=== PATIENT | male | born 1960 | race Caucasian/White ===

== ENCOUNTER 2023-08-29 09:43 | Outpatient (OUT) | payer OTHER, SELFPAY ==
[2023-08-29 10:16] LABS: Basophils Absolute Auto 0.1 10^3/uL (0.0-0.1); Basophils Percent Auto 0.8 % (0.2-2.0); Eosinophils Absolute Auto 0.1 10^3/uL (0.0-0.7); Eosinophils Percent Auto 1.3 % (0.9-7.0); Hematocrit 45.5 % (42.0-54.0); Hemoglobin 15.5 g/dL (14.0-18.0); Lymphocytes Absolute Auto 1.4 10^3/uL (1.2-3.8); Lymphocytes Percent Auto 14.2 % (20.5-60.0); Mean Corpuscular HGB Conc 34.1 g/dL (29.9-35.2); Mean Corpuscular Hemoglobin 29.1 pg (25.9-34.0); Mean Corpuscular Volume 85.4 fL (80.0-94.0); Mean Platelet Volume 9.7 fL (9.5-13.5); Monocytes Absolute Auto 0.8 10^3/uL (0.3-0.8); Monocytes Percent Auto 7.9 % (1.7-12.0); Neutrophils Absolute Auto 7.5 10^3/uL (1.4-6.5); Neutrophils Percent Auto 74.8 % (43.0-75.0); Platelet Count 200 10^3/uL (150-450); Red Blood Count 5.33 10^6/uL (4.70-6.10); Red Cell Distribution Width 13.8 % (11.0-15.0)
[2023-08-29 11:35] LABS: Alanine Aminotransferase 42 U/L (16-63); Albumin Level 3.5 g/dL (3.4-5.0); Alkaline Phosphatase 74 U/L (46-116); Anion Gap 13.8; Aspartate Amino Transferase 24 U/L (15-37); BUN Creatinine Ratio 10.7; Bilirubin Total 0.6 mg/dL (0.2-1.0); Calcium 8.4 mg/dL (8.5-10.1); Carbon Dioxide 26.2 mmol/L (21.0-32.0); Chloride 102 mmol/L (98-107); Estimated GFR (African America >60 (>=60); Estimated GFR (Non-African Ame >60 (>=60); Globulin 3.5 g/dL; Glucose 165 mg/dL (74-106); Sodium 138 mmol/L (136-145); Thyroid Stimulating Hormone 1.663 uIU/mL (0.358-3.740)
[2023-08-30 04:07] LABS: Prostate Specific Ag 4.5 ng/mL (0.0-4.0)
== END 2023-08-29 09:44 | disposition home or self-care (01) ==
PROVIDERS: PCP Family Medicine
DX: R06.02 Shortness of breath (principal); E11.9 Type 2 diabetes mellitus without complications; Z12.5 Encounter for screening for malignant neoplasm of prostate; R13.10 Dysphagia, unspecified
CPT/HCPCS: 36415; 80053; 83880; 84153; 84154; 84443; 85025

== ENCOUNTER 2023-09-04 09:01 | Outpatient (OUT) | payer OTHER, SELFPAY ==
--- NOTE | 2023-09-04 09:10 | US_ITS ---
The [address] [address] Patient Name: REBECA HERRON MRN: [id number] date: 1960 Sex: M Assigned Patient Location: US Current Patient Location: Accession/Order Number: [id number] Exam Date: 09/04/2023 09:15 Report Date: 09/05/2023 07:09 At the request of: NON-STAFF PHYSICIAN Procedure: US thyroid EXAMINATION: US thyroid HISTORY: Dysphagia R13.10 COMPARISON: No relevant comparison available. FINDINGS: RIGHT LOBE: Heterogeneous echotexture and contains an 11 mm TR 4 nodule within inferior pole, and an incidental 4 mm colloid cyst. Lobe size: 3.2 x 2.4 x 1.6 cm LEFT LOBE: Heterogeneous echotexture and contains a 9 mm TR 3 nodule within inferior pole. Lobe size: 3.9 x 1.5 x 1.3 cm ISTHMUS: Heterogeneous echotexture and mildly thickened; no nodules. Thickness: 5 mm US/US thyroid IMPRESSION: 1. Right lobe 11 mm TR 4 nodule, which border zone TR5. Ultrasound-guided biopsy should be considered. TR4 (moderately suspicious): If > 1.0 cm Follow-up ultrasound in 1, 2, 3, and 5 years. If > 1.5 cm fine needle aspiration (FNA). TR5 (highly suspicious) are listed below: > 0.5 cm. Annual ultrasound follow-up for up to 5 years. > 1.0 cm. FNA. Electronically authenticated by: BLANCA MAYEN Date: 09/05/2023 07:09
== END 2023-09-04 09:02 | disposition home or self-care (01) ==
LOC: US 09:01
PROVIDERS: PCP Family Medicine
DX: R13.10 Dysphagia, unspecified (principal); E04.1 Nontoxic single thyroid nodule
CPT/HCPCS: 76536

== ENCOUNTER 2023-11-10 09:58 | Outpatient (OUT) | payer OTHER, SELFPAY ==
--- OUTSIDE RECORDS SUMMARY | 2023-11-10 10:05 | XMS_ITS | CCD ---
Author Name Unknown Address [address] [place] [address] Organization [facility] Care Team Providers Care Machine Tool Dresser Name Role Phone Brittany Zuniga Unavailable TitaMarisa bright Unavailable CAROLINA PHAM Admitting Unavailable VERO, CAROLINA Attending Unavailable ESTRELLA, DR REEDER Primary Care Unavailable ESTRELLA, DR REEDER Attending Unavailable ESTRELAL, DR REEDER Admitting Unavailable ESTRELLA, DR REEDER Primary Care Unavailable ESTRELLA, DR REEDER Consulting Unavailable VEROCAROLINA Consulting Unavailable VERO, CAROLINA Attending Unavailable VERO, CAROLINA Admitting Unavailable ESTRELLA, DR REEDER Primary Care Unavailable VERO, CAROLINA Attending Unavailable VERO, CAROLINA Admitting Unavailable ESTRELLA, DR REEDER Primary Care Unavailable MD Dante Rangel Attending Provider MD Lilli Estrella Primary Care Provider [phone] Dante Rangel Admitting Unavailable Dante Rangel Attending Unavailable Lilli Estrella Primary Care Unavailable LANDON TITUS Referring Unavailable MURCELANDON Patricio Attending Unavailable WARCHOL, CAROLINA Attending Unavailable MAUROCELANDON Patricio Attending Unavailable WARCHOL, CAROLINA Referring Unavailable LILLI ESTRELLA Primary Care Physician [phone] Mario BERMUDEZ Attending Unavailable CAROLNIA PETER Referring Unavailable Mario BERMUDEZ Attending Unavailable Allergies Allergy Classification Reported Allergen(s) Allergy Type Date of Onset Reaction(s) Facility (4 sources) Ciprofloxacin; Translations: [ciprofloxacin] Drug Allergy 3 Swelling (morphologic abnormality) [facility] (3 sources) Ciprofloxacin; Translations: [Cipro] Drug Allergy 4 [facility] (1 source) Ciprofloxacin Drug Allergy 3 [facility] Medications Current Medications Medication Drug Class(es) Dates Sig (Normalized) Sig (Original) allopurinol 300 mg oral tablet (2 sources) Xanthine Oxidase Inhibitor Start: 11-03-2023 allopurinol 300 mg Tab Refills(s) 0 Start Date: 11/03/23 Status: Ordered Allopurinol Acti ve ALPRAZolam (2 sources) Benzodiazepine Xanax PRN Active Xanax Active ARIPiprazole (1 source) Atypical Antipsychotic Abilify A ctive atorvastatin (1 source) HMG-CoA Reductase Inhibitor Atorvastatin Calcium Active busPIRone hydrochloride 15 mg oral tablet (3 sources) Start: 11-03-2023 busPIRone 15 mg Tab Refills(s) 0 Start Date: 11/03/23 Status: Ordered busPIRone HCl Ac tive dextromethorphan hydrobromide 30 mg / pyrilamine maleate 30 mg oral tablet (1 source) Uncompetitive W-drdrkj-E-aspartate Receptor Antagonist, Sigma-1 Agonist Start: 12-28-2021 [place] DMT 30-30 MG 1 tablet Orally every 6-8 hours for 7 days Dec, Active doxycycline hyclate 100 mg oral capsule (1 source) Tetracycline-class Drug Start: 11-03-2023 End: 11-10-2023 take 1 capsule by mouth twice daily doxycycline hyclate 100 mg Cap 100 mg = 1 cap(s), Oral, BID, X 7 day(s), # 14 cap(s), Refills(s) 0, Pharmacy: [facility]/pharmacy #[id number], 175, cm, 11/03/23 10:32:00 EST, Height/Length Dosing, 112, kg, 11/03/23 10:32:00 EST, Weight Dosing Start Date: 11/03/23 Stop Date: 11/10/23 Status: Ordered FLUoxetine (3 sources) Serotonin Reuptake Inhibitor PROzac Active Fluoxetine Activ e glimepiride 2 mg oral tablet (1 source) Sulfonylurea Start: 11-03-2023 glimepiride 2 mg Tab Refills(s) 0 Start Date: 11/03/23 Status: Ordered metFORMIN (3 sources) Biguanide metFORMIN HCl Ac tive Metformin Active phentermine hydrochloride 37.5 mg oral tablet (1 source) Sympathomimetic Amine Anorectic Start: 11-03-2023 phentermine 37.5 mg Tab Refills(s) 0 Start Date: 11/03/23 Status: Ordered rOPINIRole 1 mg oral tablet (1 source) Nonergot Dopamine Agonist Start: 11-03-2023 ropinirole 1 mg Tab Refills(s) 0 Start Date: 11/03/23 Status: Ordered rosuvastatin calcium 5 mg oral tablet (2 sources) HMG-CoA Reductase Inhibitor Start: 11-03-2023 rosuvastatin 5 mg Tab Refills(s) 0 Start Date: 11/03/23 Status: Ordered Start: 06-02-2022 Rosuvastatin C alcium May, Active Completed/Discontinued Medications Medication Drug Class(es) Dates Sig (Normalized) Sig (Original) methylPREDNISolone (2 sources) Corticosteroid Start: 09-06-2018 Depo-Medrol 40 mg Aug, 60 mg Problems Active Problems Problem Classification Problem Date Documented Da te Episodic/Chronic Diabetes mellitus without complication (7 sources) Type 2 diabetes mellitus without complications; Translations: [Type 2 diabetes mellitus without complication] Onset: 07-27-2022 Chronic Disorders of lipid metabolism (1 source) Mixed hyperlipidemia; Translations: [MIXED HYPERLIPIDEMIA] Onset: 02-16-2023 Chronic Gout and other crystal arthropathies (1 source) Gout 11-03-2023 Chronic Hyperplasia of prostate (2 sources) Benign prostatic hypertrophy with outflow obstruction; Translations: [Benign prostatic hyperplasia with lower urinary tract symptoms] Onset: 11-03-2023 Chronic Mood disorders (1 source) Major depressive disorder 10-30-2023 Chronic Nutritional deficiencies (4 sources) Vitamin D deficiency, unspecified; Translations: [VITAMIN D DEFICIENCY UNSPECIFIED] Onset: 02-11-2023 Chronic Other lower respiratory disease (1 source) Cough; Translations: [Cough, unspecified type] Episodic Other screening for suspected conditions (not mental disorders or infectious disease) (4 sources) Other specified abnormal findings of blood chemistry; Translations: [Encounter for screening for malignant neoplasm of prostate] Onset: 07-31-2022 Episodic Screening and history of mental health and substance abuse codes (2 sources) H/O: Disorder; Translations: [Personal history of nicotine dependence] Onset: 11-03-2023 Episodic Thyroid disorders (1 source) Thyroid nodule 10-30-2023 Chronic Unclassified (1 source) Drug-induced tremor; Translations: [Drug-induced tremor] Onset: 04-03-2023 Past or Other Problems Problem Classification Problem Date Documented Da te Episodic/Chronic Immunizations and screening for infectious disease (1 source) Contact with and (suspected) exposure to other viral communicable diseases Onset: 12-28-2021 Resolved: 12-28-2021 Episodic Other upper respiratory infections (1 source) Acute upper respiratory infection, unspecified Onset: 12-28-2021 Resolved: 12-28-2021 Episodic Unclassified (1 source) Cough, unspecified type R05.9 Onset: 06-02-2022 Resolved: 06-02-2022 Viral infection (1 source) COVID-19 Onset: 06-02-2022 Resolved: 06-02-2022 Results Test Name Value Interpretation Reference Range Facility Consent for Procedure/Surger yon 11-04-2023 Consent for Procedure/Surgery [id number] #1.00TIFF [facility] Formson 11-04-2023 Forms [id number]# 1.00TIFF [facility] Physician Referralon 024 Physician Referral [id number] #1.00TIFF [facility] Ambulatory Visit Summaryon 0 11-03-2023 Ambulatory Visit Summary REBECA HERRON A :1960 Visit Date:11/03/2023 Ambulatory Visit Instructions Your Diagnosis Elevated PSA BPH with urinary obstruction Type 2 diabetes mellitus Former smoker Tests Performed Urnls Dip Stick Auto w/o Microscopy POC 80177 Your Care Team Attending Physician - JENNIFER HURTADO, Mario Houston Primary Care Physician - QUIRINO HURTADO, LILLI Referring Physician - CAROLINA GAMEZ This Is Your Medications List doxycycline (doxycycline hyclate 100 mg Cap) Contact prescribing physician if questions or concerns allopurinol (allopurinol 300 mg Tab) busPIRone (busPIRone 15 mg Tab) glimepiride (glimepiride 2 mg Tab) phentermine (phentermine 37.5 mg Tab) ropinirole (ropinirole 1 mg Tab) rosuvastatin (rosuvastatin 5 mg Tab) Procedures Performed Colonoscopy, Procedure on neck, Ts - Tonsillectomy. Discharge Vitals Heart Rate (Peripheral) 85 Respiratory Rate 16 Blood Pressure 135/89 Height 175 cm Height 69 in Weight 112 kg Weight 246.4 lb BMI 36.57 What to do next Scheduled Follow-Up Appointments Friday 8:45 AM EST With: JENNIFER HURTADO, Mario Houston Where: [facility] Patient Educationon 11-03-19 Patient Education Oncology Transrectal Ultrasound-Guided Prostate Biopsy, Care After The following information offers guidance on how to care for yourself after your procedure. Your health care provider may also give you more specific instructions. If you have problems or questions, contact your health care provider. What can I expect after the procedure? After the procedure, it is common to have: ? Pain and discomfort near your rectum, especially while sitting. ? Lagrange-colored urine due to small amounts of blood in your urine. ? A burning feeling while urinating. ? Blood in your stool (feces) or bleeding from your rectum. ? Blood in your semen. Follow these instructions at home: Medicines ? Take kgvc-pnx-jjdgzik and prescription medicines only as told by your health care provider. ? If you were given a sedative during your procedure, it can affect you for several hours. Do not drive or operate machinery until your health care provider says that it is safe. ? If you were prescribed an antibiotic medicine, take it as told by your health care provider. Do not stop using the antibiotic even if you start to feel better. Activity ? Return to your normal activities as told by your health care provider. Ask your health care provider what activities are safe for you. ? Ask your health care provider when it is okay for you to resume sexual activity. ? You may have to avoid lifting. Ask your health care provider how much you can safely lift. General instructions ? Drink enough fluid to keep your urine pale yellow. ? Watch your urine, stool, and semen for new or increased bleeding. ? Keep all follow-up visits. This is important. Contact a health care provider if: ? You have any of the following: ? Blood clots in your urine or stool. ? Blood in your urine more than 2 weeks after the procedure. ? Blood in your semen more than 2 months after the procedure. ? New or increased bleeding in your urine, stool, or semen. ? Severe pain in your abdomen. ? Your urine smells bad or unusual. ? You have trouble urinating. ? Your lower abdomen feels firm. ? You have problems getting an erection. ? You have nausea or you vomit. Get help right away if: ? You have a fever or chills. This could be a sign of infection. ? You have bright red urine. ? You have severe pain that does not get better with medicine. ? You cannot urinate. Summary ? After this procedure, it is common to have pain and discomfort around your rectum, especially while sitting. ? You may have blood in your urine and stool after the procedure. ? It is common to have blood in your semen after this procedure. ? Get help right away if you have a fever or chills. This could be a sign of infection. This information is not intended to replace advice given to you by your health care provider. Make sure you discuss any questions you have with your health care provider. Document Revised: 04/08/2022 Document Reviewed: 04/08/2022 [employer] Patient Education ? 2022 [email or web address]. Transrectal Ultrasound-Guided Prostate Biopsy A transrectal ultrasound-guided prostate biopsy is a procedure to remove samples of prostate tissue for testing. The prostate is a walnut-sized gland that is located below the bladder and in front of the rectum. During this procedure, a small device (probe) is lubricated and put inside the rectum. The probe sends out sound waves that make a picture of the prostate and surrounding tissues (transrectal ultrasound). The images are used to help guide the process of removing the samples. The samples are taken to a lab to be checked for prostate cancer. This procedure is usually done to evaluate the prostate gland of men who have raised (elevated) levels of prostate-specific antigen (PSA), which can be a sign of prostate cancer or prostate enlargement related to aging (benign prostatic hyperplasia, or BPH). Tell a health care provider about: ? Any allergies you have. ? All medicines you are taking, including vitamins, herbs, eye drops, creams, and uqrz-fve-fgrbpcx medicines. ? Any problems you or family members have had with anesthetic medicines. ? Any bleeding problems you have. ? Any surgeries you have had. ? Any medical conditions you have. ? Any prostate infections you have had. What are the risks? Generally, this is a safe procedure. However, problems may occur, including: ? Prostate infection. ? Bleeding from the rectum. ? Blood in the urine. ? Allergic reactions to medicines. ? Damage to surrounding structures such as blood vessels, organs, or muscles. ? Difficulty passing urine. ? Nerve damage. This is usually temporary. What happens before the procedure? Medicines Ask your health care provider about: ? Changing or stopping your regular medicines. This is especially important if you are taking diabetes medicines or blood thinners. ? Taking medicines such as aspirin (more content not included)... Normal [facility] Urology Office/Clinic Noteon 11-03-2023 Urology Office/Clinic Note Chief Complaint elevated PSA HPI Staff Evaluation requested by Carolina Peter RAIL CAR WELDER due to elevated PSA. Pt is a new pt. Never before seen in our office. (Verified on DA) PSA 01/08/20- 2.47 09/15/21- 1.71 07/27/22- 3.35 08/29/23- 4.5 & 15.6% Dysuria: no Incomplete bladder emptying: no Hematuria: no Frequency: no Urgency: no Nocturia: 1-2x Stream: no straining some intermittency Leaking: no Post void dripping: no Wearing pads/ Depends: no Urge incontinence: no Stress incontinence: no Incontinence without Sensory Awareness: no Abdominal pain: no Flank pain: no Sexual complaints: no History of Present Illness Tests reviewed: reviewed UA, referral records, PSAs I have reviewed the previous health record information and history for this patient from external providers. I have reviewed and verified the staff HPI to be accurate for this encounter. Review of Systems PHQ Score Initial Depression Screen Score: 0 SCORE ROS - Provider Constitutional: denies weight loss, denies hot flashes. Eyes: denies eye problems. Gastrointestinal: denies nausea, denies vomiting. Cardiovascular: denies chest pain or angina. Integumentary: no dryness Musculoskeletal: denies musculoskeletal symptoms. ENMT: denies otolaryngeal symptoms. Respiratory: no shortness of breath. Heme/Lymph: denies easy bleeding tendency, denies easy bruising tendency. Psychiatric: no confusion, no anxiety. Genitourinary: See HPI. Physical Exam Vitals & Measurements HR: 85(Peripheral) RR: 16 BP: 135/89 HT: 69 in HT: 175 cm WT: 112 kg WT: 246.4 lb BMI: 36.57 General Appearance: alert, no distress, well nourished, well developed male. Head: normocephalic . Eyes: normal orbit and globe. ENMT: normal examination of external ears. Chest: Lungs CTA, respirations non labored. Cardiovascular: regular rate and rhythm. Abdomen: soft, non distended, no tenderness, no mass or organomegaly, no hernia. Genitourinary: normal scrotum, normal testes, normal urethra, normal epididymis, normal vas deferens/spermatic cord. Flank Pain: none. Bladder: nonpalpable. Penis: normal shaft, normal glans. Prostate: normal prostate, estimated weight 45 gms, no hard nodule observed. Lymph Nodes: unremarkable palpation of the cervical area. Skin: warm, dry, no bruising. Psychiatric: cooperative, affect appropriate for age, normal judgement, euthymic mood. Assessment/Plan Rebeca is a 63 yo male new pt referred by Carolina Peter NP for elevated PSA. 1. Elevated PSA (R97.20: Elevated prostate specific antigen [PSA]) PSA 01/08/20 - 2.47 09/15/21 - 1.71 07/27/22 - 3.35 08/29/23 - 4.5 & 15.6% No known fam hx of prostate ca. IMRIAM: 45gms, benign Discussed PSA levels. Has increased over the past few years. The importance of the rate of PSA rise has been discussed. He has an elevated PSA, which could indicate prostate cancer, prostate infection, prostate inflammation without infection, prostate manipulation, or benign prostate enlargement (BPH). The options for management have been discussed, including prostate biopsy versus close monitoring of the PSA over time. -Will schedule TRUS of Prostate with Biopsy. The procedural risks, benefits, details, and treatment alternatives have been discussed with the patient. These include minimal to severe bleeding, infection, blood in the semen, inability to urinate, and severe infection requiring hospitalization and IV antibiotics, among others. Full informed consent has been obtained. Will order Mac anesthesia. 2. BPH with urinary obstruction (N40.1: Benign prostatic hyperplasia with lower urinary tract symptoms) Occasional start/stop stream. Rarely gets up 1-2x/night. Does not feel his urinary sxs are bothersome enough to warrant treatment. 3. Type 2 diabetes mellitus (E11.9: Type 2 diabetes mellitus without complications) UA today shows >=1000mg/dL glucose. 4. Former smoker (Z87.891: Personal history of nicotine dependence) Quit 34 yrs ago. Risk factor for urothelial ca. Follow-up With When Contact Information Mario BERMUDEZ MD, URL [facility] [address] [place] [address] [phone] Additional Instructions: sched TRUS/bx Patient Education Transrectal Ultrasound-Guided Prostate Biopsy, Care After Transrectal Ultrasound-Guided Prostate Biopsy IAngela, personally scribed for Dr. Bermudez on 11/03/2023 11:18:49. . Documentation recorded by the scribe, Angela Pearce, accurately reflects the services(s) I performed and decisions made by me. Authenticated by Dr. Bermudez on 11/03/2023 11:23:18. Problem List/Past Medical History Ongoing BPH with urinary obstruction Elevated PSA Former smoker Gout Major depressive disorder Thyroid nodule Type 2 diabetes mellitus Historical No qualifying data Procedure/Surgical History Colonoscopy, Procedure on neck, Ts - Tonsillectomy. Medications allopurinol 3 (more content not included)... Normal [facility] Comment on above: Result Comment: Elec tronically Signed By: Mario BERMUDEZ MD\.br\Date and Time Signed: 11/03/23 11:23 EST\.br\Electronically Co-Signed By: Angela Pearce\.br\Date and Time Co-Signed: 11/03/23 11:[address] SOFT TISSUE NECK W IV CON TRASTon 10-22-2023 CT SOFT TISSUE NECK W IV CONTRAST CLINICAL HISTORY: Bilateral upper neck masses COMPARISON: NONE. TECHNIQUE: Multiple images axial images were obtained after IV contrast administration. 3-D sagittal and coronal reconstructions were performed. All CT scans at this facility use dose modulation, iterative reconstruction, and/or weight based dosing when appropriate to reduce radiation dose to as low as reasonably achievable. FINDINGS: The visualized intracranial portions are within normal limits. The orbits demonstrate no intra or extraconal lesions, the globes are intact. The paranasal sinuses are well aerated. There are no lytic or sclerotic bone lesions. There is no fracture or subluxation. The cervical spine is within normal limits. The visualized portions of the lung apices are unremarkable. The nasopharynx and oropharynx are within normal limits. There is no asymmetry or space-occupying lesions. There is mild prominence of the lingual tonsil. The epiglottis is not enlarged. The vallecula are symmetric. The false and true vocal cords are unremarkable. The trachea is patent. There is no cervical lymphadenopathy. There are no areas of abnormal enhancement after IV contrast administration. The bilateral parotid glands and submandibular glands are normal in size and attenuation. The thyroid gland is within normal limits. The great vessels of the neck are mildly tortuous which may be secondary to chronic hypertension. There is a partially retropharyngeal course of the bilateral common carotid arteries. Status post C5-6 and C6-7 discectomies and spacer placement. There is posterior decompression of the cervical spine from C4-C7. IMPRESSION: THERE ARE NO ACUTE CHANGES. THERE ARE NO SOLID OR CYSTIC LESIONS. THERE IS MILD LYMPHADENOPATHY OR AREA OF ABNORMAL ENHANCEMENT. THERE IS MILD PROMINENCE OF THE LINGUAL TONSIL WHICH IS NONSPECIFIC AND MAY BE DUE TO INFECTION, INFLAMMATION. . ELECTRONICALLY SIGNED BY: Joe Jones MD Normal Not Available Comment on above: Order Comment: @noms HI brain spect datscanon HI brain spect datscan [facility] [place] [address] [place] [address] Nuclear Medicine Report Signed Patient: Rebeca Herron MR#: [id number] 32 : 1960 Acct:[id number] Age/Sex: 62 / M ADM Date: 04/03/23 Loc: [place] Room: Type: [facility] Attending Dr: Dante Rangel MD Copies to: MD Calvin Randall II, MD Ordering Provider: Dante Rangel MD Date of Service: 04/03/23 HI/HI brain spect datscan: R25.1 HI brain spect datscan 04/03/2023 7:57 AM SIGNS AND SYMPTOMS: Tremors in right hand PROTOCOL: Following injection of I-123 Ioflupane, SPECT images of the head were obtained and reconstructed in axial plane. Radiopharmaceutical Dose: 5.69 mCi of I-123 Ioflupane COMPARISON: None. FINDINGS: There is asymmetric decreased accumulation of radiotracer material within the right globus pallidus compared to the left. There is symmetric radiotracer accumulation within the Caudate nucleus bilaterally. NM/NM brain spect datscan IMPRESSION: There is asymmetric decreased accumulation of radiotracer material within the right globus pallidus compared to the left. Impression dictated by: Calvin Monreal M.D.04/03/2023 2:43 PM Dictation Location: [place] [address] Transcribed By: [facility] 04/03/23 144 Dictated By: Calvin Monreal II, MD 04/03/231440 Signed By: 04/03/231442 [facility] CBC AUTO DIFFon 02-11-2023 BASO # 0.1 103/ul Normal 0.0-0.1 [facility] Comment on above: Performed By: #### C BC #### [facility] [address] [place] [address] Dr. Cedrick Beatty Basophils/100 WBC (Bld) 0.5 % Normal 0.2-2.0 [facility] Comment on above: Performed By: #### C BC #### [facility] [address] [place] [address] Dr. Cedrick Beatty EO # 0.1 103/ul Normal 0.0-0.7 [facility] Comment on above: Performed By: #### C BC #### [facility] [address] [place] [address] Dr. Cedrick Beatty Eosinophils/100 WBC (Bld) 0.9 % Normal 0.9-7.0 [facility] Comment on above: Performed By: #### C BC #### [facility] [address] [place] [address] Dr. Cedrick Beatty Erythrocyte distribution width (RBC) [Ratio] 13.6 % Normal 11.0-15.0 [facility] Comment on above: Performed By: #### C BC #### [facility] [address] [place] [address] Dr. Cedrick Beatty Hematocrit (Bld) [Volume fraction] 48.6 % Normal 42.0-54.0 [facility] Comment on above: Performed By: #### C BC #### [facility] [address] [place] [address] Dr. Cedrick Beatty Hemoglobin (Bld) [Mass/Vol] 16.5 g/dL Normal 14.0-18.0 [facility] Comment on above: Performed By: #### C BC #### [facility] [address] [place] [address] Dr. Cedrick Beatty IG # 0.14 10e3/ul Critically high 0.00-0.03 [facility] Comment on above: Performed By: #### C BC #### [facility] [address] [place] [address] Dr. Cedrick Beatty IG % 1.1 % Critically high 0.0-0.5 [facility] Comment on above: Performed By: #### C BC #### [facility] [address] [place] [address] Dr. Cedrick Beatty LYMPH # 1.6 103/ul Normal 1.2-3.8 [facility] Comment on above: Performed By: #### C BC #### [facility] [address] [place] [address] Dr. Cedrick Beatty Lymphocytes/100 WBC (Bld) 12.5 % Critically low 20.5-60.0 [facility] Comment on above: Performed By: #### C BC #### [facility] [address] [place] [address] Dr. Cedrick Beatty MANUAL DIFF REQ NO Normal [facility] [facility] Comment on above: Performed By: #### C BC #### [facility] [address] [place] [address] Dr. Cedrick Beatty MCH (RBC) [Entitic mass] 28.5 pg Normal 25.9-34.0 [facility] Comment on above: Performed By: #### C BC #### [facility] [address] [place] [address] Dr. Cedrick Beatty MCHC (RBC) [Mass/Vol] 34.0 g/dL Normal 29.9-35.2 [facility] Comment on above: Performed By: #### C BC #### [facility] [address] [address] [address] Cedrick Beatty MCV (RBC) [Entitic vol] 84.1 fL Normal 80.0-94.0 [facility] Comment on above: Performed By: #### C BC #### [facility] [address] [address] [address] Cedrick Beatty MONO # 1.0 103/ul Critically high 0.3-0.8 [facility] Comment on above: Performed By: #### C BC #### [facility] [address] [place] [address] Dr. Cedrick Beatty Monocytes/100 WBC (Bld) 7.7 % Normal 1.7-12.0 [facility] Comment on above: Performed By: #### C BC #### [facility] [address] [place] [address] Dr. Cedrick Beatty NEUT # 10.0 103/ul Critically high 1.4-6.5 [facility] Comment on above: Performed By: #### C BC #### [facility] [address] [place] [address] Dr. Cedrick Beatty Neutrophils/100 WBC (Bld) 77.3 % Critically high 43.0-75.0 [facility] Comment on above: Performed By: #### C BC #### [facility] [address] [place] [address] Dr. Cedrick Beatty Platelet mean volume (Bld) [Entitic vol] 9.0 fL Critically low 9.5-13.5 [facility] Comment on above: Performed By: #### C BC #### [facility] [address] [place] [address] Dr. Cedrick Beatty PLT 231 103/ul Normal 150-450 [facility] Comment on above: Performed By: #### C BC #### [facility] [address] [place] [address] Dr. Cedrick Beatty RBC 5.78 106/ul Normal 4.70-6.10 [facility] Comment on above: Performed By: #### C BC #### [facility] [address] [address] [address] Cedrick Beatty WBC 12.9 103/ul Critically high 4.0-11.0 [facility] Comment on above: Performed By: #### C BC #### [facility] [address] [address] [address] Cedrick Beatty GLYCOHEMOGLOBIN A1Con 2022 ADA RECOMMENDATION SEE BELOW Normal [facility] Comment on above: Result Comment: ADA RECOMMENDED LIMIT 4.0 - 6.0 ADA THERAPEUTIC TARGET < 7.0 ACTION SUGGESTED > 7.0 Performed By: #### A 1C #### [facility] [address] [place] [address] Dr. Cedrick Beatty Glucose [Mass/Vol] 146 mg/dL Normal [facility] Comment on above: Performed By: #### A 1C #### [facility] [address] [place] [address] Dr. Cedrick Beatty HbA1c (Bld) [Mass fraction] 6.7 % Critically high 4.5-6.2 [facility] Comment on above: Performed By: #### A 1C #### [facility] [address] [place] [address] Dr. Cedrick Beatty LIPID PROFILEon 02-11-2023 CHOL-HDL RATIO NORM SEE BELOW Normal [facility] Comment on above: Result Comment: 3.3 - 4.4 LOW RISK 4.4 - 7.1 AVERAGE RISK 7.1 - 11.0 MODERATE RISK >11.0 HIGH RISK Performed By: #### C MP, LIPID #### [facility] [address] [address] [address] Cedrick Beatty Cholesterol [Mass/Vol] 130 mg/dL Normal <=200 [facility] Comment on above: Performed By: #### C MP, LIPID #### [facility] [address] [address] [address] Cedrick Beatty Cholesterol in HDL [Mass/Vol] 56 mg/dL Normal 40-60 [facility] Comment on above: Performed By: #### C MP, LIPID #### [facility] [address] [address] [address] Cedrick Beatty Cholesterol in LDL [Mass/Vol] 49.4 mg/dL Normal [facility] Comment on above: Performed By: #### C MP, LIPID #### [facility] [address] [place] [address] Dr. Cedrick Beatty Cholesterol.total/Ch olesterol in HDL [Mass ratio] 2.3 {ratio} Normal [facility] Comment on above: Performed By: #### C MP, LIPID #### [facility] [address] [place] [address] Dr. Cedrick Beatty HDL NORMAL > or = 60 mg/dl - LOW CARDIOVASCULAR RISK <40 mg/dl - HIGH CARDIOVASCULAR RISK Normal [facility] Comment on above: Performed By: #### C MP, LIPID #### [facility] [address] [place] [address] Dr. Cedrick Beatty LDL CALC NORMAL SEE BELOW Normal [facility] Comment on above: Result Comment: <100 mg/dl OPTIMAL 100 - 129 mg/dl NEAR OR ABOVE OPTIMAL 130 - 159 mg/dl BORDERLINE HIGH 160 - 189 mg/dl HIGH >190 mg/dl VERY HIGH Performed By: #### C MP, LIPID #### [facility] [address] [place] [address] Dr. Cedrick Beatty Triglyceride [Mass/Vol] 123 mg/dL Normal <=150 [facility] Comment on above: Performed By: #### C MP, LIPID #### [facility] [address] [place] [address] Dr. Cedrick Beatty VLDL CALC 24.6 mg/dL Normal [facility] Comment on above: Performed By: #### C MP, LIPID #### [facility] [address] [place] [address] Dr. Cedrick Beatty MICROALB CREAT RATIO RANDOMo n 02-11-2023 mALB 1.3 mg/L Normal <=30.0 [facility] Comment on above: Performed By: #### M CRR #### [facility] [address] [address] [address] Cedrick Beatty MALB CR RATIO 6.9 mg/g Normal 0.0-29.9 [facility] Comment on above: Performed By: #### M CRR #### [facility] [address] [address] [address] Cedrick Beatty MALB CR RATIO RANGE SEE BELOW Normal [facility] Comment on above: Result Comment: NO M ICROALBUMINURIA 0-29 MG/G CLINICAL MICROALBUMINURIA 30-300 MG/G MACROALBUMINURIA >300 MG/G Performed By: #### M CRR #### [facility] [address] [address] [address] Cedrick Beatty URINE CREAT 187.43 mg/dL Normal 20.00-300.00 [facility] Comment on above: Performed By: #### M CRR #### [facility] [address] [address] [address] Cedrick Beatty PROF 14(COMP METB)on 023 Albumin [Mass/Vol] 4.0 g/dL Normal 3.4-5.0 [facility] Comment on above: Performed By: #### C MP, LIPID #### [facility] [address] [address] [address] Cedrick Beatty Albumin/Globulin [Mass ratio] 1.0 {ratio} Normal [facility] Comment on above: Performed By: #### C MP, LIPID #### [facility] [address] [address] [address] Cedrick Beatty ALP [Catalytic activity/Vol] 99 U/L Normal 46-116 [facility] Comment on above: Performed By: #### C MP, LIPID #### [facility] [address] [address] [address] Cedrick Beatty ALT [Catalytic activity/Vol] 40 U/L Normal 16-63 [facility] Comment on above: Performed By: #### C MP, LIPID #### [facility] [address] [address] [address] Cedrick Beatty Anion gap [Moles/Vol] 13.6 mmol/L Normal [facility] Comment on above: Performed By: #### C MP, LIPID #### [facility] [address] [address] [address] Cedrick Beatty AST [Catalytic activity/Vol] 18 U/L Normal 15-37 [facility] Comment on above: Performed By: #### C MP, LIPID #### [facility] [address] [address] [address] Cedrick Beatty Bilirubin [Mass/Vol] 0.7 mg/dL Normal 0.2-1.0 [facility] Comment on above: Performed By: #### C MP, LIPID #### [facility] [address] [place] [address] Dr. Cedrick Beatty Calcium [Mass/Vol] 9.5 mg/dL Normal 8.5-10.1 [facility] Comment on above: Performed By: #### C MP, LIPID #### [facility] [address] [place] [address] Dr. Cedrick Beatty Chloride [Moles/Vol] 99 mmol/L Normal 98-107 [facility] Comment on above: Performed By: #### C MP, LIPID #### [facility] [address] [place] [address] Dr. Cedrick Beatty CO2 [Moles/Vol] 28.7 mmol/L Normal 21.0-32.0 [facility] Comment on above: Performed By: #### C MP, LIPID #### [facility] [address] [place] [address] Dr. Cedrick Beatty Creatinine [Mass/Vol] 1.00 mg/dL Normal 0.70-1.30 [facility] Comment on above: Performed By: #### C MP, LIPID #### [facility] [address] [place] [address] Dr. Cedrick Beatty EGFR-AF [place]I >60 Normal >=60 [facility] Comment on above: Performed By: #### C MP, LIPID #### [facility] [address] [place] [address] Dr. Cedrick Beatty EGFR-NON AF [place] >60 Normal >=60 [facility] Comment on above: Performed By: #### C MP, LIPID #### [facility] [address] [address] [address] Cedrick Beatty Globulin (S) [Mass/Vol] 3.9 g/dL Normal [facility] Comment on above: Performed By: #### C MP, LIPID #### [facility] [address] [address] [address] Cedrick Beatty Glucose [Mass/Vol] 137 mg/dL Critically high 74-106 [facility] Comment on above: Performed By: #### C MP, LIPID #### [facility] [address] [address] [address] Cedrick Beatty Potassium [Moles/Vol] 4.3 mmol/L Normal 3.5-5.1 [facility] Comment on above: Performed By: #### C MP, LIPID #### [facility] [address] [address] [address] Cedrick Beatty Protein [Mass/Vol] 7.9 g/dL Normal 6.4-8.2 [facility] Comment on above: Performed By: #### C MP, LIPID #### [facility] [address] [address] [address] Cedrick Beatty Sodium [Moles/Vol] 137 mmol/L Normal 136-145 [facility] Comment on above: Performed By: #### C MP, LIPID #### [facility] [address] [address] [address] Cedrick Beatty Urea nitrogen [Mass/Vol] 13.0 mg/dL Normal 7.0-18.0 [facility] Comment on above: Performed By: #### C MP, LIPID #### [facility] [address] [address] [address] Cedrick Beatty Urea nitrogen/Creatinine [Mass ratio] 13.0 mg/mg Normal [facility] Comment on above: Performed By: #### C MP, LIPID #### [facility] [address] [address] [address] Cedrick Beatty VITAMIN D 25 OHon 02-11-2023 VIT D 25-OH 12.9 ng/mL Normal [facility] Comment on above: Performed By: #### V ITAD #### [facility] [address] [place] [address] Dr. Cedrick Beatty VIT D RANGES SEE BELOW Normal [facility] Comment on above: Result Comment: <20 ng/mL Vit D deficient 20 - <30 ng/mL Vit D insufficient 30 - 100 ng/mL Vit D sufficient >100 ng/mL Potential Toxicity Performed By: #### V ITAD #### [facility] [address] [place] [address] Dr. Cedrick Beatty CBC AUTO DIFFon 07-27-2022 BASO # 0.0 103/ul Normal 0.0-0.1 [facility] Comment on above: Performed By: #### C BC #### [facility] [address] [place] [address] Dr. Cedrick Beatty Basophils/100 WBC (Bld) 0.4 % Normal 0.2-2.0 [facility] Comment on above: Performed By: #### C BC #### [facility] [address] [place] [address] Dr. Cedrick Beatty EO # 0.0 103/ul Normal 0.0-0.7 [facility] Comment on above: Performed By: #### C BC #### [facility] [address] [place] [address] Dr. Cedrick Beatty Eosinophils/100 WBC (Bld) 0.4 % Critically low 0.9-7.0 [facility] Comment on above: Performed By: #### C BC #### [facility] [address] [place] [address] Dr. Cedrick Beatty Erythrocyte distribution width (RBC) [Ratio] 13.8 % Normal 11.0-15.0 [facility] Comment on above: Performed By: #### C BC #### [facility] [address] [place] [address] Dr. Cedrick Beatty Hematocrit (Bld) [Volume fraction] 46.0 % Normal 42.0-54.0 [facility] Comment on above: Performed By: #### C BC #### [facility] [address] [address] [address] Cedrick Beatty Hemoglobin (Bld) [Mass/Vol] 15.5 g/dL Normal 14.0-18.0 [facility] Comment on above: Performed By: #### C BC #### [facility] [address] [address] [address] Cedrick Beatty IG # 0.09 10e3/ul Critically high 0.00-0.03 [facility] Comment on above: Performed By: #### C BC #### [facility] [address] [address] [address] Cedrick Beatty IG % 1.0 % Critically high 0.0-0.5 [facility] Comment on above: Performed By: #### C BC #### [facility] [address] [place] [address] Dr. Cedrick Beatty LYMPH # 1.5 103/ul Normal 1.2-3.8 [facility] Comment on above: Performed By: #### C BC #### [facility] [address] [place] [address] Dr. Cedrick Beatty Lymphocytes/100 WBC (Bld) 16.2 % Critically low 20.5-60.0 [facility] Comment on above: Performed By: #### C BC #### [facility] [address] [place] [address] Dr. Cedrick Beatty MANUAL DIFF REQ NO Normal [facility] Comment on above: Performed By: #### C BC #### [facility] [address] [address] [address] Cedrick Beatty MCH (RBC) [Entitic mass] 29.0 pg Normal 25.9-34.0 [facility] Comment on above: Performed By: #### C BC #### [facility] [address] [place] [address] Dr. Cedrick Beatty MCHC (RBC) [Mass/Vol] 33.7 g/dL Normal 29.9-35.2 [facility] Comment on above: Performed By: #### C BC #### [facility] [address] [place] [address] Dr. Cedrick Beatty MCV (RBC) [Entitic vol] 86.1 fL Normal 80.0-94.0 [facility] Comment on above: Performed By: #### C BC #### [facility] [address] [place] [address] Dr. Cedrick Beatty MONO # 0.7 103/ul Normal 0.3-0.8 [facility] Comment on above: Performed By: #### C BC #### [facility] [address] [place] [address] Dr. Cedrick Beatty Monocytes/100 WBC (Bld) 7.9 % Normal 1.7-12.0 [facility] Comment on above: Performed By: #### C BC #### [facility] [address] [place] [address] Dr. Cedrick Beatty NEUT # 6.8 103/ul Critically high 1.4-6.5 [facility] Comment on above: Performed By: #### C BC #### [facility] [address] [place] [address] Dr. Cedrick Beatty Neutrophils/100 WBC (Bld) 74.1 % Normal 43.0-75.0 [facility] Comment on above: Performed By: #### C BC #### [facility] [address] [place] [address] Dr. Cedrick Beatty Platelet mean volume (Bld) [Entitic vol] 8.7 fL Critically low 9.5-13.5 [facility] Comment on above: Performed By: #### C BC #### [facility] [address] [place] [address] Dr. Cedrick Beatty PLT 193 103/ul Normal 150-450 [facility] Comment on above: Performed By: #### C BC #### [facility] [address] [place] [address] Dr. Cedrick Beatty RBC 5.34 106/ul Normal 4.70-6.10 [facility] Comment on above: Performed By: #### C BC #### [facility] [address] [place] [address] Dr. Cedrick Beatty WBC 9.1 103/ul Normal 4.0-11.0 [facility] Comment on above: Performed By: #### C BC #### [facility] [address] [address] [address] Cedrick Beatty GLYCOHEMOGLOBIN A1Con 2021 ADA RECOMMENDATION SEE BELOW Normal [facility] Comment on above: Result Comment: ADA RECOMMENDED LIMIT 4.0 - 6.0 ADA THERAPEUTIC TARGET < 7.0 ACTION SUGGESTED > 7.0 Performed By: #### A 1C #### [facility] [address] [place] [address] Dr. Cedrick Beatty Glucose [Mass/Vol] 148 mg/dL Normal [facility] Comment on above: Performed By: #### A 1C #### [facility] [address] [place] [address] Dr. Cedrick Beatty HbA1c (Bld) [Mass fraction] 6.8 % Critically high 4.5-6.2 [facility] Comment on above: Performed By: #### A 1C #### [facility] [address] [place] [address] Dr. Cedrick Beatty COVID/FLU RT-PCRon 2 SARS-CoV-2 (COVID-19) RNA CHEY+probe Ql (Unsp spec) Positive [employer] Other COVID/FLU RT-PCR Negative [employer] Other COVID/FLU RT-PCR [employer] Other Quick Fluon 12-28-2021 FLUAV Ab CF (S) [Titer] Negative [employer] Other FLUBV Ab CF (S) [Titer] Negative [employer] Other Vital Signs Date Time Vital Sign Value Performing Clinician Facility 11-03-2023 10:05-0500 Blood Pressure Location Mario BERMUEDZ [facility] 11-03-2023 10:05-0500 Diastolic blood pressure 89 mm[Hg] Mario BERMUDEZ [facility] 11-03-2023 10:05-0500 Heart rate 85 /min Mario BERMUDEZ [facility] 11-03-2023 10:05-0500 Respiratory rate 16 /min Mario BERMUDEZ [facility] 11-03-2023 10:05-0500 Systolic blood pressure 135 mm[Hg] Mario BERMUDEZ [facility] 06-02-2022 15:05-0400 Body height 175.26 cm Marisa Rivers Other [employer] Other 06-02-2022 15:05-0400 Body mass index (BMI) [Ratio] 31.75 kg/m2 Marisa Rivers Other [employer] Other 06-02-2022 15:05-0400 Body temperature 97.8 [degF] Marisa Rivers Other [employer] Other 06-02-2022 15:05-0400 Body weight 97.52 kg Marisa Rivers Other [employer] Other 06-02-2022 15:05-0400 Respiratory rate 18 /min Marisa Rivers Other [employer] Other 06-02-2022 15:05-0400 SaO2% (BldA) [Mass fraction] 94 % Marisa Rivers Other [employer] Other 12-28-2021 11:55-0500 Body height 175.26 cm Brittany Zuniga Other [employer] Other 12-28-2021 11:55-0500 Body mass index (BMI) [Ratio] 31.01 kg/m2 Brittany Zuniga Other [employer] Other 12-28-2021 11:55-0500 Body temperature 97.7 [degF] Brittany Zuniga Other [employer] Other 12-28-2021 11:55-0500 Body weight 95.26 kg Brittany Zuniga Other [employer] Other 12-28-2021 11:55-0500 Diastolic blood pressure 96 mm[Hg] Brittany Zuniga Other [employer] Other 12-28-2021 11:55-0500 SaO2% (BldA) [Mass fraction] 95 % Brittany Zuniga Other [employer] Other 12-28-2021 11:55-0500 Systolic blood pressure 139 mm[Hg] Brittany Zuniga Other [employer] Other Encounters Encounter Date Encounter Type Care Provider Facility Start: 12-01-2023 ambulatory Mario BERMUDEZ Facili ty:[facility] Start: 11-03-2023 End: 11-04-2023 ambulatory CAROLINA PETER Facility:[facility] Start: 11-03-2023 End: 11-03-2023 Patient encounter procedure Mario BERMUDEZ [facility] Start: 10-30-2023 End: 10-30-2023 ambulatory CAROLINA WARDELIA Not Available Start: 10-28-2023 End: 10-28-2023 ambulatory LANDON TITUS Not Available Start: 10-22-2023 End: 10-23-2023 ambulatory LANDON TITUS Not Available Start: 10-07-2023 End: 10-07-2023 ambulatory LANDON TITUS Not Available Start: 09-15-2023 ambulatory Mario BERMUDEZ Facility :[facility] Start: 04-03-2023 End: 04-03-2023 ambulatory Dante Rangel Facility:[facility] Start: 04-03-2023 End: 04-03-2023 ambulatory MD Lilli Estrella Work Phone: [facility] Work Phone: Start: 04-03-2023 End: 04-03-2023 Patient encounter procedure MD Lilli Estrella Work Phone: [facility] Work Phone: Start: 02-11-2023 End: 02-12-[address] LILLI ESTRELLA Facility:[facility] Start: 08-02-2022 ambulatory CAROLINA PHAM Facility:[facility] Start: 07-27-2022 End: 07-28-2022 ambulatory CAROLINA PHAM Facility:[facility] Start: 06-02-2022 End: 06-02-2022 ambulatory Marisa Rivers Other [employer] Other Start: 06-02-2022 Office outpatient vi sit 15 minutes Marisabennett Rivers [facility] Start: 04-11-2022 ambulatory CAROLINA PHAM Facility:[facility] Start: 12-28-2021 End: 12-28-2021 ambulatory Brittany Zuniga Other [employer] Other Start: 12-28-2021 Office outpatient vi sit 15 minutes Brittany Zuniga [facility] Procedures Date Procedure Procedure Detail Performing Clinician Start: 04-03-2023 NM brain spect datsctoya Estrella Work Phone: Start: 07-27-2022 PSA screening CAROLINA ALLISON [facility] Comment on above: Performed By: #### [facility] #### [facility] [address] [place] [address] Dr. Cedrick Beatty Colonoscopy Mario BERMUDEZ Procedure on neck Mario MALAGON Tonsillectomy Mario BERMUDEZ Payers Date Payer Category Payer Self-pay 1961 Unknown [id number] 1961 Unknown [id number] 1960 Unknown [id number] 2.16.84 [id number] 1960 Unknown [id number] 2.16.84 [id number] 1958 Unknown [id number] 2.16.84 [id number] 1958 Unknown [id number] 2.16.84 [id number] 1958 Unknown [id number] [id number] 1958 Unknown [id number] 2.16.840 [id number] 1958 Unknown [id number] [id number] 1958 Unknown [id number] 2.16.840 .[id number] 1958 Unknown [id number] 2.16.8 [id number] 1958 Unknown [id number] 2.16.8 [id number] Unknown [id number] 2.16.8 [id number] Social History Date Type Detail Facility Unknown if ever smoked [employer] Other Sex Assigned At [facility] Start: 1960 Sex Assigned At Male [facility] Start: 11-03-2023 Tobacco smoking status Ex-smoker (fi nding) [facility] Functional Status Date Assessment Result Facility 11-03-2023 Functional Status N/A [facility] Hospital Discharge instructions 11-03-2023 Note Date & Type Note Facility 11-03-2023 Hospital Discharg e instructions Patient Education 11/03/2023 11:15:20 Transrectal Ultrasound-Guided Prostate Biopsy, Care After Transrectal Ultrasound-Guided Prostate Biopsy, Care After The following information offers guidance on how to care for yourself after your procedure. Your health care provider may also give you more specific instructions. If you have problems or questions, contact your health care provider. What can I expect after the procedure? After the procedure, it is common to have: Pain and discomfort near your rectum, especially while sitting. Lagrange-colored urine due to small amounts of blood in your urine. A burning feeling while urinating. Blood in your stool (feces) or bleeding from your rectum. Blood in your semen. Follow these instructions at home: Medicines Take [id number] and prescription medicines only as told by your health care provider. If you were given a sedative during your procedure, it can affect you for several hours. Do not drive or operate machinery until your health care provider says that it is safe. If you were prescribed an antibiotic medicine, take it as told by your health care provider. Do not stop using the antibiotic even if you start to feel better. Activity Return to your normal activities as told by your health care provider. Ask your health care provider what activities are safe for you. Ask your health care provider when it is okay for you to resume sexual activity. You may have to avoid lifting. Ask your health care provider how much you can safely lift. General instructions Drink enough fluid to keep your urine pale yellow. Watch your urine, stool, and semen for new or increased bleeding. Keep all follow-up visits. This is important. Contact a health care provider if: You have any of the following: ?Blood clots in your urine or stool. ?Blood in your urine more than 2 weeks after the procedure. ?Blood in your semen more than 2 months after the procedure. ?New or increased bleeding in your urine, stool, or semen. ?Severe pain in your abdomen. Your urine smells bad or unusual. You have trouble urinating. Your lower abdomen feels firm. You have problems getting an erection. You have nausea or you vomit. Get help right away if: You have a fever or chills. This could be a sign of infection. You have bright red urine. You have severe pain that does not get better with medicine. You cannot urinate. Summary After this procedure, it is common to have pain and discomfort around your rectum, especially while sitting. You may have blood in your urine and stool after the procedure. It is common to have blood in your semen after this procedure. Get help right away if you have a fever or chills. This could be a sign of infection. This information is not intended to replace advice given to you by your health care provider. Make sure you discuss any questions you have with your health care provider. Document Revised: 04/08/2022 Document Reviewed: 04/08/2022 [employer] Patient Education 2022 [email or web address]. 11/03/2023 11:15:19 Transrectal Ultrasound-Guided Prostate Biopsy Transrectal Ultrasound-Guided Prostate Biopsy A transrectal ultrasound-guided prostate biopsy is a procedure to remove samples of prostate tissue for testing. The prostate is a walnut-sized gland that is located below the bladder and in front of the rectum. During this procedure, a small device (probe) is lubricated and put inside the rectum. The probe sends out sound waves that make a picture of the prostate and surrounding tissues (transrectal ultrasound). The images are used to help guide the process of removing the samples. The samples are taken to a lab to be checked for prostate cancer. This procedure is usually done to evaluate the prostate gland of men who have raised (elevated) levels of prostate-specific antigen (PSA), which can be a sign of prostate cancer or prostate enlargement related to aging (benign prostatic hyperplasia, or BPH). Tell a health care provider about: Any allergies you have. All medicines you are taking, including vitamins, herbs, eye drops, creams, and wyui-qxu-lapbvqn medicines. Any problems you or family members have had with anesthetic medicines. Any bleeding problems you have. Any surgeries you have had. Any medical conditions you have. Any prostate infections you have had. What are the risks? Generally, this is a safe procedure. However, problems may occur, including: Prostate infection. Bleeding from the rectum. Blood in the urine. Allergic reactions to medicines. Damage to surrounding structures such as blood vessels, organs, or muscles. Difficulty passing urine. Nerve damage. This is usually temporary. What happens before the procedure? Medicines Ask your health care provider about: Changing or stopping your regular medicines. This is especially important if you are taking diabetes medicines or blood thinners. Taking medicines such as aspirin and ibuprofen. These medicines can thin your blood. Do not take these medicines unless your health care provider tells you to take them. Taking tfdv-hxx-jtskzzb medicines, vitamins, herbs, and supplements. General instructions Follow instructions from your health care provider about eating and drinking. In most instances, you will not need to stop eating and drinking completely before the procedure. You will be given an enema. During an enema, a liquid is injected into your rectum to clear out waste. You may have a blood or urine sample taken. Ask your health care provider what steps will be taken to help prevent infection. These steps may include: ?Washing skin with a germ-killing soap. ?Taking antibiotic medicine. If you will be going home right after the procedure, plan to have a responsible adult: ?Take you home from the hospital or clinic. You will not be allowed to drive. ?Care for you for the time you are told. What happens during the procedure? An IV will be inserted into one of your veins. You will be given one or both of the following: ?A medicine to help you relax (sedative). ?A medicine to numb the area (local anesthetic). You will be placed on your left side, and your knees will be bent toward your chest. A probe with lubricated gel will be placed into your rectum, and images will be taken of your prostate and surrounding structures. Numbing medicine will be injected into your prostate. A biopsy needle will be inserted through your rectum or perineum and guided to your prostate using the ultrasound images. Prostate tissue samples will be removed, and the needle and probe will then be removed. The biopsy samples will be sent to a lab to be tested. The procedure may vary among health care providers and hospitals. What happens after the procedure? Your blood pressure, heart rate, breathing rate, and blood oxygen level will be monitored until you leave the hospital or clinic. You may have some discomfort in the rectal area. You will be given pain medicine as needed. If you were given a sedative during the procedure, it can affect you for several hours. Do not drive or operate machinery until your health care provider says that it is safe. It is up to you to get the results of your procedure. Ask your health care provider, or the department that is doing the procedure, when your results will be ready. Keep all follow-up visits. This is important. Summary A transrectal ultrasound-guided biopsy removes samples of tissue from your prostate using ultrasound-guided sound waves to help guide the process. This procedure is usually done to evaluate the prostate gland of men who have raised (elevated) levels of prostate-specific antigen (PSA), which can be a sign of prostate cancer or prostate enlargement related to aging. After your procedure, you may feel some discomfort in the rectal area. Plan to have a responsible adult take you home from the hospital or clinic, and follow up with your health care provider for your results. This information is not intended to replace advice given to you by your health care provider. Make sure you discuss any questions you have with your health care provider. Document Revised: 04/08/2022 Document Reviewed: 04/08/2022 [employer] Patient Education 2022 [email or web address]. Follow Up Care 09/15/2023 14:29:12 With:JENNIFER HURTADO, Mario Houston, URL Address: [facility] [address] , [place] [address]- [phone] When: Unknown Comments:sched TRUS/bx [facility] Evaluation note 06-02-2022 Note Date & Type Note Facility 06-02-2022 Evaluation note Encounter Date Diagnosis Assessment Notes May, Cough, unspecified type (ICD-10 - R05.9) May, COVID-19 (ICD-10 - U07.1) Discharge Instructions for COVID-19 (Suspected or Confirmed ) material was printed Drink plenty fluids, get plenty of rest. Take Tylenol or Motrin for aches pains or fevers. You must quarantine for 5 days after your COVID diagnosis. Follow-up with your family physician for any further concern [employer] Other Evaluation note 12-28-2021 Note Date & Type Note Facility 12-28-2021 Evaluation note Encounter Date Diagnosis Assessment Notes Dec, Contact with and (suspected) exposure to other viral communicable diseases (ICD-10 - Z20.828) Dec, Viral URI (ICD-10 - J06.9) low suspicion for bacterial infection at this time. continue symptomatic tx at this time otc meds prn. advised pt to d/c mucinex D d/t unwanted SEs. recommended hot steam baths, cool mist humidifier and/or sinus lavage with Neti Pot. push rest/fluids. reinforced universal infection control protocols and good hand hygiene for infection control. pt education and anticipatory guidance provided on viral vs bacterial infection progression. immediate eval if warning s/s of intractable fevers, respir distress or other emergent symptoms. otherwise f/u with PCP if febrile or new/worsening s/s. pt verbalizes understanding and agrees with tx plan. Dec, Other Additional time spent conducting pre-visit phone call, screening for symptoms, instructions on social distancing, application and removal of PPE, and cleaning of examination room, equipment and supplies was preformed. Patient education given for testing methodology and results. Patient care instructions given in writting by [facility] Care At Home document. Due to infection control protocols for COVID-19 virus, direct physical contact with patient was limited to only the absolute essential needed assessments. [employer] Other Evaluation + Plan note Note Date & Type Note Facility Evaluation + Plan note Future Appointments Appointment Date:12/01/2023 08:45:00 AM Scheduled Provider:Mario BERMUDEZ MD Location:[facility] Appointment Type:URO Office Visit [facility] Evaluation note Note Date & Type Note Facility Evaluation note No assessment information availa [facility] Work Phone: History general Narrative - Reported Note Date & Type Note Facility History general Narrative - Reported Type Medical History Gout Medical History vitamin D deficiency Medical History disgestive tract sto pped working and changed diet better now Medical History Diabetes Medical History hypeelipidemia Medical History OCD Surgical History colonoscopy 2012 Surgical History neck surgery x 2 Hospitalization History see above surgical histo ry [employer] Other History general Narrative - Reported Note Date & Type Note Facility History general Narrative - Reported Type Medical History Gout Medical History vitamin D deficiency Medical History disgestive tract sto pped working and changed diet better now Medical History Diabetes Medical History hypeelipidemia Medical History OCD Medical History anxiety Surgical History colonoscopy 2012 Surgical History neck surgery x 2 Hospitalization History see above surgical histo ry [facility] [employer] Other Hospital course Narrative Note Date & Type Note Facility Hospital course Narrative No data available for this section [facility] Progress note Note Date & Type Note Facility Progress note No data available for this section [facility] Summary Purpose Family History No Family History Records FoundNo Family History Records FoundNo Family History Records Found No data available for this section No Family History Records Found Advance Directives No Advanced Directives Records Found Advance Directive Response Recorded Date/ Time Advance Directives No November 1:56pm Chief Complaint and Reason for Visit Chief Complaint r25.1 g25.1 g21.19 g 20 Additional Source Comments REASON FOR VISIT (unrecogniz ed section and content) RED EDGE, COUGH, CONGSTION,R ED EDGE, COUGH, SINUS CONGESTION, SORE THROAT (unrecognized sect ion and content) No Status Records FoundNo Status Records FoundNo Status Records FoundNo Status Records Found INFORMATION SOURCE (unrecogn ized section and content) DATE CREATED AUTHOR 02/16/2023 [facility] DATE CREATED AUTHOR AUTHOR'S ORGANIZ ATION 05/05/2023 [facility] DATE CREATED AUTHOR AUTHOR'S ORGANIZ ATION 11/01/2023 [facility] DATE CREATED AUTHOR AUTHOR'S ORGANIZ ATION 11/05/2023 [facility] Care Teams (unrecognized sec tion and content) Team Status: Active Member Role Status Dates Lilli Estrella MD Primary Care Provider Active Team Status: Inactive Member Role Status Dates Dante Rangel MD Attending Provider Active Lilli Estrella MD Primary Care Provider Active Goals (unrecognized section and content) Goals may be documented in a n alternate section FOR RECORDS PERTAINING TO PATIENTS WHO ARE OR HAVE BEEN ENROLLED IN A CHEMICAL DEPENDENCY/SUBSTANCEABUSE PROGRAM, SOME INFORMATION MAY BE OMITTED. This clinical summary was aggregated from multiple sources. Caution should be exercised in using it in the provision of clinical care. This summary normalizes information from multiple sources, and as a consequence, information in this document may materially change the coding, format and clinical context of patient data. In addition, data may be omitted in some cases. CLINICAL DECISIONS SHOULD BE BASED ON THE PRIMARY CLINICAL RECORDS. [facility]. provides no warranty or guarantee of the accuracy or completeness of information in this document.
--- NOTE | 2023-11-10 10:12 | ECG_ITS ---
[facility] Test Date: 2023-11-10 Pat Name: ERBECA HERRON Department: Room: - Gender: Male Scientific Advisor: : [id number] Requested By: ZELDA RODRIGUEZ Order Number: [id number] Reading MD: LANDON WAGNER Measurements Intervals [place] Rate: 86 P: 34 LA: 172 QRS: 42 QRSD: 103 T: 55 QT: 366 QTc: 438 Interpretive Statements SINUS RHYTHM No previous ECG available for comparison Electronically Signed On 11-11-2023 6:55:36 EST by LANDON WAGNER
[2023-11-10 11:14] LABS: Basophils Absolute Auto 0.1 10^3/uL (0.0-0.1); Basophils Percent Auto 0.7 % (0.2-2.0); Eosinophils Absolute Auto 0.1 10^3/uL (0.0-0.7); Eosinophils Percent Auto 1.7 % (0.9-7.0); Hematocrit 46.6 % (42.0-54.0); Hemoglobin 15.5 g/dL (14.0-18.0); Immature Granulocytes Pct Auto 1.2 % (0.0-0.5); Lymphocytes Absolute Auto 1.4 10^3/uL (1.2-3.8); Lymphocytes Percent Auto 17.4 % (20.5-60.0); Mean Corpuscular HGB Conc 33.3 g/dL (29.9-35.2); Mean Corpuscular Hemoglobin 28.5 pg (25.9-34.0); Mean Corpuscular Volume 85.7 fL (80.0-94.0); Mean Platelet Volume 10.1 fL (9.5-13.5); Monocytes Absolute Auto 0.8 10^3/uL (0.3-0.8); Monocytes Percent Auto 9.4 % (1.7-12.0); Neutrophils Absolute Auto 5.6 10^3/uL (1.4-6.5); Neutrophils Percent Auto 69.6 % (43.0-75.0); Platelet Count 235 10^3/uL (150-450); Red Blood Count 5.44 10^6/uL (4.70-6.10); Red Cell Distribution Width 13.1 % (11.0-15.0); White Blood Count 8.1 10^3/uL (4.0-11.0)
[2023-11-10 11:51] LABS: Partial Thromboplastin Time 28.7 sec (22.3-36.2); Prothrombin Time 9.8 sec (9.0-11.6)
[2023-11-10 11:54] LABS: INR <0.93
[2023-11-10 12:01] LABS: Anion Gap 14.3; BUN Creatinine Ratio 13.1; Calcium 9.2 mg/dL (8.5-10.1); Chloride 103 mmol/L (98-107); Estimated GFR (African America >60 (>=60); Estimated GFR (Non-African Ame >60 (>=60); Glucose 188 mg/dL (74-106); Potassium 4.3 mmol/L (3.5-5.1); Sodium 141 mmol/L (136-145)
== END 2023-11-10 09:59 | disposition home or self-care (01) ==
PROVIDERS: PCP Family Medicine; Visit Provider Urology
DX: Z01.812 Encounter for preprocedural laboratory examination (principal); Z01.810 Encounter for preprocedural cardiovascular examination; R97.20 Elevated prostate specific antigen [PSA]; M10.9 Gout, unspecified; N40.0 Benign prostatic hyperplasia without lower urinary tract symptoms
CPT/HCPCS: 36415; 80048; 85025; 85610; 85730; 93005

== ENCOUNTER 2023-11-19 09:49 | Outpatient (REF) | payer OTHER, SELFPAY ==
--- OUTSIDE RECORDS SUMMARY | 2023-11-19 09:52 | XMS_ITS | CCD ---
Author Name Unknown Address [address] [place] [address] Organization [facility] Care Team Providers Care Health Assessment And Treatment Teacher Name Role Phone Brittany Zuniga Unavailable Tita Marisa Unavailable CAROLINA PHAM Admitting Unavailable VERO, CAROLINA Attending Unavailable ESTRELLA, DR REEDER Primary Care Unavailable ESTRELLA, DR REEDER Attending Unavailable ESTRELLA, DR REEDER Admitting Unavailable ESTRELLA, DR REEDER Primary Care Unavailable ESTRELLA, DR REEDER Consulting Unavailable VEROCAROLINA Consulting Unavailable VERO, CAROLINA Attending Unavailable VERO, CAROLINA Admitting Unavailable ESTRELLA, DR REEDER Primary Care Unavailable VERO, CRAOLINA Attending Unavailable VERO, CAROLINA Admitting Unavailable ESTRELLA, DR REEDER Primary Care Unavailable MD Dante Rangel Attending Provider [phone] MD Lilli Estrella Primary Care Provider Dante Rangel Admitting Unavailable Dante Rangel Attending Unavailable Lilli Estrella Primary Care Unavailable LILLI ESTRELLA Primary Care Physician Mario BERMUDEZ Attending Unavailable WARCHOL, CAROLINA Referring Unavailable Mario BERMUDEZ Attending Unavailable LANDON TITUS Referring Unavailable LANDON TITUS Attending Unavailable WARCHOL, CAROLINA Attending Unavailable WARCHOL, CAROLINA Attending Unavailable MURCELANDON Patricio Attending Unavailable WARCHOL, CAROLINA Referring Unavailable Allergies Allergy Classification Reported Allergen(s) Allergy Type Date of Onset Reaction(s) Facility (4 sources) Ciprofloxacin; Translations: [ciprofloxacin] Drug Allergy 3 Swelling (morphologic abnormality) [facility] (3 sources) Ciprofloxacin; Translations: [Cipro] Drug Allergy 4 [facility] (1 source) Ciprofloxacin Drug Allergy [address] [facility] Repository Medications Current Medications Medication Drug Class(es) [...] 30 mg oral tablet (1 source) Uncompetitive B-xkcpgy-S-aspartate Receptor Antagonist, Sigma-1 Agonist Start: 12-28-2021 [place] DMT 30-30 MG 1 tablet Orally every 6-8 hours for 7 days Dec, Active doxycycline hyclate 100 mg oral capsule (1 source) Tetracycline-class Drug Start: 11-03-2023 End: 11-10-2023 take 1 capsule by mouth twice daily doxycycline hyclate 100 mg Cap 100 mg = 1 cap(s), Oral, BID, X 7 day(s), # 14 cap(s), Refills(s) 0, Pharmacy: [facility]/pharmacy #[id number], 175, cm, 11/03/23 10:32:00 [...] for Procedure/Surger yon 11-04-2023 Consent for Procedure/Surgery [id number] #1.00TIFF Normal [facility] Formson 11-04-2023 Forms [id number]# 1.00TIFF [facility] Physician Referralon 024 Physician Referral [id number] #1.00TIFF [facility] Ambulatory Visit Summaryon 0 11-03-2023 Ambulatory Visit Summary REBECA HERRON A :1960 Visit Date:11/03/2023 Ambulatory Visit Instructions Your Diagnosis Elevated PSA BPH with urinary obstruction Type 2 diabetes mellitus Former smoker Tests Performed Urnls Dip Stick Auto w/o Microscopy POC [id number] Your Care Team Attending Physician - JENNIFER [...] HURTADO, Mario Houston Where: [facility] Patient Educationon 11-03-19 Patient Education Oncology [...] near your rectum, especially while sitting. ? Mehan-colored urine due to small amounts of blood in your urine. ? A burning feeling while urinating. ? Blood in your stool (feces) or bleeding from your rectum. ? Blood in your semen. Follow these instructions at home: Medicines ? Take iwwk-ekt-asqelbr and prescription medicines only as told by [...] provider. Document Revised: 04/08/2022 Document Reviewed: 04/08/2022 [employer] Patient Education ? 2022 [employer] Transrectal Ultrasound-Guided Prostate Biopsy A transrectal ultrasound-guided [...] including vitamins, herbs, eye drops, creams, and qypn-fuf-kztaidm medicines. ? Any problems you or family [...] as aspirin (more content not included)... Normal [facility] Urology Office/Clinic Noteon 11-03-2023 Urology Office/Clinic Note Chief Complaint elevated PSA HPI Staff Evaluation requested by Carolina Sen PROGRAM CLERK due to elevated PSA. Pt is a [...] yo male new pt referred by Carolina Sen PROGRAM CLERK for elevated PSA. 1. Elevated PSA (R97.20: Elevated prostate specific antigen [PSA]) PSA 01/08/20 - 2.47 09/15/21 - 1.71 07/27/22 - 3.35 08/29/23 - 4.5 & 15.6% No known fam hx of prostate ca. MIRIAM: 45gms, benign Discussed PSA levels. Has increased [...] BERMUDEZ MD, URL [facility] [address] [place] [address] [phone] Additional Instructions: sched TRUS/bx Patient Education Transrectal Ultrasound-Guided Prostate Biopsy, Care After Transrectal Ultrasound-Guided Prostate Biopsy Angela Bolaños, personally scribed for Dr. Bermudez on 11/03/2023 11:18:49. . Documentation recorded by the scribeAngela, accurately reflects the services(s) I performed and decisions made by me. Authenticated by Dr. Bermudez on 11/03/2023 11:23:18. Problem List/Past Medical History Ongoing BPH with urinary obstruction Elevated PSA Former smoker Gout Major depressive disorder Thyroid nodule Type 2 diabetes mellitus Historical No qualifying data Procedure/Surgical History Colonoscopy, Procedure on neck, Ts - Tonsillectomy. Medications allopurinol 3 (more content not included)... Normal [facility] Comment on above: Result Comment: Elec [...] Available Comment on above: Order Comment: @noms [place] brain spect datscanon [place] brain spect datscan [facility] [place] [address] [place] [address] Nuclear Medicine Report Signed Patient: Rebeca Herron MR#: [id number] 32 : 1960 Acct:[id number] Age/Sex: 62 / M ADM Date: 04/03/23 Loc: [place] Room: Type: [facility] Attending Dr: Dante Rangel MD Copies to: MD Calvin Randall II, MD Ordering Provider: Dante Rangel MD Date of Service: 04/03/23 [place]/WA brain spect datscan: R25.1 [place] brain spect datscan 04/03/2023 7:57 AM SIGNS [...] Calvin Monreal M.D.04/03/2023 2:43 PM Dictation Location: [place] [address] Transcribed By: [facility] 04/03/231442 Dictated By: Calvin Monreal II, MD 04/03/231440 Signed By: 04/03/231442 [facility] CBC AUTO DIFFon 02-11-2023 BASO # 0.1 103/ul Normal 0.0-0.1 [facility] Comment on above: Performed By: #### C BC #### [facility] [address] [place] [address] Dr. Cedrick Beatty Basophils/100 WBC (Bld) 0.5 % Normal 0.2-2.0 [facility] Comment on above: Performed By: #### C BC #### [facility] [address] [place] [address] Dr. Cedrick Beatty EO # 0.1 103/ul Normal 0.0-0.7 [facility] Comment on above: Performed By: #### C BC #### [facility] [address] [place] [address] Dr. Cedrick Beatty Eosinophils/100 WBC (Bld) 0.9 % Normal 0.9-7.0 [facility] Comment on above: Performed By: #### C BC #### [facility] [address] [place] [address] Dr. Cedrick Beatty Erythrocyte distribution width (RBC) [Ratio] 13.6 % Normal 11.0-15.0 [facility] Comment on above: Performed By: #### C BC #### [facility] [address] [address] [address] Cedrick Beatty Hematocrit (Bld) [Volume fraction] 48.6 % Normal 42.0-54.0 [facility] Comment on above: Performed By: #### C BC #### [facility] [address] [address] [address] Cedrick Beatty Hemoglobin (Bld) [Mass/Vol] 16.5 g/dL Normal 14.0-18.0 [facility] Comment on above: Performed By: #### C BC #### [facility] [address] [address] [address] Cedrick Beatty IG # 0.14 10e3/ul Critically high 0.00-0.03 [facility] Comment on above: Performed By: #### C BC #### [facility] [address] [place] [address] Dr. Cedrick Beatty IG % 1.1 % Critically high 0.0-0.5 [facility] Comment on above: Performed By: #### C BC #### [facility] [address] [place] [address] Dr. Cedrick Beatty LYMPH # 1.6 103/ul Normal 1.2-3.8 [facility] Comment on above: Performed By: #### C BC #### [facility] [address] [place] [address] Dr. Cedrick Beatty Lymphocytes/100 WBC (Bld) 12.5 % Critically low 20.5-60.0 [facility] Comment on above: Performed By: #### C BC #### [facility] [address] [place] [address] Dr. Cedrick Beatty MANUAL DIFF REQ NO Normal [facility] Comment on above: Performed By: #### C BC #### [facility] [address] [place] [address] Dr. Cedrick Beatty MCH (RBC) [Entitic mass] 28.5 pg Normal 25.9-34.0 [facility] Comment on above: Performed By: #### C BC #### [facility] [address] [place] [address] Dr. Cedrick Beatty MCHC (RBC) [Mass/Vol] 34.0 g/dL Normal 29.9-35.2 [facility] Comment on above: Performed By: #### C BC #### [facility] [address] [address] [address] Cedrick Beatty MCV (RBC) [Entitic vol] 84.1 fL Normal 80.0-94.0 [facility] Comment on above: Performed By: #### C BC #### [facility] [address] [place] [address] Dr. Cedrick Beatty MONO # 1.0 103/ul Critically high 0.3-0.8 [facility] Comment on above: Performed By: #### C BC #### [facility] [address] [place] [address] Dr. Cedrick Beatty Monocytes/100 WBC (Bld) 7.7 % Normal 1.7-12.0 [facility] Comment on above: Performed By: #### C BC #### [facility] [address] [place] [address] Dr. Cedrick Beatty NEUT # 10.0 103/ul Critically high 1.4-6.5 [facility] Comment on above: Performed By: #### C BC #### [facility] [address] [place] [address] Dr. Cedrick Beatty Neutrophils/100 WBC (Bld) 77.3 % Critically high 43.0-75.0 [facility] Comment on above: Performed By: #### C BC #### [facility] [address] [place] [address] Dr. Cedrick Beatty Platelet mean volume (Bld) [Entitic vol] 9.0 fL Critically low 9.5-13.5 [facility] Comment on above: Performed By: #### C BC #### [facility] [address] [place] [address] Dr. Cedrick Beatty PLT 231 103/ul Normal 150-450 [facility] Comment on above: Performed By: #### C BC #### [facility] [address] [place] [address] Dr. Cedrick Beatty RBC 5.78 106/ul Normal 4.70-6.10 [facility] Comment on above: Performed By: #### C BC #### [facility] [address] [address] [address] Cedrick Beatty WBC 12.9 103/ul Critically high 4.0-11.0 [facility] Comment on above: Performed By: #### C BC #### [facility] [address] [place] [address] Dr. Cedrick Beatty GLYCOHEMOGLOBIN A1Con 2022 ADA RECOMMENDATION SEE BELOW Normal [facility] Comment on above: Result Comment: ADA RECOMMENDED LIMIT 4.0 - 6.0 ADA THERAPEUTIC TARGET < 7.0 ACTION SUGGESTED > 7.0 Performed By: #### A 1C #### [facility] [address] [place] [address] Dr. Cedrick Beatty Glucose [Mass/Vol] 146 mg/dL Normal [facility] Comment on above: Performed By: #### A 1C #### [facility] [address] [place] [address] Dr. Cedrick Beatty HbA1c (Bld) [Mass fraction] 6.7 % Critically high 4.5-6.2 [facility] Comment on above: Performed By: #### A 1C #### [facility] [address] [place] [address] Dr. Cedrick Beatty LIPID PROFILEon 02-11-2023 CHOL-HDL RATIO NORM SEE BELOW Normal [facility] Comment on above: Result Comment: 3.3 - 4.4 LOW RISK 4.4 - 7.1 AVERAGE RISK 7.1 - 11.0 MODERATE RISK >11.0 HIGH RISK Performed By: #### C MP, LIPID #### [facility] [address] [place] [address] Dr. Cedrick Beatty Cholesterol [Mass/Vol] 130 mg/dL Normal <=200 [facility] Comment on above: Performed By: #### C MP, LIPID #### [facility] [address] [address] [address] Cedrick Beatty Cholesterol in HDL [Mass/Vol] 56 mg/dL Normal 40-60 [facility] Comment on above: Performed By: #### C MP, LIPID #### [facility] [address] [address] [address] Cedrick Beatty Cholesterol in LDL [Mass/Vol] 49.4 mg/dL Normal [facility] Comment on above: Performed By: #### C MP, LIPID #### [facility] [address] [address] [address] Cedrick Beatty Cholesterol.total/Ch olesterol in HDL [Mass ratio] 2.3 {ratio} Normal [facility] Comment on above: Performed By: #### C MP, LIPID #### [facility] [address] [place] [address] Dr. Cedrick Beatty HDL NORMAL > or = 60 mg/dl - LOW CARDIOVASCULAR RISK <40 mg/dl - HIGH CARDIOVASCULAR RISK Normal [facility] Comment on above: Performed By: #### C MP, LIPID #### [facility] [address] [place] [address] Dr. Cedrick Beatty LDL CALC NORMAL SEE BELOW Normal [facility] Comment on above: Result Comment: <100 mg/dl OPTIMAL 100 - 129 mg/dl NEAR OR ABOVE OPTIMAL 130 - 159 mg/dl BORDERLINE HIGH 160 - 189 mg/dl HIGH >190 mg/dl VERY HIGH Performed By: #### C MP, LIPID #### [facility] [address] [place] [address] Dr. Cedrick Beatty Triglyceride [Mass/Vol] 123 mg/dL Normal <=150 [facility] Comment on above: Performed By: #### C MP, LIPID #### [facility] [address] [place] [address] Dr. Cedrick Beatty VLDL CALC 24.6 mg/dL Normal [facility] Comment on above: Performed By: #### C MP, LIPID #### [facility] [address] [place] [address] Dr. Cedrick Beatty MICROALB CREAT RATIO RANDOMo n 02-11-2023 mALB 1.3 mg/L Normal <=30.0 [facility] Comment on above: Performed By: #### M CRR #### [facility] [address] [address] [address] Cedrick Beatty MALKassandra CR RATIO 6.9 mg/g Normal 0.0-29.9 [facility] Comment on above: Performed By: #### M CRR #### [facility] [address] [address] [address] Cedrick Beatty MALB CR RATIO RANGE SEE BELOW Normal [facility] Comment on above: Result Comment: NO M ICROALBUMINURIA 0-29 MG/G CLINICAL MICROALBUMINURIA 30-300 MG/G MACROALBUMINURIA >300 MG/G Performed By: #### M CRR #### [facility] [address] [address] [address] Cedrick Beatty URINE CREAT 187.43 mg/dL Normal 20.00-300.00 [facility] Comment on above: Performed By: #### M CRR #### [facility] [address] [place] [address] Dr. Cedrick Beatty PROF 14(COMP METB)on 023 Albumin [Mass/Vol] 4.0 g/dL Normal 3.4-5.0 [facility] Comment on above: Performed By: #### C MP, LIPID #### [facility] [address] [place] [address] Dr. Cedrick Beatty Albumin/Globulin [Mass ratio] 1.0 {ratio} Normal [facility] Comment on above: Performed By: #### C MP, LIPID #### [facility] [address] [place] [address] Dr. Cedrick Beatty ALP [Catalytic activity/Vol] 99 U/L Normal 46-116 [facility] Comment on above: Performed By: #### C MP, LIPID #### [facility] [address] [place] [address] Dr. Cedrick Beatty ALT [Catalytic activity/Vol] 40 U/L Normal 16-63 [facility] Comment on above: Performed By: #### C MP, LIPID #### [facility] [address] [place] [address] Dr. Cedrick Beatty Anion gap [Moles/Vol] 13.6 mmol/L Normal [facility] Comment on above: Performed By: #### C MP, LIPID #### [facility] [address] [place] [address] Dr. Cedrick Beatty AST [Catalytic activity/Vol] 18 U/L Normal 15-37 [facility] Comment on above: Performed By: #### C MP, LIPID #### [facility] [address] [address] [address] Cedrick Beatty Bilirubin [Mass/Vol] 0.7 mg/dL Normal 0.2-1.0 [facility] Comment on above: Performed By: #### C MP, LIPID #### [facility] [address] [place] [address] Dr. Cedrick Beatty Calcium [Mass/Vol] 9.5 mg/dL Normal 8.5-10.1 [facility] Comment on above: Performed By: #### C MP, LIPID #### [facility] [address] [place] [address] Dr. Cedrick Beatty Chloride [Moles/Vol] 99 mmol/L Normal 98-107 [facility] Comment on above: Performed By: #### C MP, LIPID #### [facility] [address] [place] [address] Dr. Cedrick Beatty CO2 [Moles/Vol] 28.7 mmol/L Normal 21.0-32.0 [facility] Comment on above: Performed By: #### C MP, LIPID #### [facility] [address] [place] [address] Dr. Cedrick Beatty Creatinine [Mass/Vol] 1.00 mg/dL Normal 0.70-1.30 [facility] Comment on above: Performed By: #### C MP, LIPID #### [facility] [address] [place] [address] Dr. Cedrick Beatty EGFR-AF JORDANIAN >60 Normal >=60 [facility] Comment on above: Performed By: #### C MP, LIPID #### [facility] [address] [place] [address] Dr. Cedrick Beatty EGFR-NON AF JORDANIAN >60 Normal >=60 [facility] Comment on above: Performed By: #### C MP, LIPID #### [facility] [address] [address] [address] Cedrick Beatty Globulin (S) [Mass/Vol] 3.9 g/dL Normal [facility] Comment on above: Performed By: #### C MP, LIPID #### [facility] [address] [address] [address] Cedrick Beatty Glucose [Mass/Vol] 137 mg/dL Critically high 74-106 [facility] Comment on above: Performed By: #### C MP, LIPID #### [facility] [address] [address] [address] Cedrick Beatty Potassium [Moles/Vol] 4.3 mmol/L Normal 3.5-5.1 [facility] Comment on above: Performed By: #### C MP, LIPID #### [facility] [address] [place] [address] Dr. Cedrick Beatty Protein [Mass/Vol] 7.9 g/dL Normal 6.4-8.2 [facility] Comment on above: Performed By: #### C MP, LIPID #### [facility] [address] [place] [address] Dr. Cedrick Beatty Sodium [Moles/Vol] 137 mmol/L Normal 136-145 [facility] Comment on above: Performed By: #### C MP, LIPID #### [facility] [address] [place] [address] Dr. Cedrick Beatty Urea nitrogen [Mass/Vol] 13.0 mg/dL Normal 7.0-18.0 [facility] Comment on above: Performed By: #### C MP, LIPID #### [facility] [address] [place] [address] Dr. Cedrick Beatty Urea nitrogen/Creatinine [Mass ratio] 13.0 mg/mg Normal [facility] Comment on above: Performed By: #### C MP, LIPID #### [facility] [address] [place] [address] Dr. Cedrick Beatty VITAMIN D 25 OHon 02-11-2023 VIT D 25-OH 12.9 ng/mL Normal [facility] Comment on above: Performed By: #### V ITAD #### [facility] [address] [place] [address] Dr. Cedrick Beatty VIT D RANGES SEE BELOW Normal [facility] Comment on above: Result Comment: <20 ng/mL Vit D deficient 20 - <30 ng/mL Vit D insufficient 30 - 100 ng/mL Vit D sufficient >100 ng/mL Potential Toxicity Performed By: #### V ITAD #### [facility] [address] [place] [address] Dr. Cedrick Beatty CBC AUTO DIFFon 07-27-2022 BASO # 0.0 103/ul Normal 0.0-0.1 [facility] Comment on above: Performed By: #### C BC #### [facility] [address] [place] [address] Dr. Cedrick Beatty Basophils/100 WBC (Bld) 0.4 % Normal 0.2-2.0 [facility] Comment on above: Performed By: #### C BC #### [facility] [address] [place] [address] Dr. Cedrick Beatty EO # 0.0 103/ul Normal 0.0-0.7 [facility] Comment on above: Performed By: #### C BC #### [facility] [address] [place] [address] Dr. Cedrick Beatty Eosinophils/100 WBC (Bld) 0.4 % Critically low 0.9-7.0 [facility] Comment on above: Performed By: #### C BC #### [facility] [address] [place] [address] Dr. Cedrick Beatty Erythrocyte distribution width (RBC) [Ratio] 13.8 % Normal 11.0-15.0 [facility] Comment on above: Performed By: #### C BC #### [facility] [address] [place] [address] Dr. Cedrick Beatty Hematocrit (Bld) [Volume fraction] 46.0 % Normal 42.0-54.0 [facility] Comment on above: Performed By: #### C BC #### [facility] [address] [address] [address] Cedrick Beatty Hemoglobin (Bld) [Mass/Vol] 15.5 g/dL Normal 14.0-18.0 [facility] Comment on above: Performed By: #### C BC #### [facility] [address] [address] [address] Cedrick Beatty IG # 0.09 10e3/ul Critically high 0.00-0.03 [facility] Comment on above: Performed By: #### C BC #### [facility] [address] [address] [address] Cedrick Beatty IG % 1.0 % Critically high 0.0-0.5 [facility] Comment on above: Performed By: #### C BC #### [facility] [address] [place] [address] Dr. Cedrick Beatty LYMPH # 1.5 103/ul Normal 1.2-3.8 [facility] Comment on above: Performed By: #### C BC #### [facility] [address] [place] [address] Dr. Cedrick Beatty Lymphocytes/100 WBC (Bld) 16.2 % Critically low 20.5-60.0 [facility] Comment on above: Performed By: #### C BC #### [facility] [address] [place] [address] Dr. Cedrick Beatty MANUAL DIFF REQ NO Normal [facility] Comment on above: Performed By: #### C BC #### [facility] [address] [place] [address] Dr. Cedrick Beatty MCH (RBC) [Entitic mass] 29.0 pg Normal 25.9-34.0 [facility] Comment on above: Performed By: #### C BC #### [facility] [address] [place] [address] Dr. Cedrick Beatty MCHC (RBC) [Mass/Vol] 33.7 g/dL Normal 29.9-35.2 [facility] Comment on above: Performed By: #### C BC #### [facility] [address] [address] [address] Cedrick Beatty MCV (RBC) [Entitic vol] 86.1 fL Normal 80.0-94.0 [facility] Comment on above: Performed By: #### C BC #### [facility] [address] [place] [address] Dr. Cedrick Beatty MONO # 0.7 103/ul Normal 0.3-0.8 [facility] Comment on above: Performed By: #### C BC #### [facility] [address] [place] [address] Dr. Cedrick Beatty Monocytes/100 WBC (Bld) 7.9 % Normal 1.7-12.0 [facility] Comment on above: Performed By: #### C BC #### [facility] [address] [place] [address] Dr. Cedrick Beatty NEUT # 6.8 103/ul Critically high 1.4-6.5 [facility] Comment on above: Performed By: #### C BC #### [facility] [address] [place] [address] Dr. Cedrick Beatty Neutrophils/100 WBC (Bld) 74.1 % Normal 43.0-75.0 [facility] Comment on above: Performed By: #### C BC #### [facility] [address] [place] [address] Dr. Cedrick Beatty Platelet mean volume (Bld) [Entitic vol] 8.7 fL Critically low 9.5-13.5 [facility] Comment on above: Performed By: #### C BC #### [facility] [address] [place] [address] Dr. Cedrick Beatty PLT 193 103/ul Normal 150-450 [facility] Comment on above: Performed By: #### C BC #### [facility] [address] [place], [place] [id number] Dr. Cedrick Beatty RBC 5.34 106/ul Normal 4.70-6.10 [facility] Comment on above: Performed By: #### C BC #### [facility] [address] [place] [address] Dr. Cedrick Beatty WBC 9.1 103/ul Normal 4.0-11.0 [facility] Comment on above: Performed By: #### C BC #### [facility] [address] [address] [address] Cedrick Beatty GLYCOHEMOGLOBIN A1Con 2021 ADA RECOMMENDATION SEE BELOW Normal [facility] Comment on above: Result Comment: ADA RECOMMENDED LIMIT 4.0 - 6.0 ADA THERAPEUTIC TARGET < 7.0 ACTION SUGGESTED > 7.0 Performed By: #### A 1C #### [facility] [address] [address] [address] Cedrick Beatty Glucose [Mass/Vol] 148 mg/dL Normal [facility] Comment on above: Performed By: #### A 1C #### [facility] [address] [address] [address] Cedrick Beatty HbA1c (Bld) [Mass fraction] 6.8 % Critically high 4.5-6.2 [facility] Comment on above: Performed By: #### A 1C #### [facility] [address] [address] [address] Cedrick Beatty COVID/FLU RT-PCRon SARS-CoV-2 (COVID-19) RNA CHEY+probe Ql (Unsp spec) Positive [employer] [facility] [employer] Other COVID/FLU RT-PCR Negative [employer] Other COVID/FLU RT-PCR [employer] Other [employer] 12-28-2021 FLUAV Ab CF (S) [Titer] Negative [employer] Other FLUBV Ab CF (S) [Titer] Negative [employer] Other Vital Signs Date Time Vital Sign Value Performing Clinician Facility 11-03-2023 10:05-0500 Blood Pressure Location Mario BERMUDEZ [facility] 11-03-2023 10:05-0500 Diastolic blood pressure 89 mm[Hg] Mario BERMUDEZ [facility] 11-03-2023 10:05-0500 Heart rate 85 /min Mario BERMUDEZ [facility] 11-03-2023 10:05-0500 Respiratory rate 16 /min Mario BERMUDEZ [facility] 11-03-2023 10:05-0500 Systolic blood pressure 135 mm[Hg] Mario BERMUDEZ [facility] 06-02-2022 15:05-0400 Body height 175.26 cm Marisa Rivers Other [employer] Other 06-02-2022 15:05-0400 Body mass index (BMI) [Ratio] 31.75 kg/m2 Marisa Rivers Other [employer] Other 06-02-2022 15:05-0400 Body temperature 97.8 [degF] Marisa Rivers Other [employer] Other 06-02-2022 15:05-0400 Body weight 97.52 kg Marisa Rivers Other [employer] Other 06-02-2022 15:05-0400 Respiratory rate 18 /min Marisa Rivers Other [employer] Other 06-02-2022 15:05-0400 SaO2% (BldA) [Mass fraction] 94 % Marisa Rivers Other [employer] Other 12-28-2021 11:55-0500 Body height 175.26 cm Brittany Zuniga Other [employer] Other 12-28-2021 11:55-0500 Body mass index (BMI) [Ratio] 31.01 kg/m2 Brittany Zuniga Other [employer] Other 12-28-2021 11:55-0500 Body temperature 97.7 [degF] Brittany Zuniga Other [employer] Other 12-28-2021 11:55-0500 Body weight 95.26 kg Brittany Zuniga Other [employer] Other 12-28-2021 11:55-0500 Diastolic blood pressure 96 mm[Hg] Brittany Zuniga Other [employer] Other 12-28-2021 11:55-0500 SaO2% (BldA) [Mass fraction] 95 % Brittany Zuniga Other [employer] Other 12-28-2021 11:55-0500 Systolic blood pressure 139 mm[Hg] Brittany Zuniga Other [employer] Other Encounters Encounter Date Encounter Type Care Provider Facility Start: 12-01-2023 ambulatory Mario BERMUDEZ Facili ty:[facility] Start: 11-11-2023 End: 11-11-2023 ambulatory CAROLINA WARCHOL Not Available Start: 11-03-2023 End: 11-04-2023 ambulatory CAROLINA WARCHOL [facility] [employer] Start: 11-03-2023 End: 11-03-2023 Patient encounter procedure Mario BERMUDEZ [facility] [place] Start: 10-30-2023 End: 10-30-2023 ambulatory CAROLINA WARCHOL Not Available Start: 10-28-2023 End: 10-28-2023 ambulatory LANDON TITUS Not Available Start: 10-22-2023 End: 10-23-2023 ambulatory LANDON TITUS Not Available Start: 10-07-2023 End: 10-07-2023 ambulatory LANDON TITUS Not Available Start: 09-15-2023 ambulatory Mario BERMUDEZ Facility :[facility] [place] Start: 04-03-2023 End: 04-03-2023 ambulatory Dante Rangel Facility:[facility] Start: 04-03-2023 End: 04-03-2023 ambulatory MD Lilli Estrella Work Phone: [facility] Work Phone: Start: 04-03-2023 End: 04-03-2023 Patient encounter procedure MD Lilli Estrella Work Phone: [facility] Work Phone: Start: 02-11-2023 End: 02-12-[address] LILLI ESTRELLA Facility:[facility] Start: 08-02-2022 ambulatory CAROLINA PHAM Facility:[facility] Start: 07-27-2022 End: 07-28-2022 ambulatory CAROLINA PHAM Facility:[facility] Start: 06-02-2022 End: 06-02-2022 ambulatory Marisa Rivers Other [employer] Other Start: 06-02-2022 Office outpatient vi sit 15 minutes Marisa Tita [facility] Start: 04-11-2022 ambulatory CAROLINA PHAM Facility:[facility] Start: 12-28-2021 End: 12-28-2021 ambulatory Brittany Zuniga Other [employer] Other Start: 12-28-2021 Office outpatient vi sit 15 minutes Brittany Zuniga [facility] Procedures Date Procedure Procedure Detail Performing Clinician Start: 04-03-2023 NM brain spect datsctoya Estrella Work Phone: Start: 07-27-2022 PSA screening CAROLINA ALLISON [facility] Comment on above: Performed By: #### P [facility] #### [facility] [address] [place], [place] [id number] Dr. Cedrick Brown Mario BERMUDEZ Procedure on neck Mario MALAGON Tonsillectomy Mario BERMUDEZ Payers Date Payer Category Payer Self-pay 1961 Unknown [id number] [id number] 1961 Unknown [id number] 1960 Unknown [id number] 2.16.84 [id number] 1960 Unknown [id number] 2.16.84 [id number] 1958 Unknown [id number] 2.16.84 [id number] 1958 Unknown [id number] 2.16.84 [id number] 1958 Unknown [id number] 2.16.8 [id number] 1958 Unknown [id number] 2.16.8 [id number] 1958 Unknown [id number] 2.16.84 [id number] 1958 Unknown [id number] 2.16.840 .[id number] 1958 Unknown [id number] 2.16.840 .[id number] 1958 Unknown [id number] 2.16.840 .[id number] 1958 Unknown [id number] 2.16.840 .[id number] Unknown [id number] 2.16.8 [id number] Social History Date Type Detail Facility Unknown if ever smoked [employer] Other Sex Assigned At [facility] Start: 1960 Sex Assigned At Male F [facility] Start: 11-03-2023 Tobacco smoking status Ex-smoker (fi nding) [facility] Functional Status Date Assessment Result Facility 11-03-2023 Functional Status N/A [facility] Hospital Discharge instructions 11-03-2023 Note Date [...] discomfort near your rectum, especially while sitting. Mehan-colored urine due to small amounts of blood in your urine. A burning feeling while urinating. Blood in your stool (feces) or bleeding from your rectum. Blood in your semen. Follow these instructions at home: Medicines Take zuxg-klb-brkerdd and prescription medicines only as told by [...] provider. Document Revised: 04/08/2022 Document Reviewed: 04/08/2022 [employer] Patient Education 2022 [employer]. 11/03/2023 11:15:19 Transrectal Ultrasound-Guided Prostate Biopsy Transrectal [...] including vitamins, herbs, eye drops, creams, and vawn-loa-whcjknn medicines. Any problems you or family members [...] provider tells you to take them. Taking hcoz-vzb-uateeqy medicines, vitamins, herbs, and supplements. General instructions [...] provider. Document Revised: 04/08/2022 Document Reviewed: 04/08/2022 [employer] Patient Education 2022 [employer]. Follow Up Care 09/15/2023 14:29:12 With:JENNIFER HURTADO, Mario Houston, URL Address: [facility] [address] , [place] [phone] When: Unknown Comments:sched TRUS/bx [facility] [employer] Evaluation note 06-02-2022 Note Date & Type [...] your family physician for any further concern [employer] Other Evaluation note 12-28-2021 Note Date & [...] Patient care instructions given in writting by [facility] Care At Home document. Due to infection control protocols for COVID-19 virus, direct physical contact with patient was limited to only the absolute essential needed assessments. [employer] Other Evaluation + Plan note Note Date & Type Note Facility Evaluation + Plan note Future Appointments Appointment Date:12/01/2023 08:45:00 AM Scheduled Provider:Mario BERMUDEZ MD Location:[facility] Appointment Type:URO Office Visit [facility] Evaluation note Note Date & Type Note Facility Evaluation note No assessment information availa [facility] Work Phone: History general Narrative - [...] x 2 Hospitalization History see above surgical hereOo ry [employer] Other History general Narrative - Reported Note [...] Hospitalization History see above surgical histo ry [employer] Other Hospital course Narrative Note Date & Type Note Facility Hospital course Narrative No data available for this section [facility] Progress note Note Date & Type Note Facility Progress note No data available for this section [facility] [employer] Summary Purpose Family History No Family History Records FoundNo Family History Records Found No data available for this section No Family History Records FoundNo Family History Records Found Advance Directives No [...] section and content) DATE CREATED AUTHOR 02/16/2023 [facility] DATE CREATED AUTHOR AUTHOR'S ORGANIZ ATION 05/05/2023 [facility] DATE CREATED AUTHOR AUTHOR'S ORGANIZ ATION 11/05/2023 [facility] DATE CREATED AUTHOR AUTHOR'S ORGANIZ ATION 11/12/2023 [facility] [employer] Care Teams (unrecognized sec tion and content) [...] BE BASED ON THE PRIMARY CLINICAL RECORDS. [facility] [employer] [facility]. provides no warranty or guarantee of the accuracy or completeness of information in this document.
[2023-11-19 10:38] LABS: SARS-CoV-2 Ag NEGATIVE (NEGATIVE)
== END 2023-11-19 09:50 | disposition home or self-care (01) ==
LOC: LAB 09:49
PROVIDERS: PCP Family Medicine; Visit Provider Nurse Practitioner
DX: Z20.822 Contact with and (suspected) exposure to COVID-19 (principal)
CPT/HCPCS: 87811

== ENCOUNTER 2023-11-20 06:57 | Day surgery (SDC) | payer OTHER, SELFPAY ==
[2023-11-10 10:54] VITALS: BP 153/87; PULSE 97; RESP 22; TEMP 36.1; O2SAT 97; BMI 35.1
--- OUTSIDE RECORDS SUMMARY | 2023-11-20 07:00 | XMS_ITS | CCD ---
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 Name Role Phone Brittany Zuniga Unavailable Tita Marisa Unavailable CAROLINA PHAM Admitting Unavailable VERO, CAROLINA Attending Unavailable ESTRELLA, DR REEDER Primary Care Unavailable ESTRELLA, DR REEDER Attending Unavailable ESTRELLA, DR REEDER Admitting Unavailable ESTRELLA, DR REEDER Primary Care Unavailable ESTRELLA, DR REEDER Consulting Unavailable VERO, CAROLINA Consulting Unavailable VERO, CAROLINA Attending Unavailable VERO, CAROLINA Admitting Unavailable ESTRELLA, DR REEDER Primary Care Unavailable VERO, CAROLINA Attending Unavailable VERO, CAROLINA Admitting Unavailable ESTRELLA, DR REEDER Primary Care Unavailable MD Dante Rangel Attending Provider MD Lilli Estrella Primary Care Provider [phone] Dante Rangel Admitting Unavailable Dante Rangel Attending Unavailable Lilli Estrella Primary Care Unavailable LILLI ESTRELLA Primary Care Physician Mario BERMUDEZ Attending Unavailable WARCHOL, CAROLINA Referring Unavailable Mario BERMUDEZ Attending Unavailable LANDON TITUS Referring Unavailable LANDON TITUS Attending Unavailable WARCHOL, CAROLINA Attending Unavailable WARCHOL, CAROLINA Attending Unavailable WARCHOL, CAROLINA Attending Unavailable LANDON TITUS Attending Unavailable WARCHOL, CAROLINA Referring Unavailable Allergies Allergy Classification Reported Allergen(s) Allergy Type Date of Onset Reaction(s) Facility (4 sources) Ciprofloxacin; Translations: [ciprofloxacin] Drug Allergy 3 Swelling (morphologic abnormality) [facility] (3 sources) Ciprofloxacin; Translations: [Cipro] Drug Allergy 4 [facility] (1 source) Ciprofloxacin Drug Allergy 3 [facility] Medications Current Medications Medication Drug [...] 30 mg oral tablet (1 source) Uncompetitive K-tstylm-M-aspartate Receptor Antagonist, Sigma-1 Agonist Start: 12-28-2021 [place] DMT 30-30 MG 1 tablet Orally every 6-8 hours for 7 days Dec, Active doxycycline hyclate 100 mg oral capsule (1 source) Tetracycline-class Drug Start: 11-03-2023 End: 11-10-2023 take 1 capsule by mouth twice daily doxycycline hyclate 100 mg Cap 100 mg = 1 cap(s), Oral, BID, X 7 day(s), # 14 cap(s), Refills(s) 0, Pharmacy: [facility]/pharmacy #[id number], 175, cm, 11/03/23 10:32:00 EST, Height/Length [...] for Procedure/Surger yon 11-04-2023 Consent for Procedure/Surgery [id number] #1.00TIFF [facility] Formson 11-04-2023 Forms [id number]# 1.00TIFF [facility] Physician Referralon 024 Physician Referral [id number] #1.00TIFF [facility] Ambulatory Visit Summaryon 0 11-03-2023 Ambulatory Visit Summary GERMAINEREBECA :1960 Visit Date:11/03/2023 Ambulatory Visit Instructions Your Diagnosis Elevated PSA BPH with urinary obstruction Type 2 diabetes mellitus Former smoker Tests Performed Urnls Dip Stick Auto w/o Microscopy POC 71809 Your Care Team Attending Physician - JENNIFER [...] HURTADO, Mario Houston Where: [facility] Normal [facility] Patient Educationon 11-03-19 Patient Education Oncology Transrectal [...] near your rectum, especially while sitting. ? Dewey-Humboldt-colored urine due to small amounts of blood in your urine. ? A burning feeling while urinating. ? Blood in your stool (feces) or bleeding from your rectum. ? Blood in your semen. Follow these instructions at home: Medicines ? Take xbht-zoi-yustquj and prescription medicines only as told by [...] provider. Document Revised: 04/08/2022 Document Reviewed: 04/08/2022 [employer] Patient Education ? 2022 [employer] Transrectal Ultrasound-Guided Prostate Biopsy A transrectal [...] including vitamins, herbs, eye drops, creams, and oays-qlk-fqpwljj medicines. ? Any problems you or family [...] aspirin (more content not included)... Normal [facility] Office/Clinic Noteon 11-03-2023 Urology Office/Clinic Note Chief Complaint elevated PSA HPI Staff Evaluation requested by Carolina Sen MIXING PICKER TENDER due to elevated PSA. Pt is a [...] male new pt referred by Carolina Sen NP for elevated PSA. 1. Elevated PSA [...] BERMUDEZ MD, URL [facility] [address], [place] [phone]- [phone] Additional Instructions: sched TRUS/bx Patient Education Transrectal [...] 3 (more content not included)... Normal [facility] Comment on above: Result Comment: Elec tronically [...] Available Comment on above: Order Comment: @noms MT brain spect datscanon MT brain spect datscan [facility] Main [place] [address] [place] [address] Nuclear Medicine Report Signed Patient: Rebeca Herron MR#: [id number] 32 : 1960 Acct:[id number] Age/Sex: 62 / M ADM Date: 04/03/23 Loc: MT Room: Type: [facility] Attending Dr: Dante Rangel MD Copies to: MD Calvin Randall II, MD Ordering Provider: Dante Rangel MD Date of Service: 04/03/23 NM/MT brain spect datscan: R25.1 MT brain spect datscan 04/03/2023 7:57 AM SIGNS [...] Calvin Monreal M.D.04/03/2023 2:43 PM Dictation Location: [place] [address] Transcribed By: [facility] 04/03/231442 Dictated By: Calvin Monreal II, MD 04/03/231440 Signed By: 04/03/231442 [facility] CBC AUTO DIFFon 02-11-2023 BASO # 0.1 103/ul Normal 0.0-0.1 [facility] Comment on above: Performed By: #### C BC #### [facility] [address] [place] [address] Dr. Cedrick Beatty Basophils/100 WBC (Bld) 0.5 % Normal 0.2-2.0 [facility] Comment on above: Performed By: #### C BC #### [facility] [address] [place] [address] Dr. Cedrick Beatty EO # 0.1 103/ul Normal 0.0-0.7 [facility] Comment on above: Performed By: #### C BC #### [facility] [address] [place] [address] Dr. Cedrick Beatty Eosinophils/100 WBC (Bld) 0.9 % Normal 0.9-7.0 [facility] Comment on above: Performed By: #### C BC #### [facility] [address] [place] [address] Dr. Cedrick Beatty Erythrocyte distribution width (RBC) [Ratio] 13.6 % Normal 11.0-15.0 [facility] Comment on above: Performed By: #### C BC #### [facility] [address] [address] [address] Cedrick Beatty Hematocrit (Bld) [Volume fraction] 48.6 % Normal 42.0-54.0 [facility] Comment on above: Performed By: #### C BC #### [facility] [address] [address] [address] Cedrick Beatty Hemoglobin (Bld) [Mass/Vol] 16.5 g/dL Normal 14.0-18.0 [facility] Comment on above: Performed By: #### C BC #### [facility] [address] [place] [address] Dr. Cedrick Beatty IG # 0.14 10e3/ul Critically high 0.00-0.03 [facility] Comment on above: Performed By: #### C BC #### [facility] [address] [place] [address] Dr. Cedrick Beatty IG % 1.1 % Critically high 0.0-0.5 [facility] Comment on above: Performed By: #### C BC #### [facility] [address] [place] [address] Dr. Cedrick Beatty LYMPH # 1.6 103/ul Normal 1.2-3.8 [facility] Comment on above: Performed By: #### C BC #### [facility] [address] [place] [address] Dr. Cedrick Beatty Lymphocytes/100 WBC (Bld) 12.5 % Critically low 20.5-60.0 [facility] Comment on above: Performed By: #### C BC #### [facility] [address] [place] [address] Dr. Cedrick Beatty MANUAL DIFF REQ NO Normal [facility] Comment on above: Performed By: #### C BC #### [facility] [address] [place] [address] Dr. Cedrick Beatty MCH (RBC) [Entitic mass] 28.5 pg Normal 25.9-34.0 [facility] Comment on above: Performed By: #### C BC #### [facility] [address] [address] [address] Cedrick Beatty MCHC (RBC) [Mass/Vol] 34.0 g/dL Normal 29.9-35.2 [facility] Comment on above: Performed By: #### C BC #### [facility] [address] [address] [address] Cedrick Beatty MCV (RBC) [Entitic vol] 84.1 fL Normal 80.0-94.0 [facility] Comment on above: Performed By: #### C BC #### [facility] [address] [address] [address] Cedrick Beatty MONO # 1.0 103/ul Critically high 0.3-0.8 [facility] Comment on above: Performed By: #### C BC #### [facility] [address] [address] [address] Cedrick Beatty Monocytes/100 WBC (Bld) 7.7 % Normal 1.7-12.0 [facility] Comment on above: Performed By: #### C BC #### [facility] [address] [address] [address] Cedrick Beatty NEUT # 10.0 103/ul Critically high 1.4-6.5 [facility] Comment on above: Performed By: #### C BC #### [facility] [address] [place] [address] Dr. Cedrick Beatty Neutrophils/100 WBC (Bld) 77.3 % Critically high 43.0-75.0 [facility] Comment on above: Performed By: #### C BC #### [facility] [id number] Cedrick Beatty Platelet mean volume (Bld) [Entitic vol] 9.0 fL Critically low 9.5-13.5 [facility] Comment on above: Performed By: #### C BC #### [facility] [address] [address] [address] Cedrick Beatty PLT 231 103/ul Normal 150-450 [facility] Comment on above: Performed By: #### C BC #### [facility] [address] [address] [address] Cedrick Beatty RBC 5.78 106/ul Normal 4.70-6.10 [facility] Comment on above: Performed By: #### C BC #### [facility] [address] [place] [address] Dr. Cedrick Beatty WBC 12.9 103/ul Critically high 4.0-11.0 [facility] Comment on above: Performed By: #### C BC #### [facility] [address] [place] [address] Dr. Cedrick Beatty GLYCOHEMOGLOBIN A1Con 2022 ADA RECOMMENDATION SEE BELOW Normal [facility] Comment on above: Result Comment: ADA RECOMMENDED LIMIT 4.0 - 6.0 ADA THERAPEUTIC TARGET < 7.0 ACTION SUGGESTED > 7.0 Performed By: #### A 1C #### [facility] [address] [place] [address] Dr. Cedrick Beatty Glucose [Mass/Vol] 146 mg/dL Normal [facility] Comment on above: Performed By: #### A 1C #### [facility] [address] [place] [address] Dr. Cedrick Beatty HbA1c (Bld) [Mass fraction] 6.7 % Critically high 4.5-6.2 [facility] Comment on above: Performed By: #### A 1C #### [facility] [address] [place] [address] Dr. Cedrick Beatty LIPID PROFILEon 02-11-2023 CHOL-HDL RATIO NORM SEE BELOW Normal [facility] Comment on above: Result Comment: 3.3 - 4.4 LOW RISK 4.4 - 7.1 AVERAGE RISK 7.1 - 11.0 MODERATE RISK >11.0 HIGH RISK Performed By: #### C MP, LIPID #### [facility] [address] [place] [address] Dr. Cedrick Beatty Cholesterol [Mass/Vol] 130 mg/dL Normal <=200 [facility] Comment on above: Performed By: #### C MP, LIPID #### [facility] [address] [place] [address] Dr. Cedrick Beatty Cholesterol in HDL [Mass/Vol] 56 mg/dL Normal 40-60 [facility] Comment on above: Performed By: #### C MP, LIPID #### [facility] [address] [address] [address] Cedrick Beatty Cholesterol in LDL [Mass/Vol] 49.4 mg/dL Normal [facility] Comment on above: Performed By: #### C MP, LIPID #### [facility] [address] [place] [address] Dr. Cedrick Beatty Cholesterol.total/Ch olesterol in HDL [Mass ratio] 2.3 {ratio} Normal [facility] Comment on above: Performed By: #### C MP, LIPID #### [facility] [address] [place] [address] Dr. Cedrick Beatty HDL NORMAL > or = 60 mg/dl - LOW CARDIOVASCULAR RISK <40 mg/dl - HIGH CARDIOVASCULAR RISK Normal [facility] Comment on above: Performed By: #### C MP, LIPID #### [facility] [address] [place] [address] Dr. Cedrick Beatty LDL CALC NORMAL SEE BELOW Normal [facility] Comment on above: Result Comment: <100 mg/dl OPTIMAL 100 - 129 mg/dl NEAR OR ABOVE OPTIMAL 130 - 159 mg/dl BORDERLINE HIGH 160 - 189 mg/dl HIGH >190 mg/dl VERY HIGH Performed By: #### C MP, LIPID #### [facility] [address] [place] [address] Dr. Cedrick Beatty Triglyceride [Mass/Vol] 123 mg/dL Normal <=150 [facility] Comment on above: Performed By: #### C MP, LIPID #### [facility] [address] [place] [address] Dr. Cedrick Beatty VLDL CALC 24.6 mg/dL Normal [facility] Comment on above: Performed By: #### C MP, LIPID #### [facility] [address] [place] [address] Dr. Cedrick Beatty MICROALB CREAT RATIO RANDOMo n 02-11-2023 mALB 1.3 mg/L Normal <=30.0 [facility] Comment on above: Performed By: #### M CRR #### [facility] [address] [place] [address] Dr. Cedrick ESCOBAR CR RATIO 6.9 mg/g Normal 0.0-29.9 [facility] Comment on above: Performed By: #### M CRR #### [facility] [address] [place] [address] Dr. Cedrick Beatty MALB CR RATIO RANGE SEE BELOW Normal [facility] Comment on above: Result Comment: NO M ICROALBUMINURIA 0-29 MG/G CLINICAL MICROALBUMINURIA 30-300 MG/G MACROALBUMINURIA >300 MG/G Performed By: #### M CRR #### [facility] [address] [place] [address] Dr. Cedrick Beatty URINE CREAT 187.43 mg/dL Normal 20.00-300.00 [facility] Comment on above: Performed By: #### M CRR #### [facility] [address] [place] [address] Dr. Cedrick Beatty PROF 14(COMP METB)on 023 Albumin [Mass/Vol] 4.0 g/dL Normal 3.4-5.0 [facility] Comment on above: Performed By: #### C MP, LIPID #### [facility] [address] [place] [address] Dr. Cedrick Beatty Albumin/Globulin [Mass ratio] 1.0 {ratio} Normal [facility] Comment on above: Performed By: #### C MP, LIPID #### [facility] [address] [place] [address] Dr. Cedrick Beatty ALP [Catalytic activity/Vol] 99 U/L Normal 46-116 [facility] Comment on above: Performed By: #### C MP, LIPID #### [facility] [address] [place] [address] Dr. Cedrick Beatty ALT [Catalytic activity/Vol] 40 U/L Normal 16-63 [facility] Comment on above: Performed By: #### C MP, LIPID #### [facility] [address] [place] [address] Dr. Cedrick Beatty Anion gap [Moles/Vol] 13.6 mmol/L Normal [facility] Comment on above: Performed By: #### C MP, LIPID #### [facility] [address] [place] [address] Dr. Cedrick Beatty AST [Catalytic activity/Vol] 18 U/L Normal 15-37 [facility] Comment on above: Performed By: #### C MP, LIPID #### [facility] [address] [place] [address] Dr. Cedrick Beatty Bilirubin [Mass/Vol] 0.7 mg/dL Normal 0.2-1.0 [facility] Comment on above: Performed By: #### C MP, LIPID #### [facility] [address] [place] [address] Dr. Cedrick Betaty Calcium [Mass/Vol] 9.5 mg/dL Normal 8.5-10.1 [facility] Comment on above: Performed By: #### C MP, LIPID #### [facility] [address] [place] [address] Dr. Cedrick Beatty Chloride [Moles/Vol] 99 mmol/L Normal 98-107 [facility] Comment on above: Performed By: #### C MP, LIPID #### [facility] [address] [place] [address] Dr. Cedrick Beatty CO2 [Moles/Vol] 28.7 mmol/L Normal 21.0-32.0 [facility] Comment on above: Performed By: #### C MP, LIPID #### [facility] [address] [place] [address] Dr. Cedrick Beatty Creatinine [Mass/Vol] 1.00 mg/dL Normal 0.70-1.30 [facility] Comment on above: Performed By: #### C MP, LIPID #### [facility] [address] [place] [address] Dr. Cedrick Beatty EGFR-AF TRINIDADIAN >60 Normal >=60 [facility] Comment on above: Performed By: #### C MP, LIPID #### [facility] [address] [place] [address] Dr. Cedrick Beatty EGFR-NON AF TRINIDADIAN >60 Normal >=60 [facility] Comment on above: Performed By: #### C MP, LIPID #### [facility] [address] [place] [address] Dr. Cedrick Beatty Globulin (S) [Mass/Vol] 3.9 g/dL Normal [facility] Comment on above: Performed By: #### C MP, LIPID #### [facility] [address] [place] [address] Dr. Cedrick Beatty Glucose [Mass/Vol] 137 mg/dL Critically high 74-106 [facility] Comment on above: Performed By: #### C MP, LIPID #### [facility] [address] [place] [address] Dr. Cedrick Beatty Potassium [Moles/Vol] 4.3 mmol/L Normal 3.5-5.1 [facility] Comment on above: Performed By: #### C MP, LIPID #### [facility] [address] [place] [address] Dr. Cedrick Beatty Protein [Mass/Vol] 7.9 g/dL Normal 6.4-8.2 [facility] Comment on above: Performed By: #### C MP, LIPID #### [facility] [address] [place] [address] Dr. Cedrick Beatty Sodium [Moles/Vol] 137 mmol/L Normal 136-145 [facility] Comment on above: Performed By: #### C MP, LIPID #### [facility] [address] [place] [address] Dr. Cedrick Beatty Urea nitrogen [Mass/Vol] 13.0 mg/dL Normal 7.0-18.0 [facility] Comment on above: Performed By: #### C MP, LIPID #### [facility] [address] [place] [address] Dr. Cedrick Beatty Urea nitrogen/Creatinine [Mass ratio] 13.0 mg/mg Normal [facility] Comment on above: Performed By: #### C MP, LIPID #### [facility] [address] [place] [address] Dr. Cedrick Beatty VITAMIN D 25 OHon 02-11-2023 VIT D 25-OH 12.9 ng/mL Normal [facility] Comment on above: Performed By: #### V ITAD #### [facility] [address] [place] [address] Dr. Cedrick Beatty VIT D RANGES SEE BELOW Normal [facility] Comment on above: Result Comment: <20 ng/mL Vit D deficient 20 - <30 ng/mL Vit D insufficient 30 - 100 ng/mL Vit D sufficient >100 ng/mL Potential Toxicity Performed By: #### V ITAD #### [facility] [address] [place] [address] Dr. Cedrick Beatty CBC AUTO DIFFon 07-27-2022 BASO # 0.0 103/ul Normal 0.0-0.1 [facility] Comment on above: Performed By: #### C BC #### [facility] [address] [place] [address] Dr. Cedrick Beatty Basophils/100 WBC (Bld) 0.4 % Normal 0.2-2.0 [facility] Comment on above: Performed By: #### C BC #### [facility] [address] [place] [address] Dr. Cedrick Beatty EO # 0.0 103/ul Normal 0.0-0.7 [facility] Comment on above: Performed By: #### C BC #### [facility] [address] [place] [address] Dr. Cedrick Beatty Eosinophils/100 WBC (Bld) 0.4 % Critically low 0.9-7.0 [facility] Comment on above: Performed By: #### C BC #### [facility] [address] [place] [address] Dr. Cedrick Beatty Erythrocyte distribution width (RBC) [Ratio] 13.8 % Normal 11.0-15.0 [facility] Comment on above: Performed By: #### C BC #### [facility] [address] [place] [address] Dr. Cedrick Beatty Hematocrit (Bld) [Volume fraction] 46.0 % Normal 42.0-54.0 [facility] Comment on above: Performed By: #### C BC #### [facility] [address] [place] [address] Dr. Cedrick Beatty Hemoglobin (Bld) [Mass/Vol] 15.5 g/dL Normal 14.0-18.0 [facility] Comment on above: Performed By: #### C BC #### [facility] [address] [place] [address] Dr. Cedrick Beatty IG # 0.09 10e3/ul Critically high 0.00-0.03 [facility] Comment on above: Performed By: #### C BC #### [facility] [address] [place] [address] Dr. Cedrick Beatty IG % 1.0 % Critically high 0.0-0.5 [facility] Comment on above: Performed By: #### C BC #### [facility] [address] [place] [address] Dr. Cedrick Beatty LYMPH # 1.5 103/ul Normal 1.2-3.8 [facility] Comment on above: Performed By: #### C BC #### [facility] [address] [place] [address] Dr. Cedrick Beatty Lymphocytes/100 WBC (Bld) 16.2 % Critically low 20.5-60.0 [facility] Comment on above: Performed By: #### C BC #### [facility] [address] [place] [address] Dr. Cedrick Beatty MANUAL DIFF REQ NO Normal [facility] Comment on above: Performed By: #### C BC #### [facility] [address] [place] [address] Dr. Cedrick Beatty MCH (RBC) [Entitic mass] 29.0 pg Normal 25.9-34.0 [facility] Comment on above: Performed By: #### C BC #### [facility] [address] [place] [address] Dr. Cedrick Beatty MCHC (RBC) [Mass/Vol] 33.7 g/dL Normal 29.9-35.2 [facility] Comment on above: Performed By: #### C BC #### [facility] [address] [address] [address] Cedrick Beatty MCV (RBC) [Entitic vol] 86.1 fL Normal 80.0-94.0 [facility] Comment on above: Performed By: #### C BC #### [facility] [address] [address] [address] Cedrick Beatty MONO # 0.7 103/ul Normal 0.3-0.8 [facility] Comment on above: Performed By: #### C BC #### [facility] [address] [address] [address] Cedrick Beatty Monocytes/100 WBC (Bld) 7.9 % Normal 1.7-12.0 [facility] Comment on above: Performed By: #### C BC #### [facility] [address] [address] [address] Cedrick Beatty NEUT # 6.8 103/ul Critically high 1.4-6.5 [facility] Comment on above: Performed By: #### C BC #### [facility] [address] [place] [address] Dr. Cedrick Beatty Neutrophils/100 WBC (Bld) 74.1 % Normal 43.0-75.0 [facility] Comment on above: Performed By: #### C BC #### [facility] [address] [address] [address] Cedrick Beatty Platelet mean volume (Bld) [Entitic vol] 8.7 fL Critically low 9.5-13.5 [facility] Comment on above: Performed By: #### C BC #### [facility] [address] [place] [address] Dr. Cedrick Beatty PLT 193 103/ul Normal 150-450 [facility] Comment on above: Performed By: #### C BC #### [facility] [id number] Cedrick Beatty RBC 5.34 106/ul Normal 4.70-6.10 [facility] Comment on above: Performed By: #### C BC #### [facility] [address] [address] [address] Cedrick Beatty WBC 9.1 103/ul Normal 4.0-11.0 [facility] Comment on above: Performed By: #### C [place] #### [facility] [address] [address] [address] Cedrick Beatty GLYCOHEMOGLOBIN A1Con 2021 ADA RECOMMENDATION SEE BELOW Normal [facility] Comment on above: Result Comment: ADA RECOMMENDED LIMIT 4.0 - 6.0 ADA THERAPEUTIC TARGET < 7.0 ACTION SUGGESTED > 7.0 Performed By: #### A 1C #### [facility] [address] [address] [address] Cedrick Beatty Glucose [Mass/Vol] 148 mg/dL Normal [facility] Comment on above: Performed By: #### A 1C #### [facility] [address] [address] [address] Cedrick Beatty HbA1c (Bld) [Mass fraction] 6.8 % Critically high 4.5-6.2 [facility] Comment on above: Performed By: #### A 1C #### [facility] [address] [address] [address] Cedrick Beatty COVID/FLU RT-PCRon SARS-CoV-2 (COVID-19) RNA CHEY+probe Ql (Unsp spec) Positive [facility] Other COVID/FLU RT-PCR Negative [facility] Other COVID/FLU RT-PCR [facility] Other Quick Fluon 12-28-2021 FLUAV Ab CF (S) [Titer] Negative [facility] Other FLUBV Ab CF (S) [Titer] Negative [facility] Other Vital Signs Date Time Vital Sign Value Performing Clinician Facility 11-03-2023 10:05-0500 Blood Pressure Location Mario BERMUDEZ [facility] 11-03-2023 10:05-0500 Diastolic blood pressure 89 mm[Hg] Mario BERMUDEZ [facility] 11-03-2023 10:05-0500 Heart rate 85 /min Mario BERMUDEZ [facility] 11-03-2023 10:05-0500 Respiratory rate 16 /min Mario BERMUDEZ [facility] 11-03-2023 10:05-0500 Systolic blood pressure 135 mm[Hg] Mario BERMUDEZ [facility] 06-02-2022 15:05-0400 Body height 175.26 cm Marisa Rivers Other [facility] Other 06-02-2022 15:05-0400 Body mass index (BMI) [Ratio] 31.75 kg/m2 Marisa Rivers Other [facility] Other 06-02-2022 15:05-0400 Body temperature 97.8 [degF] Marisa Rivers Other [facility] Other 06-02-2022 15:05-0400 Body weight 97.52 kg Marisa Rivers Other [facility] Other 06-02-2022 15:05-0400 Respiratory rate 18 /min Marisa Rivers Other [facility] Other 06-02-2022 15:05-0400 SaO2% (BldA) [Mass fraction] 94 % Marisa Rivers Other [facility] Other 12-28-2021 11:55-0500 Body height 175.26 cm Brittany Zuniga Other [facility] Other 12-28-2021 11:55-0500 Body mass index (BMI) [Ratio] 31.01 kg/m2 Brittany Zuniga Other [facility] Other 12-28-2021 11:55-0500 Body temperature 97.7 [degF] Brittany Zuniga Other [facility] Other 12-28-2021 11:55-0500 Body weight 95.26 kg Brittany Zuniga Other [facility] Other 12-28-2021 11:55-0500 Diastolic blood pressure 96 mm[Hg] Brittany Zuniga Other [facility] Other 12-28-2021 11:55-0500 SaO2% (BldA) [Mass fraction] 95 % Brittany Zuniga Other [facility] Other 12-28-2021 11:55-0500 Systolic blood pressure 139 mm[Hg] Brittany Zuniga Other [facility] Other Encounters Encounter Date Encounter Type Care Provider Facility Start: 12-01-2023 ambulatory Mario BERMUDEZ [facility]ili [facility] Start: 11-18-2023 End: 11-18-2023 ambulatory CAROLINA WARCHOL Not Available Start: 11-11-2023 End: 11-11-2023 ambulatory CAROLINA WARCHOL Not Available Start: 11-03-2023 End: 11-04-2023 ambulatory CAROLINA WARCHOL Facility:[facility] Start: 11-03-2023 End: 11-03-2023 Patient encounter procedure Mario BERMUDEZ [facility] Start: 10-30-2023 End: 10-30-2023 ambulatory CAROLINA WARCHOL Not Available Start: 10-28-2023 End: 10-28-2023 ambulatory LANDON TITUS Not Available Start: 10-22-2023 End: 10-23-2023 ambulatory LANDON TITUS Not Available Start: 10-07-2023 End: 10-07-2023 ambulatory LANDON TITUS Not Available Start: 09-15-2023 ambulatory Mario BERMUDEZ Facility :[facility] Start: 04-03-2023 End: 04-03-2023 ambulatory Dante Rangel Facility:[facility] Start: 04-03-2023 End: 04-03-2023 ambulatory MD Lilli Estrella Work Phone: [facility] Work Phone: Start: 04-03-2023 End: 04-03-2023 Patient encounter procedure MD Lilli Estrella Work Phone: [facility] [place] Work Phone: Start: 02-11-2023 End: 02-12-[address] LILLI ESTRELLA Facility:[facility] Start: 08-02-2022 ambulatory CAROLINA PHAM Facility:[facility] Start: 07-27-2022 End: 07-28-2022 ambulatory CAROLINA PHAM Facility:[facility] Start: 06-02-2022 End: 06-02-2022 ambulatory Marisa Rivers Other [facility] Other Start: 06-02-2022 Office outpatient vi sit 15 minutes Marisa Tita [facility] Start: 04-11-2022 ambulatory CAROLINA PHAM Facility:[facility] Start: 12-28-2021 End: 12-28-2021 ambulatory Brittany Zuniga Other [facility] Other Start: 12-28-2021 Office outpatient vi sit 15 minutes Brittany Zuniga [facility] Procedures Date Procedure Procedure Detail Performing Clinician Start: 04-03-2023 NM brain spect datscan MD Lilli Estrella Work Phone: Start: 07-27-2022 PSA screening CAROLINA GARCIA Comment on above: Performed By: #### [facility] #### [facility] [address] [place] [address] Dr. Cedrick Brown Mario BERMUDEZ Procedure on neck Mario MALAGON Tonsillectomy Mario BERMUDEZ Payers Date Payer Category Payer Self-pay 1961 Unknown [id number] 1961 Unknown [id number] 1960 Unknown [id number] 2.16.84 [id number] 1960 Unknown [id number] 2.16.84 [id number] 1958 Unknown [id number] 2.16.84 [id number] 1958 Unknown [id number] 2.16.84 [id number] 1958 Unknown [id number] 2.16.8 [id number] 1958 Unknown [id number] 2.16.8 [id number] 1958 Unknown [id number] 2.16.84 0.1.665992.3.579.2.1259 1958 Unknown [id number] 2.16.84 0.1.277817.3.579.2.1259 1958 Unknown [id number] 2.16.840 .[id number] 1958 Unknown [id number] 2.16.840 .[id number] 1958 Unknown [id number] 2.16.840 .[id number] 1958 Unknown [id number] 2.16.840 .[id number] Unknown [id number] 2.16.8 [id number] Social History Date Type Detail Facility Unknown if ever smoked [facility] Other Sex Assigned At [facility] Start: 1960 Sex Assigned At Male F [facility] Start: 11-03-2023 Tobacco smoking status Ex-smoker (fi nding) [facility] Functional Status Date Assessment Result Facility 11-03-2023 Functional Status N/A [facility] Hospital Discharge instructions 11-03-2023 Note Date [...] discomfort near your rectum, especially while sitting. [place]wey[place]-colored urine due to small amounts of blood in your urine. A burning feeling while urinating. Blood in your stool (feces) or bleeding from your rectum. Blood in your semen. Follow these instructions at home: Medicines Take dmsz-tbj-qvqsgtt and prescription medicines only as told by [...] provider. Document Revised: 04/08/2022 Document Reviewed: 04/08/2022 [employer] Patient Education 2022 [employer]. 11/03/2023 11:15:19 Transrectal Ultrasound-Guided Prostate Biopsy Transrectal [...] including vitamins, herbs, eye drops, creams, and zadv-gaf-wskyuli medicines. Any problems you or family members [...] provider tells you to take them. Taking qidi-lqz-aqqgphh medicines, vitamins, herbs, and supplements. General instructions [...] provider. Document Revised: 04/08/2022 Document Reviewed: 04/08/2022 [employer] Patient Education 2022 [employer]. Follow Up Care 09/15/2023 14:29:12 With:JENNIFER HURTADO, Mario Houston, URL Address: [facility] [address] , [place] [address]- [phone] When: Unknown Comments:sched TRUS/bx [facility] Evaluation note 06-02-2022 Note Date & [...] your family physician for any further concern [facility] Other Evaluation note 12-28-2021 Note Date & [...] Patient care instructions given in writting by CDC Care At Home document. Due to infection control protocols for COVID-19 virus, direct physical contact with patient was limited to only the absolute essential needed assessments. [facility] Other Evaluation + Plan note Note Date & Type Note Facility Evaluation + Plan note Future Appointments Appointment Date:12/01/2023 08:45:00 AM Scheduled Provider:Mario BERMUDEZ MD Location:[facility] Appointment Type:URO Office Visit [facility] Evaluation note Note Date & Type Note Facility Evaluation note No assessment information availa ble [facility] Work Phone: History general Narrative - Reported [...] 2 Hospitalization History see above surgical histo [facility] Other History general Narrative - Reported Note [...] 2 Hospitalization History see above surgical histo [facility] Other Hospital course Narrative Note Date & Type Note Facility Hospital course Narrative No data available for this section [facility] Progress note Note Date & Type Note Facility Progress note No data available for this section [facility] Summary Purpose Family History No Family [...] and content) DATE CREATED AUTHOR 02/16/2023 [facility] DATE CREATED AUTHOR AUTHOR'S ORGANIZ ATION 05/05/2023 [facility] DATE CREATED AUTHOR AUTHOR'S ORGANIZ ATION 11/05/2023 [facility] DATE CREATED AUTHOR AUTHOR'S ORGANIZ ATVERA 11/19/2023 [facility] EPIC Care Teams (unrecognized sec [...] BE BASED ON THE PRIMARY CLINICAL RECORDS. [facility] [employer] provides no warranty or guarantee of the accuracy or completeness of information in this document.
[2023-11-20 07:18] LABS: Glucometer 180 mg/dL (74-106)
--- NOTE | 2023-11-20 07:24 | US_ITS ---
The [address] [address] Patient Name: REBECA HERRON MRN: [id number] date: 1960 Sex: M Assigned Patient Location: [facility] Current Patient Location: [facility] Accession/Order Number: [id number] Exam Date: 11/20/2023 08:00 Report Date: 11/20/2023 09:10 At the request of: ZELDA BERMUDEZ Procedure: US prostate EXAMINATION: US prostate HISTORY: trus biopsy COMPARISON: No relevant comparison available. TECHNIQUE: Ultrasound exam for the prostate with an endorectal transducer was performed utilizing real-time and color duplex Doppler sonography. FINDINGS: The prostate gland is enlarged in size measuring 5.0 x 2.8 x 4.9 cm. Mildly heterogeneous echotexture with no focal mass. A needle seen traversing multiple portions of the prostate gland. The biopsy procedure was performed for Dr. Bermudez US/US prostate IMPRESSION: Mildly enlarged prostate gland Electronically authenticated by: REBECA METZGER Date: 11/20/2023 09:10
[2023-11-20 07:40] VITALS: BP 142/90; PULSE 114; RESP 20; TEMP 36; O2SAT 95
[2023-11-20] MEDS: LACTATED RINGER'S SOLUTION 1,000 ML 50 ML IV (07:50)
[2023-11-20] MEDS: CEFAZOLIN SODIUM/DEXTROSE,ISO 2 GM/50 ML PIGGYBACK IV (07:55)
[2023-11-20] MEDS: LIDOCAINE 2% JELLY 20 ML UR (08:09)
[2023-11-20 08:24] VITALS: BP 113/71; PULSE 105; RESP 17; TEMP 36.9; O2SAT 97
--- NOTE | 2023-11-20 08:28 | PM.URSON ---
Urology Surgery Operative Note Operative Note Procedure Date: 11/20/23 Time Out Performed: yes Pre-op Diagnosis: Elevated PSA Post-op Diagnosis: same as pre-op Procedures performed: 1. Transrectal ultrasound of the prostate. 2. Prostate needle biopsies. Anesthesia: MAC and local Primary Surgeon: Mario Bermudez Complications: None Estimated blood loss (mL): 10 Findings: Mild central calcifications Specimens: Prostate needle biopsies Drains: None Indications for Procedures: This gentleman has an elevated PSA of 4.5. It has been rising for the last 3 years. His MIRIAM is benign. He now presents for transrectal ultrasound with prostate needle biopsies. He has signed an informed consent after all risks were explained. Some of these include bleeding, infection, urosepsis, anesthesia to name a few. Detailed description of Procedure: The patient was kept on his gurney bed and brought to the operating room. He was rotated in the left lateral decubitus position. Timeout was done by all parties in the room. We all agreed upon the patient's identification and the planned procedures for this patient. MAC anesthesia was then administered. We then passed 2% lidocaine jelly per rectum. The ultrasound probe was passed per rectum and the prostate was scanned in the transverse and longitudinal views. The volume was calculated to be 38 g. There was some minor central Calcifications noted. While in the sagittal view we began taking biopsies from the left base going towards the apex. We divided up into 4 levels and from each level took 2 biopsies. We did a similar maneuver on the right side. At the end of the procedure we had 16 satisfactory cores. These were all sent for permanent sections to pathology. The probe was removed. He was then transferred to PACU in stable condition. He has been instructed to resume his oral quinolone course at home. He knows that if he gets a fever and/or shaking chills that will not stop that he should present to the ER for IV antibiotics. Follow-up will be within 2 weeks to review the pathology.
[2023-11-20 08:39] VITALS: BP 121/81; PULSE 103; RESP 18; O2SAT 94
[2023-11-20 08:54] VITALS: BP 122/76; PULSE 86; RESP 16; O2SAT 100
[2023-11-20 09:09] VITALS: BP 122/74; PULSE 84; RESP 18; O2SAT 99
== END 2023-11-20 09:20 | disposition home or self-care (01) ==
PROVIDERS: PCP Family Medicine; Visit Provider Urology
PROC: (CPT 400; principal; 2023-11-20 08:00)
DX: N40.1 Benign prostatic hyperplasia with lower urinary tract symptoms (principal); R97.20 Elevated prostate specific antigen [PSA]; E04.1 Nontoxic single thyroid nodule; F32.A Depression, unspecified; F41.9 Anxiety disorder, unspecified; Z87.891 Personal history of nicotine dependence; E11.9 Type 2 diabetes mellitus without complications; M10.9 Gout, unspecified; Z79.84 Long term (current) use of oral hypoglycemic drugs; R35.1 Nocturia
CPT/HCPCS: 55700; 36415; 76872; 82948; 88305; J0690; J1100; J2250; J2405; J2704

== ENCOUNTER 2024-01-02 07:58 | Outpatient (OUT) | payer OTHER, SELFPAY ==
--- OUTSIDE RECORDS SUMMARY | 2024-01-02 08:02 | XMS_ITS | CCD ---
Author Name Unknown Address [address] [place] [address] Organization [facility] Care Team Providers Care Instructional Aide Name Role Phone Brittany Zuniga Unavailable TitaMarisa Unavailable CAROLINA PHAM Admitting Unavailable VERO, CAROLINA [...] Provider MD Lilli Estrella Primary Care Provider [phone] LILLI ESTRELLA Primary Care Physician LANDON TITUS Referring Unavailable LANDON TITUS Attending Unavailable WARCHOL, CAROLINA Attending Unavailable WARCHOL, CAROLINA Attending Unavailable WARCHOL, CAROLINA Attending Unavailable LANDON TITUS Attending Unavailable BRITTANI, CAROLINA Referring Unavailable MD Lilli Estrella Primary Care Provider MD Mario Bermudez Attending Provider [phone] Mario BERMUDEZ Attending Unavailable BRITTANI, CAROLINA Referring Unavailable Mario BERMUDEZ Attending Unavailable Mario BERMUDEZ Attending Unavailable Mario BERMUDEZ Referring Unavailable Mario BERMUDEZ Attending Unavailable Mario BERMUDEZ Attending Unavailable Dante Rangel Admitting Unavailable Dante Rangel Attending Unavailable Lilli Estrella Primary Care Unavailable Mario Bermudez Attending Unavailable Lilli Estrella Primary Care Unavailable Mario Bermudez Admitting Unavailable Allergies Allergy Classification Reported Allergen(s) Allergy Type Date of Onset Reaction(s) Facility (5 sources) Ciprofloxacin; Translations: [ciprofloxacin] Drug Allergy 3 Swelling (morphologic abnormality) [facility] (3 sources) Ciprofloxacin; Translations: [Cipro] Drug Allergy 4 [facility] Repository (1 source) Ciprofloxacin Drug Allergy 3 [facility] Repository Medications Current Medications Medication Drug Class(es) Dates Sig (Normalized) Sig (Original) allopurinol 300 mg oral tablet (3 sources) Xanthine Oxidase Inhibitor Start: 11-03-2023 allopurinol 300 mg Tab Refills(s) 0 Start Date: 11/03/23 Status: Ordered Allopurinol Acti ve ALPRAZolam (2 sources) Benzodiazepine Xanax PRN Active Xanax Active ARIPiprazole (1 source) Atypical Antipsychotic Abilify A ctive atorvastatin (1 source) HMG-CoA Reductase Inhibitor Atorvastatin Calcium Active busPIRone hydrochloride 15 mg oral tablet (4 sources) Start: 11-03-2023 busPIRone 15 mg Tab Refills(s) 0 Start Date: 11/03/23 Status: Ordered busPIRone HCl Ac tive cephalexin 500 mg oral capsule (1 source) Cephalosporin Antibacterial Start: 12-01-2023 End: 12-08-2023 Keflex 500 mg Cap 500 mg = 1 cap(s), Oral, BID, start 3 days prior to procedure, X 7 day(s), # 14 cap(s), Refills(s) 0, Pharmacy: [facility]/pharmacy #[id number], 175, cm, 12/01/23 9:11:00 EST, Height/Length Dosing, 112, kg, 12/01/23 9:11:00 EST, Weight Dosing Start Date: 12/01/23 Stop Date: 12/08/23 Status: Ordered dextromethorphan hydrobromide 30 mg / pyrilamine maleate 30 mg oral tablet (1 source) Uncompetitive [place] te Receptor Antagonist, Sigma-1 Agonist Start: 12-28-2021 [place] DMT 30-30 MG 1 tablet Orally every 6-8 hours for 7 days Dec, Active doxycycline hyclate 100 mg oral capsule (1 source) Tetracycline-class Drug Start: 11-03-2023 End: 11-10-2023 take 1 capsule by mouth twice daily doxycycline hyclate 100 mg Cap 100 mg = 1 cap(s), Oral, BID, X 7 day(s), # 14 cap(s), Refills(s) 0, Pharmacy: [facility]/pharmacy #[id number], 175, cm, 11/03/23 10:32:00 EST, Height/Length Dosing, 112, kg, 11/03/23 10:32:00 EST, Weight Dosing Start Date: 11/03/23 Stop Date: 11/10/23 Status: Ordered FLUoxetine (3 sources) Serotonin Reuptake Inhibitor PROzac Active Fluoxetine Activ e glimepiride 2 mg oral tablet (2 sources) Sulfonylurea Start: 11-03-2023 glimepiride 2 mg Tab Refills(s) 0 Start Date: 11/03/23 Status: Ordered metFORMIN (3 sources) Biguanide metFORMIN HCl Ac tive Metformin Active phentermine hydrochloride 37.5 mg oral tablet (2 sources) Sympathomimetic Amine Anorectic Start: 11-03-2023 phentermine 37.5 mg Tab Refills(s) 0 Start Date: 11/03/23 Status: Ordered rOPINIRole 1 mg oral tablet (2 sources) Nonergot Dopamine Agonist Start: 11-03-2023 ropinirole 1 mg Tab Refills(s) 0 Start Date: 11/03/23 Status: Ordered rosuvastatin calcium 5 mg oral tablet (3 sources) HMG-CoA Reductase Inhibitor Start: 11-03-2023 rosuvastatin 5 mg Tab Refills(s) 0 Start Date: 11/03/23 Status: Ordered Start: 06-02-2022 Rosuvastatin C alcium May, Active Completed/Discontinued Medications Medication Drug Class(es) Dates Sig (Normalized) Sig (Original) methylPREDNISolone (2 sources) Corticosteroid Start: 09-06-2018 Depo-Medrol 40 mg Aug, 60 mg Problems Active Problems Problem Classification Problem Date Documented Da te Episodic/Chronic Diabetes mellitus without complication (9 sources) Type 2 diabetes mellitus without complications; Translations: [Type 2 diabetes mellitus without complication] Onset: 07-27-2022 Chronic Disorders of lipid metabolism (1 source) Mixed hyperlipidemia; Translations: [MIXED HYPERLIPIDEMIA] Onset: 02-16-2023 Chronic Gout and other crystal arthropathies (2 sources) Gout 11-03-2023 Chronic Hyperplasia of prostate (4 sources) Benign prostatic hypertrophy with outflow obstruction; Translations: [Benign prostatic hyperplasia with lower urinary tract symptoms] Onset: 11-03-2023 Chronic Mood disorders (2 sources) Major depressive disorder 10-30-2023 Chronic Nutritional deficiencies (4 sources) Vitamin D deficiency, unspecified; Translations: [VITAMIN D DEFICIENCY UNSPECIFIED] Onset: 02-11-2023 Chronic Other lower respiratory disease (1 source) Cough; Translations: [Cough, unspecified type] Episodic Other screening for suspected conditions (not mental disorders or infectious disease) (6 sources) Other specified abnormal findings of blood chemistry; Translations: [Encounter for screening for malignant neoplasm of prostate] Onset: 07-31-2022 Episodic Screening and history of mental health and substance abuse codes (4 sources) H/O: Disorder; Translations: [Personal history of nicotine dependence] Onset: 11-03-2023 Episodic Thyroid disorders (2 sources) Thyroid nodule 10-30-2023 Chronic Unclassified (1 source) [...] Reference Range Facility Consent for Procedure/Surger yon 12-03-2023 Consent for Procedure/Surgery [id number] #1.00TIFF Normal [facility] Pathology Noteon 12-02-2023 Pathology Note [id number] #1.00TIFF Normal [facility] Ambulatory Visit Summaryon 0 12-01-2023 Ambulatory Visit Summary REBECA HERRON SR :1960 Visit Date:12/01/2023 Ambulatory Visit Instructions Your Diagnosis Elevated PSA BPH with urinary obstruction Type 2 diabetes mellitus Former smoker Your Care Team Attending Physician - Mario BERMUDEZ MD Primary Care Physician - LILLI ESTRELLA MD This Is Your Medications List Contact prescribing physician if questions or concerns allopurinol (allopurinol 300 mg Tab) busPIRone (busPIRone 15 mg Tab) glimepiride (glimepiride 2 mg Tab) phentermine (phentermine 37.5 mg Tab) ropinirole (ropinirole 1 mg Tab) rosuvastatin (rosuvastatin 5 mg Tab) Procedures Performed Transrectal biopsy of prostate using ultrasound guidance (11/20/2023), Colonoscopy, Procedure on neck, Ts - Tonsillectomy. Discharge Vitals Heart Rate (Peripheral) 74 Respiratory Rate 16 Blood Pressure 130/88 Height 175 cm Height 69 in Weight 112 kg Weight 246.4 lb BMI 36.57 What to do next You Need to Schedule the Following Appointments Follow Up with JENNIFER HURTADO, Mario Houston, KELECHI When: Comments: sched repeat TRUS/bx Where: [facility] [address] , [facility] [place] [address]- [phone] Medications What When Instructions Unchanged allopurinol (allopurinol 300 mg Tab) Contact prescribing physician if questions or concerns Unchanged busPIRone (busPIRone 15 mg Tab) Contact prescribing physician if questions or concerns Unchanged glimepiride (glimepiride 2 mg Tab) Contact prescribing physician if questions or concerns Unchanged phentermine (phentermine 37.5 mg Tab) Contact prescribing physician if questions or concerns Unchanged ropinirole (ropinirole 1 mg Tab) Contact prescribing physician if questions or concerns Unchanged rosuvastatin (rosuvastatin 5 mg Tab) Contact prescribing physician if questions or concerns Allergies Cipro (Swelling) Problems Ongoing - Any problem that you are currently receiving treatment for. BPH with urinary obstruction Elevated PSA Former smoker Gout Major depressive disorder Thyroid nodule Type 2 diabetes mellitus Patient Survey You may receive a survey via text or e-mail asking about your office visit. Please share your experience with us by completing your survey. We appreciate your feedback and thank you for choosing us for your care. Education Materials Prostate Cancer Screening Prostate cancer screening is testing that is done to check for the presence of prostate cancer in men. The prostate gland is a walnut-sized gland that is located below the bladder and in front of the rectum in males. The function of the prostate is to add fluid to semen during ejaculation. Prostate cancer is one of the most common types of cancer in men. Who should have prostate cancer screening? Screening recommendations vary based on age and other risk factors, as well as between the professional organizations who make the recommendations. In general, screening is recommended if: ? You are age 50 to 70 and have an average risk for prostate cancer. You should talk with your health care provider about your need for screening and how often screening should be done. Because most prostate cancers are slow growing and will not cause , screening in this age group is generally reserved for men who have a 10- to 15-year life expectancy. ? You are younger than age 50, and you have these risk factors: ? Having a father, brother, or uncle who has been diagnosed with prostate cancer. The risk is higher if your family member's cancer occurred at an early age or if you have multiple family members with prostate cancer at an early age. ? Being a male who is Black or is of [place] or sub-Saharan descent. In general, screening is not recommended if: ? You are younger than age 40. ? You are between the ages of 40 and 49 and you have no risk factors. ? You are 70 years of age or older. At this age, the risks that screening can cause are greater than the benefits that it may provide. If you are at high risk for prostate cancer, your health care provider may recommend that you have screenings more often or that you start screening at a younger age. How is screening for prostate cancer done? The recommended prostate cancer screening test is a blood test called the prostate-specific antigen (PSA) test. PSA is a protein that is made in the prostate. As you age, your prostate naturally produces more PSA. Abnormally high PSA levels may be caused by: ? Prostate cancer. ? An enlarged prostate that is not caused by cancer (benign prostatic hyperplasia, or BPH). This condition is very common in older men. ? A prostate gland infection (prostatitis) or urinary tract infection. ? Certain medicines such as male hormones (like testosterone) or other medicines that raise testosterone levels. A rectal exam may be done as part of prostate cancer screening to help provide informat (more content not included)... Normal [facility] Patient Educationon 12-01-19 24 Patient Education Oncology Prostate Cancer Screening Prostate cancer screening is testing that is done to check for the presence of prostate cancer in men. The prostate gland is a walnut-sized gland that is located below the bladder and in front of the rectum in males. The function of the prostate is to add fluid to semen during ejaculation. Prostate cancer is one of the most common types of cancer in men. Who should have prostate cancer screening? Screening recommendations vary based on age and other risk factors, as well as between the professional organizations who make the recommendations. In general, screening is recommended if: ? You are age 50 to 70 and have an average risk for prostate cancer. You should talk with your health care provider about your need for screening and how often screening should be done. Because most prostate cancers are slow growing and will not cause , screening in this age group is generally reserved for men who have a 10- to 15-year life expectancy. ? You are younger than age 50, and you have these risk factors: ? Having a father, brother, or uncle who has been diagnosed with prostate cancer. The risk is higher if your family member's cancer occurred at an early age or if you have multiple family members with prostate cancer at an early age. ? Being a male who is Black or is of [place] or sub-Saharan descent. In general, screening is not recommended if: ? You are younger than age 40. ? You are between the ages of 40 and 49 and you have no risk factors. ? You are 70 years of age or older. At this age, the risks that screening can cause are greater than the benefits that it may provide. If you are at high risk for prostate cancer, your health care provider may recommend that you have screenings more often or that you start screening at a younger age. How is screening for prostate cancer done? The recommended prostate cancer screening test is a blood test called the prostate-specific antigen (PSA) test. PSA is a protein that is made in the prostate. As you age, your prostate naturally produces more PSA. Abnormally high PSA levels may be caused by: ? Prostate cancer. ? An enlarged prostate that is not caused by cancer (benign prostatic hyperplasia, or BPH). This condition is very common in older men. ? A prostate gland infection (prostatitis) or urinary tract infection. ? Certain medicines such as male hormones (like testosterone) or other medicines that raise testosterone levels. A rectal exam may be done as part of prostate cancer screening to help provide information about the size of your prostate gland. When a rectal exam is performed, it should be done after the PSA level is drawn to avoid any effect on the results. Depending on the PSA results, you may need more tests, such as: ? A physical exam to check the size of your prostate gland, if not done as part of screening. ? Blood and imaging tests. ? A procedure to remove tissue samples from your prostate gland for testing (biopsy). This is the only way to know for certain if you have prostate cancer. What are the benefits of prostate cancer screening? ? Screening can help to identify cancer at an early stage, before symptoms start and when the cancer can be treated more easily. ? There is a small chance that screening may lower your risk of dying from prostate cancer. The chance is small because prostate cancer is a slow-growing cancer, and most men with prostate cancer from a different cause. What are the risks of prostate cancer screening? The main risk of prostate cancer screening is diagnosing and treating prostate cancer that would never have caused any symptoms or problems. This is called overdiagnosisand overtreatment. PSA screening cannot tell you if your PSA is high due to cancer or a different cause. A prostate biopsy is the only procedure to diagnose prostate cancer. Even the results of a biopsy may not tell you if your cancer needs to be treated. Slow-growing prostate cancer may not need any treatment other than monitoring, so diagnosing and treating it may cause unnecessary stress or other side effects. Questions to ask your health care provider ? When should I start prostate cancer screening? ? What is my risk for prostate cancer? ? How often do I need screening? ? What type of screening tests do I need? ? How do I get my test results? ? What do my results mean? ? Do I need treatment? Where to find more information ? The [place] Cancer Society: www.cancer.org ? [place] U[employer] Association: www.auanet.org Contact a health care provider if: ? You have difficulty urinating. ? You have pain when you urinate or ejaculate. ? You have blood in your urine or semen. ? You have pain in your back or in the area of your prostate. Summary ? Prostate cancer is a common type of cancer in men. The prostate gland is located below the bladder and in front of the rectum. This gland adds flu (more content not included)... Normal [facility] Urology Office/Clinic Noteon 12-01-2023 Urology Office/Clinic Note Chief Complaint elevated PSA, BPH with urinary obstruction HPI Staff F/u to TRUS Bx done 11/20/23. Previous dx of elevated PSA, BPH with urinary obstruction, type 2 diabetes and former smoker. Dysuria: no Incomplete bladder emptying: no Hematuria: none in urine but states he has seen blood in his semen Frequency: no Urgency: no Nocturia: 1-2x Stream: good steady no straining or intermittency Leaking: no Post void dripping: no Wearing pads/ Depends: no Urge incontinence: no Stress incontinence: no Incontinence without Sensory Awareness: no Abdominal pain: no Flank pain: no Sexual complaints: no History of Present Illness Tests reviewed: reviewed path report I have reviewed the previous health record information and history for this patient from Dr. Bermudez. I have reviewed and verified the staff [...] HPI. Physical Exam Vitals & Measurements HR: 74(Peripheral) RR: 16 BP: 130/88 HT: 69 in HT: 175 cm WT: 112 kg WT: 246.4 lb BMI: 36.57 General Appearance: alert, no distress, well nourished, well developed male. Genitourinary: normal scrotum, normal testes, normal urethra, normal epididymis, normal vas deferens/spermatic cord. Flank Pain: none. Bladder: nonpalpable. Assessment/Plan 1. Elevated PSA (R97.20: Elevated prostate specific antigen [PSA]) PSA 01/08/20 - 2.47 09/15/21 - 1.71 07/27/22 - 3.35 08/29/23 - 4.5 & 15.6% No known fam hx of prostate ca. MIRIAM 11/03/23: 45gms, benign TRUS/bx 11/20/23 - 1 DAVID core. Prostate volume 38g. States he had blood in his semen PO. Advised pt this is normal and can be ongoing for a few months. UA today shows large blood. Denies gross hematuria. The pathology report was reviewed with the patient in detail today. There is no evidence of malignancy and no further evaluation of the tissue removed is planned. However, discussed that one core is abnormal and will require a repeat biopsy within in 1-6 months. All questions were answered and the report discussed in terms that the patient could understand. Pt elects to get repeat prostate biopsy done in December. -Will schedule repeat TRUS of Prostate with Biopsy. The procedural [...] prostatic hyperplasia with lower urinary tract symptoms) Good stream. Rarely gets up 1-2x/night. Does not feel his urinary sxs are bothersome enough to warrant treatment. 3. Type 2 diabetes mellitus (E11.9: Type 2 diabetes mellitus without complications) UA today shows 500mg/dL glucose. 4. Former smoker (Z87.891: Personal history of nicotine dependence) Quit 34 yrs ago. Risk factor for urothelial ca. [1] Follow-up With When Contact Information JENNIFER HURTADO, Mario Houston, URL [facility] [address] , [place] [address]- [phone] Additional Instructions: sched repeat TRUS/bx Patient Education Prostate Cancer Screening Angela Bolaños, personally scribed for Dr. Bermudez on 12/01/2023 10:08:54. . Documentation recorded by the scribe, Angela Pearce, accurately reflects the services(s) I performed and decisions made by me. Authenticated by Dr. Bermudez on 12/01/2023 10:11:41. Problem List/Past Medical History Ongoing BPH with urinary obstruction Elevated PSA Former smoker Gout Major depressive disorder Thyroid nodule Type 2 diabetes mellitus Historical No qualifying data Procedure/Surgical History Transrectal biopsy of prostate using ultrasound guidance (11/20/2023), Colonoscopy, Procedure on neck, Ts - Tonsillectomy. Medications allopurinol 300 mg Tab busPIRone 15 mg Tab glimepiride 2 mg Tab phentermine 37.5 mg Tab ropinirole 1 mg Tab rosuvastatin 5 mg Tab Allergies Cipro (Swelling) Social History Alcohol Current, Beer, 3-5 times per week, 11/03/2023 Substance Abuse - Denies Substance Abuse, 11/03/2023 Tobacco Former smoker, quit more than 30 days ago Tobacco Use:. Cigarettes, 11/03/2023 Lab Results Ambulatory Point of Care Results Bilirubin Urine Dipstick: Neg (more content not included)... Normal [facility] Comment on above: Result Comment: Elec tronically Signed By: JENNIFER HURTADO, Mario Houston\.br\Date and Time Signed: 12/01/23 10:11 EST\.br\Electronically Co-Signed By: Angela Pearce\.br\Date and Time Co-Signed: 12/01/23 10:09 EST Pathology Noteon 11-27-2023 Pathology Note [id number] #1.00TIFF [facility] Pathology Noteon 11-26-2023 Pathology Note [id number] #1.00TIFF [facility] Lab Reportson 11-21-2023 Lab Reports [id number] #1.00TIFF [facility] RAD - Ultrasound Reporton RAD - Ultrasound Report [id number]# 1.00TIFF [facility] Aubrey 11-20-2023 L Specimen: [id number] Received: 11/20/23-5313 Status: ADAM Rosas Num: [id number] Spec Type: Surgical Subm Dr: Mario Bermudez MD Tissues: A Prostate - Needle Biopsy (L1) B Prostate - Needle Biopsy (L2) C Prostate - Needle Biopsy (L3) D Prostate - Needle Biopsy (L4) E Prostate - Needle Biopsy (R1) F Prostate - Needle Biopsy (R2) G Prostate - Needle Biopsy (R3) H Prostate - Needle Biopsy (R4) Procedures: HE/16, Gross/Micro L4/8, PIN Cocktail/2 Age/ Patient Sex Location Account Attending Physician Rebeca Herron 63/M [facility] [id number] Mario Bermudez MD SPEC NUM: [id number] RECD: 11/20/23 STATUS: ADAM ROSAS NUM: [id number] JAIME: 11/20/[address]: Mario Bermudez MD ENTERED: 11/20/23 [facility] DR: Mark [place] SPEC TYPE: Surgical DEPT: [facility] ORDERED: HE/16, Gross/Micro L4/8, PIN Cocktail/2 ORDERED: HE/16, Gross/Micro L4/8, PIN Cocktail/2, USS/14 Pathological Diagnosis D. Prostate, L4, Core biopsy: Atypical small acinar proliferation (DAVID). A-C, E-H. Prostate, Core Biopsy: Benign Prostate Tissue. Confirmed with PIN immunostain. Clinical Information Elevated PSA Gross Description A. Received in formalin labeled with the patient's name, date of and L1 is one de paz core of tissue 1.7 cm in length by 0.1 cm in diameter. Entirely submitted in one cassette labeled A1. B. Received in formalin labeled with the patient's name, date of and L2 are two de paz cores of tissue , each 0.1 cm in diameter and 1.4 and 1.6 cm in length. Entirely submitted in one cassette labeled B1. Specimen: [id number] Received: 11/20/23 Status: ADAM Rosas Num: [id number] Spec Type: Surgical Subm Dr: Mario Bermudez MD Tissues: A Prostate - Needle Biopsy (L1) B Prostate - Needle Biopsy (L2) C Prostate - Needle Biopsy (L3) D Prostate - Needle Biopsy (L4) E Prostate - Needle Biopsy (R1) F Prostate - Needle Biopsy (R2) G Prostate - Needle Biopsy (R3) H Prostate - Needle Biopsy (R4) Procedures: HE/16, Gross/Micro L4/8, PIN Cocktail/2 Patient: Rebeca Herron [id number] (Continued) Specimen: [id number] Received: 11/20/23 (Continued) Gross Description (Continued) Signed (signature on file) Mary Quintanilla MD 11/25/23 1759 Specimen: [id number] Received: 11/20/23 Status: ADAM Jerry: [id number] Spec Type: Surgical Subm Dr: Mario Bermudez MD Tissues: A Prostate - Needle Biopsy (L1) B Prostate - Needle Biopsy (L2) C Prostate - Needle Biopsy (L3) D Prostate - Needle Biopsy (L4) E Prostate - Needle Biopsy (R1) F Prostate - Needle Biopsy (R2) G Prostate - Needle Biopsy (R3) H Prostate - Needle Biopsy (R4) Procedures: HE/16, Gross/Micro L4/8, PIN Cocktail/2 Patient: BernardRebeca [id number] (Continued) Specimen: [id number] Received: 11/20/23-8321 (Continued) Gross Description (Continued) C. Received in formalin labeled with the patient's name, date of and L3 are two de paz cores of tissue , each 0.1 cm in diameter and approximately 1.6 cm in length. Entirely submitted in one cassette labeled C1. D. Received in formalin labeled with the patient's name, date of and L4 are two de paz cores of tissue , each 0.1 cm in diameter and 1.2 and 1.6 cm in length. Entirely submitted in one cassette labeled D1. E. Received in formalin labeled with the patient's name, date of and R1 are two de paz cores of tissue , each 0.1 cm in diameter and 1.5 and 1.8 cm in length. Entirely submitted in one cassette labeled E1. F. Received in formalin labeled with the patient's name, date of and R2 are two de paz cores of tissue , each 0.1 cm in length and approximately 1.8 cm in diameter. Entirely submitted in one cassette labeled F1. G. Received in formalin labeled with the patient's name, date of and R3 are two de paz cores of tissue , each 0.1 cm in diameter and 1.3 and 1.5 cm in length. Entirely submitted in one cassette labeled G1. H. Received in formalin labeled with the patient's name, date of and R4 are two de paz cores of tissue , each 0.1 cm in diameter and 1.3 and 1.5 cm in length. Entirely submitted in one cassette labeled H1. CPT Codes 43883e6 -------- (more content not included)... Normal [facility] Operative Reporton Operative Report [id number] #1.00TIFF [facility] Lab Reportson 11-13-2023 Lab Reports [id number] #1.00TIFF [facility] Lab Reports [id number]# 1.00TIFF [facility] ECG 12-Leadon 11-11-2023 ECG 12-Lead [id number]# 1.00TIFF [facility] Consent for Procedure/Surger yon 11-04-2023 Consent for Procedure/Surgery [id number] #1.00TIFF [facility] Formson 11-04-2023 Forms [id number]# 1.00TIFF Normal [facility] Physician Referralon 024 Physician Referral [id number] #1.00TIFF Normal [facility] Ambulatory Visit Summaryon 0 11-03-2023 Ambulatory Visit Summary REBECA HERRON :1960 Visit Date:11/03/2023 Ambulatory Visit Instructions Your Diagnosis Elevated PSA BPH with urinary obstruction Type 2 diabetes mellitus Former smoker Tests Performed Urnls Dip Stick Auto w/o Microscopy POC 80852 Your Care Team Attending Physician - JENNIFER [...] Mario Houston Where: [facility] Patient Educationon 11-03-19 24 Patient Education Oncology Transrectal Ultrasound-Guided Prostate Biopsy, [...] near your rectum, especially while sitting. ? [place]-colored urine due to small amounts of blood in your urine. ? A burning feeling while urinating. ? Blood in your stool (feces) or bleeding from your rectum. ? Blood in your semen. Follow these instructions at home: Medicines ? Take dupa-qed-aowkofw and prescription medicines only as told by [...] provider. Document Revised: 04/08/2022 Document Reviewed: 04/08/2022 [employer] Patient Education ? 2022 [employer]. Transrectal Ultrasound-Guided Prostate Biopsy A transrectal ultrasound-guided [...] including vitamins, herbs, eye drops, creams, and mxbj-fmz-nxfjbtf medicines. ? Any problems you or family [...] as aspirin (more content not included)... Normal [facility] Urology Office/Clinic Noteon 11-03-2023 Urology Office/Clinic Note Chief Complaint elevated PSA HPI Staff Evaluation requested by Carolina Sen [employer] due to elevated PSA. Pt is a [...] urothelial ca. Follow-up With When Contact Information JENNIFER HURTADO, Mario Houston, URL [facility] [address] [place] [address] [phone] Additional Instructions: sched TRUS/bx Patient Education Transrectal Ultrasound-Guided Prostate Biopsy, Care After Transrectal Ultrasound-Guided Prostate Biopsy Angela Bolaoñs, personally scribed for Dr. Bermudez on 11/03/2023 [...] allopurinol 3 (more content not included)... Normal [facility] Comment on above: Result Comment: Elec tronically [...] Available Comment on above: Order Comment: @noms VT brain spect datscanon VT brain spect datscan [facility] [place] [address] [place] [address] Nuclear Medicine Report Signed Patient: Rebeca Herron MR#: [id number] 32 : 1960 Acct:[id number] Age/Sex: 62 / M ADM Date: 04/03/23 Loc: [place] Room: Type: [facility] Attending Dr: Dante Rangel MD Copies to: MD Calvin Randall II, MD Ordering Provider: Dante Rangel MD Date of Service: 04/03/23 VT/VT brain spect datscan: R25.1 VT brain spect datscan 04/03/2023 7:57 AM SIGNS [...] Calvin Monreal M.D.04/03/2023 2:43 PM Dictation Location: [place] [address] Transcribed By: [facility] 04/03/231442 Dictated By: Calvin Monreal II, MD 04/03/23 144 Signed By: 04/03/231442 [facility] CBC AUTO DIFFon 02-11-2023 BASO # 0.1 103/ul Normal 0.0-0.1 [facility] Comment on above: Performed By: #### C BC #### [facility] [address] [place] [address] Dr. Cedrick Beatty Basophils/100 WBC (Bld) 0.5 % Normal 0.2-2.0 [facility] Comment on above: Performed By: #### C BC #### [facility] [address] [place] [address] Dr. Cedrick Beatty EO # 0.1 103/ul Normal 0.0-0.7 [facility] Comment on above: Performed By: #### C BC #### [facility] [address] [place] [address] Dr. Cedrick Beatty Eosinophils/100 WBC (Bld) 0.9 % Normal 0.9-7.0 [facility] Comment on above: Performed By: #### C BC #### [facility] [address] [place] [address] Dr. Cedrick Beatty Erythrocyte distribution width (RBC) [Ratio] 13.6 % Normal 11.0-15.0 [facility] Comment on above: Performed By: #### C BC #### [facility] [address] [place] [address] Dr. Cedrick Beatty Hematocrit (Bld) [Volume fraction] 48.6 % Normal 42.0-54.0 [facility] Comment on above: Performed By: #### C BC #### [facility] [address] [place] [address] Dr. Cedrick Beatty Hemoglobin (Bld) [Mass/Vol] 16.5 g/dL Normal 14.0-18.0 [facility] Comment on above: Performed By: #### C BC #### [facility] [address] [place] [address] Dr. Cedrick Beatty IG # 0.14 10e3/ul Critically high 0.00-0.03 [facility] Comment on above: Performed By: #### C BC #### [facility] [address] [place] [address] Dr. Cedrick Beatty IG % 1.1 % Critically high 0.0-0.5 [facility] Comment on above: Performed By: #### C BC #### [facility] [address] [place] [address] Dr. Cedrick Beatty LYMPH # 1.6 103/ul Normal 1.2-3.8 [facility] Comment on above: Performed By: #### C BC #### [facility] [address] [place] [address] Dr. Cedrick Beatty Lymphocytes/100 WBC (Bld) 12.5 % Critically low 20.5-60.0 [facility] Comment on above: Performed By: #### C BC #### [facility] [address] [place] [address] Dr. Cedrick Beatty MANUAL DIFF REQ NO Normal [facility] Comment on above: Performed By: #### C BC #### [facility] [address] [place] [address] Dr. Cedrick Beatty MCH (RBC) [Entitic mass] 28.5 pg Normal 25.9-34.0 [facility] Comment on above: Performed By: #### C BC #### [facility] [address] [place] [address] Dr. Cedrick Beatty MCHC (RBC) [Mass/Vol] 34.0 g/dL Normal 29.9-35.2 [facility] Comment on above: Performed By: #### C BC #### [facility] [address] [place] [address] Dr. Cedrick Beatty MCV (RBC) [Entitic vol] 84.1 fL Normal 80.0-94.0 [facility] Comment on above: Performed By: #### C BC #### [facility] [address] [place] [address] Dr. Cedrick Beatty MONO # 1.0 103/ul Critically high 0.3-0.8 [facility] Comment on above: Performed By: #### C BC #### [facility] [address] [place] [address] Dr. Cedrick Beatty Monocytes/100 WBC (Bld) 7.7 % Normal 1.7-12.0 [facility] Comment on above: Performed By: #### C BC #### [facility] [address] [place] [address] Dr. Cedrick Beatty NEUT # 10.0 103/ul Critically high 1.4-6.5 [facility] Comment on above: Performed By: #### C BC #### [facility] [address] [place] [address] [address] Cedrick Beatty Neutrophils/100 WBC (Bld) 77.3 % Critically high 43.0-75.0 [facility] Comment on above: Performed By: #### C BC #### [facility] [address] [place] [address] Dr. Cedrick Beatty Platelet mean volume (Bld) [Entitic vol] 9.0 fL Critically low 9.5-13.5 [facility] Comment on above: Performed By: #### C BC #### [facility] [address] [place] [address] Dr. Cedrick Beatty PLT 231 103/ul Normal 150-450 [facility] Comment on above: Performed By: #### C BC #### [facility] [address] [place] [address] Dr. Cedrick Beatty RBC 5.78 106/ul Normal 4.70-6.10 [facility] Comment on above: Performed By: #### C BC #### [facility] [address] [place] [address] Dr. Cedrick Beatty WBC 12.9 103/ul Critically high 4.0-11.0 [facility] Comment on above: Performed By: #### C BC #### [facility] [address] [place] [address] Dr. Cedrick Beatty GLYCOHEMOGLOBIN A1Con 2022 ADA RECOMMENDATION SEE BELOW Normal [facility] Comment on above: Result Comment: ADA RECOMMENDED LIMIT 4.0 - 6.0 ADA THERAPEUTIC TARGET < 7.0 ACTION SUGGESTED > 7.0 Performed By: #### A 1C #### [facility] [address] [place] [address] Dr. Cedrick Beatty Glucose [Mass/Vol] 146 mg/dL Normal [facility] Comment on above: Performed By: #### A 1C #### [facility] [address] [place] [address] Dr. Cedrick Beatty HbA1c (Bld) [Mass fraction] 6.7 % Critically high 4.5-6.2 [facility] Comment on above: Performed By: #### A 1C #### [facility] [address] [place] [address] [address] Cedrick Beatty LIPID PROFILEon 02-11-2023 CHOL-HDL RATIO NORM SEE BELOW Normal [facility] Comment on above: Result Comment: 3.3 - 4.4 LOW RISK 4.4 - 7.1 AVERAGE RISK 7.1 - 11.0 MODERATE RISK >11.0 HIGH RISK Performed By: #### C MP, LIPID #### [facility] [address] [place] [address] [address] Cedrick Beatty Cholesterol [Mass/Vol] 130 mg/dL Normal <=200 [facility] Comment on above: Performed By: #### C MP, LIPID #### [facility] [address] [place] [address] [address] Cedrick Beatty Cholesterol in HDL [Mass/Vol] 56 mg/dL Normal 40-60 [facility] Comment on above: Performed By: #### C MP, LIPID #### [facility] [address] [place] [address] [address] Cedrick Beatty Cholesterol in LDL [Mass/Vol] 49.4 mg/dL Normal [facility] Comment on above: Performed By: #### C MP, LIPID #### [facility] [address] [place] [address] [address] Cedrick Beatty Cholesterol.total/Ch olesterol in HDL [Mass ratio] 2.3 {ratio} Normal [facility] Comment on above: Performed By: #### C MP, LIPID #### [facility] [address] [place] [address] [address] Cedrick Beatty HDL NORMAL > or = 60 mg/dl - LOW CARDIOVASCULAR RISK <40 mg/dl - HIGH CARDIOVASCULAR RISK Normal [facility] Comment on above: Performed By: #### C MP, LIPID #### [facility] [address] [place] [address] [address] Cedrick Beatty LDL CALC NORMAL SEE BELOW Normal [facility] Comment on above: Result Comment: <100 mg/dl OPTIMAL 100 - 129 mg/dl NEAR OR ABOVE OPTIMAL 130 - 159 mg/dl BORDERLINE HIGH 160 - 189 mg/dl HIGH >190 mg/dl VERY HIGH Performed By: #### C MP, LIPID #### [facility] [address] [address] [address] Cedrick Beatty Triglyceride [Mass/Vol] 123 mg/dL Normal <=150 [facility] Comment on above: Performed By: #### C MP, LIPID #### [facility] [address] [place] [address] [address] Cedrick Beatty VLDL CALC 24.6 mg/dL Normal [facility] Comment on above: Performed By: #### C MP, LIPID #### [facility] [address] [address] [address] Cedrick Beatty MICROALB CREAT RATIO RANDOMo n 02-11-2023 mALB 1.3 mg/L Normal <=30.0 [facility] Comment on above: Performed By: #### M CRR #### [facility] [address] [place] [address] [address] Cedrick VEGAB CR RATIO 6.9 mg/g Normal 0.0-29.9 [facility] Comment on above: Performed By: #### M CRR #### [facility] [address] [place] [address] Dr. Cedrick Beatty MALB CR RATIO RANGE SEE BELOW Normal [facility] Comment on above: Result Comment: NO M ICROALBUMINURIA 0-29 MG/G CLINICAL MICROALBUMINURIA 30-300 MG/G MACROALBUMINURIA >300 MG/G Performed By: #### M CRR #### [facility] [address] [place] [address] Dr. Cedrick Beatty URINE CREAT 187.43 mg/dL Normal 20.00-300.00 [facility] Comment on above: Performed By: #### M CRR #### [facility] [address] [place] [address] Dr. Cedrick Beatty PROF 14(COMP METB)on 023 Albumin [Mass/Vol] 4.0 g/dL Normal 3.4-5.0 [facility] Comment on above: Performed By: #### C MP, LIPID #### [facility] [address] [address] [address] Cedrick Beatty Albumin/Globulin [Mass ratio] 1.0 {ratio} Normal [facility] Comment on above: Performed By: #### C MP, LIPID #### [facility] [address] [address] [address] Cedrick Beatty ALP [Catalytic activity/Vol] 99 U/L Normal 46-116 [facility] Comment on above: Performed By: #### C MP, LIPID #### [facility] [address] [place] [address] [address] Cedrick Beatty ALT [Catalytic activity/Vol] 40 U/L Normal 16-63 [facility] Comment on above: Performed By: #### C MP, LIPID #### [facility] [address] [place] [address] Dr. Cedrick Beatty Anion gap [Moles/Vol] 13.6 mmol/L Normal [facility] Comment on above: Performed By: #### C MP, LIPID #### [facility] [address] [place] [address] [address] Cedrick Beatty AST [Catalytic activity/Vol] 18 U/L Normal 15-37 [facility] Comment on above: Performed By: #### C MP, LIPID #### [facility] [address] [place] [address] [address] Cedrick Beatty Bilirubin [Mass/Vol] 0.7 mg/dL Normal 0.2-1.0 [facility] Comment on above: Performed By: #### C MP, LIPID #### [facility] [address] [address] [address] Cedrick Beatty Calcium [Mass/Vol] 9.5 mg/dL Normal 8.5-10.1 [facility] Comment on above: Performed By: #### C MP, LIPID #### [facility] [address] [address] [address] Cedrick Beatty Chloride [Moles/Vol] 99 mmol/L Normal 98-107 [facility] Comment on above: Performed By: #### C MP, LIPID #### [facility] [address] [address] [address] Cedrick Beatty CO2 [Moles/Vol] 28.7 mmol/L Normal 21.0-32.0 [facility] Comment on above: Performed By: #### C MP, LIPID #### [facility] [address] [place] [address] Dr. Cedrick Beatty Creatinine [Mass/Vol] 1.00 mg/dL Normal 0.70-1.30 [facility] Comment on above: Performed By: #### C MP, LIPID #### [facility] [address] [place] [address] Dr. Cedrick Beatty EGFR-AF PALAUAN >60 Normal >=60 [facility] Comment on above: Performed By: #### C MP, LIPID #### [facility] [address] [place] [address] Dr. Cedrick Beatty EGFR-NON AF PALAUAN >60 Normal >=60 [facility] Comment on above: Performed By: #### C MP, LIPID #### [facility] [address] [place] [address] Dr. Cedrick Beatty Globulin (S) [Mass/Vol] 3.9 g/dL Normal [facility] Comment on above: Performed By: #### C MP, LIPID #### [facility] [address] [place] [address] Dr. Cedrick Beatty Glucose [Mass/Vol] 137 mg/dL Critically high 74-[address] [facility] Comment on above: Performed By: #### C MP, LIPID #### [facility] [address] [place] [address] Dr. Cedrick Beatty Potassium [Moles/Vol] 4.3 mmol/L Normal 3.5-5.1 [facility] Comment on above: Performed By: #### C MP, LIPID #### [facility] [address] [place] [address] Dr. Cedrick Beatty Protein [Mass/Vol] 7.9 g/dL Normal 6.4-8.2 [facility] Comment on above: Performed By: #### C MP, LIPID #### [facility] [address] [place] [address] Dr. Cedrick Beatty Sodium [Moles/Vol] 137 mmol/L Normal 136-145 [facility] Comment on above: Performed By: #### C MP, LIPID #### [facility] [address] [place] [address] Dr. Cedrick Beatty Urea nitrogen [Mass/Vol] 13.0 mg/dL Normal 7.0-18.0 [facility] Comment on above: Performed By: #### C MP, LIPID #### [facility] [address] [place] [address] Dr. Cedrick Beatty Urea nitrogen/Creatinine [Mass ratio] 13.0 mg/mg Normal [facility] Comment on above: Performed By: #### C MP, LIPID #### [facility] [address] [place] [address] Dr. Cedrick Beatty VITAMIN D 25 OHon 02-11-2023 VIT D 25-OH 12.9 ng/mL Normal [facility] Comment on above: Performed By: #### V ITAD #### [facility] [address] [place] [address] Dr. Cedrick Beatty VIT D RANGES SEE BELOW Normal [facility] Comment on above: Result Comment: <20 ng/mL Vit D deficient 20 - <30 ng/mL Vit D insufficient 30 - 100 ng/mL Vit D sufficient >100 ng/mL Potential Toxicity Performed By: #### V ITAD #### [facility] [address] [place] [address] Dr. Cedrick Beatty CBC AUTO DIFFon 07-27-2022 BASO # 0.0 103/ul Normal 0.0-0.1 [facility] Comment on above: Performed By: #### C BC #### [facility] [address] [place] [address] Dr. Cedrick Beatty Basophils/100 WBC (Bld) 0.4 % Normal 0.2-2.0 [facility] Comment on above: Performed By: #### C BC #### [facility] [address] [place] [address] Dr. Cedrick Beatty EO # 0.0 103/ul Normal 0.0-0.7 [facility] Comment on above: Performed By: #### C BC #### [facility] [address] [place] [address] Dr. Cedrick Beatty Eosinophils/100 WBC (Bld) 0.4 % Critically low 0.9-7.0 [facility] Comment on above: Performed By: #### C BC #### [facility] [address] [place] [address] Dr. Cedrick Beatty Erythrocyte distribution width (RBC) [Ratio] 13.8 % Normal 11.0-15.0 [facility] Comment on above: Performed By: #### C BC #### [facility] [address] [place] [address] Dr. Cedrick Beatty Hematocrit (Bld) [Volume fraction] 46.0 % Normal 42.0-54.0 [facility] Comment on above: Performed By: #### C BC #### [facility] [address] [place] [address] Dr. Cedrick Beatty Hemoglobin (Bld) [Mass/Vol] 15.5 g/dL Normal 14.0-18.0 [facility] Comment on above: Performed By: #### C BC #### [facility] [address] [place] [address] Dr. Cedrick Beatty IG # 0.09 10e3/ul Critically high 0.00-0.03 [facility] Comment on above: Performed By: #### C BC #### [facility] [address] [place] [address] Dr. Cedrick Beatty IG % 1.0 % Critically high 0.0-0.5 [facility] Comment on above: Performed By: #### C BC #### [facility] [address] [place] [address] Dr. Cedrick Beatty LYMPH # 1.5 103/ul Normal 1.2-3.8 [facility] Comment on above: Performed By: #### C BC #### [facility] [address] [place] [address] Dr. Cedrick Beatty Lymphocytes/100 WBC (Bld) 16.2 % Critically low 20.5-60.0 [facility] Comment on above: Performed By: #### C BC #### [facility] [address] [place] [address] Dr. Cedrick Beatty MANUAL DIFF REQ NO Normal [facility] Comment on above: Performed By: #### C BC #### [facility] [address] [place] [address] Dr. Cedrick Beatty MCH (RBC) [Entitic mass] 29.0 pg Normal 25.9-34.0 [facility] Comment on above: Performed By: #### C BC #### [facility] [address] [place] [address] Dr. Cedrick Beatty MCHC (RBC) [Mass/Vol] 33.7 g/dL Normal 29.9-35.2 [facility] Comment on above: Performed By: #### C BC #### [facility] [address] [place] [address] Dr. Cedrick Beatty MCV (RBC) [Entitic vol] 86.1 fL Normal 80.0-94.0 [facility] Comment on above: Performed By: #### C BC #### [facility] [address] [place] [address] Dr. Cedrick Beatty MONO # 0.7 103/ul Normal 0.3-0.8 [facility] Comment on above: Performed By: #### C BC #### [facility] [address] [place] [address] Dr. Cedrick Beatty Monocytes/100 WBC (Bld) 7.9 % Normal 1.7-12.0 [facility] Comment on above: Performed By: #### C BC #### [facility] [address] [place] [address] Dr. Cedrick Beatty NEUT # 6.8 103/ul Critically high 1.4-6.5 [facility] Comment on above: Performed By: #### C BC #### [facility] [address] [place] [address] Dr. Cedrick Beatty Neutrophils/100 WBC (Bld) 74.1 % Normal 43.0-75.0 [facility] Comment on above: Performed By: #### C BC #### [facility] [address] [place] [address] Dr. Cedrick Beatty Platelet mean volume (Bld) [Entitic vol] 8.7 fL Critically low 9.5-13.5 [facility] Comment on above: Performed By: #### C BC #### [facility] [address] [place] [address] Dr. Cedrick Beatty PLT 193 103/ul Normal 150-450 [facility] Comment on above: Performed By: #### C BC #### [facility] [address] [place] [address] Dr. Cedrick Beatty RBC 5.34 106/ul Normal 4.70-6.10 [facility] Comment on above: Performed By: #### C BC #### [facility] [address] [place] [address] Dr. Cedrick Beatty WBC 9.1 103/ul Normal 4.0-11.0 [facility] Comment on above: Performed By: #### C BC #### [facility] [address] [place] [address] Dr. Cedrick Beatty GLYCOHEMOGLOBIN A1Con 2021 ADA RECOMMENDATION SEE BELOW Normal [facility] Comment on above: Result Comment: ADA RECOMMENDED LIMIT 4.0 - 6.0 ADA THERAPEUTIC TARGET < 7.0 ACTION SUGGESTED > 7.0 Performed By: #### A 1C #### [facility] [address] [place] [address] Dr. Cedrick Beatty Glucose [Mass/Vol] 148 mg/dL Normal [facility] Comment on above: Performed By: #### A 1C #### [facility] [address] [place] [address] Dr. Cedrick Beatty HbA1c (Bld) [Mass fraction] 6.8 % Critically high 4.5-6.2 [facility] Comment on above: Performed By: #### A 1C #### [facility] [address] [place] [address] Dr. Cedrick Beatty COVID/FLU RT-PCRon SARS-CoV-2 (COVID-19) RNA CHEY+probe Ql (Unsp spec) Positive [employer] Other COVID/FLU RT-PCR Negative [facility] Other COVID/FLU RT-PCR [facility] [employer] Other Quick Fluon 12-28-2021 FLUAV Ab CF (S) [Titer] Negative [employer] Other FLUBV Ab CF (S) [Titer] Negative [employer] Other Vital Signs Date Time Vital Sign Value Performing Clinician Facility 12-01-2023 09:03-0500 Blood Pressure Location Mario BERMUDEZ [facility] 12-01-2023 09:03-0500 Diastolic blood pressure 88 mm[Hg] Mario BERMUDEZ [facility] 12-01-2023 09:03-0500 Heart rate 74 /min Mario BERMUDEZ [facility] 12-01-2023 09:03-0500 Respiratory rate 16 /min Mario BERMUDEZ [facility] 12-01-2023 09:03-0500 Systolic blood pressure 130 mm[Hg] Mario BERMUDEZ [facility] 11-03-2023 10:05-0500 Blood Pressure Location Mario BERMUDEZ [facility] 11-03-2023 10:05-0500 Diastolic blood pressure 89 mm[Hg] Mario BERMUDEZ [facility] 11-03-2023 10:05-0500 Heart rate 85 /min Mario BERMUDEZ [facility] 11-03-2023 10:05-0500 Respiratory rate 16 /min Mario BERMUDEZ [facility] 11-03-2023 10:05-0500 Systolic blood pressure 135 mm[Hg] Mario BERMUDEZ [facility] 06-02-2022 15:05-0400 Body height 175.26 cm Marisa Wallacemond Other [facility] Other 06-02-2022 15:05-0400 Body mass index (BMI) [Ratio] 31.75 kg/m2 Marisa Tita Other [employer] Other 06-02-2022 15:05-0400 Body temperature 97.8 [degF] Marisa Wallacemond Other [employer] Other 06-02-2022 15:05-0400 Body weight 97.52 kg Marisa Wallacemond Other [employer] Other 06-02-2022 15:05-0400 Respiratory rate 18 /min Marisa Tita Other [employer] Other 06-02-2022 15:05-0400 SaO2% (BldA) [Mass fraction] 94 % Marisa Tita Other [employer] Other 12-28-2021 11:55-0500 Body height 175.26 cm Brittany Zuniga Other [employer] Other 12-28-2021 11:55-0500 Body mass index (BMI) [Ratio] 31.01 kg/m2 Brittany Zuniga Other [employer] Other 12-28-2021 11:55-0500 Body temperature 97.7 [degF] Brittany Zuniga Other [employer] Other 12-28-2021 11:55-0500 Body weight 95.26 kg Brittany Zuniga Other [employer] Other 12-28-2021 11:55-0500 Diastolic blood pressure 96 mm[Hg] Brittany Zuniga Other [employer] Other 12-28-2021 11:55-0500 SaO2% (BldA) [Mass fraction] 95 % Brittany Zuniga Other [employer] Other 12-28-2021 11:55-0500 Systolic blood pressure 139 mm[Hg] Brittany Zuniga Other [employer] Other Encounters Encounter Date Encounter Type Care Provider Facility Start: 01-23-2024 ambulatory Mario Garland ty:[id number] Morillo Start: 01-15-2024 ambulatory Mario Garland ty:[id number] Start: 12-01-2023 End: 12-02-2023 ambulatory Mario BERMUDEZ Facility: [facility] Start: 12-01-2023 End: 12-01-2023 Patient encounter procedure Mario BERMUDEZ [facility] [place] Start: 11-20-2023 End: 11-20-2023 ambulatory Mario Bermudez Facility:[facility] Start: 11-20-2023 End: 11-21-2023 ambulatory MD Lilli Estrella Work Phone: [facility] Work Phone: Start: 11-20-2023 End: 11-20-2023 Departed Referred MD Lilli Estrella Work Phone: [facility] Start: 11-18-2023 End: 11-18-2023 ambulatory CAROLINA WARCHOL Not Available Start: 11-11-2023 End: 11-11-2023 ambulatory ACROLINA WARCHOL Not Available Start: 11-03-2023 End: 11-04-2023 ambulatory CAROLINA WARCHOL Facility:[facility] Start: 11-03-2023 End: 11-03-2023 Patient encounter procedure Mario BERMUDEZ [facility] Start: 10-30-2023 End: 10-30-2023 ambulatory CAROLINA WARDELIA Not Available Start: 10-28-2023 End: 10-28-2023 ambulatory LANDON WATKINSK Not Available Start: 10-22-2023 End: 10-23-2023 ambulatory LANDON WATKINSK Not Available Start: 10-07-2023 End: 10-07-2023 ambulatory LANDON Renteria MUREMMANUELK Not Available Start: 09-15-2023 ambulatory Mario BERMUDEZ Facility :[facility] Start: 04-03-2023 End: 04-03-2023 ambulatory Dante Rangel Facility:[facility] Start: 04-03-2023 End: 04-03-2023 ambulatory MD Lilli Estrella Work Phone: [facility] Work Phone: Start: 04-03-2023 End: 04-03-2023 Patient encounter procedure MD Lilli Estrella Work Phone: [facility] [place] Work Phone: Start: 02-11-2023 End: 02-12-[address] LILLI ESTRELLA Facility:[facility] Start: 08-02-2022 ambulatory CAROLINA PHAM Facility:[facility] Start: 07-27-2022 End: 07-28-2022 ambulatory CAROLINA PHAM Facility:[facility] Start: 06-02-2022 End: 06-02-2022 ambulatory Marisa Rivers Other [employer] Other Start: 06-02-2022 Office outpatient vi sit 15 minutes Marisa Rivers [facility] Start: 04-11-2022 ambulatory CAROLINA PHAM Facility:[facility] Start: 12-28-2021 End: 12-28-2021 ambulatory Brittany Zuniga Other [employer] Other Start: 12-28-2021 Office outpatient vi sit 15 minutes Brittany Zuniga [facility] Procedures Date Procedure Procedure Detail Performing Clinician Start: 11-20-2023 Transrectal biopsy o f prostate using ultrasound guidance Mario BERMUDEZ Start: 04-03-2023 NM brain spect axel Estrella Work Phone: Start: 07-27-2022 PSA screening CAROLINA BOATENGShailesh OCSheng Comment on above: Performed By: #### [facility] #### [facility] [address] [place] [address] Dr. Cedrick Beatty Colonoscopy Mario BERMUDEZ Procedure on neck Mario MALAGON Tonsillectomy Mario BERMUDEZ Payers Date Payer Category Payer Self-pay 1961 Unknown [id number] 1961 Unknown [id number] 1960 Unknown [id number] 2.16.84 [id number] 1958 Unknown [id number] 2.16.84 [id number] 1958 Unknown [id number] 2.16.84 0.1.563096.3.579.2.593 1958 Unknown [id number] 2.16.84 0.1.535049.3.579.2.593 1958 Unknown [id number] 2.16.84 0.1.633417.3.579.2.1259 1958 Unknown [id number] 2.16.84 0.1.965542.3.579.2.1259 1958 Unknown [id number] 2.16.840 .1.680915.3.579.2.1259 1958 Unknown [id number] 2.16.840 .1.943632.3.579.2.1259 1958 Unknown [id number] 2.16.840 .1.257933.3.579.2.1259 1958 Unknown [id number] 2.16.840 .1.542081.3.579.2.1259 1958 Unknown [id number] 2.16.8 40.1.556900.3.579.2.727 1958 Unknown [id number] 2.16.8 40.1.334887.3.579.2.727 1958 Unknown [id number] 2.16.8 40.1.400278.3.579.2.727 1958 Unknown [id number] 2.16.8 40.1.798899.3.579.2.727 Unknown [id number] 2.16.8 40.1.705551.3.579.2.531 Unknown [id number] 2.16.8 40.1.752112.3.579.2.531 Social History Date Type Detail Facility Unknown if ever smoked [employer] Other [facility] Start: 1960 Sex Assigned At Male F [facility] Start: 11-03-2023 Tobacco smoking status Ex-smoker (fi nding) [facility] Functional Status Date Assessment Result Facility 12-01-2023 Functional Status N/A [facility] 11-03-2023 Functional Status N/A [facility] Clinical Notes 12-28-2021 to 12-01-2023 Note Date & Type Note Facility 12-01-2023 Hospital Discharge instructions Patient Education 12/01/2023 10:01:42 Prostate Cancer Screening Prostate Cancer Screening Prostate cancer screening is testing that is done to check for the presence of prostate cancer in men. The prostate gland is a walnut-sized gland that is located below the bladder and in front of the rectum in males. The function of the prostate is to add fluid to semen during ejaculation. Prostate cancer is one of the most common types of cancer in men. Who should have prostate cancer screening? Screening recommendations vary based on age and other risk factors, as well as between the professional organizations who make the recommendations. In general, screening is recommended if: You are age 50 to 70 and have an average risk for prostate cancer. You should talk with your health care provider about your need for screening and how often screening should be done. Because most prostate cancers are slow growing and will not cause , screening in this age group is generally reserved for men who have a 10- to 15-year life expectancy. You are younger than age 50, and you have these risk factors: ?Having a father, brother, or uncle who has been diagnosed with prostate cancer. The risk is higher if your family member's cancer occurred at an early age or if you have multiple family members with prostate cancer at an early age. ?Being a male who is Black or is of [place] or sub-Saharan descent. In general, screening is not recommended if: You are younger than age 40. You are between the ages of 40 and 49 and you have no risk factors. You are 70 years of age or older. At this age, the risks that screening can cause are greater than the benefits that it may provide. If you are at high risk for prostate cancer, your health care provider may recommend that you have screenings more often or that you start screening at a younger age. How is screening for prostate cancer done? The recommended prostate cancer screening test is a blood test called the prostate-specific antigen (PSA) test. PSA is a protein that is made in the prostate. As you age, your prostate naturally produces more PSA. Abnormally high PSA levels may be caused by: Prostate cancer. An enlarged prostate that is not caused by cancer (benign prostatic hyperplasia, or BPH). This condition is very common in older men. A prostate gland infection (prostatitis) or urinary tract infection. Certain medicines such as male hormones (like testosterone) or other medicines that raise testosterone levels. A rectal exam may be done as part of prostate cancer screening to help provide information about the size of your prostate gland. When a rectal exam is performed, it should be done after the PSA level is drawn to avoid any effect on the results. Depending on the PSA results, you may need more tests, such as: A physical exam to check the size of your prostate gland, if not done as part of screening. Blood and imaging tests. A procedure to remove tissue samples from your prostate gland for testing (biopsy). This is the only way to know for certain if you have prostate cancer. What are the benefits of prostate cancer screening? Screening can help to identify cancer at an early stage, before symptoms start and when the cancer can be treated more easily. There is a small chance that screening may lower your risk of dying from prostate cancer. The chance is small because prostate cancer is a slow-growing cancer, and most men with prostate cancer from a different cause. What are the risks of prostate cancer screening? The main risk of prostate cancer screening is diagnosing and treating prostate cancer that would never have caused any symptoms or problems. This is called overdiagnosisand overtreatment. PSA screening cannot tell you if your PSA is high due to cancer or a different cause. A prostate biopsy is the only procedure to diagnose prostate cancer. Even the results of a biopsy may not tell you if your cancer needs to be treated. Slow-growing prostate cancer may not need any treatment other than monitoring, so diagnosing and treating it may cause unnecessary stress or other side effects. Questions to ask your health care provider When should I start prostate cancer screening? What is my risk for prostate cancer? How often do I need screening? What type of screening tests do I need? How do I get my test results? What do my results mean? Do I need treatment? Where to find more information The [place] Cancer Society: www.cancer.org Citizen [place] Urological Association: www.auanet.org Contact a health care provider if: You have difficulty urinating. You have pain when you urinate or ejaculate. You have blood in your urine or semen. You have pain in your back or in the area of your prostate. Summary Prostate cancer is a common type of cancer in men. The prostate gland is located below the bladder and in front of the rectum. This gland adds fluid to semen during ejaculation. Prostate cancer screening may identify cancer at an early stage, when the cancer can be treated more easily and is less likely to have spread to other areas of the body. The prostate-specific antigen (PSA) test is the recommended screening test for prostate cancer, but it has associated risks. Discuss the risks and benefits of prostate cancer screening with your health care provider. If you are age 70 or older, the risks that screening can cause are greater than the benefits that it may provide. This information is not intended to replace advice given to you by your health care provider. Make sure you discuss any questions you have with your health care provider. Document Revised: 04/08/2022 Document Reviewed: 04/08/2022 [employer] Patient Education 2022 [employer]. Follow Up Care 11/03/2023 11:23:14 With:JENNIFER HURTADO, Mario Houston, URL Address: [facility] [address] [place] [address]- [phone] When: Unknown Comments:sched repeat TRUS/bx [facility] 11-03-2023 Hospital Discharge instructions Patient Education 11/03/2023 11:15:20 Transrectal Ultrasound-Guided [...] discomfort near your rectum, especially while sitting. [place]-colored urine due to small amounts of blood in your urine. A burning feeling while urinating. Blood in your stool (feces) or bleeding from your rectum. Blood in your semen. Follow these instructions at home: Medicines Take zdsh-quq-efeawlx and prescription medicines only as told by [...] provider. Document Revised: 04/08/2022 Document Reviewed: 04/08/2022 [employer] Patient Education 2022 [employer]. 11/03/2023 11:15:19 Transrectal Ultrasound-Guided Prostate Biopsy Transrectal [...] including vitamins, herbs, eye drops, creams, and bubx-jnk-zkmplgh medicines. Any problems you or family members [...] provider tells you to take them. Taking vvxr-iby-pmuooce medicines, vitamins, herbs, and supplements. General instructions [...] provider. Document Revised: 04/08/2022 Document Reviewed: 04/08/2022 [employer] Patient Education 2022 [employer]. Follow Up Care 09/15/2023 14:29:12 With:JENNIFER HURTADO, Mario Houston, URL Address: [facility] [address] [place] [address]- [phone] When: Unknown Comments:sched TRUS/bx [facility] [place] 06-02-2022 Evaluation note Encounter Date Diagnosis Assessment [...] your family physician for any further concern [employer] Other 03-04-2022 Evaluation note* Encounter Date Diagnosis Assessment Notes Treatment Notes Treatment Clinical Notes Dec, Contact with and (suspected) exposure [...] Patient care instructions given in writting by [facility] Care At Home document. Due to infection control protocols for COVID-19 virus, direct physical contact with patient was limited to only the absolute essential needed assessments. [employer] Other Evaluation + Plan note Future Appointments Appointment Date:12/01/2023 08:45:00 AM Scheduled Provider:Mario BERMUDEZ MD Location:[facility] Appointment Type:URO Office Visit [facility] evaluation + Plan note Future Appointments Appointment Date:01/23/2024 09:45:00 AM Scheduled Provider:Mario BERMUDEZ MD Location:[facility] Appointment Type:URO Office Visit [facility] evaluation noteNo assessment information available [facility] Work Phone: [facility] general Narrative - Reported* Type Description Date Medical History Gout Medical History vitamin D deficiency Medical History disgestive tract sto pped working and changed diet better now Medical History Diabetes Medical History hypeelipidemia Medical History OCD Surgical History colonoscopy 2012 Surgical History neck surgery x 2 Hospitalization History see above surgical histo [employer] Other [facility] general Narrative - Reported* Type Description Date Medical History Gout Medical History vitamin D deficiency Medical History disgestive tract sto pped working and changed diet better now Medical History Diabetes Medical History hypeelipidemia Medical History OCD Medical History anxiety Surgical History colonoscopy 2012 Surgical History neck surgery x 2 Hospitalization History see above surgical histo [employer] Other Hospital course Narrative No data available for this section [facility] [employer] progress note No data available for this section [facility] [employer] Summary Purpose Family History No Family History Records Found No data available for this section No Family History Records Found No data available for this section No Family History Records FoundNo Family History Records Found Advance Directives No Advanced Directives Records Found Advance Directive Response Recorded Date/ Time Advance Directives No November 1:56pm Advance Directive Response Recorded Date/ Time Advance Directives No November 12:56pm Chief Complaint and Reason for Visit Chief Complaint r25.1 g25.1 g21.19 g 20 Chief Complaint Unknown Additional Source Comments REASON FOR VISIT (unrecogniz ed section and content) RED EDGE, COUGH, CONGSTION,R ED EDGE, COUGH, SINUS CONGESTION, SORE THROAT (unrecognized sect ion and content) No Status Records FoundNo Status Records FoundNo Status Records FoundNo Status Records Found INFORMATION SOURCE (unrecogn ized section and content) DATE CREATED AUTHOR 02/16/2023 [facility] DATE CREATED AUTHOR AUTHOR'S ORGANIZ ATION 11/19/2023 [facility] EPIC DATE CREATED AUTHOR AUTHOR'S ORGANIZ ATION 12/04/2023 Kaufman Puma [facility] DATE CREATED AUTHOR AUTHOR'S ORGANIZ ATION 12/05/2023 [facility] Care Teams (unrecognized sec tion and content) Team Status: Active Member Role Status Dates Lilli Estrella MD Primary Care Provider Active Team Status: Inactive Member Role Status Dates Dante Rangel MD Attending Provider Active Lilli Estrella MD Primary Care Provider Active Team Status: Inactive Member Role Status Dates Lilli Estrella MD Primary Care Provider Active S tart: November 20, 2023 End: November 20, 2023 Mario Bermudez MD Attending Provider Active St art: November 20, 2023 End: November 20, 2023 Goals (unrecognized section and content) Goals may [...] BE BASED ON THE PRIMARY CLINICAL RECORDS. [employer] provides no warranty or guarantee of the accuracy or completeness of information in this document.
[2024-01-02 08:44] LABS: Basophils Absolute Auto 0.1 10^3/uL (0.0-0.1); Basophils Percent Auto 0.7 % (0.2-2.0); Eosinophils Absolute Auto 0.1 10^3/uL (0.0-0.7); Eosinophils Percent Auto 1.2 % (0.9-7.0); Hematocrit 43.4 % (42.0-54.0); Hemoglobin 14.6 g/dL (14.0-18.0); Immature Granulocytes Abs Auto 0.08 10^3/uL (0.00-0.03); Immature Granulocytes Pct Auto 0.8 % (0.0-0.5); Lymphocytes Absolute Auto 1.9 10^3/uL (1.2-3.8); Lymphocytes Percent Auto 18.9 % (20.5-60.0); Mean Corpuscular HGB Conc 33.6 g/dL (29.9-35.2); Mean Corpuscular Hemoglobin 28.5 pg (25.9-34.0); Mean Corpuscular Volume 84.6 fL (80.0-94.0); Mean Platelet Volume 9.8 fL (9.5-13.5); Monocytes Percent Auto 9.4 % (1.7-12.0); Platelet Count 228 10^3/uL (150-450); Red Blood Count 5.13 10^6/uL (4.70-6.10); Red Cell Distribution Width 13.2 % (11.0-15.0); White Blood Count 10.1 10^3/uL (4.0-11.0)
--- NOTE | 2024-01-02 08:46 | PM.PRESUREVA ---
History of Present Illness History of Present Illness Chief complaint: Elevated PSA, DAVID on previous Bx Narrative: Patient presents for preadmission testing. The patient had a Prostate biopsy here with Dr. Bermudez on 11/20/2023. The patient states no changes in his health since that time. The patient has chronic dyspnea on exertion and severe anxiety. He did discontinue phentermine and started back on his fluoxetine recently. He denies dysuria, hematuria, abdominal pain, nausea, vomiting, fever, or any other complaints. Review of Systems ROS Narrative REVIEW OF SYSTEMS: Negative except as stated in HPI, ten or more systems reviewed. Constitutional: No fever , chills, weakness ENT: No sore throat or epistaxis Cardiovascular: No edema, chest pain, or palpitations; Chronic dyspnea on exertion Respiratory: No cough or wheezing Musculoskeletal: No joint pain or swelling Gastrointestinal: No abdominal pain, constipation, diarrhea, or vomiting Genitourinary: No dysuria or hematuria Neurological: No numbness, tingling, weakness, or headache Psychiatric: No mood changes [facility] Medical History (Updated 01/02/24 @ 08:50 by Mabel Espinoza NP) Abnormal prostate biopsy ?R89.7 - Abnormal histological findings in specimens from other organs, systems and tissues (ICD-10) Dysphagia ?R13.10 - Dysphagia, unspecified (ICD-10) Extrapyramidal and movement disorder ?G25.9 - Extrapyramidal and movement disorder, unspecified (ICD-10) Neck pain ?M54.2 - Cervicalgia (ICD-10) Dry mouth ?R68.2 - Dry mouth, unspecified (ICD-10) Parkinson disease ?G20.A1 - Parkinson's disease without dyskinesia, without mention of fluctuations (ICD-10) ADD (attention deficit disorder) ?F98.8 - Other specified behavioral and emotional disorders with onset usually occurring in childhood and adolescence (ICD-10) OCD (obsessive compulsive disorder) ?F42.9 - Obsessive-compulsive disorder, unspecified (ICD-10) Heartburn ?R12 - Heartburn (ICD-10) Dyspnea on exertion ?R06.09 - Other forms of dyspnea (ICD-10) Elevated blood pressure reading ?R03.0 - Elevated blood-pressure reading, without diagnosis of hypertension (ICD-10) Diabetes ?E11.9 - Type 2 diabetes mellitus without complications (ICD-10) Diverticulitis ?K57.92 - Diverticulitis of intestine, part unspecified, without perforation or abscess without bleeding (ICD-10) History of BPH ?Z87.438 - Personal history of other diseases of male genital organs (ICD-10) Elevated PSA ?R97.20 - Elevated prostate specific antigen [PSA] (ICD-10) Gout ?M10.9 - Gout, unspecified (ICD-10) Depression ?F32.A - Depression, unspecified (ICD-10) Anxiety ?F41.9 - Anxiety disorder, unspecified (ICD-10) Surgical History (Updated 12/30/23 @ 09:43 by Mabel Espinoza NP) H/O prostate biopsy (11/20/23) ?Z98.890 - Other specified postprocedural states (ICD-10) History of esophagogastroduodenoscopy (EGD) ?Z98.890 - Other specified postprocedural states (ICD-10) History of tonsillectomy ?Z90.89 - Acquired absence of other organs (ICD-10) History of colonoscopy ?Z98.890 - Other specified postprocedural states (ICD-10) H/O cervical spinal arthrodesis ?Z98.1 - Arthrodesis status (ICD-10) Family History (Updated 11/10/23 @ 10:40 by Mabel Espinoza NP) Other Family history of brain cancer Family history of heart disease Social History (Updated 11/10/23 @ 10:33 by Mabel Espinoza NP) Within the past year, how often did you have a drink containing alcohol: 2-3 times a week Within the past year, how many standard drinks containing alcohol did you have on a typical day: 3 or 4 Smoking status: Former smoker Non-prescribed substance use: denies use Highest level of school completed/degree received: high school graduate Meds Home Medications and Allergies Home Medications Medication Instructions Recorded Confirmed Type allopurinol 300 mg tablet 300 mg PO DAILY 11/10/23 01/02/24 History buspirone 15 mg tablet 30 mg PO QPM 11/10/23 01/02/24 History dicyclomine 20 mg tablet 20 mg PO BID 11/10/23 01/02/24 History glimepiride 2 mg tablet 2 mg PO DAILY 11/10/23 01/02/24 History ropinirole 1 mg tablet 1 mg PO DAILY 11/10/23 01/02/24 History rosuvastatin 5 mg tablet 5 mg PO DAILY 11/10/23 01/02/24 History alprazolam 0.5 mg tablet 0.5 mg PO TID PRN anxiety 01/02/24 01/02/24 History fluoxetine 20 mg tablet 20 mg PO DAILY 01/02/24 01/02/24 History metformin 500 mg tablet,extended 500 mg PO DAILY 01/02/24 01/02/24 History release 24 hr Allergies Allergy/AdvReac Type Severity Reaction Status Date / Time ciprofloxacin [From Cipro] Allergy Severe Swelling Verified 01/02/24 08:22 of Lip/Tongue/Throat Exam Narrative Exam Narrative: Constitutional: Awake, alert, anxious-appearing, nontoxic, interactive, vital signs as charted Head: Normocephalic, atraumatic Neck: Supple, normal appearance, normal range of motion, no meningeal signs, no lymphadenopathy Respiratory: No respiratory distress, breath sounds clear, pursed-lip breathing Cardiovascular: Regular rate and rhythm, strong and regular heart tones Abdomen: Nontender, normal bowel sounds, soft, no CVA tenderness Musculoskeletal: Normal gait, no swelling or edema Skin: No rashes or induration, no lesions, only visible skin inspected Neuro: No neurological deficits, normal sensation Psychiatric: Oriented ?3, anxious affect, flight of ideas, difficult to redirect, poor insight Assessment and Plan Assessment and Plan (1) Abnormal prostate biopsy: (2) Elevated PSA: Plan TRUS biopsy scheduled with Dr. Bermudez 01/15/2024.
[2024-01-02 08:55] LABS: Anion Gap 16.1; Calcium 8.6 mg/dL (8.5-10.1); Carbon Dioxide 23.8 mmol/L (21.0-32.0); Chloride 102 mmol/L (98-107); Estimated GFR (African America >60 (>=60); Estimated GFR (Non-African Ame >60 (>=60); Glucose 176 mg/dL (74-106); Potassium 3.9 mmol/L (3.5-5.1); Sodium 138 mmol/L (136-145)
[2024-01-02 09:38] LABS: INR 0.95; Partial Thromboplastin Time 28.8 sec (22.3-36.2); Prothrombin Time 10.1 sec (9.0-11.6)
== END 2024-01-02 07:59 | disposition home or self-care (01) ==
PROVIDERS: PCP Family Medicine; Visit Provider Urology
DX: Z01.812 Encounter for preprocedural laboratory examination (principal); Z01.818 Encounter for other preprocedural examination; R97.20 Elevated prostate specific antigen [PSA]
CPT/HCPCS: 80048; 85025; 85610; 85730; G0463

== ENCOUNTER 2025-07-11 09:41 | Outpatient (OUT) | payer OTHER, SELFPAY ==
--- OUTSIDE RECORDS SUMMARY | 2025-07-11 09:44 | XMS_ITS | Clinical Summary ---
Author Organization [facility] Healthcare Address [address] [place] [address] Care Team Providers Care Master Data Analyst Name Role Phone Sebastian Estrella MD Primary Care Provider [phone] Allergies Active Allergy Reactions Criticality Noted Date Comments Ciprofloxacin Unknown 04/09/2023 Medications Blood Glucose Monitoring Suppl (ONE TOUCH ULTRA MINI) w/Device kitIndications:Typ e 2 diabetes mellitus without complication, without long-term current use of insulin (HCC) Test daily before all meals/snacks and once before bedtime. 1 kit 11/18/19 24 Active ALPRAZolam (Xanax) 0.5 MG tabletIndications: Generalized anxiety disorder Take 1 tablet (0.5 mg) by mouth 3 (three) times a day as needed for anxiety for up to 7 days Please take as discussed in office. 21 tablet 01/27/20 24 Active busPIRone (Buspar) 30 MG tabletIndications: Major depressive disorder with current active episode, unspecified depression episode severity, unspecified whether recurrent Take 1 tablet (30 mg) by mouth Daily 30 tablet 2 03/15/20 24 Active Eliquis 2.5 MG tablet TAKE 1 TABLET BY MOUTH TWICE A DAY FOR 21 DAYS 04/27/20 24 Active docusate sodium (Colace) 100 MG capsule TAKE 1 CAPSULE BY MOUTH TWO TIMES A DAY FOR 14 DAYS. 04/27/20 24 Active oxybutynin (Ditropan) 5 MG tablet Take 5 mg by mouth in the morning and 5 mg at noon and 5 mg in the evening. 04/27/20 24 Active oxyCODONE (Roxicodone) 5 MG immediate release tablet TAKE 1 TABLET BY MOUTH EVERY 8 HOURS NEEDED FOR PAIN FOR UP TO 10 DOSES 04/27/20 24 Active ibuprofen 800 MG tabletIndications: Idiopathic chronic gout of multiple sites without tophus Take 1 tablet (800 mg) by mouth in the morning and 1 tablet (800 mg) in the evening and 1 tablet (800 mg) before bedtime. 270 tablet 09/20/20 24 Active FLUoxetine (PROzac) 60 MG tabletIndications: Major depressive disorder with current active episode, unspecified depression episode severity, unspecified whether recurrent,Obsessiv e-compulsive disorder, unspecified type,Generalized anxiety disorder Take 1 tablet (60 mg) by mouth Daily 12/14/19 25 Active rosuvastatin (Crestor) 5 MG tabletIndications: Type 2 diabetes mellitus without complication, without long-term current use of insulin (HCC),Mixed hyperlipidemia Take 1 tablet (5 mg) by mouth Daily 90 tablet 04/22/20 25 025 Active metFORMIN, OSM, (Fortamet) 1000 MG 24 hr tabletIndications: Type 2 diabetes mellitus without complication, without long-term current use of insulin (HCC) Take 1 tablet (1,000 mg) by mouth in the evening. Take with meals Do not crush, chew, or split. 90 tablet 05/05/20 25 025 Active glimepiride (Amaryl) 4 MG tabletIndications: Type 2 diabetes mellitus without complication, without long-term current use of insulin (HCC) Take 1 tablet (4 mg) by mouth in the morning. Take before meals. 90 tablet 07/05/20 25 025 Active glimepiride (Amaryl) 4 MG tabletIndications: Type 2 diabetes mellitus without complication, without long-term current use of insulin (HCC) Take 1 tablet (4 mg) by mouth in the morning. Take before meals. 90 tablet 03/10/20 25 025 Discontin ued(Reord er) Active Problems Problem Noted Date Diagnosed Date Erectile dysfunction 05/15/2023 Major depression, single episode 05/15/2023 Parkinson's disease 04/09/2023 Type 2 diabetes mellitus wit hout complication, without long-term current use of insulin 04/07/2023 Assessment & Plan (03/10/2025 10:13 AM EDT): - A1c level is 7.2, slightly higher than previous 6.8. - Focus on dietary adjustments, reducing intake of sugary foods like Mallo Cups. Increase physical activity, such as walking. No change in medication at this time. Monitor blood sugar levels if feeling symptomatic of low blood sugar. - In office urine microalbumin wnl Orders: Comprehensive metabolic panel; Future Lipid panel; Future POCT microalbumin manually resulted POCT glycosylated hemoglobin (Hb A1C) docked device metFORMIN, OSM, (Fortamet) 1000 MG 24 hr tablet; Take 1 tablet (1,000 mg) by mouth in the evening. Take with meals Do not crush, chew, or split. glimepiride (Amaryl) 4 MG tablet; Take 1 tablet (4 mg) by mouth in the morning. Take before meals. Panic disorder 11/30/2021 Obsessive-compulsive disorder 08/16/2021 Generalized anxiety disorder 08/14/2021 Vitamin D deficiency 12/18/2020 Pure hypercholesterolemia 06/29/2020 Diverticulitis 05/24/2020 Class 1 obesity 09/12/2018 Mixed hyperlipidemia 08/01/2018 Assessment & Plan (03/10/2025 10:13 AM EDT): Ordered annual bloodwork, continue rosuvastatin otherwise Orders: Comprehensive metabolic panel; Future Lipid panel; Future Resolved Problems Problem Noted Date Diagnosed Date Resolved Date Mixed obsessional thoughts and acts 09/28/2024 09/28/2024 History of cervical spinal arthrodesis 04/20/2024 09/25/2024 Leukocytosis 05/15/2023 08/06/2023 Drug-induced tremor 05/15/2023 08/06/20 23 Parkinsonism 05/15/2023 08/06/2023 Ataxia 04/09/2023 05/12/2023 Hyperlipemia, mixed 04/07/2023 08/06/20 Acquired hallux valgus 10/25/202008/06 Type 2 diabetes mellitus without complication 08/20/20 17 05/16/2023 Gout 01/09/2010 08/06/2023 Encounters Date Type Department Care Team Description 07/05/2025 Refill [facility] [address] [place] [address] RubinBebo howard, DO Type 2 diabetes mellitus without complication, without long-term current use of insulin ([facility]) 05/04/2025 Refill [facility] [address] [place] [address] Bebo Conklin, DO Type 2 diabetes mellitus without complication, without long-term current use of insulin ([facility]) 04/22/2025 Refill [facility] [address], [place] [address] [place] [id number] Bebo Conklin, DO Type 2 diabetes mellitus without complication, without long-term current use of insulin ([facility]); Mixed hyperlipidemia from Last 3 Months Immunizations Immunization Administration Dates Next Due Influenza, Seasonal, Quadriv alent, Adjuvanted 08/22/2023 Influenza, injectable, quadr ivalent, preservative free 10/09/2021,09/21/2021,11/20/2020,2018,11/03/2017 Influenza, seasonal, injecta ble, preservative free 11/18/2016,11/23/2013 Pneumococcal Conjugate PCV 20 05/16/2023 Family History Medical History Relation Name Comments Parkinsonism Father meningioma Mother No Known Problems Sister Relation Name Status Comments Daughter Alive 1 daughter Father (Age 97) Mother meningioma Other Spouse Alive Sister 2 sisters Son Alive 1 son Social History Tobacco Use Types Packs/Day Years Used Date Smoking Tobacco: Former Cigarettes Smokeless Tobacco: Never Tobacco Cessation:Counseling Given: Not Answered Comments:Last smoked:>20 years Alcohol Use Standard Drinks/Week Comments Yes 30 (1 standard drink = 0.6 oz pure alcohol) 3-6 drinks a day. Caffeine: Yes, soda; coffee [id number] Health Literacy Answer Date Recor ded How often do you need to hav e someone help you when you read instructions, pamphlets, or other written material from your doctor or pharmacy? Patient declines to respond 06/15/2024 Social Connection and Isolation Panel [NHANES] A nswer Date Recorded Frequency of Communication with Friends and Fami ly Not on file 06/15/2024 Frequency of Social Gatherings with Friends and Family Not on file 06/15/2024 Attends Latter Day Services Not on file 06/15 Do you belong to any clubs o r organizations such as yazdanism groups, unions, fraternal or athletic groups, or school groups? Patient declined 06/15/2024 How often do you attend meet ings of the clubs or organizations you belong to? Patient declined 06/15/2024 Are you , , di vorced, , never , or living with a partner? 06/15/2024 AUDIT-C Answer Date Recorded Q1: How often do you have a drink containing alcohol? Never 03/10/2025 Q2: How many drinks containi ng alcohol do you have on a typical day when you are drinking? Patient does not drink Q3: How often do you have si x or more drinks on one occasion? Never 03/10/2025 Overall Financial Resource Strain (CARDIA) Answe r Date Recorded How hard is it for you to pa y for the very basics like food, housing, medical care, and heating? Not hard at all 06/15/2024 PHQ-2 Answer Date Recorded Patient Health Questionnaire-2 Score 0 03/10/2025 [facility] - Occupational Stress Questionnaire Answer Date Recorded Do you feel stress - tense, restless, nervous, or anxious, or unable to sleep at night because your mind is troubled all the time - these days? Patient declined 06/15/2024 Exercise Vital Sign Answer Date Recorde d On average, how many days pe r week do you engage in moderate to strenuous exercise (like a brisk walk)? Patient declined On average, how many minutes do you engage in exercise at this level? Patient declined 06/15/2024 Hunger Vital Sign Answer Date Recorded Within the past 12 months, y ou worried that your food would run out before you got the money to buy more. Never true 06/15/20 24 Within the past 12 months, t he food you bought just didn't last and you didn't have money to get more. Never true 06/15/2024 PRAPARE - Transportation Answer Date Re corded In the past 12 months, has l ack of transportation kept you from medical appointments or from getting medications? No 05/28 In the past 12 months, has l ack of transportation kept you from meetings, work, or from getting things needed for daily living? No 06/15/2024 Housing Stability Vital Sign Answer Malcolm e Recorded In the last 12 months, was t here a time when you were not able to pay the mortgage or rent on time? Patient declined 06/15/20 24 Number of Times Moved in the Last Year Not on fi le 06/15/2024 At any time in the past 12 m [facility], were you homeless or living in a long term (including now)? Patient declined 06/15/2024 Sex and Gender Information Value Date Recorded Sex Assigned at Male 07/07/2023 8:22 AM EDT Legal Sex Male 7:06 PM EDT Gender Identity Male 01/08/2023 7:06 PM EDT Sexual Orientation Not on file Last Filed Vital Signs Vital Sign Reading Time Taken Comments Blood Pressure 130/86 03/10/2025 8:53 AM EDT Pulse 86 03/10/2025 8:53 AM EDT Temperature 36.7 C (98 F) 03/10/2025 8:53 AM EDT Respiratory Rate 20 03/10/2025 8:53 AM EDT Oxygen Saturation 98% 03/10/2025 8:53 AM EDT Inhaled Oxygen Concentration - - Weight 102 kg (225 lb) 03/10/2025 8:53 AM EDT Height 177.8 cm (5' 10 ) 03/10/2025 8:53 AM EDT Body Mass Index 32.28 03/10/2025 8:53 AM EDT Plan of Treatment Upcoming Encounters Date Type Department Care Team (Late st Contact Info) Description 07/12/2025 1:40 PM EDT Office Visit [facility] [address] [place] [address] Sebastian Estrella MD [address] [place] [address] 10/12/2025 1:00 PM EST Office Visit [facility] [address] [place] [phone] [address], [address] [place] [address] Health Maintenance Due Date Last Done Comments CT Colonography 1958 Colonoscopy 1958 FIT 1960 FOBT 1960 Sigmoidoscopy 1960 Diabetes: Hemoglobin A1C 06/10/2025 025, 12/14/2024, 06/15/2024, Additional history exists Influenza Vaccine (#1) 2025 3, 10/09/2021, 09/21/2021, Additional history exists Diabetes: Urine Protein Screening 03/10/2026 03/10/2025, 02/03/2024, 02/11/2023, Additional history exists Diabetes: Retinopathy Screening 03/11/2026 03/11/2024, 09/19/2021, 07/06/2019, Additional history exists Colorectal Cancer Screening 01/13/2027 FIT-DNA 01/13/2027 01/14/2024 Pneumococcal Vaccine: 65+ Years Completed 3 Procedures Procedure Name Priority Date/Time Associated Diagnosis Comments POCT MICROALBUMIN Routine 03/10/2025 9:3 5 AM EDT Type 2 diabetes mellitus without complication, without long-term current use of insulin (HCC) POCT GLYCOSYLATED HEMOGLOBIN (HGB A1C) Routine 03/10/2025 9:06 AM EDT Type 2 diabetes mellitus without complication, without long-term current use of insulin (HCC) COLOR FUNDUS PHOTOGRAPHY - OU - BOTH EYES Routine 03/11/2024 1:02 PM EDT Type 2 diabetes mellitus without complication, without long-term current use of insulin (HCC) LAB COLOGUARD COLON CANCER SCREEN Routine 01/14/2024 11:25 AM EDT Colon cancer screening from Last 3 Months or Most Recently Relevant to Health Maintenance Results * POCT microalbumin manually resulted (03/10/2025 9:35 AM EDT) MICROALBUMIN, URINE 30 ALB/CREAT RATIO 300 URINE CREAT <30 Urine 03/10/2025 9:35 AM EDT us Bebo Conklin DO POINT OF CARE TEST ENTER/EDIT O RDERABLES Final Result * (ABNORMAL) POCT glycosylated hemoglobin (Hb A1C) docked device (03/10/2025 9:06 AM EDT) Hemoglobin A1C 7.2 Blood Venous blood specimen / Unknown 03/10/2025 9:06 AM EDT us Bebo Snydert DO POINT OF CARE TEST ENTER/EDIT O RDERABLES Final Result * Color Fundus Photography - OU - Both Eyes (03/11/2024 1:02 PM EDT) Anatomical Region Laterality Modality Head Fundus Photograp hy Sebastian Estrella MD OPHTH PHOTOGRAPHY Final Result * Cologuard?? colon cancer screening (01/14/2024 11:25 AM EDT) NONINV COLON CA DNA+OCC BLD SCRN STL-IMP Negative Negative 01/20/2024 8:48 PM EDT [employer] (CLIA #:[id number]) Comment: NEGATIVE TEST RESULT. A negative Cologuard result indicates a low likelihood that a colorectal cancer (CRC) or advanced adenoma (adenomatous polyps with more advanced pre-malignant features) is present. The chance that a person with a negative Cologuard test has a colorectal cancer is less than 1 in 1500 (negative predictive value >99.9%) or has an advanced adenoma is less than 5.3% (negative predictive value 94.7%). These data are based on a prospective cross-sectional study of 10,000 individuals at average risk for colorectal cancer who were screened with both Cologuard and colonoscopy. (Irma Hager al, N Engl J Med 2014;370(14):9023-9785) The normal value (reference range) for this assay is negative. COLOGUARD RE-SCREENING RECOMMENDATION: Periodic colorectal cancer screening is an important part of preventive healthcare for asymptomatic individuals at average risk for colorectal cancer. Following a negative Cologuard result, the [place] Cancer Society and U.S. Multi-Society Task Force screening guidelines recommend a Cologuard re-screening interval of 3 years. References: [place] Cancer Society Guideline for Colorectal Cancer Screening: https://www.cancer.org/cancer/mwfih-jawujh-tuzuro/noxrhhtgl-hserskjbq-kyquvew/ac s-rec ommendations.html.; Zeb DK, Sekou CR, Christiano GilletteK, Colorectal Cancer Screening: Recommendations for Physicians and Patients from the U.S. Multi-Society Task Force on Colorectal Cancer Screening , Am J Gastroenterology 2017; 112:8839-2982. TEST DESCRIPTION: Composite algorithmic analysis of stool DNA-biomarkers with hemoglobin immunoassay. Quantitative values of individual biomarkers are not reportable and are not associated with individual biomarker result reference ranges. Cologuard is intended for colorectal cancer screening of adults of either sex, 45 years or older, who are at average-risk for colorectal cancer (CRC). Cologuard has been approved for use by the U.S. FDA. The performance of Cologuard was established in a cross sectional study of average-risk adults aged 50-84. Cologuard performance in patients ages 45 to 49 years was estimated by sub-group analysis of near-age groups. Colonoscopies performed for a positive result may find as the most clinically significant lesion: colorectal cancer [4.0%], advanced adenoma (including sessile serrated polyps greater than or equal to 1cm diameter) [20%] or non- advanced adenoma [31%]; or no colorectal neoplasia [45%]. These estimates are derived from a prospective cross-sectional screening study of 10,000 individuals at average risk for colorectal cancer who were screened with both Cologuard and colonoscopy. (Irma Hager al, N Engl J Med 2014;370(14):7640-8620.) Cologuard may produce a false negative or false positive result (no colorectal cancer or precancerous polyp present at colonoscopy follow up). A negative Cologuard test result does not guarantee the absence of CRC or advanced adenoma (pre-cancer). The current Cologuard screening interval is every 3 years. ([place]izen [place] Cancer Society and U.S. Multi-Society Task Force). Cologuard performance data in a 10,000 patient pivotal study using colonoscopy as the reference method can be accessed at the following location: www.[employer].com/results. Additional description of the Cologuard test process, warnings and precautions can be found at www.cologuard.com. Stool specimen (specimen) 01/14/2024 11:25 AM EDT 01/15/2024 12:01 PM EDT Carolina Sen RESEARCH NEUROPSYCHOLOGIST LAB MOLECULAR DIAGNOSTICS ORDERA BLES Final Result .[employer] (CLIA #:[id number]) [address] [id number], [employer] (CLIA #:[id number]) [address] [id number] from Last 3 Months or Most Recently Relevant to Health Maintenance Insurance [employer] Care Teams Master Data Analyst Relationship Specialty Start Date End Date Sebastian Estrella MD [address] [place] [address] PCP - General Family Medicine 06/06/25
--- OUTSIDE RECORDS SUMMARY | 2025-07-11 09:44 | XMS_ITS | Encounter Summary ---
Author Organization [facility] Address [address] [place] [address] Care Team Providers Care Refrigerator Car Icer Name Role Phone Sebastian Estrella MD Primary Care Provider [phone] Carolina Sen BOW TACKER Unavailable Alea Soares BOW TACKER Unavailable [phone] Bebo Conklin DO Primary Care Provider [phone] Bebo Conklin DO Primary Care Provider [phone] Sebastian Estrella MD Primary Care Provider [phone] Encounter Details Date Type Department Care Team (Late st Contact Info) Description 08/23/2023 [facility] [address] [address] Dante Rangel MD [address] [place] [place] [address] [id number] Social History Tobacco Use Types Packs/Day Years Used Date Smoking Tobacco: Former Cigarettes Smokeless Tobacco: Never Tobacco Cessation:Counseling Given: Not Answered Comments:Last smoked:>20 years Alcohol Use Standard Drinks/Week Comments Yes 20 (1 standard drink = 0.6 oz pu re alcohol) caffeine: Yes, soda; coffee AUDIT-C Answer Date Recorded Q1: How often do you have a drink containing alc ohol? 2-4 times a month 05/16/2023 Q2: How many drinks containi ng alcohol do you have on a typical day when you are drinking? 3 or 4 05/16/2023 Q3: How often do you have si x or more drinks on one occasion? Less than monthly 05/16/2023 PHQ-2 Answer Date Recorded Patient Health Questionnaire-2 Score 0 08/22/2023 Sex and Gender Information Value Date Recorded Sex Assigned at Male 07/07/2023 8:22 AM EDT Legal Sex Male 7:06 PM EDT Gender Identity Male 01/08/2023 7:06 PM EDT Sexual Orientation Not on file documented as of this encounter Plan of Treatment Upcoming Encounters Date Type Department Care Team (Late st Contact Info) Description 07/12/2025 1:40 PM EDT Office Visit [facility] [address] [place] [address] Sebastian Estrella MD [address] [place] [address] 10/12/2025 1:00 PM EST Office Visit [facility] [address] [place] [address] Darwin Ivy DO [address] [place] [address] documented as of this encounter Visit Diagnoses Not on filedocumented in this encounter Care Teams Refrigerator Car Icer Relationship Specialty Start Date End Date Sebastian Estrella MD [address] [place] [address] PCP - General Family Medicine 04/16/23 03/09/25 Bebo Conklin DO [address] [place] [address] PCP - General Family Medicine 03/10/25 04/18/25 Bebo Conklin DO [address] [place] [address] PCP - General Family Medicine 04/19/25 06/05/25 Sebastian Estrella MD [address] [place] [address] PCP - General Family Medicine 06/06/25 Carolina Sen NP [address] [place] [address] Nurse Practitioner Family Medicine 03/09/24 03/03/25 Alea Soares NP [address] [place] [address] Nurse Practitioner Family Medicine 03/09/24 04/07/25 documented as of this encounter
--- OUTSIDE RECORDS SUMMARY | 2025-07-11 09:44 | XMS_ITS | Encounter Summary ---
Author Organization [facility] Healthcare Address [address] [facility] [place] [address] Care Team Providers Care Escrow Representative Name Role Phone Sebastian Estrella MD Primary Care Provider Carolina Sen NP Unavailable Alea Soares NP Unavailable [phone] Bebo Conklin DO Primary Care Provider [phone] Bbeo Conklin DO Primary Care Provider [phone] Sebastian Estrella MD Primary Care Provider [phone] Reason for Visit * Reason Comments Med Refill Encounter Details Date Type Department Care Team (Late st Contact Info) Description 04/30/2023 [facility] [address] [place] [address] Carolina Sen NP [address] [address] [place] [address] Hyperlipemia, mixed ; Type 2 diabetes mellitus without complication, without long-term current use of insulin (HCC) Social History Tobacco Use Types Packs/Day Years Used Date Smoking Tobacco: Former Cigarettes Smokeless Tobacco: Never Comments:Last smoked:>20 yea rs Alcohol Use Standard Drinks/Week Comments Never 0 (1 standard drink = 0.6 oz pur e alcohol) Sex and Gender Information Value Date Recorded Sex Assigned at Male 07/07/2023 8:22 AM EDT Legal Sex Male 7:06 PM EDT Gender Identity Male 01/08/2023 7:06 PM EDT Sexual Orientation Not on file documented as of this encounter Plan of Treatment Upcoming Encounters Date Type Department Care Team (Late st Contact Info) Description 07/12/2025 1:40 PM EDT Office Visit [facility] [address] [place] [address] Sebastian Estrella MD [address] [place] [address] 10/12/2025 1:00 PM EST Office Visit [facility] [address] [place] [address] Darwin Ivy DO [address] [place] [address] documented as of this encounter Visit Diagnoses Diagnosis Hyperlipemia, mixed Mixed hyperlipidemia Type 2 diabetes mellitus without complication, without long-term current use of insulin (HCC) documented in this encounter Care Teams Escrow Representative Relationship Specialty Start Date End Date Sebastian Estrella MD [address] [place] [address] PCP - General Family Medicine 04/16/23 03/09/25 Bebo Conklin DO [address] [place] [address] PCP - General Family Medicine 03/10/25 04/18/25 Bebo Conklin DO [address] [place] [address] PCP - General Family Medicine 04/19/25 06/05/25 Sebastian Estrella MD [address] [place] [address] PCP - General Family Medicine 06/06/25 Carolina Sen NP [address] [place] [address] Nurse Practitioner Family Medicine 03/09/24 03/03/25 Alea Soares NP [address] [place] [address] Nurse Practitioner Family Medicine 03/09/24 04/07/25 documented as of this encounter
--- OUTSIDE RECORDS SUMMARY | 2025-07-11 09:44 | XMS_ITS | Encounter Summary ---
Author Organization [facility] Healthcare Address [address] [place] [address] Care Team Providers Care Banquet Waiter/Waitress Name Role Phone Sebastian Estrella MD Primary Care Provider [phone] Carolina Sen NP Unavailable Alea Soares NP Unavailable [phone] Bebo Conklin DO Primary Care Provider [phone] Bebo Conklin DO Primary Care Provider [phone] Sebastian Estrella MD Primary Care Provider [phone] Encounter Details Date Type Department Care Team (Late st Contact Info) Description 07/12/2024 [facility] [address] [place] [address] Carolina Sen NP [address] [address] Social History Tobacco Use Types Packs/Day Years Used Date Smoking Tobacco: Former Cigarettes Smokeless Tobacco: Never Comments:Last smoked:>20 yea rs Alcohol Use Standard Drinks/Week Comments Yes 30 [...] and Family Not on file 06/15/2024 Attends [employer] Services Not on file 06/15 Do you belong to any clubs o r organizations such as sabianism groups, unions, fraternal or athletic groups, or school groups? Patient declined 06/15/2024 How often do you attend meet ings of the clubs or organizations you belong to? Patient declined 06/15/2024 Are you , , di vorced, , never , or living with a partner? 06/15/2024 AUDIT-C Answer Date Recorded Q1: How often do you have a drink containing alc ohol? Patient declined 06/15/2024 Q2: How many drinks containi ng alcohol do you have on a typical day when you are drinking? Patient declined 06/15/2024 Q3: How often do you have si x or more drinks on one occasion? Patient declined 06/15/2024 Overall Financial Resource Strain (CARDIA) Answe r Date Recorded How hard is it for you to pa y for the very basics like food, housing, medical care, and heating? Not hard at all 06/15/2024 PHQ-2 Answer Date Recorded Patient Health Questionnaire-2 Score 1 11/11/2023 [facility] - Occupational Stress [...] any time in the past 12 m [facility], were you homeless or living in a snf (including now)? Patient declined 06/15/2024 Sex and [...] [facility] [address] [place] [address] Sebastian Estrella MD [address] [place] [address] 10/12/2025 1:00 PM EST Office Visit [facility] [address] [place] [address] Darwin Ivy DO [address] [place] [address] documented as of this encounter Visit Diagnoses Not on filedocumented in this encounter Care Teams Banquet Waiter/Waitress Relationship Specialty Start Date End Date Sebastian Estrella MD [address] [place] [address] PCP - General Family Medicine 04/16/23 03/09/25 Bebo Conklin DO [address] [place] [address] PCP - General Family Medicine 03/10/25 04/18/25 Bebo Conklin DO [address] [place] [address] PCP - General Family Medicine 04/19/25 06/05/25 Sebastian Estrella MD [address] [place] [address] PCP - General Family Medicine 06/06/25 Carolina Sen NP [address] [place] [address] Nurse Practitioner Family Medicine 03/09/24 03/03/25 Alea Soares TEACHER AIDE [address] [place] [address] Nurse Practitioner Family Medicine 03/09/24 04/07/25 documented as of this encounter
--- OUTSIDE RECORDS SUMMARY | 2025-07-11 09:44 | XMS_ITS | Encounter Summary ---
Author Organization [facility] Healthcare Address [address] [place] [address] Care Team Providers Care Prepleater Name Role Phone Sebastian Estrella MD Primary Care Provider [phone] Reason for Visit * Reason Onset Date Comments Med Refill 07/05/2025 Encounter Details Date Type Department Care Team (Late st Contact Info) Description 07/05/2025 Refill [facility] [address] [place] [address] Bebo Conklin DO [address] [facility] [address] [place] [address] Type 2 diabetes mellitus without complication, without [...] and Family Not on file 06/15/2024 Attends [employer] Services Not on file 06/15 Do you belong to any clubs o r organizations such as pentecostalism groups, unions, fraternal or athletic groups, or [...] Recorded Patient Health Questionnaire-2 Score 0 03/10/2025 [facility] - Occupational Stress Questionnaire Answer Date Recorded [...] any time in the past 12 m [facility], were you homeless or living in a correction (including now)? Patient declined 06/15/2024 Sex and [...] [facility] [address] [place] [address] Sebastian Estrella MD [address] [place] [address] 10/12/2025 1:00 PM EST Office Visit [facility] [address] [place] [address] Darwin Ivy, [address] [place] [address] documented as of this encounter Visit Diagnoses Diagnosis Type 2 diabetes mellitus without complication, without long-term current use of insulin (HCC) documented in this encounter Care Teams Prepleater Relationship Specialty Start Date End Date Sebastian Estrella MD [address] [place] [address] PCP - General Family Medicine 06/06/25 documented as of this encounter
--- OUTSIDE RECORDS SUMMARY | 2025-07-11 09:44 | XMS_ITS | Encounter Summary ---
Author Organization [facility] Address [address] [place] [address] Care Team Providers Care Phlebotomist Associate Name Role Phone Lilli Estrella MD Primary Care Provider [phone] Carolina Sen PATTERN RULER Unavailable Alea Soares PATTERN RULER Unavailable [phone] Bebo Conklin DO Primary Care Provider [phone] Bebo Conklin DO Primary Care Provider [phone] Lilli Estrella MD Primary Care Provider [phone] Encounter Details Date Type Department Care Team (Late st Contact Info) Description 11/20/2023 Clinisync Result Encounter [facility] External Department Unsolicited Provider, Generic External Data Social History Tobacco Use Types Packs/Day Years Used Date Smoking Tobacco: Former Cigarettes Smokeless Tobacco: Never Comments:Last smoked:>20 yea rs Alcohol Use Standard Drinks/Week Comments Not Currently 30 (1 standard drink = 0.6 oz pure alcohol) Haven't had a beer in a week , 3-6 drinks a day. Caffeine: Yes, soda; coffee AUDIT-C Answer Date Recorded [...] Recorded Patient Health Questionnaire-2 Score 1 11/11/2023 Sex and Gender Information Value Date Recorded [...] [facility] [address] [place] [address] Lilli Estrella MD [address] [place] [address] 10/12/2025 1:00 PM EST Office Visit [facility] [address] [place] [address] Darwin Ivy DO [address] [facility] [place] [address] documented as of this encounter Procedures Procedure Name Priority Date/Time Associated Diagnosis Comments US PROSTATE 11/20/2023 9:10 AM EST documented in this encounter Results * US PROSTATE (11/20/2023 9:10 AM EST) Anatomical Region Laterality Modality Radiographic Adilia ging 11/20/2023 9:10 AM EST Narrative 11/20/2023 9:12 AM EST [address] [address] Ultrasound Report Signed Patient: REBECA HERRON Sr. MR#: [id number] : 1960 Acct:[id number] Age/Sex: 63 / M ADM Date: 11/20/23 Loc: SURGOUT Attending Dr: Mario Rodriguez M.D. Ordering Physician: Mario Rodriguez M.D. Date of Service: 11/20/23 Procedure(s): US prostate Accession Number(s): [id number] cc: LILLI ESTRELLA ; Mario Rodriguez M.D. The [address] [address] Patient Name: REBECA HERRON MRN: [id number] date: 1960 Sex: M Assigned Patient Location: [facility] Current Patient Location: [facility] Accession/Order Number: [id number] Exam Date: 11/20/2023 08:00 Report Date: 11/20/2023 09:10 At the request of: MARIO RODRIGUEZ Procedure: US prostate EXAMINATION: US prostate HISTORY: trus biopsy COMPARISON: No relevant comparison available. TECHNIQUE: Ultrasound exam for the prostate with an endorectal transducer was performed utilizing real-time and color duplex Doppler sonography. FINDINGS: The prostate gland is enlarged in size measuring 5.0 x 2.8 x 4.9 cm. Mildly heterogeneous echotexture with no focal mass. A needle seen traversing multiple portions of the prostate gland. The biopsy procedure was performed for Dr. Rodriguez US/US prostate IMPRESSION: Mildly enlarged prostate gland Electronically authenticated by: REBECA MEZTGER Date: 11/20/2023 09:10 Dictated By: Rebeca Metzger M.D. Signed By: 11/20/23911 DD/ 9 TD/TT: Kitchen Work Supervisor: Procedure Note Radiology, Radiologist, MD - 11/20/2023 [place] [address] Ultrasound Report Signed Patient: REBECA HERRON Sr.MR#: [id number] : 8Acct:[id number] Age/Sex: 63 / MADM Date: 11/20/23 Loc: [facility] Attending Dr: Mario Rodriguez M.D. Ordering Physician: Mario Rodriguez M.D. Date of Service: 11/20/23 Procedure(s): US prostate Accession Number(s): [id number] cc: LILLI ESTRELLA ; Mario Rodriguez M.D. The [address] [address] Patient Name: REBECA HERRON MRN: [id number] date: 1960 Sex: M Assigned Patient Location: [facility] Current Patient Location: [facility] Accession/Order Number: [id number] Exam Date: 11/20/2023 08:00 Report Date: 11/20/2023 09:10 At the request of: MARIO RODRIGUEZ Procedure: US prostate EXAMINATION: US prostate HISTORY: trus biopsy COMPARISON: No relevant comparison available. TECHNIQUE: Ultrasound exam for the prostate with an endorectal transducerwas performed utilizing real-time and color duplex Doppler sonography. FINDINGS: The prostate gland is enlarged in size measuring 5.0 x 2.8 x 4.9 cm.Mildly heterogeneous echotexture with no focal mass. A needle seen traversing multiple portions of the prostate gland. Thebiopsy procedure was performed for Dr. Rodriguez US/US prostate IMPRESSION: Mildly enlarged prostate gland Electronically authenticated by: REBECA METZGER Date: 11/20/2023 09:10 Dictated By: Rebeca Metzger M.D. Signed By:11/20/23911 DD/ 9 TD/TT: Kitchen Work Supervisor: us Generic External Data Provider IMG XR PROCEDURES Final Result documented in this encounter Visit Diagnoses Not on filedocumented in this encounter Care Teams Phlebotomist Associate Relationship Specialty Start Date End Date Lilli Estrella MD [address] [place] [address] PCP - General Family Medicine 04/16/23 03/09/25 Bebo Conklin DO [address] [place] [address] PCP - General Family Medicine 03/10/25 04/18/25 Bebo Conklin DO [address] [place] [address] PCP - General Family Medicine 04/19/25 06/05/25 Lilli Estrella MD [address] [place] [address] PCP - General Family Medicine 06/06/25 Carolina Sen NP [address] [place] [address] Nurse Practitioner Family Medicine 03/09/24 03/03/25 Alea Soares NP [address] [place] [address] Nurse Practitioner Family Medicine 03/09/24 04/07/25 documented as of this encounter
--- OUTSIDE RECORDS SUMMARY | 2025-07-11 09:44 | XMS_ITS | Encounter Summary ---
Author Organization [facility] Healthcare Address [address] [place] [address] Care Team Providers Care Claims Auditor Name Role Phone Sebastian Estrella MD Primary Care Provider [phone] Carolina Sen NP Unavailable Alea Soares NP Unavailable [phone] Bebo Conklin DO Primary Care Provider [phone] Bebo Conklin DO Primary Care Provider [phone] Sebastian Estrella MD Primary Care Provider [phone] Encounter Details Date Type Department Care Team (Late st Contact Info) Description 02/04/2024 [facility] [address] [place] [address] Carolina Sen NP [address] [address] Social History Tobacco Use Types Packs/Day Years [...] [facility] [address] [place] [address] Sebastian Estrella MD [address] [place] [address] 10/12/2025 1:00 PM EST Office Visit [facility] [address] [place] [address] Darwin Ivy DO [address] [place] [address] documented as of this encounter Visit Diagnoses Not on filedocumented in this encounter Care Teams Claims Auditor Relationship Specialty Start Date End Date Sebastian Estrella MD [address] [place] [address] PCP - General Family Medicine 04/16/23 03/09/25 Bebo Conklin DO [address] [place] [address] PCP - General Family Medicine 03/10/25 04/18/25 Bebo Conklin DO [address] [place] [address] PCP - General Family Medicine 04/19/25 06/05/25 Sebastian Estrella MD [address] [place] [address] PCP - General Family Medicine 06/06/25 Carolina Sen NP [address] [place] [address] Nurse Practitioner Family Medicine 03/09/24 03/03/25 Alea Soares NP [address] [place] [address] Nurse Practitioner Family Medicine 03/09/24 04/07/25 documented as of this encounter
--- OUTSIDE RECORDS SUMMARY | 2025-07-11 09:44 | XMS_ITS | Patient Health Record ---
Author Organization [facility] Address [address] [place] [address] Care Team Providers Care Concrete Stone Fabricating Supervisor Name Role Phone Mariah Gonzales Primary Care Provider Allergies Allergen (clinical drug ingredient) Drug/Non Drug Allergy documented on EMR Reaction Allergy Type Onset Date Status ciprofloxacin Cipro Unknown Drug Allergy Act j luis Reason For Referral No Information Medications Medication SIG (Take, Route, Frequency, Duration) Notes Start Date End Date Status ARIPiprazole 5 MG TAKE 1 TABLET BY DICKSON TH EVERY DAY; Duration: 30 Active Dicyclomine HCl 10 MG 2 capsules Orally three times a day (tid) Active Ventolin HFA 108 (90 Base) MCG/ACT 1 puff as needed Inhalation as needed (prn) Not-Taking Vitamin D3 125 MCG (5000 UT) 1 capsule orally daily Not-T aking Allopurinol 300 MG 1 tablet Orally Once a day Active metFORMIN HCl ER 750 MG 1 capsule Orally twice a day (bid) Not-Taking busPIRone HCl 15 MG TAKE 1 TABLET BY DICKSON TH THREE TIMES A DAY Orally three times a day Active Rosuvastatin Calcium 5 MG 1 tablet Orall y Once a day Active Famotidine 40 MG 1 tablet orally daily Not-Taking FLUoxetine HCl 20 MG TAKE 3 CAPSULES BY MOUTH ONCE EVERYDAY; Duration: 30 Active Lancets Active Colcrys 0.6 MG 2 tablets Orally as directed Active rOPINIRole HCl 0.25 MG Oral; Duration: 30 Active Glimepiride 1 MG 1 tablet Orally Once a day Active Rybelsus 3 MG 1 tablet at least 30 minutes before first food, beverage or other oral medicine of the day Orally Once a day Active ALPRAZolam 0.25 MG 1 tablet Orally Twic e a day Not-Taking Ibuprofen 800 MG 1 tablet orally thre e times a day (tid) Not-Taking Social History Tobacco Use: Social History Observation Description Date Details (start date - stop date) Former Smoker NA - NA Tobacco Screen: Question Answer Notes Are you a: former smoker How long has it been since you last smoked? > 10 years Alcohol Screening: Question Answer Notes Did you have a drink containing alcohol in the p ast year? No Points 0 Interpretation Negative Depression Screening (PHQ-9): Question Answer Notes Little interest or pleasure in doing things Not at all Feeling down, depressed, or hopeless Not at all Trouble falling or staying asleep, or sleeping t oo much More than half the days Feeling tired or having little energy Several da ys Poor appetite or overeating Several days Feeling bad about yourself-o r that you are a failure or have let yourself or your family down Not at all Trouble concentrating on thi ngs, such as reading the newspaper or watching television Not at all Moving or speaking so slowly that other people could have noticed. Or the opposite being so fidgety or restless that you have been moving around a lot more than usual Not at all Thoughts that you would be b babita off , or of hurting yourself in some way Not at all Total Score 4 Intepretation Minimal Depression Problems Problem Type SNOMED Code ICD Code Onset Dates Problem Status W/U Status Risk Notes Problem Anxiety (30872779) Anxiety (F41.9) Active confirmed Problem Obsessive-com pulsive disorder (183169354) Mixed obsessional thoughts and acts (F42.2) Active confirmed Problem Major depression, single episode (60636918) Major depressive disorder with current active episode, unspecified depression episode severity, unspecified whether recurrent (F32.9) Active confirmed Plan Of Treatment No Information Insurance Providers Payer Name Payer Address Payer Phone Subscriber Number Group Number Insured Name Patient Relationship to Insured Coverage Start Date Coverage End Date [employer] [address] [address] [place] [address] [id number] GERMAINE MARIAMA Spouse - patient is the spouse of the insured 3 [employer] [address] [address] [place] [address] [id number] REBECA HERRON Self - patient is the insured 2 2 Medical (General) History Surgical History Surgery Date(Month/Year) spinal surgery laminectomy Hospitalization History Reason Date(Month/Year) [facility] [place], suicidal ideation Age 18
--- OUTSIDE RECORDS SUMMARY | 2025-07-11 09:44 | XMS_ITS | Encounter Summary ---
Author Organization [facility] Healthcare Address [address] [place] [address] Care Team Providers Care Security Incident Handler Name Role Phone Sebastian Estrella MD Primary Care Provider [phone] Carolina Sen OTTER TRAWLER BOATSWAIN Unavailable Alea Soares OTTER TRAWLER [place] Unavailable [phone] Bebo Conklin DO Primary Care Provider [phone] Bebo Conklin DO Primary Care Provider [phone] Sebastian Estrella MD Primary Care Provider [phone] Encounter Details Date Type Department Care Team (Late st Contact Info) Description 08/22/2023 Abstract [facility] [address] [place] [address] Sebastian Estrella MD [address] [place] [address] Social History Tobacco Use Types Packs/Day Years Used Date Smoking Tobacco: Former Cigarettes Smokeless Tobacco: Never Comments:Last smoked:>20 yea rs Alcohol Use Standard Drinks/Week Comments Yes 20 [...] on file documented as of this encounter Functional Status * Over the past 2 weeks, how often have you been bothered by any of the following problems? Question Answer Date of Assessment Author Little interest or pleasure in doing things Not at all 08/22/2023 9:14 AM EDT Chasity Lynch MA Feeling down, depressed, or hopeless Not at all 08/22/2023 9:14 AM EDT Chasity Lynch MA Patient Health Questionnaire -2 Score 0 08/22/2023 9:14 AM EDT Chasity Lynch MA documented as of this encounter Plan of Treatment Upcoming Encounters Date Type Department Care Team (Late st Contact Info) Description 07/12/2025 1:40 PM EDT Office Visit [facility] [address] [place] [address] Sebastian Estrella MD [address] [place] [address] 10/12/2025 1:00 PM EST Office Visit [facility] [address] [place] [address] Darwin vIy DO [address] [place] [address] documented as of this encounter Visit Diagnoses Not on filedocumented in this encounter Care Teams Security Incident Handler Relationship Specialty Start Date End Date Sebastian Estrella MD [address] [place] [address] PCP - General Family Medicine 04/16/23 03/09/25 Bebo Conklin DO [address] [place] [address] PCP - General Family Medicine 03/10/25 04/18/25 Bebo Conklin DO [address] [place] [address] PCP - General Family Medicine 04/19/25 06/05/25 Sebastian Estrella MD [address] [place] [address] PCP - General Family Medicine 06/06/25 Carolina Sen NP [address] [place] [address] Nurse Practitioner Family Medicine 03/09/24 03/03/25 Alea Soares NP [address] [place] [address] Nurse Practitioner Family Medicine 03/09/24 04/07/25 documented as of this encounter
--- OUTSIDE RECORDS SUMMARY | 2025-07-11 09:44 | XMS_ITS | Encounter Summary ---
Author Organization [facility] Address [address] [facility] [place] [address] Care Team Providers Care Distribution Superintendent Name Role Phone Sebastian Estrella MD Primary Care Provider [phone] Carolina Sen SERVER Unavailable Alea Soares SERVER Unavailable [phone] Bebo Conklin DO Primary Care Provider [phone] Bebo Conklin DO Primary Care Provider [phone] Sebastian Estrella MD Primary Care Provider [phone] Encounter Details Date Type Department Care Team (Late st Contact Info) Description 01/02/2024 [facility] [address] [place] [address] Sia Barrett MA Social History Tobacco Use Types Packs/Day Years [...] [facility] [address] [place] [address] Sebastian Estrella MD [address] [place] [address] 10/12/2025 1:00 PM EST Office Visit [facility] [address] [place] [address] Darwin vIy DO [address] [place] [address] documented as of this encounter Visit Diagnoses Not on filedocumented in this encounter Care Teams Distribution Superintendent Relationship Specialty Start Date End Date Sebastian Estrella MD [address] [place] [address] PCP - General Family Medicine 04/16/23 03/09/25 Bebo Conklin DO [address] [place] [address] PCP - General Family Medicine 03/10/25 04/18/25 Bebo Conklin DO [address] [place] [address] PCP - General Family Medicine 04/19/25 06/05/25 Sebastian Estrella MD [address] [place] [address] PCP - General Family Medicine 06/06/25 Carolina Sen NP [address] [place] [address] Nurse Practitioner Family Medicine 03/09/24 03/03/25 Alea Soares NP [address] [place] [address] Nurse Practitioner Family Medicine 03/09/24 04/07/25 documented as of this encounter
--- OUTSIDE RECORDS SUMMARY | 2025-07-11 09:44 | XMS_ITS | Encounter Summary ---
Author Organization [facility] Address [address] [place] [address] Care Team Providers Care Manager Core Name Role Phone Sebastian Estrella MD Primary Care Provider [phone] Carolina Sen NP Unavailable Alea Soares NP Unavailable [phone] Bebo Conklin DO Primary Care Provider Bebo Conklin DO Primary Care Provider [phone] Sebastian Estrella MD Primary Care Provider [phone] Encounter Details Date Type Department Care Team (Late st Contact Info) Description 01/19/2024 [facility] [place] [facility] [address] [place] [address] Carolina Sen NP [address] [address] Social History Tobacco Use Types Packs/Day Years [...] [facility] [address] [place] [address] Sebastian Estrella MD [address] [place] [address] 10/12/2025 1:00 PM EST Office Visit [facility] [address] [place] [address] Darwin Ivy DO [address] [place] [address] documented as of this encounter Visit Diagnoses Not on filedocumented in this encounter Care Teams Manager Core Relationship Specialty Start Date End Date Sebastian Estrella MD [address] [place] [address] PCP - General Family Medicine 04/16/23 03/09/25 Bebo Conklin DO [address] [place] [address] PCP - General Family Medicine 03/10/25 04/18/25 Bebo Conklin DO [address] [place] [address] PCP - General Family Medicine 04/19/25 06/05/25 Sebastian Estrella MD [address] [place] [address] PCP - General Family Medicine 06/06/25 Carolina Sen NP [address] [place] [address] Nurse Practitioner Family Medicine 03/09/24 03/03/25 Alea Soares NP [address] [place] [place] [address] Nurse Practitioner Family Medicine 03/09/24 04/07/25 documented as of this encounter
--- OUTSIDE RECORDS SUMMARY | 2025-07-11 09:44 | XMS_ITS | Encounter Summary ---
Author Organization [facility] Healthcare Address [address] [place] [address] Care Team Providers Care Foot Doctor Name Role Phone Sebastian Estrella MD Primary Care Provider [phone] Carolina Sen NP Unavailable Alea Soares NP Unavailable [phone] Bebo Conklin DO Primary Care Provider [phone] Bebo oCnklin DO Primary Care Provider [phone] Sebastian Estrella MD Primary Care Provider [phone] Encounter Details Date Type Department Care Team (Late st Contact Info) Description 06/18/2024 Abstract [facility] [address] [place] [address] Carolina Sen NP [address] [address] Social History Tobacco Use Types Packs/Day Years [...] and Family Not on file 06/15/2024 Attends [employer] Not on file 06/15 Do you belong to any clubs o r organizations such as congregation groups, unions, fraternal or athletic groups, or [...] Recorded Patient Health Questionnaire-2 Score 1 11/11/2023 [facility] - Occupational [...] any time in the past 12 m [facility], were you homeless or living in [...] [facility] [address] [place] [address] Sebastian Estrella MD [address] [place] [address] 10/12/2025 1:00 PM EST Office Visit [facility] [address] [place] [address] Darwin Ivy DO [address] [place] [address] documented as of this encounter Visit Diagnoses Not on filedocumented in this encounter Care Teams Foot Doctor Relationship Specialty Start Date End Date Sebastian Estrella MD [address] [place] [address] PCP - General Family Medicine 04/16/23 03/09/25 Bebo Conklin DO [address] [place] [address] PCP - General Family Medicine 03/10/25 04/18/25 Bebo Conklin DO [address] [place] [place] [address] PCP - General Family Medicine 04/19/25 06/05/25 Sebastian Estrella MD [address] [place] [address] PCP - General Family Medicine 06/06/25 Carolina Sen NP [address] [place] [address] Nurse Practitioner Family Medicine 03/09/24 03/03/25 Alea Soares PAPER CLEANER [address] [place] [address] Nurse Practitioner Family Medicine 03/09/24 04/07/25 documented as of this encounter
--- OUTSIDE RECORDS SUMMARY | 2025-07-11 09:44 | XMS_ITS | Encounter Summary ---
Author Organization [facility] Address [address] [place] [address] Care Team Providers Care Hobbing Machine Operator Name Role Phone Lilli Estrella MD Primary Care Provider [phone] Carolina Sen BRIGHT CUTTER Unavailable Alea Soares BRIGHT CUTTER Unavailable [phone] Bebo Conklin DO Primary Care Provider [phone] Bebo Conklin DO Primary Care Provider [phone] Lilli Estrella MD Primary Care Provider [phone] Encounter Details Date Type Department Care Team (Late st Contact Info) Description 09/05/2023 Clinisync Result Encounter [facility] External Department Unsolicited [...] Date Recorded Patient Health Questionnaire-2 Score 0 09/05/2023 Sex and Gender Information Value Date Recorded [...] pleasure in doing things Not at all 09/05/2023 8:58 AM Chasity Oseguera MA Feeling down, depressed, or hopeless Not at all 09/05/2023 8:58 AM Chasity Oseguera MA Patient Health Questionnaire -2 Score 0 09/05/2023 8:58 AM Chasity Oseguera MA documented as of this encounter Plan of Treatment Upcoming Encounters Date Type Department Care Team (Late st Contact Info) Description 07/12/2025 1:40 PM EDT Office Visit [facility] [address] [place] [address] Lilli Estrella MD [address] [place] [address] 10/12/2025 1:00 PM EST Office Visit [facility] [address] [place] [address] Darwin Ivy, [address] [place] [address] documented as of this encounter Procedures Procedure Name Priority Date/Time Associated Diagnosis Comments US THYROID 09/05/2023 7:09 AM EST documented in this encounter Results * US thyroid (09/05/2023 7:09 AM EST) Anatomical Region Laterality Modality Head, Neck Ultrasound 09/05/2023 7:09 AM EST Narrative 09/05/2023 7:09 AM EST [address] [address] Ultrasound Report Signed Patient: REBECA HERRON MR#: [id number] : 1960 Acct:[id number] Age/Sex: 63 / M ADM Date: 09/04/23 Loc: US Attending Dr: Non-Staff Physician Veena Ordering Physician: Mando Mukherjee M.D. Date of Service: 09/04/23 Procedure(s): US thyroid Accession Number(s): [id number] cc: LILLI ESTRELLA ; PhysicianRiyaStaff Veena [address] [address] Patient Name: REBECA HERRON MRN: [id number] date: 1960 Sex: M Assigned Patient Location: US Current Patient Location: Accession/Order Number: [id number] Exam Date: 09/04/2023 09:15 Report Date: 09/05/2023 07:09 At the request of: NON-STAFF PHYSICIAN Procedure: US thyroid EXAMINATION: US thyroid HISTORY: Dysphagia R13.10 COMPARISON: No relevant comparison available. FINDINGS: RIGHT LOBE: Heterogeneous echotexture and contains an 11 mm TR 4 nodule within inferior pole, and an incidental 4 mm colloid cyst. Lobe size: 3.2 x 2.4 x 1.6 cm LEFT LOBE: Heterogeneous echotexture and contains a 9 mm TR 3 nodule within inferior pole. Lobe size: 3.9 x 1.5 x 1.3 cm ISTHMUS: Heterogeneous echotexture and mildly thickened; no nodules. Thickness: 5 mm US/US thyroid IMPRESSION: 1. Right lobe 11 mm TR 4 nodule, which border zone TR5. Ultrasound-guided biopsy should be considered. TR4 (moderately suspicious): If > 1.0 cm Follow-up ultrasound in 1, 2, 3, and 5 years. If > 1.5 cm fine needle aspiration (FNA). TR5 (highly suspicious) are listed below: > 0.5 cm. Annual ultrasound follow-up for up to 5 years. > 1.0 cm. FNA. Electronically authenticated by: WILL CLAY Date: 09/05/2023 07:09 Dictated By: Will Clay M.D. Signed By: 09/05/23711 DD/ 8 TD/TT: Rug Cleaner: Procedure Note Radiology, Radiologist, MD - 09/05/2023 [facility] [place] [id number] Ultrasound Report Signed Patient: REBECA HERRON AMR#: [id number] : 8Acct:[id number] Age/Sex: 63 / MADM Date: 09/04/23 Loc: US Attending Dr: Non-Staff Physician Veena Ordering Physician: Physician,Non-Staff Veena Date of Service: 09/04/23 Procedure(s): US thyroid Accession Number(s): [id number] cc: LILLI ESTRELLA ; Physician,Non-Staff Veena The [address] [address] Patient Name: REBECA HERRON MRN: [id number] date: 1960 Sex: M Assigned Patient Location: US Current Patient Location: Accession/Order Number: [id number] Exam Date: 09/04/2023 09:15 Report Date: 09/05/2023 07:09 At the request of: NON-STAFF PHYSICIAN Procedure: US thyroid EXAMINATION: US thyroid HISTORY: Dysphagia R13.10 COMPARISON: No relevant comparison available. FINDINGS: RIGHT LOBE: Heterogeneous echotexture and contains an 11 mm TR 4 nodulewithin inferior pole, and an incidental 4 mm colloid cyst. Lobe size: 3.2 x 2.4 x 1.6 cm LEFT LOBE: Heterogeneous echotexture and contains a 9 mm TR 3 nodulewithin inferior pole. Lobe size: 3.9 x 1.5 x 1.3 cm ISTHMUS: Heterogeneous echotexture and mildly thickened; no nodules. Thickness: 5 mm US/US thyroid IMPRESSION: 1. Right lobe 11 mm TR 4 nodule, which border zone TR5. Ultrasound-guided biopsy should be considered. TR4 (moderately suspicious): If > 1.0 cm Follow-up ultrasound in 1, 2, 3,and 5 years. If > 1.5 cm fine needle aspiration (FNA). TR5 (highly suspicious) are listed below: > 0.5 cm. Annual ultrasound follow-up for up to 5 years. > 1.0 cm. FNA. Electronically authenticated by: WILL CLAY Date: 09/05/2023 07:09 Dictated By: Will Clay M.D. Signed By:09/05/23711 DD/ 8 TD/TT: Rug Cleaner: us Generic External Data Provider IMG US PROCEDURES Final Result documented in this encounter Visit Diagnoses Not on filedocumented in this encounter Care Teams Hobbing Machine Operator Relationship Specialty Start Date End Date Lilli Estrella MD [address] [place] [address] PCP - General Family Medicine 04/16/23 03/09/25 Bebo Conklin DO [address] [place] [address] PCP - General Family Medicine 03/10/25 04/18/25 Bebo Conklin DO [address] [place] [address] PCP - General Family Medicine 04/19/25 06/05/25 Lilli Estrella MD [address] [place] [address] PCP - General Family Medicine 06/06/25 Carolina Sen NP [address] [place] [address] Nurse Practitioner Family Medicine 03/09/24 03/03/25 Alea Soares NP [address] [place] [address] Nurse Practitioner Family Medicine 03/09/24 04/07/25 documented as of this encounter
--- OUTSIDE RECORDS SUMMARY | 2025-07-11 09:44 | XMS_ITS | Encounter Summary ---
Author Organization [facility] Address [address] [place] [address] Care Team Providers Care Degreaser Operator Name Role Phone Sebastian Estrella MD Primary Care Provider [phone] Carolina Sen NP Unavailable Alea Soares NP Unavailable [phone] Bebo Conklin DO Primary Care Provider [phone] Bebo Conklin DO Primary Care Provider [phone] Sebastian Estrella MD Primary Care Provider [phone] Encounter Details Date Type Department Care Team (Late st Contact Info) Description 04/08/2024 [facility] [place] [facility] [address] [place] [address] Carolina Sen NP [address] [address] Social History Tobacco Use Types Packs/Day Years [...] [facility] [address] [place] [address] Sebastian Estrella MD [address] [place] [address] 10/12/2025 1:00 PM EST Office Visit [facility] [address] [place] [address] Darwin Ivy DO [address] [place] [address] documented as of this encounter Visit Diagnoses Not on filedocumented in this encounter Care Teams Degreaser Operator Relationship Specialty Start Date End Date Sebastian Estrella MD [address] [place] [address] PCP - General Family Medicine 04/16/23 03/09/25 Bebo Conklin DO [address] [place] [address] PCP - General Family Medicine 03/10/25 04/18/25 Bebo Conklin DO [address] [place] [address] PCP - General Family Medicine 04/19/25 06/05/25 Sebastian Estrella MD [address] [place] [address] PCP - General Family Medicine 06/06/25 Carolina Sen NP [address] [place] [address] Nurse Practitioner Family Medicine 03/09/24 03/03/25 Alea Soares NP [address] [place] [address] Nurse Practitioner Family Medicine 03/09/24 04/07/25 documented as of this encounter
--- OUTSIDE RECORDS SUMMARY | 2025-07-11 09:44 | XMS_ITS | Encounter Summary ---
Author Organization [facility] Address [address] [place] [address] Care Team Providers Care Pharmacy Graduate Intern Name Role Phone Sebastian Estrella MD Primary Care Provider [phone] Carolina Sen APPLICATIONS DEVELOPMENT ANALYST Unavailable Alea Soares APPLICATIONS DEVELOPMENT ANALYST Unavailable Bebo Conklin DO Primary Care Provider [phone] Bebo Conklin DO Primary Care Provider [phone] Sebastian Estrella MD Primary Care Provider [phone] Encounter Details Date Type Department Care Team (Late st Contact Info) Description 04/03/2023 External Result Encounter [facility] External Department Unsolicited Dante Rangel MD [address] [facility] [address] [address] Social History Tobacco Use Types Packs/Day Years Used Date Smoking Tobacco: Never Assessed Sex and Gender Information Value Date Recorded [...] [facility] [address] [place] [address] Sebastian Estrella MD [address] [place] [address] 10/12/2025 1:00 PM EST Office Visit [facility] [address] [place] [address] Darwin Ivy, DO [address] [place] [address] documented as of this encounter Procedures Procedure Name Priority Date/Time Associated Diagnosis Comments NM BRAIN SPECT 04/03/2023 2:41 PM EDT documented in this encounter Results * NM brain SPECT (04/03/2023 2:41 PM EDT) Anatomical Region Laterality Modality Head and Neck Nuclear Medicine 04/03/2023 2:41 PM EDT Impressions 04/08/2023 3:00 PM EDT There is asymmetric decreased accumulation of radiotracer material within the right globus pallidus compared to the left. Impression dictated by: Calvin Monreal M.D.04/03/2023 2:43 PM Dictation Location: [place] [address] Transcribed By: [facility] 04/03/231442 Dictated By: Calvin Monreal II, MD 04/03/23 144 Signed By: <Electronically signed by Calvin Monreal II, MD in OV> 04/03/23 1443 Narrative 04/08/2023 3:00 PM EDT [facility] Main [address] [address] Nuclear Medicine Report Signed Patient: Robert Wagner MR#: [id number] : 1960 Acct:[id number] Age/Sex: 62 / M ADM Date: 04/03/23 Loc: [place] Room: [facility] Attending Dr: Dante Rangel MD Copies to: MD Calvin Randall II, MD Ordering Provider: Dante Rangel MD Date of Service: 04/03/23 NM/NM brain spect datscan: R25.1 NM brain spect datscan 04/03/2023 7:57 AM SIGNS [...] Caudate nucleus bilaterally. NM/NM brain spect datscan Procedure Note Radiology, Radiologist, - 04/08/2023 [facility] Main [place] [address] [place] [address] Nuclear Medicine Report Signed Patient: Robert Wagner AMR#: [id number] : 8Acct:[id number] Age/Sex: 62 / MADM Date: 04/03/23 Loc: [place] Room:Type: [facility] Attending Dr: Dante Rangel MD Copies to: MD Calvin Randall II, MD Ordering Provider: Dante Rangel MD Date of Service: 04/03/23 NM/NM brain spect datscan: R25.1 [place] brain spect datscan 04/03/2023 7:57 AM SIGNS AND SYMPTOMS: Tremors in right hand PROTOCOL: Following injection of I-123 Ioflupane, SPECT images of the headwere obtained and reconstructed in axial plane. Radiopharmaceutical Dose: 5.69 mCi of I-123 Ioflupane COMPARISON: None. FINDINGS: There is asymmetric decreased accumulation of radiotracer material withinthe right globus pallidus compared to the left. There is symmetric radiotracer accumulation withinthe Caudate nucleus bilaterally. NM/NM brain spect datscan IMPRESSION: There is asymmetric decreased accumulation of radiotracer material withinthe right globus pallidus compared to the left. Impression dictated by: Calvin Monreal M.D.04/03/2023 2:43 PM Dictation Location: [place] [address] Transcribed By: [facility] 04/03/23 1443 Dictated By: Calvin Monreal II, MD 04/03/23 1441 Signed By: <Electronically signed by Calvin Monreal II, MD inOV> 04/03/23 1443 us Dante Rangel MD IMG NM PROCEDURES Final Resul t documented in this encounter Visit Diagnoses Not on filedocumented in this encounter Care Teams Pharmacy Graduate Intern Relationship Specialty Start Date End Date Sebastian Estrella MD [address] [place] [address] PCP - General Family Medicine 04/16/23 03/09/25 Bebo Conklin DO [address] [place] [address] PCP - General Family Medicine 03/10/25 04/18/25 Bebo Conklin DO [address] [place] [address] PCP - General Family Medicine 04/19/25 06/05/25 Sebastian Estrella MD [address] [place] [address] PCP - General Family Medicine 06/06/25 Carolina Sen NP [address] [place] [address] Nurse Practitioner Family Medicine 03/09/24 03/03/25 Alea Soares NP [address] [place] [address] Nurse Practitioner Family Medicine 03/09/24 04/07/25 documented as of this encounter
--- OUTSIDE RECORDS SUMMARY | 2025-07-11 09:44 | XMS_ITS | Encounter Summary ---
Author Organization [facility] Address [address] [place] [address] Care Team Providers Care Materials Intern Name Role Phone Sebastian Estrella MD Primary Care Provider [phone] Carolina Sen RECOVERY AUDITOR Unavailable Alea Soares RECOVERY AUDITOR Unavailable [phone] Bebo Conklin DO Primary Care Provider [phone] Bebo Conklin DO Primary Care Provider [phone] Sebastian Estrella MD Primary Care Provider Encounter Details Date Type Department Care Team (Late st Contact Info) Description 04/11/2023 [facility] [address] [place] [address] Dante Rangel MD [address] [place] [address] Social History Tobacco Use Types Packs/Day Years Used Date Smoking Tobacco: Former Cigarettes Smokeless Tobacco: Never Tobacco Cessation:Counseling Given: Not Answered Comments:Last smoked:>20 years Alcohol Use Standard Drinks/Week Comments Never 0 [...] Description 07/12/2025 1:40 PM EDT Office Visit [facility] [address] [place] [address] Sebastian Estrella MD [address] [place] [address] 10/12/2025 1:00 PM EST Office Visit [facility] [place] [facility] [address] [place] [address] Darwin Ivy DO [address] [place] [address] documented as of this encounter Visit Diagnoses Not on filedocumented in this encounter Care Teams Materials Intern Relationship Specialty Start Date End Date Sebastian Estrella MD [address] [place] [address] PCP - General Family Medicine 04/16/23 03/09/25 Bebo Conklin DO [address] [place] [address] PCP - General Family Medicine 03/10/25 04/18/25 Bebo Conklin DO [address] [place] [address] PCP - General Family Medicine 04/19/25 06/05/25 Sebastian Estrella MD [address] [place] [address] PCP - General Family Medicine 06/06/25 Carolina Sen NP [address] [place] [address] Nurse Practitioner Family Medicine 03/09/24 03/03/25 Alea Soares NP [address] [place] [address] Nurse Practitioner Family Medicine 03/09/24 04/07/25 documented as of this encounter
--- OUTSIDE RECORDS SUMMARY | 2025-07-11 09:44 | XMS_ITS | Clinical Summary ---
Author Organization [facility] Address [address] [place] [address] Care Team Providers Care Drug Safety Coordinator Name Role Phone Unavailable Primary Care Provider Unavailabl e Allergies Active Allergy Reactions Criticality Noted Date Comments Ciprofloxacin Swelling,Unknown High 06/07/2013 Medications allopurinol (ZYLOPRIM) 300 mg tablet Take 1 tablet by mouth every afternoon. 4 Active ALPRAZolam (XANAX) 0.5 mg tablet TAKE 1 TABLET BY MOUTH 3 TIMES A DAY NEEDED FOR ANXIETY FOR 7 DAYS *TAKE DISCUSSED IN OFFICE. 4 Active FLUoxetine (PROZAC) 60 mg tablet Take 60 mg by mouth once daily. 4 Active glimepiride (AMARYL) 4 mg tablet TAKE 1 TABLET BY MOUTH IN THE MORNING WITH BREAKFAST OR FIRST MAIN MEAL OF THE DAY 4 Active FREESTYLE LANCETS 28 gauge once daily. 4 Active metFORMIN ER (FORTAMET) 1,000 mg 24 hr tablet TAKE 1 TABLET BY MOUTH IN THE EVENING WITH MEALS, DO NOT CRUSH, CHEW, OR SPLIT 4 Active rosuvastatin (CRESTOR) 5 mg tablet Take 1 tablet by mouth once daily. 2 Active busPIRone HCl 30 mg tablet Take 30 mg by mouth two times a day. Active oxybutynin (DITROPAN) 5 mg tablet Take 1 tablet by mouth three times a day for 6 days. Use for barraza discomfort. Stop 1 day before barraza removal. 18 tablet 4 Active acetaminophen (TYLENOL) 500 mg tablet Take 2 tablets by mouth every 6 hours as needed for pain. 4 Active Active Problems Problem Noted Date Diagnosed Date Obesity, Class I, BMI 30-34.9 04/26/2024 History of cervical spinal arthrodesis 4 Prostate cancer 02/13/2024 Parkinson's disease 04/09/2023 Assessment & Plan (04/20/2024 3:24 PM EDT): Patient states he was diagnosed with Parkinson's by an outside provider. Was previously on Ropinirole but it was discontinued, no current medications. Type 2 diabetes mellitus without complication Assessment & Plan (04/20/2024 3:25 PM EDT): Stable on Glimepiride 4 mg and Metformin 1000 mg daily. PLAN: HgbA1C ordered. Obsessive-compulsive disorder 08/16/2021 Generalized anxiety disorder 08/14/2021 Assessment & Plan (04/20/2024 3:33 PM EDT): Anxiety & OCD. Stable on Fluoxetine 60 mg daily and Buspirone 30 mg BID. Patient is prescribed Xanax as needed. Diverticulitis 05/24/2020 Mixed hyperlipidemia 08/01/2018 Assessment & Plan (04/20/2024 3:24 PM EDT): Stable on Rosuvastatin 5 mg daily. Immunizations Immunization Administration Dates Next Due influenza (aIIV4) vaccine, a ge 65+ yr, quadrivalent, PF (FLUAD QUAD) 08/22/2023 pneumococcal conjugate (PCV2 0) vaccine, 20 valent (PREVNAR 20) 05/16/2023 Family History Medical History Relation Comments Anesthesia Problems No Family History Social History Tobacco Use Types Packs/Day Years Used Date Smoking Tobacco: Never Smokeless Tobacco: Never Tobacco Cessation:Counseling Given: No Alcohol Use Standard Drinks/Week Comments Not Currently 0 (1 standard drink = 0.6 oz pur e alcohol) Area Deprivation Index Answer Date Jn rded National Score (1-100), lower number is lower ri sk 91 04/20/2024 State Score (1-10), lower number is lower risk 9 04/20/2024 Data from: https://www.neighborhoodatlas.medicine.[facility]/. Last address used for calculation [address] 04/20/2024 Sex and Gender Information Value Date Recorded Sex Assigned at Not on file Legal Sex Male 9:56 AM EDT Gender Identity Not on file Sexual Orientation Not on file Last Filed Vital Signs Vital Sign Reading Time Taken Comments Blood Pressure 132/77 04/27/2024 10:26 AM EDT Pulse 102 04/27/2024 10:26 AM EDT Temperature 36.7 C (98 F) 04/27/2024 10:26 AM EDT Respiratory Rate 18 04/27/2024 10:2 6 AM EDT Oxygen Saturation 96% 04/27/2024 10: 26 AM EDT Inhaled Oxygen Concentration - - Weight 99.7 kg (219 lb 12.8 oz) 04/20/2024 3:06 PM EDT Height 175.3 cm (5' 9 ) 04/20/2024 3:06 PM EDT Body Mass Index 32.46 04/20/2024 3:06 PM EDT Plan of Treatment Health Maintenance Due Date Last Done Comments Diabetic Foot Exam 1968 Dilated Retinal Exam 1968 Urine Albumin:Creatinine Ratio 1968 Annual PCP Team Chronic Dise ase Visit 1976 Depression Screening 1976 Hepatitis C Screening 1976 LDL Cholesterol 1976 DTaP,Tdap,Td Vaccine (1 - Tdap) 1977 CT Colonography 2003 Cologuard (FIT-DNA) 2003 Colonoscopy 2003 Colorectal Cancer Screening 2003 Fecal Occult Blood 2003 Sigmoidoscopy 2003 Shingrix Vaccine (1 of 2) 2008 Advance Directive Discussion 10/27/2024 HbA1C 12/16/2024 06/15/2024, 03/28, 04/20/2024, Additional history exists Influenza Vaccine (#1) 2025 , 10/09/2021, 09/21/2021, Additional history exists Prostate Cancer Screening Discussion 09/15/2029 09/15/2024, 06/10/2024, 07/27/2022 RSV Vaccine (1 - 1-dose 75+ series) 2033 Pneumococcal Vaccine: 50+ Completed 05/16/2023 Procedures Procedure Name Priority Date/Time Associated Diagnosis Comments PSA/PROSTSPECAG DIAG Routine 09/15/2024 3:27 PM EST Prostate cancer (HCC) HEMOGLOBIN A1C Routine 04/20/2024 2:46 PM EDT Type 2 diabetes mellitus without complication, without long-term current use of insulin (HCC) from Last 3 Months or Most Recently Relevant to Health Maintenance Results * PROSTATE-SPECIFIC ANTIGEN DIAGNOSTIC (09/15/2024 3:27 PM EST) PSA <0.02 <2.60 ng/mL 09/16/2024 2:22 AM EST [facility] Comment:Total PSA test metho dology used is the Electrochemiluminescence Immunoassay by [employer]. Total PSA values by differing methodologies cannot be interchanged. Blood BLOOD SPECIMEN / Unknown Venipuncture / Unknown 09/15/2024 3:27 PM EST 09/15/2024 3:27 PM EST us Juan Luis Otero MD LABORATORY Final Result [facility] [address] [place] [address], * (ABNORMAL) HEMOGLOBIN A1C (04/20/2024 2:46 PM EDT) Hemoglobin A1C 6.7(H) 4.3 - 5.6 % 04/21/2024 8:39 PM EDT [facility] Comment:[place] Diabetes As sociation guidelines indicate that patients with HgbA1c in the range 5.7-6.4% are at increased risk for development of diabetes, and intervention by lifestyle modification may be beneficial. HgbA1c greater or equal to 6.5% is considered diagnostic of diabetes. Estimated Average Glucose 146 mg/dL 04/21/2024 8:39 PM EDT [facility] Comment:eAG: (Estimated aver age glucose) is a calculated value from HgbA1c and is provider relations representative of the average blood glucose level in the last 2-3 month period. Blood BLOOD SPECIMEN / Unknown Venipuncture / Unknown 04/20/2024 2:46 PM EDT 04/20/2024 2:47 PM EDT us Samm Melgoza CLIENT ASSOCIATE.AUTOMATIC PRESSER LABORATORY Final R esult [facility] [address] [facility] [address] [place] [address], [place] from Last 3 Months or Most Recently Relevant to Health Maintenance Insurance [facility]
--- OUTSIDE RECORDS SUMMARY | 2025-07-11 09:44 | XMS_ITS | Encounter Summary ---
Author Organization [facility] Address [address] [place] [address] Care Team Providers Care Nursing Education Consultant Name Role Phone Sebastian Estrella MD Primary Care Provider [phone] Carolina Sen NP Unavailable Alea Soares NP Unavailable [phone] Bebo Conklin DO Primary Care Provider [phone] Bebo Conklin DO Primary Care Provider [phone] Sebastian Estrella MD Primary Care Provider [phone] Encounter Details Date Type Department Care Team (Late st Contact Info) Description 11/20/2023 Abstract [facility] [place] [address] [place] [address] Carolina Sen NP [address] [address] Social History Tobacco Use Types Packs/Day Years [...] [facility] [place] [facility] [address] [place] [address] Sebastian Estrella MD [address] [place] [address] 10/12/2025 1:00 PM EST Office Visit [facility] [place] [facility] [address] [place] [address] Darwin Ivy DO [address] [place] [address] documented as of this encounter Visit Diagnoses Not on filedocumented in this encounter Care Teams Nursing Education Consultant Relationship Specialty Start Date End Date Sebastian Estrella MD [address] [place] [address] PCP - General Family Medicine 04/16/23 03/09/25 Bebo Conklin DO [address] [place] [address] PCP - General Family Medicine 03/10/25 04/18/25 Bebo Conklin DO [address] [place] [address] [place] [address] PCP - General Family Medicine 04/19/25 06/05/25 Sebastian Estrella MD [address] [place] [address] PCP - General Family Medicine 06/06/25 Carolina Sen NP [address] [place] [address] Nurse Practitioner Family Medicine 03/09/24 03/03/25 Alea Soares AUTO TRANSPORT DRIVER [address] [place] [address] Nurse Practitioner Family Medicine 03/09/24 04/07/25 documented as of this encounter
--- OUTSIDE RECORDS SUMMARY | 2025-07-11 09:44 | XMS_ITS | Clinical Summary ---
Author Organization [facility] Address [address] [facility], [address] [place] [address] Care Team Providers Care Cycle Liaison Name Role Phone Alecia Sim MD Primary Care Provider [phone] Allergies Active Allergy Reactions Criticality Noted Date Comments Ciprofloxacin 06/07/2013 Social History Tobacco Use Types Packs/Day Years Used Date Smoking Tobacco: Never Assessed Sex and Gender Information Value Date Recorded Sex Assigned at Not on file Legal Sex Male 10:56 AM EST Gender Identity Not on file Sexual Orientation Not on file Last Filed Vital Signs Vital Sign Reading Time Taken Comments Blood Pressure - - Pulse - - Temperature - - Respiratory Rate - - Oxygen Saturation - - Inhaled Oxygen Concentration - - Weight 103.4 kg (228 lb) 06/07/2013 10:35 AM EDT Height 175.3 cm (5' 9 ) 06/07/2013 10:35 AM EDT Body Mass Index 33.67 06/07/2013 10:35 AM EDT Plan of Treatment Not on file Care Teams Cycle Liaison Relationship Specialty Start Date End Date Alecia Sim MD PCP - General 06/02/13
--- OUTSIDE RECORDS SUMMARY | 2025-07-11 09:44 | XMS_ITS | Encounter Summary ---
Author Organization [facility] Address [address] [place] [address] Care Team Providers Care Keyboarding Clerk Name Role Phone Sebastian Estrella MD Primary Care Provider [phone] Carolina Sen NP Unavailable Alea Soares NP Unavailable [phone] Bebo Conklin DO Primary Care Provider [phone] Bebo Conklin DO Primary Care Provider [phone] Sebastian Estrella MD Primary Care Provider Encounter Details Date Type Department Care Team (Late st Contact Info) Description 11/20/2023 Orders Only [facility] [address] [place] [address] Carolina Sen NP [address] [facility] [address] [place] [address] Social History Tobacco Use Types Packs/Day Years [...] [facility] [place] [facility] [address] [place] [address] Sebastian Estrella MD [address] [place] [address] 10/12/2025 1:00 PM EST Office Visit [facility] [place] [facility] [address] [place] [address] Darwin Ivy DO [address] [place] [address] documented as of this encounter Procedures Procedure Name Priority Date/Time Associated Diagnosis Comments US SCROTUM Routine 11/20/2023 9:49 AM EST documented in this encounter Results * US scrotum (11/20/2023 9:49 AM EST) Anatomical Region Laterality Modality Body Ultrasound us Carolina Warchol BLIND TEACHER IMG US PROCEDURES Final Result documented in this encounter Visit Diagnoses Not on filedocumented in this encounter Care Teams Keyboarding Clerk Relationship Specialty Start Date End Date Sebastian Estrella MD [address] [place] [address] PCP - General Family Medicine 04/16/23 03/09/25 Bebo Conklin DO [address] [place] [address] PCP - General Family Medicine 03/10/25 04/18/25 Bebo Conklin DO [address] [place] [address] PCP - General Family Medicine 04/19/25 06/05/25 Sebastian Estrella MD [address] [place] [address] PCP - General Family Medicine 06/06/25 Carolina Sen NP [address] [place] [address] Nurse Practitioner Family Medicine 03/09/24 03/03/25 Alea Soares NP [address] [place] [address] Nurse Practitioner Family Medicine 03/09/24 04/07/25 documented as of this encounter
--- OUTSIDE RECORDS SUMMARY | 2025-07-11 09:44 | XMS_ITS | Encounter Summary ---
Author Organization [facility] Address [address] [place] [address] Care Team Providers Care Patient Safety Sitter Name Role Phone Unavailable Primary Care Provider Unavailabl e Source Comments In the event this information is protected by the Federal Confidentiality of Alcohol and Drug AbusePatient Records regulations: The Federal rules restrict any use of the information to criminally investigate or prosecute any alcohol or drug abuse patient.[facility] Encounter Details Date Type Department Care Team (Late st Contact Info) Description 02/13/2024 Patient Msg Urology [address] [id number] Provider, [facility] UROLOGY PRE OP-SURGERY DATES AND INSTRUCTIONS Social History Tobacco Use Types Packs/Day Years Used Date Smoking Tobacco: Never Assessed Area Deprivation Index Answer Date Jn rded National Score (1-100), lower number is lower ri sk 91 02/13/2024 State Score (1-10), lower number is lower risk 9 02/13/2024 Data from: https://www.neighborhoodatlas.medicine.[facility].edu/. Last address used for calculation [address] [facility] 02/13/2024 Sex and Gender Information Value Date Recorded Sex Assigned at Not on file Legal Sex Male 9:56 AM EDT Gender Identity Not on file Sexual Orientation Not on file documented as of this encounter Plan of Treatment Not on file documented as of this encounter Visit Diagnoses Not on filedocumented in this encounter
--- OUTSIDE RECORDS SUMMARY | 2025-07-11 09:45 | XMS_ITS | Encounter Summary ---
Author Organization [facility] Address [address] [place] [address] Care Team Providers Care Rental Car Ferry Driver Name Role Phone Sebastian Estrella MD Primary Care Provider [phone] Carolina Sen EVP BUSINESS DEVELOPMENT Unavailable Alea Soares EVP BUSINESS DEVELOPMENT Unavailable [phone] Bebo Conklin DO Primary Care Provider [phone] Bebo Conklin DO Primary Care Provider [phone] Sebastian Estrella MD Primary Care Provider [phone] Encounter Details Date Type Department Care Team (Late st Contact Info) Description 11/10/2023 Clinisync Result Encounter [facility] External Department Unsolicited [...] pleasure in doing things Not at all 11/11/2023 11:35 AM Chasity Oseguera MA Feeling down, depressed, or hopeless Several days 11/11/2023 11:35 AM Chasity Oseguera MA Patient Health Questionnaire -2 Score 1 11/11/2023 11:35 AM Chasity Oseguera MA * If you checked off any problems on this questionnaire so far, Question Answer Date of Assessment Author How difficult have these problems made it for you to do your work, take care of things at home, or get along with other people? Not difficult at all 11/11/2023 11:35 AM Chasity Oseguera M A documented as of this encounter Plan of Treatment Upcoming Encounters Date Type Department Care Team (Late st Contact Info) Description 07/12/2025 1:40 PM EDT Office Visit [facility] [place] [facility] [address] [place] [address] Sebatsian Estrella MD [address] [place] [address] 10/12/2025 1:00 PM EST Office Visit [facility] [place] [facility] [address] [place] [address] Darwin Ivy DO [address] [place] [address] documented as of this encounter Procedures Procedure Name Priority Date/Time Associated Diagnosis Comments ECG 12-LEAD 11/10/2023 10:53 AM EST documented in this encounter Results * ECG 12-LEAD (11/10/2023 10:53 AM EST) Anatomical Region Laterality Modality Other 11/10/2023 10:5 3 AM EST Narrative 11/11/2023 6:55 [place] [address] Electrocardiograph Report Signed Patient: REBECA HERRON MR#: [id number] : 1960 Acct:[id number] Age/Sex: 63 / M ADM Date: 11/10/23 Loc: PST Attending Dr: Mario Rodriguez M.D. Ordering Physician: Mario Rodriguez M.D. 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 Signed By: 11/11/23 0655 DD/ 1053 TD/TT: Rugby Union Footballer: Procedure Note Radiology, Radiologist, MD - 11/11/2023 [place] [address] Electrocardiograph Report Signed Patient: REBECA HERRON AMR#: [id number] : 8Acct:[id number] Age/Sex: 63 / MADM Date: 11/10/23 Loc: PST Attending Dr: Mario Rodriguez M.D. Ordering Physician: Mario Rodriguez M.D. 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 Signed By:11/11/23 0655 DD/ 1053 TD/TT: Rugby Union Footballer: us Generic External Data Provider [facility] Final Result documented in this encounter Visit Diagnoses Not on filedocumented in this encounter Care Teams Rental Car Ferry Driver Relationship Specialty Start Date End Date Sebastian Estrella MD [address] [place] [address] PCP - General Family Medicine 04/16/23 03/09/25 Bebo Conklin DO [address] [place] [address] PCP - General Family Medicine 03/10/25 04/18/25 Bebo Conklin DO [address] [place] [address] PCP - General Family Medicine 04/19/25 06/05/25 Sebastian Estrella MD [address] [place] [address] PCP - General Family Medicine 06/06/25 Carolina Sen NP [address] [place] [address] Nurse Practitioner Family Medicine 03/09/24 03/03/25 Alea Soares NP [address] [place] [address] Nurse Practitioner Family Medicine 03/09/24 04/07/25 documented as of this encounter
--- OUTSIDE RECORDS SUMMARY | 2025-07-11 09:45 | XMS_ITS | Encounter Summary ---
Author Organization [facility] Address [address] [place] [address] Care Team Providers Care Deskidding Machine Operator Name Role Phone Unavailable Primary Care Provider Unavailabl e Source Comments In the event this information is protected by the Federal Confidentiality of Alcohol and Drug AbusePatient Records regulations: The Federal rules restrict any use of the information to criminally investigate or prosecute any alcohol or drug abuse patient.[facility] Encounter Details Date Type Department Care Team (Late st Contact Info) Description 04/15/2024 Patient Msg MRI Q [address] [id number] Provider, [facility] PROSTATE MRI APPOINTMENT PREP REMINDER Social History Tobacco Use Types Packs/Day Years Used Date Smoking Tobacco: Never Assessed Area Deprivation Index Answer Date Jn rded National Score (1-100), lower number is lower ri sk 91 02/13/2024 State Score (1-10), lower number is lower risk 9 02/13/2024 Data from: https://www.neighborhoodatlas.medicine.[facility].edu/. Last address used for calculation [address] [facility] 02/13/2024 Sex and Gender Information Value Date Recorded Sex Assigned at Not on file Legal Sex Male 9:56 AM EDT Gender Identity Not on file Sexual Orientation Not on file documented as of this encounter Plan of Treatment Not on file documented as of this encounter Visit Diagnoses Not on filedocumented in this encounter
--- OUTSIDE RECORDS SUMMARY | 2025-07-11 09:52 | XMS_ITS | CCD ---
Author Organization [facility] Care Team Providers Care Asbestos Shingle Inspector Name Role Phone Brittany Zuniga Unavailable Marisa Rivers Unavailable CAROLINA PHAM Admitting Unavailable CAROLINA PHAM Attending Unavailable ESTRELLA, DR REEDER Primary Care Unavailable ESTRELLA, DR REEDER Attending Unavailable ESTRELLA, DR REEDER Admitting Unavailable ESTRELLA, DR REEDER Primary Care Unavailable ESTRELLA, DR REEDER Consulting Unavailable VEROCAROLINA Consulting Unavailable VERO CAROLINA Attending Unavailable CAROLINA PHAM Admitting Unavailable ESTRELLA, DR REEDER Primary Care Unavailable CAROLINA PHAM Attending Unavailable VERO, CAROLINA Admitting Unavailable ESTRELLA, DR REEDER Primary Care Unavailable MD Dante Rangel Attending Provider MD Sebastian Estrella Primary Care Provider SEBASTIAN ESTRELLA Primary Care Physician MD Sebastian Estrella Primary Care Provider [phone] MD Mario Rodriguez Attending Provider Mario RODRIGUEZ Attending Unavailable Mario RODRIGUEZ Attending Unavailable Mario RODRIGUEZ Attending Unavailable WARDELIA, SHELLFISH SHUCKER-C CAROLINA Referring Unavailable Mario RODRIGUEZ Attending Unavailable Mario RODRIGUEZ Admitting Unavailable Mario RODRIGUEZ Referring Unavailable Mario RODRIGUEZ Attending Unavailable Mario RODRIGUEZ Attending Unavailable Mario RODRIGUEZ Referring Unavailable Unavailable Primary Care Provider Unavailabl e Unavailable Primary Care Provider Unavailabl e NATALIE OTERO Referring Unavailable NATALIE OTERO Attending Unavailable NATALIE OTERO Admitting Unavailable JANKI JOHNSON Attending Unavaila NATALIE Merrill Referring Unavailable JANKI JOHNSON Attending Unavaila ble SELF Referring Unavailable NATALIE OTERO Referring Unavailable NATALIE OTERO Attending Unavailable MIGUEL ANGEL COOPER Attending Unavailable NATALIE OTERO Referring Unavailable NATALIE OTERO Attending Unavailable Sebastian Estrella MD Primary Care Provider Brittani SIZE CUTTER, Carolina Unavailable Fany SIZE CUTTER Alea Houston Unavailable BEBO CONKLIN Attending Unavailable DRAWIN IVY Attending Unavailable DARWIN IVY Referring Unavailable DARWIN IVY Attending Unavailable BRITTANI, CAROLINA Attending Unavailable DARWIN IVY Attending Unavailable CAROLINA PETER Attending Unavailable Matt Oneil Attending Unavailab Matt Bergeron Admitting Unavailab Sebastian Raymundo Primary Care Unavailable Allergies Allergy Classification Reported Allergen(s) Allergy Type Date of Onset Reaction(s) Facility Quinolones (antibiotic) (2 sources) Ciprofloxacin Drug Allergy 3 Swelling, Unknown [facility] (20 sources) Ciprofloxacin; Translations: [ciprofloxacin] Drug Allergy 3 Swelling (morphologic abnormality), Swelling, Unknown [facility] (3 sources) Ciprofloxacin; Translations: [Cipro] Drug Allergy 4 [facility] (1 source) Ciprofloxacin Drug Allergy 4 [facility] Medications Current Medications Medication Drug Class(es) Dates Sig (Normalized) Sig (Original) acetaminophen 500 mg oral tablet (3 sources) Start: 04-27-2024 take 2 tablets by mouth every six hours as needed acetaminophen (TYLENOL) 500 mg tablet Take 2 tablets by mouth every 6 hours as needed for pain. 04/27/2024 Active allopurinol 300 mg oral tablet (20 sources) Xanthine Oxidase Inhibitor Start: 02-03-2024 End: 06-12-2025 take 1 tablet by mouth once daily allopurinol (Zyloprim) 300 MG tablet Indications: Idiopathic chronic gout of multiple sites without tophus Take 1 tablet (300 mg) by mouth Daily 90 tablet 03/10/2025 06/08/2025 Active Start: 11-03-2023 allopurinol 30 0 mg Tab Refills(s) 0 Start Date: 11/03/23 Status: Ordered Allopurinol Acti ve Comment on above: Take 1 tablet by dickson th every afternoon. ALPRAZolam 0.5 mg oral tablet (20 sources) Benzodiazepine Start: 4 take 1 tablet by mouth three times daily as needed for anxiety ALPRAZolam (Xanax) 0.5 MG tablet Indications: Generalized anxiety disorder (CMS/HCC) Take 1 tablet (0.5 mg) by mouth 3 (three) times a day as needed for anxiety for up to 7 days Please take as discussed in office. 21 tablet 01/27/2024 Active Start: 01-13-2024 take 1 tablet by dickson th three times daily as needed for anxiety Xanax 1 mg Tab 1 mg = 1 tab(s), Oral, TID, PRN for anxiety, Refills(s) 0 Start Date: 01/13/24 Status: Ordered Xanax PRN Active Xanax Active Comment on above: TAKE 1 TABLET BY DICKSON TH 3 TIMES A DAY NEEDED FOR ANXIETY FOR 7 DAYS *TAKE DISCUSSED IN OFFICE. apixaban 2.5 mg oral tablet (15 sources) Factor Xa Inhibitor Start: 4 End: 4 take 1 tablet by mouth twice daily Eliquis 2.5 MG tablet TAKE 1 TABLET BY MOUTH TWICE A DAY FOR 21 DAYS 04/27/2024 Active ARIPiprazole (1 source) Atypical Antipsychotic Abiligosia A ctive Blood Glucose Monitoring Suppl (ONE TOUCH ULTRA MINI) w/Device kit (15 sources) Start: 4 Blood Glucose Monitoring Suppl (ONE TOUCH ULTRA MINI) w/Device kit Indications: Type 2 diabetes mellitus without complication, without long-term current use of insulin Test daily before all meals/snacks and once before bedtime. 1 kit 11/18/2023 Active Start: 11-18-2023 Blood Glucose Monitoring Suppl (ONE TOUCH ULTRA MINI) w/Device kit Indications: Type 2 diabetes mellitus without complication, without long-term current use of insulin (CMS/HCC) Test daily before all meals/snacks and once before bedtime. 1 kit 11/18/2023 Active busPIRone hydrochloride 30 mg oral tablet (20 sources) Start: 03-15-2024 take 1 tablet by mouth once daily busPIRone (Buspar) 30 MG tablet Indications: Major depressive disorder with current active episode, unspecified depression episode severity, unspecified whether recurrent (CMS/HCC) Take 1 tablet (30 mg) by mouth Daily 30 tablet 2 03/15/2024 Active Start: 11-03-2023 busPIRone 15 m g Tab Refills(s) 0 Start Date: 11/03/23 Status: Ordered take 1 tablet by [facility] twice daily busPIRone HCl 30 mg tablet Take 30 mg by mouth two times a day. Active busPIRone HCl Ac tive cephalexin 500 mg oral capsule (1 source) Cephalosporin Antibacterial Start: 12-01-2023 End: 12-08-2023 Keflex 500 mg Cap 500 mg = 1 cap(s), Oral, BID, start 3 days prior to procedure, X 7 day(s), # 14 cap(s), Refills(s) 0, Pharmacy: [facility]/pharmacy #[id number], 175, cm, 12/01/23 9:11:00 EST, Height/Length Dosing, 112, kg, 12/01/23 9:11:00 EST, Weight Dosing Start Date: 12/01/23 Stop Date: 12/08/23 Status: Ordered dextromethorphan hydrobromide 30 mg / pyrilamine maleate 30 mg oral tablet (1 source) Uncompetitive I-kymmbd-[place] te Receptor Antagonist, Sigma-1 Agonist Start: 12-28-2021 [place] DMT 30-30 MG 1 tablet Orally every 6-8 hours for 7 days Dec, Active docusate sodium 100 mg oral capsule (15 sources) Start: 04-27-2024 End: 05-11-2024 take 1 capsule by mouth twice daily docusate sodium (Colace) 100 MG capsule TAKE 1 CAPSULE BY MOUTH TWO TIMES A DAY FOR 14 DAYS. 04/27/2024 Active doxycycline hyclate 100 mg oral capsule (2 sources) Tetracycline-class Drug Start: 12-04-2023 take 1 capsule by mouth twice daily doxycycline hyclate 100 mg Cap 100 mg = 1 cap(s), Oral, BID, Start 3 days prior to procedure, # 14 cap(s), Refills(s) 0, Pharmacy: [facility]/pharmacy #[id number], 175, cm, 12/01/23 9:11:00 EST, Height/Length Dosing, 112, kg, 12/01/23 9:11:00 EST, Weight Dosing Start Date: 12/04/23 Status: Ordered Start: 11-03-2023 End: 11-10-2023 take 1 capsule by mouth twice daily doxycycline hyclate 100 mg Cap 100 mg = 1 cap(s), Oral, BID, X 7 day(s), # 14 cap(s), Refills(s) 0, Pharmacy: [facility]/pharmacy #[id number], 175, cm, 11/03/23 10:32:00 EST, Height/Length Dosing, 112, kg, 11/03/23 10:32:00 EST, Weight Dosing Start Date: 11/03/23 Stop Date: 11/10/23 Status: Ordered famotidine 26.6 mg / ibuprofen 800 mg oral tablet (20 sources) Nonsteroidal Anti-inflammatory Drug, Histamine-2 Receptor Antagonist End: 03-10-2025 Ibuprofen-Famotidine (Duexis) 800-26.6 MG tablet per tablet every 8 (eight) hours. 03/10/2025 Discontinued (Therapy completed) Comment on above: q 8 HR. FLUoxetine 60 mg oral tablet (20 sources) Serotonin Reuptake Inhibitor Start: 01-13-2024 FLUoxetine (Eqv-Prozac) 20 mg oral tablet Refills(s) 0, Anxiety Start Date: 01/13/24 Status: Ordered Start: 01-02-2024 End: 03-14-2025 take 1 tablet by mouth once daily FLUoxetine (PROzac) 60 MG tablet Indications: Major depressive disorder with current active episode, unspecified depression episode severity, unspecified whether recurrent (CMS/HCC) , Obsessive-compulsive disorder, unspecified type (CMS/HCC) , Generalized anxiety disorder (CMS/HCC) Take 1 tablet (60 mg) by mouth Daily 12/14/2024 03/14/2025 Active Start: 01-02-2024 End: 06-15-2024 take 2 tablets by mouth once daily FLUoxetine (PROzac) 20 MG tablet Indications: Major depressive disorder with current active episode, unspecified depression episode severity, unspecified whether recurrent (CMS/HCC) , Obsessive-compulsive disorder, unspecified type (CMS/HCC) , Generalized anxiety disorder (CMS/HCC) Take 2 tablets (40 mg) by mouth Daily 02/03/2024 06/15/2024 Discontinued (Therapy completed) PROzac Active Fluoxetine Activ e Comment on above: Take 40 mg by mouth. glimepiride 4 mg oral tablet (20 sources) Sulfonylurea Start: 4 End: 5 take 1 tablet by mouth before mealtime glimepiride (Amaryl) 4 MG tablet Indications: Type 2 diabetes mellitus without complication, without long-term current use of insulin Take 1 tablet (4 mg) by mouth in the morning. Take before meals. 90 tablet 03/10/2025 06/08/2025 Active Start: 11-03-2023 glimepiride 2 mg Tab Refills(s) 0 Start Date: 11/03/23 Status: Ordered Comment on above: TAKE 1 TABLET BY DICKSON TH IN THE MORNING WITH BREAKFAST OR FIRST MAIN MEAL OF THE DAY ibuprofen 800 mg oral tablet (15 sources) Nonsteroidal Anti-inflammatory Drug Start: End: 5 take 1 tablet by mouth in the morning, then take 1 tablet by mouth in the evening, then take 1 tablet by mouth at bedtime ibuprofen 800 MG tablet Indications: Idiopathic chronic gout of multiple sites without tophus Take 1 tablet (800 mg) by mouth in the morning and 1 tablet (800 mg) in the evening and 1 tablet (800 mg) before bedtime. 270 tablet 09/20/2024 Active ibuprofen 800 MG tablet 1 tablet Active iv contrast (will be provided with radiology test) (1 source) Start: 02-13-2024 End: 02-14-2024 iv contrast (will be provided with radiology test) Indications: Malignant neoplasm of prostate (HCC) MRI Prostate Inject, intravenously, once for 1 dose. No IV access, insert saline lock prior to the beginning of sedation, infusion, injection of imaging exam. Discontinue saline lock post exam. If Pt. has a central line or IVAD, may access for administration according to line specific nursing protocol. Once exam is complete flush line and de-access according to line specific nursing protocol in the MR contrast administration guidelines link. 1 Each 0 02/13/2024 02/14/2024 Active Comment on above: MRI Prostate Inject, intravenously, once for 1 dose. No IV access, insert saline lock prior to the beginning of sedation, infusion, injection of imaging exam. Discontinue saline lock post exam. If Pt. has a central line or IVAD, may access for administration according to line specific nursing protocol. Once exam is complete flush line and de-access according to line specific nursing protocol in the MR contrast administration guidelines link. osmotic 24 hr metFORMIN hydrochloride 1000 mg extended release oral tablet (20 sources) Biguanide Start: 11-11-2024 End: 06-08-2025 take 1 tablet by mouth every twenty-four hours at mealtime metFORMIN, OSM, (Fortamet) 1000 MG 24 hr tablet Indications: Type 2 diabetes mellitus without complication, without long-term current use of insulin Take 1 tablet (1,000 mg) by mouth in the evening. Take with meals Do not crush, chew, or split. 90 tablet 03/10/2025 06/08/2025 Active Start: 10-04-2024 End: 11-03-2024 take 1 tablet by mouth every twenty-four hours at mealtime metFORMIN, OSM, (Fortamet) 1000 MG 24 hr tablet Indications: Type 2 diabetes mellitus without complication, without long-term current use of insulin (CMS/HCC) Take 1 tablet (1,000 mg) by mouth in the evening. Take with meals Do not crush, chew, or split. 30 tablet 10/04/2024 11/03/2024 Active Start: 02-04-2024 take 1 tablet by dickson th every twenty-four hours at mealtime metFORMIN, OSM, (Fortamet) 1000 MG 24 hr tablet Indications: Type 2 diabetes mellitus without complication, without long-term current use of insulin (CMS/HCC) Take 1 tablet (1,000 mg) by mouth in the evening. Take with meals Do not crush, chew, or split. 30 tablet 03/09/2024 Active Start: 01-13-2024 metformin 500 mg ER Tab Refills(s) 0, Blood glucose Start Date: 01/13/24 Status: Ordered metFORMIN HCl Ac tive Metformin Active Comment on above: TAKE 1 TABLET BY DICKSON TH IN THE EVENING WITH MEALS, DO NOT CRUSH, CHEW, OR SPLIT oxybutynin chloride 5 mg oral tablet (17 sources) Cholinergic Muscarinic Antagonist Start: oxybutynin (Ditropan) 5 MG tablet Take 5 mg by mouth in the morning and 5 mg at noon and 5 mg in the evening. 04/27/2024 Active oxyCODONE hydrochloride 5 mg oral tablet (14 sources) Opioid Agonist Start: take 1 tablet by mouth every eight hours as needed for pain oxyCODONE (Roxicodone) 5 MG immediate release tablet TAKE 1 TABLET BY MOUTH EVERY 8 HOURS NEEDED FOR PAIN FOR UP TO 10 DOSES 04/27/2024 Active pantoprazole 40 mg delayed release oral tablet (13 sources) Proton Pump Inhibitor Start: 024 End: take 1 tablet by mouth before mealtime pantoprazole (Protonix) 40 MG EC tablet Indications: Gastroesophageal reflux disease without esophagitis Take 1 tablet (40 mg) by mouth in the morning. Take before meals. Do not crush, chew, or split.. 90 tablet 1 06/15/2024 12/14/2024 Discontinued (Ineffective) rOPINIRole 1 mg oral tablet (20 sources) Nonergot Dopamine Agonist Start: End: take 1 tablet by mouth at bedtime rOPINIRole (Requip) 1 MG tablet Indications: Restless Leg Syndrome Take 1 tablet (1 mg) by mouth at bedtime 90 tablet 1 06/15/2024 12/14/2024 Discontinued (Ineffective) Comment on above: Take 1 mg by mouth. rosuvastatin calcium 5 mg oral tablet (20 sources) HMG-CoA Reductase Inhibitor Start: 022 End: take 1 tablet by mouth once daily rosuvastatin (Crestor) 5 MG tablet Indications: Type 2 diabetes mellitus without complication, without long-term current use of insulin , Mixed hyperlipidemia (CMS/HCC) Take 1 tablet (5 mg) by mouth Daily 90 tablet 12/23/2024 03/23/2025 Active Start: 06-02-2022 Rosuvastatin C alcium May, Active Comment on above: Take 1 tablet by dickson th once daily. sulfamethoxazole 800 mg / trimethoprim 160 mg oral tablet (10 sources) Dihydrofolate Reductase Inhibitor Antibacterial, Sulfonamide Antimicrobial Start: 04-27-20 24 End: 12-14-19 25 take 1 tablet by mouth twice daily sulfamethoxazole-tr imethoprim (Bactrim DS) 800-160 MG per tablet TAKE 1 TABLET BY MOUTH TWICE A DAY FOR 3 DAYS *TAKE DAY BEFORE AND DAY AFTER BAZAN CATHETER REMOVAL* 04/27/2024 12/14/2024 Discontinued (Therapy completed) Completed/Discontinued Medications Medication Drug Class(es) Dates Sig (Normalized) Sig (Original) atorvastatin (7 sources) HMG-CoA Reductase Inhibitor End: 04-20-2024 atorvastatin calcium (ATORVASTATIN ORAL) Atorvastatin Calcium Active 0 04/20/2024 Discontinued (Discontinued by Patient) atorvastatin libby cium (ATORVASTATIN ORAL) Atorvastatin Calcium Active 0 Active Atorvastatin Libby cium Active Comment on above: Atorvastatin Calcium Active methylPREDNISolone (2 sources) Corticosteroid Start: 2017 Depo-Medrol 40 mg Aug, 60 mg phentermine hydrochloride 37.5 mg oral tablet (8 sources) Sympathomimetic Amine Anorectic Start: 2023 End: 2023 take 1 tablet by mouth before mealtime Phentermine HCl 37.5 mg tablet TAKE 1 TABLET (37.5 MG) BY MOUTH IN THE MORNING. TAKE BEFORE MEALS. 0 10/31/2023 04/20/2024 Discontinued (Discontinued by Patient) Comment on above: TAKE 1 TABLET (37.5 MG) BY MOUTH IN THE MORNING. TAKE BEFORE MEALS. tadalafil 5 mg oral tablet (1 source) Phosphodiesterase 5 Inhibitor Start: 2023 End: 2023 take 1 tablet by mouth once daily Tadalafil (CIALIS) 5 mg tablet Take 1 tablet by mouth once daily. 30 tablet 05/07/2024 05/07/2024 Discontinued Problems Active Problems Problem Classification Problem Date Documented Date Episodic/Chronic Anxiety disorders (20 sources) Obsessive-compulsive disorder; Translations: [Obsessive-compulsive disorder, unspecified] Onset: 08-14-2021 Resolved: 09-28-2024 04-20-2024 Chronic Cancer of prostate (20 sources) Malignant neoplasm of prostate; Translations: [Malignant tumor of prostate] Onset: 01-23-2024 Chronic Diabetes mellitus with complications (2 sources) Type 2 diabetes mellitus; Translations: [Type 2 diabetes mellitus with other specified complication] 12-14-2024 Chronic Diabetes mellitus without complication (20 sources) Type 2 diabetes mellitus without complications; Translations: [Type 2 diabetes mellitus without complication] Onset: 08-20-2017 Resolved: 05-16-2023 Chronic Disorders of lipid metabolism (20 sources) Mixed hyperlipidemia; Translations: [Mixed hyperlipidemia] Onset: 08-01-2018 Resolved: 08-06-2023 04-20-2024 Chronic Diverticulosis and diverticulitis (20 sources) Diverticulitis; Translations: [Diverticulitis of intestine, part unspecified, without perforation or abscess without bleeding] Onset: 05-24-2020 04-20-2024 Chronic Esophageal disorders (2 sources) Gastroesophageal reflux disease without esophagitis; Translations: [Gastro-esophageal reflux disease without esophagitis] 06-15-2024 Chronic Gout and other crystal arthropathies (20 sources) Gout; Translations: [Gout, unspecified] Onset: 01-09-2010 Resolved: 08-06-2023 11-03-2023 Chronic Hyperplasia of prostate (7 sources) Benign prostatic hypertrophy with outflow obstruction; Translations: [Benign prostatic hyperplasia with lower urinary tract symptoms] Onset: 11-03-2023 Chronic Miscellaneous mental health disorders (2 sources) Premature ejaculation; Translations: [Premature ejaculation] Onset: 01-23-2024 Chronic Mood disorders (20 sources) Major depressive disorder; Translations: [Major depression, single episode] Onset: 05-15-2023 10-30-2023 Chronic Nutritional deficiencies (19 sources) Vitamin D deficiency, unspecified; Translations: [Vitamin D deficiency] Onset: 12-18-2020 Chronic Other connective tissue disease (2 sources) Triggering of digit; Translations: [Trigger finger, left middle finger] 03-10-2025 Episodic Other lower respiratory disease (1 source) Cough; Translations: [Cough, unspecified type] Episodic Other male genital disorders (17 sources) Male erectile dysfunction, unspecified; Translations: [Impotence of organic origin] Onset: 05-15-2023 05-15-2023 Chronic Other male genital disorders (1 source) Atypical small acinar proliferation of prostate 01-23-2024 Episodic Other nutritional; endocrine; and metabolic disorders (18 sources) Obese class I; Translations: [Obesity, unspecified] Onset: 09-12-2018 04-26-2024 Chronic Other screening for suspected conditions (not mental disorders or infectious disease) (10 sources) Other specified abnormal findings of blood chemistry; Translations: [Encounter for screening for malignant neoplasm of prostate] Onset: 07-31-2022 Episodic Other skin disorders (4 sources) Mass of neck; Translations: [Localized swelling, mass and lump, neck] 09-28-2024 Episodic Parkinson`s disease (1 source) Parkinson`s disease; Translations: [Parkinson's disease without dyskinesia, unspecified whether manifestations fluctuate (HCC)] Onset: 04-20-2024 Screening and history of mental health and substance abuse codes (7 sources) H/O: Disorder; Translations: [Personal history of nicotine dependence] Onset: 11-03-2023 Episodic Thyroid disorders (7 sources) Thyroid nodule; Translations: [Nontoxic single thyroid nodule] 10-30-2023 Chronic Unclassified (20 sources) Parkinson's disease; Translations: [Parkinson's disease] Onset: 04-09-2023 04-20-2024 Chronic Past or Other Problems Problem Classification Problem Date Documented Date Episodic/Chronic Acquired foot deformities (15 sources) Acquired hallux valgus; Translations: [Hallux valgus (acquired), unspecified foot] Onset: 10-25-2020 Resolved: 08-06-2023 08-06-2023 Chronic Diseases of white blood cells (15 sources) Leukocytosis; Translations: [Elevated white blood cell count, unspecified] Onset: 05-15-2023 Resolved: 08-06-2023 08-06-2023 Chronic Immunizations and screening for infectious disease (1 source) Contact with and (suspected) exposure to other viral communicable diseases Onset: 12-28-2021 Resolved: 12-28-2021 Episodic Other connective tissue disease (18 sources) History of cervical spine fusion; Translations: [Arthrodesis status] Onset: 04-20-2024 Resolved: 09-25-2024 04-20-2024 Episodic Other hereditary and degenerative nervous system conditions (15 sources) Medication-induced postural tremor; Translations: [Drug-induced tremor] Onset: 05-15-2023 Resolved: 08-06-2023 08-06-2023 Chronic Other nervous system disorders (1 source) Other acute postprocedural pain; Translations: [Postoperative pain] Onset: 04-26-2024 Episodic Other nervous system disorders (15 sources) Ataxia; Translations: [Ataxia, unspecified] Onset: 04-09-2023 Resolved: 05-12-2023 05-12-2023 Episodic Other upper respiratory infections (1 source) Acute upper respiratory infection, unspecified Onset: 12-28-2021 Resolved: 12-28-2021 Episodic Unclassified (15 sources) Parkinsonism; Translations: [Parkinsonism] Onset: 05-15-2023 Resolved: 08-06-2023 08-06-2023 Chronic Unclassified (1 source) Cough, unspecified type R05.9 Onset: 06-02-2022 Resolved: 06-02-2022 Viral infection (1 source) COVID-19 Onset: 06-02-2022 Resolved: 06-02-2022 Results Test Name Value Interpretation Reference Range Facility HbA1c (Bld) [Mass fraction]o n 03-10-2025 Interpretation and review of laboratory results Abnormal [facility] - Chemistry and C hemistry - challengeon 03-10-2025 Albumin DL <= 20 mg/L (U) [Mass/Vol] 30 mg/dL [facility] Albumin/Creatinine DL <= 1.0 mg/L (U) [Ratio] 300 [facility] Creatinine (U) [Mass/Vol] [facility] - Hematology and Cell countson 03-10-2025 HbA1c (Bld) [Mass fraction] 7.2 % [facility] No Panel Informationon 03-10 Interpretation and review of laboratory results Normal [facility] HbA1c (Bld) [Mass fraction]o n 12-14-2024 Interpretation and review of laboratory results Abnormal [facility] - Hematology and Cell countson 12-14-2024 HbA1c (Bld) [Mass fraction] 7 % [facility] CT SOFT TISSUE NECK W IV CON TRASTon 10-05-2024 CT SOFT TISSUE NECK W IV CONTRAST TITLE OF EXAM: CT SOFT TISSUE NECK W IV CONTRAST REASON FOR EXAM: Bilateral neck mass TECHNIQUE: Axial CT of the neck following the intravenous administration of 100 cc [id number] COMPARISON: None. FINDINGS: Aerodigestive tract: The nasopharynx, oropharynx, hypopharynx, larynx, trachea, and esophagus are normal. Lymph nodes: No lymphadenopathy. Salivary glands: The parotid and submandibular glands are normal. Thyroid: Hypoattenuating/hypoenhanc ing subcentimeter left thyroid nodule does not meet ACR criteria warranting further evaluation or follow-up imaging. Soft tissues of the neck: Normal. Visualized thorax: Normal. Vascular structures: The imaged portion of the aortic arch and great vessels are normal. Paranasal sinuses, face, orbits, and skull (included portions): Normal. Cervical spine: No fracture or significant listhesis. No concerning focal osseous lesion. Severe right C2-3 facet osteoarthrosis. Intervertebral prostheses at C5-7 without evidence of complication. Laminectomies C4-7. Moderate to severe atlantodens osteoarthrosis. IMPRESSION: No acute abnormality of the structures of the neck. No findings to explain the patient's reported neck fullness . DICTATED ON: 10/05/2024 12:45 PM This report has been electronically signed in approved by the interpreting radiologist. Invalid Interpretation Code Not Available PSA [id number] 09-15-2024 Prostate specific Ag [Mass/Vol] ng/mL Normal <2.60 [facility] Comment on above: Order Comment: Speci men Type: BLOOD SPECIMEN Ordering Facility: [facility] Address: [address] [place] [address] Result Comment: Tota l PSA test methodology used is the Electrochemiluminescence Immunoassay by [employer]. Total PSA values by differing methodologies cannot be interchanged. Performed By: #### 3 4528-0, 79379-8 #### [facility] CLIA [id number] [address] [place] [address] [place] HbA1c (Bld) [Mass fraction]o n 06-15-2024 Interpretation and review of laboratory results Normal [facility] - Hematology and Cell countson 06-15-2024 HbA1c (Bld) [Mass fraction] 6.8 % [facility] PSA SerPl-mCncon 06-10-2024 Prostate specific Ag [Mass/Vol] ng/mL Normal <2.60 [facility] Comment on above: Order Comment: Speci men Type: BLOOD SPECIMEN Ordering Facility: [facility] Address: [address] [place] [address] Result Comment: Tota l PSA test methodology used is the Electrochemiluminescence Immunoassay by [employer]. Total PSA values by differing methodologies cannot be interchanged. Performed By: #### 3 4528-0, 14046-4 #### [facility] CLIA [id number] [address] [place] [address] [place] Basic metabolic 2000 panelon 04-27-2024 Anion gap [Moles/Vol] 12 mmol/L Normal 8-15 [facility] Comment on above: Order Comment: Speci men Type: BLOOD SPECIMEN Ordering Facility: [facility] Address: [address] [place] [address] Performed By: #### 3 4528-0, 31506-2 #### [facility] CLIA [id number] [address] [place] [address] [place] Calcium [Mass/Vol] 8.9 mg/dL Normal 8.5-10.2 [facility] Comment on above: Order Comment: Speci men Type: BLOOD SPECIMEN Ordering Facility: [facility] Address: [address] [place] [address] Performed By: #### 3 4528-0, 84460-6 #### [facility] CLIA [id number] [address] [place] [address] [place] Chloride [Moles/Vol] 102 mmol/L Normal 98-107 [facility] Comment on above: Order Comment: Speci men Type: BLOOD SPECIMEN Ordering Facility: [facility] Address: [address] [place] [address] Performed By: #### 3 4528-0, 09216-3 #### [facility] CLIA [id number] [address] [place] [address] [place] CO2 [Moles/Vol] 21 mmol/L Low 22-30 [facility] Comment on above: Order Comment: Speci men Type: BLOOD SPECIMEN Ordering Facility: [facility] Address: [address] [place] [address] Performed By: #### 3 4528-0, 33370-2 #### [facility] CLIA [id number] [address] [place] [address] [place] Creatinine [Mass/Vol] 0.74 mg/dL Normal 0.73-1.22 [facility] Comment on above: Order Comment: Speci men Type: BLOOD SPECIMEN Ordering Facility: [facility] Address: [address] [place] [address] Performed By: #### 3 4528-0, 74896-4 #### [facility] CLIA [id number] [address] [place] [address] [place] Creatinine and Glomerular filtration rate.predicted panel (S/P/Bld) 101 mL/min/1.73m??? Normal >=60 [facility] Comment on above: Order Comment: Stephanie rodarte Type: BLOOD SPECIMEN Ordering Facility: [facility] Address: [address] [place] [address] Result Comment: Claudia mated Glomerular Filtration Rate (eGFR) is calculated using the 2020 CKD-EPI creatinine equation. This equation utilizes serum creatinine, sex, and age as parameters. The creatinine assay has traceable calibration to isotope dilution-mass spectrometry. Refer to KDIGO guidelines for clinical interpretation. In patients with unstable renal function, e.g. those with acute kidney injury, the eGFR may not accurately reflect actual GFR. Performed By: #### 3 4528-0, 92829-1 #### [facility] CLIA [id number] [address] [place] [address] [place] Glucose [Mass/Vol] 156 mg/dL High 74-99 [facility] Comment on above: Order Comment: Stephanie rodarte Type: BLOOD SPECIMEN Ordering Facility: [facility] Address: [address] [place] [address] Result Comment: The [place] Diabetes [employer] (ADA) provides guidance for cutoff values for fasting glucose and random glucose. The ADA defines fasting as no caloric intake for at least 8 hours. Fasting plasma glucose results between 100 to 125 mg/dL indicate increased risk for diabetes (prediabetes). Fasting plasma glucose results greater than or equal to 126 mg/dL meet the criteria for diagnosis of diabetes. In the absence of unequivocal hyperglycemia, results should be confirmed by repeat testing. In a patient with classic symptoms of hyperglycemia or hyperglycemic crisis, random plasma glucose results greater than or equal to 200 mg/dL meet the criteria for diagnosis of diabetes. Reference: Standards of Medical Care in Diabetes 2016, [place] [employer]. Diabetes Care. 2016.39(Suppl 1). Performed By: #### 3 4528-0, 36974-9 #### [facility] CLIA [id number] [address] [place] [address] [place] Potassium [Moles/Vol] 4.0 mmol/L Normal 3.7-5.1 [facility] Comment on above: Order Comment: Speci men Type: BLOOD SPECIMEN Ordering Facility: [facility] Address: [address] [place] [address] Performed By: #### 3 4528-0, 65879-1 #### [facility] CLIA [id number] [address] [place] [address] [place] Sodium [Moles/Vol] 135 mmol/L Low 136-144 [facility] Comment on above: Order Comment: Speci men Type: BLOOD SPECIMEN Ordering Facility: [facility] Address: [address] [place] [address] Performed By: #### 3 4528-0, 54148-9 #### [facility] CLIA [id number] [address] [place] [address] [place] Urea nitrogen [Mass/Vol] 8 mg/dL Low 9-24 [facility] Comment on above: Order Comment: Speci men Type: BLOOD SPECIMEN Ordering Facility: [facility] Address: [address] [place] [address] Performed By: #### 3 4528-0, 22117-8 #### [facility] CLIA [id number] [address] [place] [address] [place] CBC W Auto Differential pane l (Bld)on 04-27-2024 Basophils (Bld) [#/Vol] 10*3/uL Normal <0.11 [facility] Comment on above: Order Comment: Speci men Type: BLOOD SPECIMEN Ordering Facility: [facility] Address: [address] [place] [address] Performed By: #### 3 4528-0, 08887-5 #### [facility] CLIA [id number] [address] [place] [address] [place] Basophils/100 WBC (Bld) 0.1 % Normal [facility] Comment on above: Order Comment: Speci men Type: BLOOD SPECIMEN Ordering Facility: [facility] Address: [address] [place] [address] Performed By: #### 3 4528-0, 10799-4 #### [facility] CLIA [id number] [address] [place] [address] [place] Differential cell count method Nom (Bld) Auto Normal [facility] Comment on above: Order Comment: Speci men Type: BLOOD SPECIMEN Ordering Facility: [facility] Address: [address] [place] [address] Performed By: #### 3 4528-0, 27445-4 #### [facility] CLIA [id number] [address] [place] [address] [place] Eosinophils (Bld) [#/Vol] 10*3/uL Normal <0.46 [facility] Comment on above: Order Comment: Speci men Type: BLOOD SPECIMEN Ordering Facility: [facility] Address: [address] [place] [address] Performed By: #### 3 4528-0, 77557-7 #### [facility] CLIA [id number] [address] [place] [address] [place] Eosinophils/100 WBC (Bld) 0.0 % Normal [facility] Comment on above: Order Comment: Speci men Type: BLOOD SPECIMEN Ordering Facility: [facility] Address: [address] [place] [address] Performed By: #### 3 4528-0, 63741-2 #### [facility] CLIA [id number] [address] [place] [address] [place] Erythrocyte distribution width (RBC) [Ratio] 13.9 % Normal 11.5-15.0 [facility] Comment on above: Order Comment: Speci men Type: BLOOD SPECIMEN Ordering Facility: [facility] Address: [address] [place] [address] Performed By: #### 3 4528-0, 36866-2 #### [facility] CLIA [id number] [address] [place] [address] [place] Hematocrit (Bld) [Volume fraction] 40.2 % Normal 39.0-51.0 [facility] Comment on above: Order Comment: Speci men Type: BLOOD SPECIMEN Ordering Facility: [facility] Address: [address] [place] [address] Performed By: #### 3 4528-0, 91834-3 #### [facility] CLIA [id number] [address] [place] [address] [place] Hemoglobin (Bld) [Mass/Vol] 13.5 g/dL Normal 13.0-17.0 [facility] Comment on above: Order Comment: Speci men Type: BLOOD SPECIMEN Ordering Facility: [facility] Address: [address] [place] [address] Performed By: #### 3 4528-0, 63156-3 #### [facility] CLIA [id number] [address] [place] [address] [place] Immature granulocytes (Bld) [#/Vol] 0.10 10*3/uL High <0.10 [facility] Comment on above: Order Comment: Speci men Type: BLOOD SPECIMEN Ordering Facility: [facility] Address: [address] [place] [address] Performed By: #### 3 4528-0, 44989-6 #### [facility] CLIA [id number] [address] [place] [address] [place] Immature granulocytes/100 WBC (Bld) 0.7 % Normal [facility] Comment on above: Order Comment: Speci men Type: BLOOD SPECIMEN Ordering Facility: [facility] Address: [address] [place] [address] Performed By: #### 3 4528-0, 23783-3 #### [facility] CLIA [id number] [address] [place] [address] [place] Lymphocytes (Bld) [#/Vol] 1.24 10*3/uL Normal 1.00-4.00 [facility] Comment on above: Order Comment: Speci men Type: BLOOD SPECIMEN Ordering Facility: [facility] Address: [address] [place] [address] Performed By: #### 3 4528-0, 36464-4 #### [facility] CLIA [id number] [address] [place] [address] [place] Lymphocytes/100 WBC (Bld) 8.4 % Normal [facility] Comment on above: Order Comment: Speci men Type: BLOOD SPECIMEN Ordering Facility: [facility] Address: [address] [place] [address] Performed By: #### 3 4528-0, 61331-8 #### [facility] CLIA [id number] [address] [place] [address] [place] MCH (RBC) [Entitic mass] 27.9 pg Normal 26.0-34.0 [facility] Comment on above: Order Comment: Speci men Type: BLOOD SPECIMEN Ordering Facility: [facility] Address: [address] [place] [address] Performed By: #### 3 4528-0, 75046-7 #### [facility] CLIA [id number] [address] [place] [address] [place] MCHC (RBC) [Mass/Vol] 33.6 g/dL Normal 30.5-36.0 [facility] Comment on above: Order Comment: Speci men Type: BLOOD SPECIMEN Ordering Facility: [facility] Address: [address] [place] [address] Performed By: #### 3 4528-0, 96629-2 #### [facility] CLIA [id number] [address] [place] [address] [place] MCV (RBC) [Entitic vol] 83.1 fL Normal 80.0-100.0 [facility] Comment on above: Order Comment: Speci men Type: BLOOD SPECIMEN Ordering Facility: [facility] Address: [address] [place] [address] Performed By: #### 3 4528-0, 52308-5 #### [facility] CLIA [id number] [address] [place] [address] [place] Monocytes (Bld) [#/Vol] 1.33 10*3/uL High <0.87 [facility] Comment on above: Order Comment: Speci men Type: BLOOD SPECIMEN Ordering Facility: [facility] Address: [address] [place] [address] Performed By: #### 3 4528-0, 74065-5 #### [facility] CLIA [id number] [address] [place] [address] [place] Monocytes/100 WBC (Bld) 9.0 % Normal [facility] Comment on above: Order Comment: Speci men Type: BLOOD SPECIMEN Ordering Facility: [facility] Address: [address] [place] [address] Performed By: #### 3 4528-0, 58645-3 #### [facility] CLIA [id number] [address] [place] [address] [place] Neutrophils (Bld) [#/Vol] 12.10 10*3/uL High 1.45-7.50 [facility] Comment on above: Order Comment: Speci men Type: BLOOD SPECIMEN Ordering Facility: [facility] Address: [address] [place] [address] Performed By: #### 3 4528-0, 31609-3 #### [facility] CLIA [id number] [address] [place] [address] [place] Neutrophils/100 WBC (Bld) 81.8 % Normal [facility] Comment on above: Order Comment: Speci men Type: BLOOD SPECIMEN Ordering Facility: [facility] Address: [address] [place] [address] Performed By: #### 3 4528-0, 43836-7 #### [facility] CLIA [id number] [address] [place] [address] [place] Nucleated RBC (Bld) [#/Vol] 10*3/uL Normal <0.01 [facility] Comment on above: Order Comment: Speci men Type: BLOOD SPECIMEN Ordering Facility: [facility] Address: [address] [place] [address] Performed By: #### 3 4528-0, 77196-5 #### [facility] CLIA [id number] [address] [place] [address] [place] Nucleated RBC/100 WBC (Bld) [Ratio] 0.0 /100 WBC Normal [facility] Comment on above: Order Comment: Speci men Type: BLOOD SPECIMEN Ordering Facility: [facility] Address: [address] [place] [address] Performed By: #### 3 4528-0, 37464-0 #### [facility] CLIA [id number] [address] [place] [address] [place] Platelet mean volume (Bld) [Entitic vol] 9.5 fL Normal 9.0-12.7 [facility] Comment on above: Order Comment: Speci men Type: BLOOD SPECIMEN Ordering Facility: [facility] Address: [address] [place] [address] Performed By: #### 3 4528-0, 72800-4 #### [facility] CLIA [id number] [address] [place] [address] [place] Platelets (Bld) [#/Vol] 218 10*3/uL Normal 150-400 [facility] Comment on above: Order Comment: Speci men Type: BLOOD SPECIMEN Ordering Facility: [facility] Address: [address] [place] [address] Performed By: #### 3 4528-0, 96073-6 #### [facility] CLIA [id number] [address] [place] [address] [place] RBC (Bld) [#/Vol] 4.84 10*6/uL Normal 4.20-6.00 [facility] Comment on above: Order Comment: Speci men Type: BLOOD SPECIMEN Ordering Facility: [facility] Address: [address] [place] [address] Performed By: #### 3 4528-0, 92638-1 #### [facility] CLIA [id number] [address] [place] [address] [place] WBC (Bld) [#/Vol] 14.79 10*3/uL High 3.70-11.00 [facility] Comment on above: Order Comment: Speci men Type: BLOOD SPECIMEN Ordering Facility: [facility] Address: [address] [place] [address] Performed By: #### 3 4528-0, 79259-1 #### [facility] CLIA [id number] [address] [place] [address] [place] CNDSon 04-27-2024 CNDS HNO ID: [id number] Author: NATALIE OTERO MD Service: Urology Author Type: Physician Type: Discharge Summary Filed: 2024 11:31 Note Text: [place] [address] or (401) [facility] DISCHARGE SUMMARY Patient Name: Rebeca Wagner Sr. Patient Admission Date: 04/26/2024 Discharge Date: April 27, 2024 Attending Physician: Dr. Natalie Otero Principal Diagnosis: Pierson grade 2 prostate cancer Secondary Diagnoses Patient Active Hospital Problem List: Obesity, Class I, BMI 30-34.9 (04/26/2024) Operations During Hospitalization 1. ROBOTIC LAPAROSCOPIC RETROPUBIC RADICAL PROSTATECTOMY W/ NERVE SPARIN (CPT?) Procedures Performed While Hospitalized: Electrocardiogram Reason for Hospitalization: The patient is a 63 year old male with PMHx of HLD, anxiety, DM, GG2 prostate cancer admitted for robotic assisted radical prostatectomy Hospital Course: Patient was admitted on 04/26/2024 to undergo above procedure. he tolerated the procedure well and after a brief stay in the recovery area, he was transferred to the regular nursing floor where vitals were monitored, pain controlled and diet started. Pain control was achieved via oral medicaiton. The Bazan remained in place draining clear light pink urine. The patient's diet was advanced as tolerated with return of bowel function. On postoperative day 1, the patient was tolerating a diet, ambulating, and had good pain control. The patient was discharged in stable condition to home with instructions to follow up as scheduled and plan to self remove bazan or get an appointment with a local urologist for bazan removal in a week Patient Condition at Discharge: Stable Discharge Physical Exam General: Well-appearing, no acute distress CV: RRR, well perfused Lungs: No IWOB on RA Abdomen: Soft, appropriately tender, non-distended Wound: Incision clean, dry, and intact with glue : Bazan catheter present and Urine light pink Extremities: Normal. No cyanosis, clubbing, or edema Discharge Disposition: Home Information Provided to the Patient: Patient was given a copy of Discharge Instructions Discharge Medications: Medication List START taking these medications acetaminophen 500 mg tablet Commonly known as: TYLENOL Take 2 tablets by mouth every 6 hours as needed for pain. apixaban 2.5 mg tab(s) Commonly known as: ELIQUIS Take 1 tablet by mouth two times a day for 21 days. docusate sodium 100 mg capsule Commonly known as: COLACE Take 1 capsule by mouth two times a day for 14 days. oxybutynin 5 mg tablet Commonly known as: DITROPAN Take 1 tablet by mouth three times a day for 6 days. Use for bazan discomfort. Stop 1 day before bazan removal. oxyCODONE IR 5 mg immediate release tablet Commonly known as: ROXICODONE Take 1 tablet by mouth every 8 hours as needed for pain for up to 10 doses. sulfamethoxazole-trimethop rim 800-160 mg per tablet Commonly known as: BACTRIM DS Take 1 tablet by mouth two times a day for 3 days. Please take the day before day of and day after bazan catheter removal CONTINUE taking these medications allopurinol 300 mg tablet Commonly known as: ZYLOPRIM ALPRAZolam 0.5 mg tablet Commonly known as: XANAX busPIRone HCl 30 mg tablet FLUoxetine 60 mg tablet Commonly known as: PROzac FREESTYLE LANCETS 28 gauge Generic drug: lancets glimepiride 4 mg tablet Commonly known as: AMARYL metFORMIN ER 1,000 mg 24 hr tablet Commonly known as: FORTAMET rosuvastatin 5 mg tablet Commonly known as: CRESTOR Where to Get Your Medications These medications were sent to [id number] [place] [address] - [address] [place] [address] - [phone] [address] apixaban 2.5 mg tab(s) docusate sodium 100 mg capsule oxybutynin 5 mg tablet oxyCODONE IR 5 mg immediate release tablet sulfamethoxazole-trimethop rim 800-160 mg per tablet You can get these medications from any pharmacy You don't need a prescription for these medications acetaminophen 500 mg tablet Future Appointments: No future appointments. -- --------- Mary Jung MD Urology Resident [facility] ANES POSTPROC EVALon 024 ANES POSTPROC EVAL HNO ID: [id number] Author: WELLINGTON RECIO DO Service: ? Author Type: Anesthesiologist Type: Anesthesia Postprocedure Evaluation Filed: 04/26/2024 16:04 Note Text: POST ANESTHESIA EVALUATION NOTE : 1960 Procedure Summary Date: 04/26/24 Room / Location: [address] [facility] Anesthesia Start: 32 Anesthesia Stop: 1236 Procedure: ROBOTIC LAPAROSCOPIC RETROPUBIC RADICAL PROSTATECTOMY W/ NERVE SPARING (Prostate) Diagnosis: Malignant neoplasm of prostate (HCC) (Malignant neoplasm of prostate (HCC) [C61]) Surgeons: Natalie Otero MD Responsible Provider: Wellington Recio DO Anesthesia Type: general ASA Status: 3 Anesthesia Type: general Airway Type: ETT Last Vitals Vitals Value Taken Time BP 152/83 04/26/24 1600 Temp 36.5 ?C (97.7 ?F) 04/26/24 1236 Pulse 99 04/26/24 1602 Resp 17 04/26/24 1602 SpO2 96 % 04/26/24 1602 Vitals shown include unfiled device data. Post Anesthesia Patient Status Patient Evaluation: PACU. PACU/ICU Patient Condition: stable. Anticipated Disposition: inpatient floor planned admission. Neurological Status: sleepy but arousable. Pulmonary Status: breathing comfortably on supplemental oxygen Airway Control: returned to baseline unsupported. Cardiovascular Status: stable. Pain Management: clinically adequate Postoperative Hydration: acceptable. Intraoperative Events: no significant anesthesia events Post Operative Nausea/Vomiting Status: no significant post operative nausea or vomiting Recommendation: continue current plan of care. Anesthesia Observations No Documentation SIGNATURE: Wellington Recio DO PATIENT NAME: Rebeca Wagner Sr. DATE: April 26, 2024 TIME: 4:04 PM CSN: [id number] Normal [facility] ANES PRE-OPon 04-26-2024 ANES PRE-OP HNO ID: [id number] Author: WELLINGTON RECIO DO Service: ? Author Type: Anesthesiologist Type: Anesthesia Preprocedure Evaluation Filed: 04/26/2024 07:28 Note Text: ANESTHESIOLOGY DAY OF SURGERY NOTE : 1960 Procedure Information Date/Time: 04/26/24729 Procedure: ROBOTIC LAPAROSCOPIC RETROPUBIC RADICAL PROSTATECTOMY W/ NERVE SPARING (Prostate) Location: [facility] Surgeons: Natalie Otero MD Estimated body mass index is 32.46 kg/m? as calculated from the following: Height as of 04/20/24: 175.3 cm (5' 9 ). Weight as of 04/20/24: 99.7 kg (219 lb 12.8 oz). Most recent hematocrit and potassium results: Hematocrit 49.5 04/20/2024 Potassium 4.4 04/20/2024 Relevant Problems No relevant active problems I - PHYSICAL EVALUATION AIRWAY Patient intubated: No. Tracheostomy tube not present Mallampati: II. TM distance: >3 FB. Neck ROM: full ROM without neurological symptoms. Mouth opening: adequate. Short neck: no. Thick neck: no DENTAL Dental findings: missing tooth/teeth. Additional exam findings: no II - ANESTHESIA PLAN ASA Score: 3 Anesthetic Plan: general Airway type: ETT The patient is not a current smoker. NPO Status: adequate Beta Hilario Monitoring Plan Monitoring plan: standard ASA. Post Procedure Analgesic Plan Postoperative analgesic plan: multimodal analgesia. Informed Consent Anesthetic risks, benefits, alternatives, personnel and consent discussed: yes. Patient / Responsible Alliance Party agrees to proceed: yes Patient / Surrogate agrees to blood products: Yes Significant changes in the patient condition since the History and Physical, not otherwise documented in primary service progress note: no. Vitals Value Taken Time BP 141/71 04/26/24606 Pulse 79 04/26/24606 Resp 16 04/26/24606 Temp 36.3 ?C (97.3 ?F) 04/26/24 06 SpO2 97 % 04/26/24 06 Facility-Administered Medications as of 04/26/2024 Medication Dose Route Frequency - lidocaine (PF) 10 mg/mL (1 %) 1-2 mg injection (XYLOCAINE) 0.1-0.2 mL INTRADERMAL PRN Or - lidocaine 1% 0.25 mL subcutaneous j-tip syringe (XYLOCAINE) 0.25 mL SUBCUTANEOUS PRN - lactated ringers iv infusion 5-30 mL/hr INTRAVENOUS CONTINUOUS - NaCl 0.9% iv flush bag 20 mL INTRAVENOUS PRN - ceFAZolin iv piggyback 2 g in D5W (iso-osmotic) 100 mL (ANCEF) 2 g INTRAVENOUS Pre-Op Once Outpatient Medications as of 04/26/2024 Medication Sig - allopurinol (ZYLOPRIM) 300 mg tablet Take 1 tablet by mouth every afternoon. - FLUoxetine (PROZAC) 60 mg tablet Take 60 mg by mouth once daily. - glimepiride (AMARYL) 4 mg tablet TAKE 1 TABLET BY MOUTH IN THE MORNING WITH BREAKFAST OR FIRST MAIN MEAL OF THE DAY - metFORMIN ER (FORTAMET) 1,000 mg 24 hr tablet TAKE 1 TABLET BY MOUTH IN THE EVENING WITH MEALS, DO NOT CRUSH, CHEW, OR SPLIT - rosuvastatin (CRESTOR) 5 mg tablet Take 1 tablet by mouth once daily. - ALPRAZolam (XANAX) 0.5 mg tablet TAKE 1 TABLET BY MOUTH 3 TIMES A DAY NEEDED FOR ANXIETY FOR 7 DAYS *TAKE DISCUSSED IN OFFICE. - FREESTYLE LANCETS 28 gauge once daily. I have interviewed and examined the patient. I have reviewed the medical record and/or the pre-anesthesia evaluation, pertinent labs, and test results. This contains updated information obtained within 48 hours of Surgery/Procedure. SIGNATURE: Wellington Recio DO PATIENT NAME: Rebeca Wagner Sr. DATE: April 26, 2024 TIME: 7:09 AM CSN: [id number] Normal [facility] BRIEF OP NOTon 04-26-2024 BRIEF OP NOT HNO ID: [id number] Author: JANKI JOHNSON MD Service: Urology Author Type: Fellow Type: Brief Op Note Filed: 04/26/2024 12:08 Note Text: BRIEF OPERATIVE / PROCEDURE NOTE LOG ID: [id number] SURGERY/PROCEDURE DATE: 04/26/2024 INCISION/PROCEDURE START TIME: 8:02 AM INCISION CLOSE/PROCEDURE END TIME: 12:05 PM SURGEON(S)/PROCEDURALIST(S ) AND AUTOMATIC MOUNTER(S): Surgeon(s) and Role: * Natalie Otero MD - Primary * Justus Smith MD - Resident - Assisting * Janki Johnson MD - Fellow No Additional Staff SURGERY/PROCEDURE(S): Robot Assisted Radical Prostatectomy ANESTHESIA: General FINDINGS: Periprostatic inflammation, Bilateral interfacial nerve sparing ESTIMATED BLOOD LOSS: 250 cc SPECIMENS: Prostate, seminal vesicles, periprostatic fat COMPLICATIONS: None PRE-OP/PRE-PROCEDURE DIAGNOSIS: GG2 Prostate Cancer POST-OP/POST-PROCEDURE DIAGNOSIS: GG2 Prostate cancer SIGNATURE: Janki Calloway MD PATIENT NAME: Rebeca Wagner Sr. DATE: April 26, 2024 TIME: 12:06 PM Normal [facility] Basic metabolic 2000 panelon 04-26-2024 Anion gap [Moles/Vol] 15 mmol/L Normal 8-15 [facility] Comment on above: Order Comment: Speci men Type: BLOOD SPECIMEN Ordering Facility: [facility] Address: [address] [id number] Performed By: #### 2 4321-2 #### [facility] CLIA [id number] [address] [place], [place] [id number] [place] Calcium [Mass/Vol] 8.9 mg/dL Normal 8.5-10.2 [facility] Comment on above: Order Comment: Speci men Type: BLOOD SPECIMEN Ordering Facility: [facility] Address: [address] [place], [place] [address] Performed By: #### 2 4321-2 #### [facility] CLIA [id number] [address] [place] [address] [place] Chloride [Moles/Vol] 102 mmol/L Normal 98-107 [facility] Comment on above: Order Comment: Speci men Type: BLOOD SPECIMEN Ordering Facility: [facility] Address: [address] [place], [place] [address] Performed By: #### 2 4321-2 #### [facility] CLIA [id number] [address] [place] [address] [place] CO2 [Moles/Vol] 21 mmol/L Low 22-30 [facility] Comment on above: Order Comment: Speci men Type: BLOOD SPECIMEN Ordering Facility: [facility] Address: [address] [place], [place] [address] Performed By: #### 2 4321-2 #### [facility] CLIA [id number] [address] [place], [place] [address] [place] Creatinine [Mass/Vol] 0.86 mg/dL Normal 0.73-1.22 [facility] Comment on above: Order Comment: Speci men Type: BLOOD SPECIMEN Ordering Facility: [facility] Address: [address] [place], [place] [address] Performed By: #### 2 4321-2 #### [facility] CLIA [id number] [address] [place] [address] [place] Creatinine and Glomerular filtration rate.predicted panel (S/P/Bld) 96 mL/min/1.73m??? Normal >=60 [facility] Comment on above: Order Comment: Stephanie rodarte Type: BLOOD SPECIMEN Ordering Facility: [facility] Address: [address] [place] [address] Result Comment: Claudia mated Glomerular Filtration Rate (eGFR) is calculated using the 2020 CKD-EPI creatinine equation. This equation utilizes serum creatinine, sex, and age as parameters. The creatinine assay has traceable calibration to isotope dilution-mass spectrometry. Refer to KDIGO guidelines for clinical interpretation. In patients with unstable renal function, e.g. those with acute kidney injury, the eGFR may not accurately reflect actual GFR. Performed By: #### 2 4321-2 #### [facility] CLIA [id number] [address] [place] [address] [place] Glucose [Mass/Vol] 204 mg/dL High 74-99 [facility] Comment on above: Order Comment: Stephanie rodarte Type: BLOOD SPECIMEN Ordering Facility: [facility] Address: [address] [place] [address] Result Comment: The [place] [employer] (ADA) provides guidance for cutoff values for fasting glucose and random glucose. The ADA defines fasting as no caloric intake for at least 8 hours. Fasting plasma glucose results between 100 to 125 mg/dL indicate increased risk for diabetes (prediabetes). Fasting plasma glucose results greater than or equal to 126 mg/dL meet the criteria for diagnosis of diabetes. In the absence of unequivocal hyperglycemia, results should be confirmed by repeat testing. In a patient with classic symptoms of hyperglycemia or hyperglycemic crisis, random plasma glucose results greater than or equal to 200 mg/dL meet the criteria for diagnosis of diabetes. Reference: Standards of Medical Care in Diabetes 2016, [place] [employer]. Diabetes Care. 2016.39(Suppl 1). Performed By: #### 2 4321-2 #### [facility] CLIA [id number] [address] [place] [address] [place] Potassium [Moles/Vol] 4.4 mmol/L Normal 3.7-5.1 [facility] Comment on above: Order Comment: Speci men Type: BLOOD SPECIMEN Ordering Facility: [facility] Address: [address] [place] [address] Performed By: #### 2 4321-2 #### [facility] CLIA [id number] [address] [place] [address] [place] Sodium [Moles/Vol] 138 mmol/L Normal 136-144 [facility] Comment on above: Order Comment: Speci men Type: BLOOD SPECIMEN Ordering Facility: [facility] Address: [address] [place] [address] Performed By: #### 2 4321-2 #### [facility] CLIA [id number] [address] [place] [address] [place] Urea nitrogen [Mass/Vol] 9 mg/dL Normal 9-24 [facility] Comment on above: Order Comment: Speci men Type: BLOOD SPECIMEN Ordering Facility: [facility] Address: [address] [place] [address] Performed By: #### 2 4321-2 #### [facility] CLIA [id number] [address] [place] [address] [place] CBC W Auto Differential pane l (Bld)on 04-26-2024 Basophils (Bld) [#/Vol] 0.05 10*3/uL Normal <0.11 [facility] Comment on above: Order Comment: Speci men Type: BLOOD SPECIMEN Ordering Facility: [facility] Address: [address] [place] [address] Performed By: #### 3 4528-0, 69716-3 #### [facility] CLIA [id number] [address] [place] [address] [place] Basophils/100 WBC (Bld) 0.3 % Normal [facility] Comment on above: Order Comment: Speci men Type: BLOOD SPECIMEN Ordering Facility: [facility] Address: [address] [place] [address] Performed By: #### 3 4528-0, 31462-7 #### [facility] CLIA [id number] [address] [place] [address] [place] Differential cell count method Nom (Bld) Auto Normal [facility] Comment on above: Order Comment: Speci men Type: BLOOD SPECIMEN Ordering Facility: [facility] Address: [address] [place] [address] Performed By: #### 3 4528-0, 67358-3 #### [facility] CLIA [id number] [address] [place] [address] [place] Eosinophils (Bld) [#/Vol] 10*3/uL Normal <0.46 [facility] Comment on above: Order Comment: Speci men Type: BLOOD SPECIMEN Ordering Facility: [facility] Address: [address] [place] [address] Performed By: #### 3 4528-0, 38785-9 #### [facility] CLIA [id number] [address] [place] [address] [place] Eosinophils/100 WBC (Bld) 0.1 % Normal [facility] Comment on above: Order Comment: Speci men Type: BLOOD SPECIMEN Ordering Facility: [facility] Address: [address] [place] [address] Performed By: #### 3 4528-0, 67408-1 #### [facility] CLIA [id number] [address] [place] [address] [place] Erythrocyte distribution width (RBC) [Ratio] 14.0 % Normal 11.5-15.0 [facility] Comment on above: Order Comment: Speci men Type: BLOOD SPECIMEN Ordering Facility: [facility] Address: [address] [place] [address] Performed By: #### 3 4528-0, 28413-3 #### [facility] CLIA [id number] [address] [place] [address] [place] Hematocrit (Bld) [Volume fraction] 44.3 % Normal 39.0-51.0 [facility] Comment on above: Order Comment: Speci men Type: BLOOD SPECIMEN Ordering Facility: [facility] Address: [address] [place] [address] Performed By: #### 3 4528-0, 73468-7 #### [facility] CLIA [id number] [address] [place] [address] [place] Hemoglobin (Bld) [Mass/Vol] 14.8 g/dL Normal 13.0-17.0 [facility] Comment on above: Order Comment: Speci men Type: BLOOD SPECIMEN Ordering Facility: [facility] Address: [address] [place] [address] Performed By: #### 3 4528-0, 85280-3 #### [facility] CLIA [id number] [address] [place] [address] [place] Immature granulocytes (Bld) [#/Vol] 0.20 10*3/uL High <0.10 [facility] Comment on above: Order Comment: Speci men Type: BLOOD SPECIMEN Ordering Facility: [facility] Address: [address] [place] [address] Performed By: #### 3 4528-0, 02767-0 #### [facility] CLIA [id number] [address] [place] [address] [place] Immature granulocytes/100 WBC (Bld) 1.2 % Normal [facility] Comment on above: Order Comment: Speci men Type: BLOOD SPECIMEN Ordering Facility: [facility] Address: [address] [place] [address] Performed By: #### 3 4528-0, 34746-6 #### [facility] CLIA [id number] [address] [place] [address] [place] Lymphocytes (Bld) [#/Vol] 1.00 10*3/uL Normal 1.00-4.00 [facility] Comment on above: Order Comment: Speci men Type: BLOOD SPECIMEN Ordering Facility: [facility] Address: [address] [place] [address] Performed By: #### 3 4528-0, 20211-4 #### [facility] CLIA [id number] [address] [place] [address] [place] Lymphocytes/100 WBC (Bld) 5.9 % Normal [facility] Comment on above: Order Comment: Speci men Type: BLOOD SPECIMEN Ordering Facility: [facility] Address: [address] [place] [address] Performed By: #### 3 4528-0, 06580-4 #### [facility] CLIA [id number] [address] [place] [address] [place] MCH (RBC) [Entitic mass] 28.1 pg Normal 26.0-34.0 [facility] Comment on above: Order Comment: Speci men Type: BLOOD SPECIMEN Ordering Facility: [facility] Address: [address] [place] [address] Performed By: #### 3 4528-0, 14597-1 #### [facility] CLIA [id number] [address] [place] [address] [place] MCHC (RBC) [Mass/Vol] 33.4 g/dL Normal 30.5-36.0 [facility] Comment on above: Order Comment: Speci men Type: BLOOD SPECIMEN Ordering Facility: [facility] Address: [address] [place] [address] Performed By: #### 3 4528-0, 90809-8 #### [facility] CLIA [id number] [address] [place] [address] [place] MCV (RBC) [Entitic vol] 84.1 fL Normal 80.0-100.0 [facility] Comment on above: Order Comment: Speci men Type: BLOOD SPECIMEN Ordering Facility: [facility] Address: [address] [place] [address] Performed By: #### 3 4528-0, 58583-4 #### [facility] CLIA [id number] [address] [place] [address] [place] Monocytes (Bld) [#/Vol] 0.36 10*3/uL Normal <0.87 [facility] Comment on above: Order Comment: Speci men Type: BLOOD SPECIMEN Ordering Facility: [facility] Address: [address] [place] [address] Performed By: #### 3 4528-0, 76691-4 #### [facility] CLIA [id number] [address] [place] [address] [place] Monocytes/100 WBC (Bld) 2.1 % Normal [facility] Comment on above: Order Comment: Speci men Type: BLOOD SPECIMEN Ordering Facility: [facility] Address: [address] [place] [address] Performed By: #### 3 4528-0, 04414-5 #### [facility] CLIA [id number] [address] [place] [address] [place] Neutrophils (Bld) [#/Vol] 15.33 10*3/uL High 1.45-7.50 [facility] Comment on above: Order Comment: Speci men Type: BLOOD SPECIMEN Ordering Facility: [facility] Address: [address] [place] [address] Performed By: #### 3 4528-0, 12764-7 #### [facility] CLIA [id number] [address] [place] [address] [place] Neutrophils/100 WBC (Bld) 90.4 % Normal [facility] Comment on above: Order Comment: Speci men Type: BLOOD SPECIMEN Ordering Facility: [facility] Address: [address] [place] [address] Performed By: #### 3 4528-0, 46820-7 #### [facility] CLIA [id number] [address] [place] [address] [place] Nucleated RBC (Bld) [#/Vol] 10*3/uL Normal <0.01 [facility] Comment on above: Order Comment: Speci men Type: BLOOD SPECIMEN Ordering Facility: [facility] Address: [address] [place] [address] Performed By: #### 3 4528-0, 16049-0 #### [facility] CLIA [id number] [address] [place] [address] [place] Nucleated RBC/100 WBC (Bld) [Ratio] 0.0 /100 WBC Normal [facility] Comment on above: Order Comment: Speci men Type: BLOOD SPECIMEN Ordering Facility: [facility] Address: [address] [place] [address] Performed By: #### 3 4528-0, 39489-1 #### [facility] CLIA [id number] [address] [place] [address] [place] Platelet mean volume (Bld) [Entitic vol] 9.4 fL Normal 9.0-12.7 [facility] Comment on above: Order Comment: Speci men Type: BLOOD SPECIMEN Ordering Facility: [facility] Address: [address] [place] [address] Performed By: #### 3 4528-0, 90926-7 #### [facility] CLIA [id number] [address] [place] [address] [place] Platelets (Bld) [#/Vol] 239 10*3/uL Normal 150-400 [facility] Comment on above: Order Comment: Speci men Type: BLOOD SPECIMEN Ordering Facility: [facility] Address: [address] [place] [address] Performed By: #### 3 4528-0, 92087-7 #### [facility] CLIA [id number] [address] [place] [address] [place] RBC (Bld) [#/Vol] 5.27 10*6/uL Normal 4.20-6.00 [facility] Comment on above: Order Comment: Speci men Type: BLOOD SPECIMEN Ordering Facility: [facility] Address: [address] [place] [address] Performed By: #### 3 4528-0, 17013-9 #### [facility] CLIA [id number] [address] [place] [address] [place] WBC (Bld) [#/Vol] 16.95 10*3/uL High 3.70-11.00 [facility] Comment on above: Order Comment: Speci men Type: BLOOD SPECIMEN Ordering Facility: [facility] Address: [address] [place] [address] Performed By: #### 3 4528-0, 19593-9 #### [facility] CLIA [id number] [address] [place] [address] [place] ECG COMPLETEon 04-26-2024 ECG COMPLETE Ventricular Rate : 9 4 BPM Atrial Rate : 94 BPM P-R Interval : 160 ms QRS Duration : 88 ms Q-T Interval : 384 ms QTC Calculation(Bazett) : 480 ms Calculated P [place] : 40 degrees Calculated R [place] : 17 degrees Calculated T [place] : 36 degrees NORMAL SINUS RHYTHM PROLONGED QT INTERVAL OR TU FUSION, CONSIDER HYPOKALEMIA ABNORMAL ECG Confirmed by KOURTNEY GRULLON M.D. ([id number]) on 05/08/2024 2:51:26 PM NAME : REBECA WAGNER PID : [id number] : 1960 Gender : Male Race : ORD : [id number] Procedure Date : Apr 26 2024 13:18:44 Edit Date : May 08 2024 14:54:30 Diagnosis: NORMAL SINUS RHYTHM PROLONGED QT INTERVAL OR TU FUSION, CONSIDER HYPOKALEMIA ABNORMAL ECG Confirmed by KOURTNEY GRULLON M.D. ([id number]) on 05/08/2024 2:51:26 PM Test Reason : Post-OP Location : 3 : E20 E20-02 Overread By : KOURTNEY GRULLON M.D. Edited By : KOURTNEY GRULLON M.D. Referred By : , Acquired by : CHRISS MOYA [facility] NURSING PROGon 04-26-2024 NURSING PROG HNO ID: [id number] Author: BARB MCKOY, RN Service: Nursing Author Type: Registered Nurse Type: Nursing Progress Note Filed: 04/26/2024 16:50 Note Text: Admission/Transfer Note PATIENT NAME: Rebeca Wagner Sr. Patient Location: [place] [id number] Room: [place] [address] Patient admitted from PACU via stretcher in stable condition. Actions taken: Patient oriented to room, call light function, prescribed activities, Patient rights, and Quiet at night. This note was completed by: Barb Mckoy [facility] OPERATIVE NOon 04-26-2024 OPERATIVE NO HNO ID: [id number] Author: NATALIE OTERO MD Service: Urology Author Type: Physician Type: Operative Report Filed: 2024 12:16 Note Text: OPERATIVE/PROCEDURE REPORT Surgery/Procedure Date:04/26/2024 Incision/Procedure Start Time: 8:20 am Incision Close/Procedure End Time: 12:00 Surgeon(s)/Proceduralist(s ) and Food Cart Attendant(s): Surgeon(s) and Role: * Natalie Otero MD - Primary * Justus Smith MD - Resident - Assisting * Janki Johnson MD - Fellow Pre-Op/Pre-Procedure Diagnosis: Pre-Op Diagnosis Codes: * Malignant neoplasm of prostate (HCC) [C61] Post-Op/Post-Procedure Diagnosis: Post-Op Diagnosis Codes: * Malignant neoplasm of prostate (HCC) [C61] Procedure(s): 1) Xi Robotic-assisted laparoscopic radical prostatectomy Anatomic Site: Prostate, Laterality: N/A Approach: Robotic Assisted Laparoscopic Anesthesia: General Operative Indications: This is a 63 year old male with GG 2 prostate cancer, PSA 4 who after discussing the risks, benefits, and alternatives of the procedure has elected to pursue management of their condition via the aforementioned surgery. Operative Findings: - Prostate size: 48 GR - No macroscopic extraprostatic disease - Bilateral nerve sparing (interfascial) - Periprostatic inflammation - Excellent Hemostasis throughout case Procedure Details: After informed consent was obtained, the patient was brought to the operating room. A surgical huddle was performed with the patient and all involved staff. Prophylactic antibiotics and heparin were administered. General anesthesia was administered. The patient was placed into the lithotomy position. All pressure points were padded. He was prepped and draped in the usual sterile fashion. A timeout procedure was performed and confirmed. Initial pneumoperitoneum to 15mmHg was obtained using the Varess needle 2cm above the umbilicus. Subsequently, an 8-mm port was placed in this same area the abdominal cavity was surveyed for injury. Two 8mm robotic ports were placed on the left, one 8-mm robotic port and one 12-mm assistant front office manager port was placed on the right. The ports were placed in a W formation under vision. The robot was docked. Left colonic adhesions were taken down sharply.The bladder was released at the urachus from its anterior attachment to the abdominal wall and dropped in the standard fashion. The prostate was then defatted and the endopelvic fascia was opened sharply bilaterally. The anterior bladder neck was then incised and dissection proceeded through the posterior bladder neck. The vas deferens and seminal vesicles were exposed and freed with electrocautery. The vasa deferentia were transected. The Denonvier's fascia was incised and the prostatic vascular pedicles at the were controlled bilaterally using Vessel Sealer. Nerve sparing was performed. The DVC was then controlled with vessel sealer. The urethra wastransected using cold scissors. Following complete urethral transection, the prostate was then mobilized and freed from its posterior attachments and placed in the Endocatch bag. Hemostasis was assured with electrocautery. The robot was then undocked. Ports were removed under direct vision. The specimen was extracted after enlarging the umbilical incision. All incisions were irrigated with normal saline. The midline fascia was then closed with 0 PDS suture. The subcutaneous tissue of the midline incision was closed with 3-0 vicryl suture. The skin was closed using 4-0 Vicryl and covered with surgical glue. 30 cc of 0.25% marcaine in total was instilled subcutaneously around all incisions. At the end of the procedure the sponge and needle count were correct. The patient tolerated the procedure well. The patient was extubated in the OR, and taken to recovery room in good condition. Estimated Blood Loss: 250 cc Specimens: Prostate and seminal vesicles, periprostatic fat Implantable Devices: None Drains: 20 Fr Bazan catheter Complications: None Accidental Perforations/Punctures: None Dr. Otero performed all critical portions of the procedure with the assistance of Dr. Smith and Dr. Sexton. [facility] SURGICAL PATHOLOGYon 024 BLOCK FOR ADDITIONAL BIOMARKERS/MOLECUL AR STUDIES A15 Normal [facility] Comment on above: Order Comment: Speci men Type: BLOOD SPECIMEN Ordering Facility: [facility] Address: [address] [place] [address] Performed By: #### 2 4321-2 #### [facility] CLIA [id number] [address] [place] [address] [place] CASE REPORT Normal [facility] Comment on above: Order Comment: Speci men Type: BLOOD SPECIMEN [facility] [facility] Address: [address] [place] [address] Result Comment: Surg [facility] Pathology Report Case: [id number] Authorizing Provider: Natalie Otero MD Collected: 04/26/2024 09:54 AM Ordering Location: Admitting Received: 04/26/2024 01:33 PM Pathologist: Florinda Mayo MD Specimen: Prostate, Resection, prostate, bilateral seminal vesicles, cornelius-prostatic fat Performed By: #### 2 4321-2 #### [facility] CLIA [id number] [address] [place] [address] [place] CLINICAL HISTORY Normal [facility] Comment on above: Order Comment: Speci men Type: BLOOD SPECIMEN Ordering Facility: [facility] Address: [address] [place] [address] Result Comment: Pre- op diagnosis: Malignant neoplasm of prostate (HCC) [C61] Performed By: #### 2 4321-2 #### [facility] CLIA [id number] [address] [place] [address] [place] FINAL DIAGNOSIS Normal [facility] Comment on above: Order Comment: Speci men Type: BLOOD SPECIMEN Ordering Facility: [facility] Address: [address] [place] [address] Result Comment: Hannah saunders and seminal vesicles, radical prostatectomy: - Prostatic adenocarcinoma, Pierson score 3+4=7 (Grade Group 2). - Focal extraprostatic extension is present (pT3a). - Margins negative. Radical Prostatectomy Morphology Summary Unfavorable histology: Absent Large cribriform pattern 4: Absent Intraductal carcinoma: Absent Performed By: #### 2 4321-2 #### [facility] CLIA [id number] [address] [place] [address] STATES OF [facility] FINAL PERFORMING LAB Normal [facility] Comment on above: Order Comment: Speci men Type: BLOOD SPECIMEN Ordering Facility: [facility] Address: [address] [place] [address] Result Comment: Diag nostic interpretation performed at [facility], [address] [place] [address] CLIA# [id number] Domain Architect: Lex Mackenzie M.D. Performed By: #### 2 4321-2 #### [facility] CLIA [id number] [address] [place] [address] STATES [facility] GROSS DESCRIPTION Normal [facility] Comment on above: Order Comment: Speci men Type: BLOOD SPECIMEN Ordering Facility: [facility] Address: [address] [place] [address] Result Comment: Hannah saunders, Resection The specimen consists of a prostate gland, seminal vesicles and portions of vas deferens, and a piece of fatty tissue. The prostate gland measures 3.1 cm (craniocaudally) x 3.2 cm (anteroposteriorly) x 5.1 cm (transversely). It weighs 50.7 g. The apex of the gland is conical. The capsular surface is smooth with some soft tissue on the anterior aspect. The gland is inked blue on the right and yellow on the left. A bladder neck section is obtained and the gland is cut from apex to base transversely at 3 mm intervals. An ink dot is placed on the basal side of each slice of tissue except for the basal section which is dotted on the apical surface. The cross-sections do not reveal a mass lesion. Detached seminal vesicles and portions of vas deferens measures: seminal vesicle #1 3.0 x 1.5 x 0.3 cm, vas deferens #1 2.5 cm in length x 0.4 cm in diameter, seminal #2 1.6 x 1.5 x 0.3 cm, vas deferens #2 3.0 cm in length x 0.4 cm in diameter. The detached fatty tissue measures 4.5 x 2.5 x 0.6 cm. Revenue Inspector sections are submitted as follows: A1: Right apex, perpendicular A2: Left apex, perpendicular A3: Right bladder neck, perpendicular A4: Left bladder neck, perpendicular A5-A6: Entire 3 mm slice A7-A10: Entire 6 mm slice (A7-A8: anterior, A9-A10: posterior) A11-A12: 9 mm slice, posterior portion A13-A16: Entire 12 mm slice (A13-A14: anterior, A15-A16 posterior) A17-A18: 15 mm slice, posterior portion A19-A22: Entire 18 mm slice (A19-A20: anterior, A21-A22 posterior) A23-A24: 21 mm slice, posterior portion A25-A28: Entire 24 mm slice (A25-A26: anterior, A27-A28 posterior) A29-A30: 27 mm slice, posterior portion A31-A32 : Bases of seminal vesicles #1 and #2, respectively A33-A35: Entire fatty tissue Gross examination performed at [facility], [address] [place] [address] 04/27/24 2:34 PM Performed By: #### 2 4321-2 #### [facility] CLIA [id number] [address] [place] [address] [id number] [address] [place] SYNOPTIC REPORT Normal [facility] Comment on above: Order Comment: Speci men Type: BLOOD SPECIMEN Ordering Facility: [facility] Address: [address] [place] [address] Result Comment: PROS HINTON GLAND: Radical Prostatectomy PROSTATE GLAND: RESECTION - All Specimens 8th Edition - Protocol posted: 07/16/2023 SPECIMEN Procedure: Radical prostatectomy TUMOR Histologic Type: Acinar adenocarcinoma, conventional (usual) Histologic Grade: Grade: Grade group 2 (Suzie Score 3 + 4 = 7) Percentage of Pattern 4: Less than or equal to 5% Intraductal Carcinoma (IDC): Not identified Cribriform Glands: Not identified Treatment Effect: No known presurgical therapy TUMOR QUANTITATION: Estimated Percentage of Prostate Involved by Tumor: 6 - 10% Extraprostatic Extension (EPE): Present, focal Location of Extraprostatic Extension: Left posterolateral (neurovascular bundle) Urinary Bladder Neck Invasion: Not identified Seminal Vesicle Invasion: Not identified Lymphatic and / or Vascular Invasion: Not Identified MARGINS Margin Status: All margins negative for invasive carcinoma REGIONAL LYMPH NODES Regional Lymph Node Status: Not applicable (no regional lymph nodes submitted or found) pTNM CLASSIFICATION (AJCC 8th Edition) Reporting of pT, pN, and (when applicable) pM categories is based on information available to the pathologist at the time the report is issued. As per the AJCC (Chapter 1, 8th Ed.) it is the managing physician???s responsibility to establish the final pathologic stage based upon all pertinent information, including but potentially not limited to this pathology report. pT Category: pT3a pN Category: pN not assigned (no nodes submitted or found) Performed By: #### 2 4321-2 #### [facility] CLIA [id number] [address] [place] [address] [place] XR CHEST 1V FRONTAL PORTon 0 04-26-2024 XR CHEST 1V FRONTAL PORT * * *Final Report* * * DATE OF EXAM: Apr 26 2024 1:13PM ESX [id number] - XR CHEST 1V FRONTAL PORT / PROCEDURE REASON: Shortness of breath * * * * Physician Interpretation * * * * EXAMINATION: CHEST RADIOGRAPH (PORTABLE SINGLE VIEW AP) Exam Date/Time: 04/26/2024 1:13 PM Clinical History: Shortness of breath MQ: [id number]_6 Comparison: None RESULT: Lines, tubes, and devices: None. Lungs and pleura: Some small atelectatic changes in the bilateral lower lung. Otherwise no consolidation. No pleural effusion. Cardiomediastinal silhouette: Cardiac silhouette is not enlarged. Other: . IMPRESSION: Small atelectatic changes in the lower lung. Analog Device Designer: PSCKassandra Transcribe Date/Time: Apr 26 2024 1:16P Dictated by : SHERMAN PASCAL MD This examination was interpreted and the report reviewed and electronically signed by: SHERMAN PASCAL MD on Apr 26 2024 1:17PM EST [id number] Normal [facility] Bacteria Ur Culton Bacteria identified Cx Nom (U) CULTURE, URINE: No growth (<1,000 CFU/ml) Normal [facility] Comment on above: Performed By: #### 6 30-4 ####[facility] [id number] [place] [address] [place] CBC panel Auto (Bld)on 04-20 Erythrocyte distribution width (RBC) [Ratio] 13.9 % Normal 11.5-15.0 [facility] Comment on above: Order Comment: Speci men Type: BLOOD SPECIMEN Ordering Facility: [facility] Address: [address] [place] [address] Performed By: #### 3 4528-0, 73923-4 #### [facility] CLIA [id number] [address] [place] [address] [place] Hematocrit (Bld) [Volume fraction] 49.5 % Normal 39.0-51.0 [facility] Comment on above: Order Comment: Speci men Type: BLOOD SPECIMEN Ordering Facility: [facility] Address: [address] [place] [address] Performed By: #### 3 4528-0, 76343-9 #### [facility] CLIA [id number] [address] [place] [address] [place] Hemoglobin (Bld) [Mass/Vol] 16.3 g/dL Normal 13.0-17.0 [facility] Comment on above: Order Comment: Speci men Type: BLOOD SPECIMEN Ordering Facility: [facility] Address: [address] [place] [address] Performed By: #### 3 4528-0, 99393-9 #### [facility] CLIA [id number] [address] [place] [address] [place] MCH (RBC) [Entitic mass] 27.9 pg Normal 26.0-34.0 [facility] Comment on above: Order Comment: Speci men Type: BLOOD SPECIMEN Ordering Facility: [facility] Address: [address] [place] [address] Performed By: #### 3 4528-0, 86321-7 #### [facility] CLIA [id number] [address] [place] [address] [place] MCHC (RBC) [Mass/Vol] 32.9 g/dL Normal 30.5-36.0 [facility] Comment on above: Order Comment: Speci men Type: BLOOD SPECIMEN Ordering Facility: [facility] Address: [address] [place] [address] Performed By: #### 3 4528-0, 12185-3 #### [facility] CLIA [id number] [address] [place] [address] [place] MCV (RBC) [Entitic vol] 84.6 fL Normal 80.0-100.0 [facility] Comment on above: Order Comment: Speci men Type: BLOOD SPECIMEN Ordering Facility: [facility] Address: [address] [place] [address] Performed By: #### 3 4528-0, 59842-4 #### [facility] CLIA [id number] [address] [place] [address] [place] Nucleated RBC (Bld) [#/Vol] 10*3/uL Normal <0.01 [facility] Comment on above: Order Comment: Speci men Type: BLOOD SPECIMEN Ordering Facility: [facility] Address: [address] [place] [address] Performed By: #### 3 4528-0, 35390-3 #### [facility] CLIA [id number] [address] [place] [address] [place] Platelet mean volume (Bld) [Entitic vol] 10.2 fL Normal 9.0-12.7 [facility] Comment on above: Order Comment: Speci men Type: BLOOD SPECIMEN Ordering Facility: [facility] Address: [address] [place] [address] Performed By: #### 3 4528-0, 04065-5 #### [facility] CLIA [id number] [address] [place] [address] [place] Platelets (Bld) [#/Vol] 272 10*3/uL Normal 150-400 [facility] Comment on above: Order Comment: Speci men Type: BLOOD SPECIMEN Ordering Facility: [facility] Address: [address] [place] [address] Performed By: #### 3 4528-0, 19526-0 #### [facility] CLIA [id number] [address] [place] [address] [place] RBC (Bld) [#/Vol] 5.85 10*6/uL Normal 4.20-6.00 [facility] Comment on above: Order Comment: Speci men Type: BLOOD SPECIMEN Ordering Facility: [facility] Address: [address] [place] [address] Performed By: #### 3 4528-0, 55772-0 #### [facility] CLIA [id number] [address] [place] [address] [place] WBC (Bld) [#/Vol] 10.73 10*3/uL Normal 3.70-11.00 [facility] [place] [facility] Comment on above: Order Comment: Speci men Type: BLOOD SPECIMEN Ordering Facility: [facility] Address: [address] [place] [address] Performed By: #### 3 4528-0, 80662-5 #### [facility] CLIA [id number] [address] OF [facility] CNOVon 04-20-2024 CNOV Office Visit (UROLMN ) -- REBECA WAGNER SR. ([id number]) 1960 M Date Time Provider Department 04/20/24 1:30 PM MIGUEL ANGEL COOPER During your visit today, we recorded the following information about you: Pulse Blood pressure Weight Height 87/minute 126/82 99.7 kg 1.753 m Miguel Angel Cooper APRN.BUDGET MANAGER 04/20/2024 1:56 PM Signed [facility] PRE-OP NOTE Rebeca Wagner Sr. is a 63 year old male. Pre-op Date: April 20, 2024 Date of Procedure: 04/26/24 Procedure/Surgery: Surgeon Role Service Natalie Otero MD Primary Urology Procedure: ROBOTIC LAPAROSCOPIC RETROPUBIC RADICAL PROSTATECTOMY W/ NERVE SPARING Laterality Anesthesia Op Region N/A General Prostate Diagnosis: prostate cancer Primary Surgeon: MD Otero Robert There were no vitals taken for this visit. Pain Assessment: Are you currently having pain? No 0 on a scale of 0 to 10 Surgical Guide Book Status: Patient given book today. Dialysis Guide Book Status: N/A Allergies Reviewed: Yes Medications Reviewed: Yes Is patient currently on oral steroids?: No Has the patient had a UTI in the past month?: No. Does the patient have any artificial joints (last 2 years), metal parts, pacemakers or cardiac/ureteral stents in place?: No Does the patient have diabetes?: Yes Is the patient routinely taking anticoagulants?: No. Can the patient have an IV put in either arm?: Yes Urine Dip Complete?: Yes URINE CULTURE COMPLETE?: Yes Ostomy/Stoma Nurse appointment made/completed: N/A [facility]/Medical Clearance: Cleared per [facility] - To be seen [facility]: Cleared per [facility] - N/A All testing on cureform has been scheduled: Yes Consent Signed: Consent not in Epic. DOS Orders Placed and Signed: Yes. Pre-op HANDP Done by [facility]: To be done by [facility]. PATIENT INSTRUCTIONS FOR SURGERY 1.) DO NOT HAVE ANYTHING TO EAT AFTER MIDNIGHT THE DAY BEFORE SURGERY except for certain morning medications as instructed by the doctor. Candy, mints, gum, and smoking are NOT permitted. You may drink clear liquids (Sprite, water, spencer james) up to two hours before your arrival time on the day of surgery. 2.) Medications to be taken on the morning of surgery with a few sips of water: per [facility] 3.) Please bring all your prescribed inhalers (if you have any you normally take) to the hospital. 4.) Arrival time: Call for arrival. 5.) Prep given: No 6.) Lovenox instructions given: N/A 7.) Patient reminded that surgery time provided day before surgery is tentative based on potential changes with transplants. Recommendations: This patient is optimally prepared for surgery pending [facility], LABS, EKG, and MRI . Miguel Angel Cooper APRN.BUDGET MANAGER Electronically signed Miguel Angel Cooper APRN.CNP 04/20/2024 1:54 PM Addendum Dietary Restrictions: - No solid food after midnight. - You may have 12 ounces of clear liquids (water, clear juices such as apple juice or gatorade, carbonated beverages, clear tea, black coffee, jello) until 2 hours before scheduled arrival at facility. NO MILK PRODUCTS. - Do not drink any alcohol after midnight the night before your surgery. Parking: Bulk Plant Supervisor parking is available at the [facility], or [facility] entrance. This is the main entrance with the [employer]. [address] [place] [address] Garage parking- or parking garage is the closest to surgery check in desk. [address] [place], [place] [address] Arrival Time: Your arrival time will be provided to you the day before surgery. If you do not hear from surgery scheduling by 2:00 pm the day prior to your surgery, you can contact Urology Surgery at [phone]. We would like to reminded you that surgery time provided is tentative based on potential changes with transplant surgeries. Please check in at desk J1-9 in the [facility] Medications: - Stop NSAIDS (Ibuprofen, Advil, Aleve, Motrin, Celebrex, Mobic, etc.) 7 days before surgery, as directed by your surgeon. - Stop Aspirin 7 days before surgery, as directed by your surgeon. - Stop Vitamin E, ALL multi-vitamins, herbals and dietary supplements 7 days before surgery. - You may take Tylenol (Acetaminophen) or any of your pain medications that do not contain aspirin or NSAIDS as needed. Important Reminders: - If you are prescribed inhalers for breathing, continue using them. - If you wear contact prescription lenses, please remove them - Candy, mints, and tobacco products are NOT permitted the morning of surgery. - Hearing aids, dentures and glasses may be worn the morning of surgery. - NO jewelry, body piercings, makeup, hairpins or contacts are to be worn the day of surgery. Referring Provider: SELF [200] Allergies As of Date: 04/20/2024 Noted Allergy Reaction CIPROFLOXACIN 06/07/2013 7 - Swelling 16 - Unknown Date Reviewed: 04/20/2024 Reviewed by: Brenda (more content not included)... Normal [facility] CONFIRM BLOOD TYPEon 024 ABO B Normal [facility] Comment on above: Order Comment: Speci men Type: BLOOD SPECIMEN Ordering Facility: [facility] Address: [address] [place] [address] Performed By: #### 2 4321-2 #### [facility] CLIA [id number] [address] [place] [address] [place] Rh Nom (Bld) Negative Normal [facility] Comment on above: Order Comment: Speci men Type: BLOOD SPECIMEN Ordering Facility: [facility] Address: [address] [place] [address] Performed By: #### 2 4321-2 #### [facility] CLIA [id number] [address] [place] [address] [place] Comprehensive metabolic 2000 panelon 04-20-2024 Albumin [Mass/Vol] 4.6 g/dL Normal 3.9-4.9 [facility] Comment on above: Order Comment: Speci men Type: BLOOD SPECIMENOrdering Facility: [facility] Address: [address] [place] [id number] Performed By: #### 2 4323-8 ####[facility] [id number] [place] [address] [place] ALP [Catalytic activity/Vol] 96 U/L Normal 38-113 [facility] Comment on above: Order Comment: Speci men Type: BLOOD SPECIMENOrdering Facility: [facility] Address: [address] [place] [address] Performed By: #### 2 4323-8 ####[facility] [id number] [place] [address] [place] ALT [Catalytic activity/Vol] 29 U/L Normal 10-54 [facility] Comment on above: Order Comment: Speci men Type: BLOOD SPECIMENOrdering Facility: [facility] Address: [address] [place] [address] Performed By: #### 2 4323-8 ####[facility] [id number] [place] [address] [place] Anion gap [Moles/Vol] 13 mmol/L Normal 8-15 [facility] Comment on above: Order Comment: Speci men Type: BLOOD SPECIMENOrdering Facility: [facility] Address: [address] [place], [place] [address] Performed By: #### 2 4323-8 ####[facility] [id number] [place] [id number] [place] AST [Catalytic activity/Vol] 24 U/L Normal 14-40 [facility] Comment on above: Order Comment: Speci men Type: BLOOD SPECIMENOrdering Facility: [facility] Address: [address] [place], [place] [address] Performed By: #### 2 4323-8 ####[facility] [id number] [place] [id number] [place] Bilirubin [Mass/Vol] 0.7 mg/dL Normal 0.2-1.3 [facility] Comment on above: Order Comment: Speci men Type: BLOOD SPECIMENOrdering Facility: [facility] Address: [address] [place] [address] Performed By: #### 2 4323-8 ####[facility] [id number] [place] [address] [place] Calcium [Mass/Vol] 10.2 mg/dL Normal 8.5-10.2 [facility] Comment on above: Order Comment: Speci men Type: BLOOD SPECIMENOrdering Facility: [facility] Address: [address] [place] [address] Performed By: #### 2 4323-8 ####[facility] [id number] [place] [address] [place] Chloride [Moles/Vol] 101 mmol/L Normal 98-107 [facility] Comment on above: Order Comment: Speci men Type: BLOOD SPECIMENOrdering Facility: [facility] Address: [address] [place] [address] Performed By: #### 2 4323-8 ####[facility] [id number] [place] [address] [place] CO2 [Moles/Vol] 26 mmol/L Normal 22-30 [facility] Comment on above: Order Comment: Speci men Type: BLOOD SPECIMENOrdering Facility: [facility] Address: [address] [place] [address] Performed By: #### 2 4323-8 ####[facility] [id number] [place] [address] [place] Creatinine [Mass/Vol] 0.86 mg/dL Normal 0.73-1.22 [facility] Comment on above: Order Comment: Speci men Type: BLOOD SPECIMENOrdering Facility: [facility] Address: [address] [place] [address] Performed By: #### 2 4323-8 ####[facility] [id number] [place] [address] [place] Creatinine and Glomerular filtration rate.predicted panel (S/P/Bld) 96 mL/min/1.73m??? Normal >=60 [facility] Comment on above: Order Comment: Stephanie rodarte Type: BLOOD SPECIMENOrdering Facility: [facility] Address: [address] [place] [address] Result Comment: Claudia mated Glomerular Filtration Rate (eGFR) is calculated using the 2020 CKD-EPI creatinine equation. This equation utilizes serum creatinine, sex, and age as parameters. The creatinine assay has traceable calibration to isotope dilution-mass spectrometry. Refer to KDIGO guidelines for clinical interpretation. In patients with unstable renal function, e.g. those with acute kidney injury, the eGFR may not accurately reflect actual GFR. Performed By: #### 2 4323-8 ####[facility] [id number] [place] [address] [place] Glucose [Mass/Vol] 98 mg/dL Normal 74-99 [facility] Comment on above: Order Comment: Stephanie rodarte Type: BLOOD SPECIMENOrdering Facility: [facility] Address: [address] [place] [address] Result Comment: The [place] Diabetes Association (ADA) provides guidance for cutoff values for fasting glucose and random glucose. The ADA defines fasting as no caloric intake for at least 8 hours. Fasting plasma glucose results between 100 to 125 mg/dL indicate increased risk for diabetes (prediabetes). Fasting plasma glucose results greater than or equal to 126 mg/dL meet the criteria for diagnosis of diabetes. In the absence of unequivocal hyperglycemia, results should be confirmed by repeat testing. In a patient with classic symptoms of hyperglycemia or hyperglycemic crisis, random plasma glucose results greater than or equal to 200 mg/dL meet the criteria for diagnosis of diabetes. Reference: Standards of Medical Care in Diabetes 2016, [place] [employer]. Diabetes Care. 2016.39(Suppl 1). Performed By: #### 2 4323-8 ####[facility] [id number] [place] [address] [place] Potassium [Moles/Vol] 4.4 mmol/L Normal 3.7-5.1 [facility] Comment on above: Order Comment: Speci men Type: BLOOD SPECIMENOrdering Facility: [facility] Address: [address] [place] [address] Performed By: #### 2 4323-8 ####[facility] [id number] [place] [address] [place] Protein [Mass/Vol] 7.1 g/dL Normal 6.3-8.0 [facility] Comment on above: Order Comment: Speci men Type: BLOOD SPECIMENOrdering Facility: [facility] Address: [address] [place] [address] Performed By: #### 2 4323-8 ####[facility]IA [id number] [place] [address] [place] Sodium [Moles/Vol] 140 mmol/L Normal 136-144 [facility] Comment on above: Order Comment: Speci men Type: BLOOD SPECIMENOrdering Facility: [facility] Address: [address] [place] [address] Performed By: #### 2 4323-8 ####[facility] [id number] [place] [address] [place] Urea nitrogen [Mass/Vol] 11 mg/dL Normal 9-24 [facility] Comment on above: Order Comment: Speci men Type: BLOOD SPECIMENOrdering Facility: [facility] Address: [address] [place] [address] Performed By: #### 2 4323-8 ####[facility]IA [id number] [place] [id number] [place] ECG COMPLETEon 04-20-2024 ECG COMPLETE Ventricular Rate : 8 1 BPM Atrial Rate : 81 BPM P-R Interval : 154 ms QRS Duration : 78 ms Q-T Interval : 402 ms QTC Calculation(Bazett) : 466 ms Calculated P [place] : 44 degrees Calculated R [place] : 16 degrees Calculated T [place] : 56 degrees NORMAL SINUS RHYTHM NORMAL ECG Confirmed by KOURTNEY GRULLON M.D. ([id number]) on 05/13/2024 2:34:34 PM NAME : REBECA WAGNER PID : [id number] : 1960 Gender : Male Race : ORD : [id number] Procedure Date : Apr 20 2024 14:40:59 Edit Date : May 13 2024 14:39:31 Diagnosis: NORMAL SINUS RHYTHM NORMAL ECG Confirmed by KOURTNEY GRULLON M.D. ([id number]) on 05/13/2024 2:34:34 PM Test Reason : Location : 119 : A17 A17 Overread By : KOURTNEY GRULLON M.D. Edited By : KOURTNEY GRULLON M.D. Referred By : , Acquired by : CHRISS MOYA [facility] HISTORY PHYSICALon HISTORY PHYSICAL HNO ID: [id number] Author: SAMM MELGOZA APRN.BUDGET MANAGER Service: ? Author Type: Nurse Practitioner Type: H&P Filed: 04/22/2024 13:48 Note Text: HISTORY AND PHYSICAL EXAMINATION SERVICE DATE: 04/20/2024 SERVICE TIME: 3:12 PM PRIMARY CARE PHYSICIAN: No primary care provider on file. Assessment Patient has the following medical conditions which may affect cornelius-operative course: Parkinson's disease (HCC) Patient states he was diagnosed with Parkinson's by an outside provider. Was previously on Ropinirole but it was discontinued, no current medications. Mixed hyperlipidemia Stable on Rosuvastatin 5 mg daily. Type 2 diabetes mellitus without complication (HCC) Stable on Glimepiride 4 mg and Metformin 1000 mg daily. PLAN: HgbA1C ordered. Generalized anxiety disorder Anxiety AND OCD. Stable on Fluoxetine 60 mg daily and Buspirone 30 mg BID. Patient is prescribed Xanax as needed. Merchant Activity Status Index: METS: Walk indoors, such as around the house (1.75 METs) Do light work around the house, such as dusting or washing dishes (2.70 METs) Take care of self; that is eating, dressing, bathing, using the toilet (2.75 METs) Walk a block or two on level ground (2.75 METs) Do moderate work around the house, such as vacuuming, sweeping floors, or carrying in groceries (3.50 METs) Do yardwork, such as raking leaves, weeding, or pushing a power mower (4.50 METs) Climb a flight of stairs or walk up a hill (5.50 METs) DASI Score: 23.45 Patient denies any chest pain or undue shortness of breath with the above physical activity. Clinical Frailty Scale: 4. Apparently vulnerable STOP-Bang Score: Snores loudly Patient over 50 years old Male patient Denies feeling tired, fatigued, or sleepy during the daytime Has not been observed to stop breathing or choking/gasping during sleep Denies having high blood pressure BMI less than or equal to 35 kg/m2 Does not have a large neck STOP-Bang Score: 3 [id number] Score: Diabetes history: Yes [id number] Score: ASA Class: 3 ANESTHESIA FINDINGS: Intubation History: No history of difficult intubation Significant Anesthesia Considerations: none Airway History: S/p cervical fusion No history of difficult airway I - PHYSICAL EVALUATION AIRWAY Patient intubated: No. Tracheostomy tube not present Mallampati: I. TM distance: >3 FB. Neck ROM: limited extension. Mouth opening: adequate. Short neck: no. Thick neck: no Ruelas present: no Lip Bite Test: I Microretrognathia/Micronag thia/Recessed Chin: No DENTAL Dental findings: missing tooth/teeth. Additional comments: + Caps/crowns. II - ANESTHESIA PLAN ASA Score: 3 Anesthetic plan additional comments: *PACC/TCI - anesthesia choice. Beta Hilario Monitoring Plan Post Procedure Analgesic Plan Prepared for Surgery: optimally prepared for surgery. CONSULTS: Patient does not require consults for optimization at this time Planned Anesthetic: anesthesia choice The Following Tests/Procedures Have Been Initiated: Orders Placed This Encounter Hemoglobin A1C Standing Status: Future Number of Occurrences: 1 Standing Expiration Date: 07/20/2024 Orders placed by surgeon's office: CBC, CMP, TYPE + SCREEN, CONFIRM BLOOD TYPE, PT/INR, APTT, ECG, URINALYSIS, URINE CULTURE. REASON FOR VISIT: Rebeca Bernard Ortiz is a 63 year old male who is scheduled for Procedure(s): ROBOTIC LAPAROSCOPIC RETROPUBIC RADICAL PROSTATECTOMY W/ NERVE SPARING (N/A) at the request of Natalie Harding MD for consultation. My final recommendation will be communicated back to the requesting physician by way of shared medical record or letter. Subjective The patient has the following: ACTIVE PROBLEM LIST Prostate Cancer (Hcc) Mixed Hyperlipidemia Obsessive-Compulsive Disorder Parkinson's Disease (Hcc) Type 2 Diabetes Mellitus Without Complication (Hcc) History of Cervical Spinal Arthrodesis Generalized Anxiety Disorder Diverticulitis COVID-19 Immunization Status Overdue - Covid-19 Vaccine ( season) Overdue since 06/27/2023 09/22/2021 Imm Admin: COVID-19 original vaccine, age 12+ yr, monovalent (PFIZER-BIONTECH - PURPLE TOP) 01/29/2021 Imm Admin: COVID-19 original vaccine, age 12+ yr, monovalent (PFIZER-BIONTECH - PURPLE TOP) 01/01/2021 Imm Admin: COVID-19 original vaccine, age 12+ yr, monovalent (PFIZER-BIONTECH - PURPLE TOP) Only the first 3 history entries have been loaded, but more history exists. CHIEF COMPLAINT: Malignant neoplasm of prostate HPI: Patient is a 63 year old male presenting to [facility]; has c/o malignant neoplasm of prostate. Patient denies recent fevers, chills, unexplained weight loss, dysuria, hematuria. The above surgery was recommended; patient has elected to proceed. REVIEW OF SYSTEMS: General: No weight loss, malaise or fevers. Neurological: Negative for: seizures, TIA and strokes. Respiratory: No history of curre (more content not included)... Normal [facility] HbA1c (Bld)on 04-20-2024 Average glucose Estimated from glycated hemoglobin (Bld) [Mass/Vol] 146 mg/dL Normal [facility] Comment on above: Order Comment: Speci men Type: BLOOD SPECIMEN Ordering Facility: [facility] Address: [address] [place] [address] Result Comment: eAG: (Estimated average glucose) is a calculated value from HgbA1c and is education courses sales representative of the average blood glucose level in the last 2-3 month period. Performed By: #### 2 4321-2 #### [facility] CLIA [id number] [address] [place] [address] [place] HbA1c (Bld) [Mass fraction] 6.7 % High 4.3-5.6 [facility] Comment on above: Order Comment: Speci men Type: BLOOD SPECIMEN Ordering Facility: [facility] Address: [address] [place] [address] Result Comment: Amer [place] Diabetes Association guidelines indicate that patients with HgbA1c in the range 5.7-6.4% are at increased risk for development of diabetes, and intervention by lifestyle modification may be beneficial. HgbA1c greater or equal to 6.5% is considered diagnostic of diabetes. Performed By: #### 2 4321-2 #### [facility] CLIA [id number] [address] [place] [address] [place] [facility] MRI 3D POST PROCESSINGon MRI 3D POST PROCESSING * * *Final Report* * * DATE OF EXAM: Apr 20 2024 6:05PM [facility] 0280 - MRI 3D POST PROCESSING / PROCEDURE REASON: Malignant neoplasm of prostate (HCC) * * * * Physician Interpretation * * * * EXAMINATION: MRI PELVIS WITHOUT AND WITH IV CONTRAST (MULTIPARAMETRIC PROSTATE MRI) CLINICAL HISTORY: 63 years old with prostate cancer. Pre-treatment staging for prostatectomy. Previous biopsy: Positive, Grade Group 2 (GS 3 + 4) 02/06/2024 PSA: 4.5 ng/mL (02/09/2024) Prior therapy: None. TECHNIQUE: Multiparametric MRI of the prostate and pelvis performed on a 3T scanner utilizing phase pelvic coil. Sequences obtained: multiplanar T2-WI with small FOV; Axial DWI with multiple B-values and creation of ADC-maps; DCE T1-weighted images through the prostate obtained before, during and after the administration of intravenous gadolinium; prostate dimensions and volume were obtained using a semi-automated software (Epuls). THREE-DIMENSIONAL IMAGIND imaging including complex volumetric analysis of the prostate was created on a dedicated stand-alone workstation (Epuls) by the interpreting physician, with images reviewed and archived. PQ: 3-3-3-5 CONTRAST: IV: 20 cc of Dotarem. COMPARISON: None RESULT: Prostate: Dimensions: 5.6 x 3.8 x 4.3 cm corresponding to a volume of approximately 48 cc. Post biopsy hemorrhage: Multifocal faint T1 hyperintensities throughout the peripheral zone may represent hemorrhage from prior biopsy. Peripheral zone: Linear and/or wedge-shaped T2/ADC map hypointensities (PI-RADS 2). No focal lesion. Transition zone: There is mild transition zone hypertrophy, (PI-RADS 1). Lesion #1: Location: right mid anterior transition zone Greatest dimension: 1.2-cm (series:4; image:15) T2-WI: Heterogenous signal intensity with obscured margins (score 3) DWI/ADC: Focal hypointense on ADC and/or focal hyperintense on high b-value DWI (score 3) DCE: Positive Extra-prostatic extension: Absent (no capsule/AFM contact) PI-RADS assessment category: 3 Lesion #2: Location: left mid transition zone Greatest dimension: 1.2-cm (series:4; image:15) T2-WI: Heterogenous signal intensity with obscured margins (score 3) DWI/ADC: Focal hypointense on ADC and/or focal hyperintense on high b-value DWI (score 3) DCE: Positive Extra-prostatic extension: Absent (no capsule/AFM contact) PI-RADS assessment category: 3 Neurovascular bundle: Unremarkable. Seminal vesicles: Unremarkable. Adjacent Organ Involvement: Not applicable. Lymph nodes: No enlarged pelvic lymph nodes. Bladder: Unremarkable. Pelvic bones: No suspicious pelvic osseous lesions. Other Findings: Colonic diverticulosis. IMPRESSION: Two PI-RADS 3 lesions in the bilateral mid transition zone as described. No evidence of maximilian/osseous metastases. Number of targets created for MR/US fusion biopsy: Peripheral zone: 0 Transition zone: 2 If present, targets were numbered in order of level of suspicion for clinically significant prostate cancer (Suzie score 3 + 4 or higher). PI-RADS v2.1 Assessment Categories: PI-RADS 1: Clinically significant cancer is highly unlikely PI-RADS 2: Clinically significant cancer is unlikely PI-RADS 3: Clinically significant cancer is equivocal PI-RADS 4: Clinically significant cancer is likely PI-RADS 5: Clinically significant cancer is highly likely Analog Device Designer: MALCOLM Transcribe Date/Time: Apr 21 2024 8:09A Dictated by : JUAN ANTONIO SCHMIDT MD This examination was interpreted and the report reviewed and electronically signed by: JESSE PATEL MD on Apr 21 2024 10:15AM EST [id number] Normal [facility] MRI PROSTATE WO/W IVCONon MRI PROSTATE WO/W IVCON * * *Final Report* * * DATE OF EXAM: Apr 20 2024 6:05PM Q 0751 - MRI PROSTATE WO/W IVCON / PROCEDURE REASON: Malignant neoplasm of prostate (HCC) * * * * Physician Interpretation * * * * EXAMINATION: MRI PELVIS WITHOUT AND WITH IV CONTRAST (MULTIPARAMETRIC PROSTATE MRI) CLINICAL HISTORY: 63 years old with prostate cancer. Pre-treatment staging for prostatectomy. Previous biopsy: Positive, Grade Group 2 (GS 3 + 4) 02/06/2024 PSA: 4.5 ng/mL (02/09/2024) Prior therapy: None. TECHNIQUE: Multiparametric MRI of the prostate and pelvis performed on a 3T scanner utilizing phase pelvic coil. Sequences obtained: multiplanar T2-WI with small FOV; Axial DWI with multiple B-values and creation of ADC-maps; DCE T1-weighted images through the prostate obtained before, during and after the administration of intravenous gadolinium; prostate dimensions and volume were obtained using a semi-automated software (Epuls). THREE-DIMENSIONAL IMAGIND imaging including complex volumetric analysis of the prostate was created on a dedicated stand-alone workstation (Epuls) by the interpreting physician, with images reviewed and archived. PQ: 3-3-3-5 CONTRAST: IV: 20 cc of Dotarem. COMPARISON: None RESULT: Prostate: Dimensions: 5.6 x 3.8 x 4.3 cm corresponding to a volume of approximately 48 cc. Post biopsy hemorrhage: Multifocal faint T1 hyperintensities throughout the peripheral zone may represent hemorrhage from prior biopsy. Peripheral zone: Linear and/or wedge-shaped T2/ADC map hypointensities (PI-RADS 2). No focal lesion. Transition zone: There is mild transition zone hypertrophy, (PI-RADS 1). Lesion #1: Location: right mid anterior transition zone Greatest dimension: 1.2-cm (series:4; image:15) T2-WI: Heterogenous signal intensity with obscured margins (score 3) DWI/ADC: Focal hypointense on ADC and/or focal hyperintense on high b-value DWI (score 3) DCE: Positive Extra-prostatic extension: Absent (no capsule/AFM contact) PI-RADS assessment category: 3 Lesion #2: Location: left mid transition zone Greatest dimension: 1.2-cm (series:4; image:15) T2-WI: Heterogenous signal intensity with obscured margins (score 3) DWI/ADC: Focal hypointense on ADC and/or focal hyperintense on high b-value DWI (score 3) DCE: Positive Extra-prostatic extension: Absent (no capsule/AFM contact) PI-RADS assessment category: 3 Neurovascular bundle: Unremarkable. Seminal vesicles: Unremarkable. Adjacent Organ Involvement: Not applicable. Lymph nodes: No enlarged pelvic lymph nodes. Bladder: Unremarkable. Pelvic bones: No suspicious pelvic osseous lesions. Other Findings: Colonic diverticulosis. IMPRESSION: Two PI-RADS 3 lesions in the bilateral mid transition zone as described. No evidence of maximilian/osseous metastases. Number of targets created for MR/US fusion biopsy: Peripheral zone: 0 Transition zone: 2 If present, targets were numbered in order of level of suspicion for clinically significant prostate cancer (Pierson score 3 + 4 or higher). PI-RADS v2.1 Assessment Categories: PI-RADS 1: Clinically significant cancer is highly unlikely PI-RADS 2: Clinically significant cancer is unlikely PI-RADS 3: Clinically significant cancer is equivocal PI-RADS 4: Clinically significant cancer is likely PI-RADS 5: Clinically significant cancer is highly likely Analog Device Designer: PSCB Transcribe Date/Time: Apr 21 2024 8:09A Dictated by : JUAN ANTONIO SCHMIDT MD This examination was interpreted and the report reviewed and electronically signed by: JESSE PATEL MD on Apr 21 2024 10:15AM EST [id number] Normal [facility] PT panel Coag (PPP)on 2023 INR Coag (PPP) [Relative time] 1.0 {INR} Normal 0.9-1.3 [facility] Comment on above: Order Comment: Stephanie rodarte Type: BLOOD SPECIMEN Ordering Facility: [facility] Address: [address] [place] [address] Result Comment: Nishi min K Antagonist (VKA) Therapeutic Range: INR 2 to 3 (Target INR of 2.5) Note: For patients treated with VKA drugs, such as warfarin, the [place] [employer] 2012 Guideline recommends a therapeutic INR range of 2 to 3 (target INR of 2.5). This recommendation includes high-risk patients with antiphospholipid syndrome with previous arterial or venous thromboembolism, current-generation mechanical or bioprosthetic aortic heart valve replacement. Note: Patients with mechanical aortic valve replacement and additional risk factors for thromboembolic events (atrial fibrillation, previous thromboembolism, LV dysfunction, hypercoagulable conditions) or an older generation mechanical AVR (i.e., ball in-Cage) or any mechanical MVR should have a INR therapeutic range of 2.5 to 3.5 (target INR of 3). Marquise GH, et al. Chest 2012, 141:7S-47S Jim RA, et al. [facility] 2017, 70: 252-289 Performed By: #### 3 4528-0, 78667-7 #### [facility] CLIA [id number] [address] [place] [address] [place] PT Coag (PPP) [Time] 10.7 s Normal 9.7-13.0 [facility] Comment on above: Order Comment: Stephanie rodarte Type: BLOOD SPECIMEN Ordering Facility: [facility] Address: [address] [place] [address] Performed By: #### 3 4528-0, 85884-8 #### [facility] CLIA [id number] [address] [place] [address] [place] TYPE AND SCREEN,30 DAYon ABO B Normal [facility] Comment on above: Order Comment: Stephanie rodarte Type: BLOOD SPECIMEN Ordering Facility: [facility] Address: [address] [place] [address] Performed By: #### 2 4321-2 #### [facility] CLIA [id number] [address] [place] [address] [place] HISTORICAL AB SCR STATUS Negative Normal [facility] Comment on above: Order Comment: Speci men Type: BLOOD SPECIMEN Ordering Facility: [facility] Address: [address] [place] [address] Performed By: #### 2 4321-2 #### [facility] CLIA [id number] [address] [place] [address] [place] Rh Nom (Bld) Negative Normal [facility] Comment on above: Order Comment: Speci men Type: BLOOD SPECIMEN Ordering Facility: [facility] Address: [address] [place] [address] Performed By: #### 2 4321-2 #### [facility] CLIA [id number] [address] [place] [address] [place] URINALYSIS, REFLEX MICROSCOP ICon 04-20-2024 Bilirubin Ql (U) Negative Negative [facility] Clarity (Unsp spec) Clear Clear [facility] Color (U) Yellow Yellow [facility] Glucose Test strip (U) [Mass/Vol] Negative Negative [facility] Hemoglobin Ql (U) Negative Negative [facility] Interpretation and review of laboratory results Normal [facility] Ketones Ql (U) Negative Negative [facility] Leukocyte esterase Test strip Ql (U) Negative Negative [facility] Nitrite Ql (U) Negative Negative [facility] pH (U) 6.0 [pH] NINF - 8.5 [facility] Protein (U) [Mass/Vol] Negative Negative [facility] Specific gravity (U) [Rel density] 1.015 1.005 - 1.030 [facility] Urobilinogen Ql (U) 1.0 EU/dL 0.2-1.0 EU/dL [facility] This test was develo ped and its performance characteristics determined by [facility]'s Natalie Dunn [facility] [place] ([facility]). It has not been cleared or approved by the FDA. [facility] is regulated under CLIA as qualified to perform high-complexity testing. This test is used for clinical purposes. It should not be regarded as investigational or for research. [facility] Bilirubin Ql (U) Negative Normal Negative [facility] Comment on above: Order Comment: Speci men Type: BLOOD SPECIMEN Ordering Facility: [facility] Address: [address] [place] [address] Performed By: #### 3 4528-0, 62230-1 #### [facility] CLIA [id number] [address] [place] [address] [place] Clarity (Unsp spec) Clear Normal Clear [facility] Comment on above: Order Comment: Speci men Type: BLOOD SPECIMEN Ordering Facility: [facility] Address: [address] [place] [address] Performed By: #### 3 4528-0, 20573-1 #### [facility] CLIA [id number] [address] [place] [address] [place] Color (U) Yellow Normal Yellow [facility] Comment on above: Order Comment: Speci men Type: BLOOD SPECIMEN Ordering Facility: [facility] Address: [address] [place] [address] Performed By: #### 3 4528-0, 92325-1 #### [facility] CLIA [id number] [address] [place] [address] [place] Glucose Test strip (U) [Mass/Vol] Negative Normal Negative [facility] Comment on above: Order Comment: Speci men Type: BLOOD SPECIMEN Ordering Facility: [facility] Address: [address] [place] [address] Performed By: #### 3 4528-0, 00185-1 #### [facility] CLIA [id number] [address] [place] [address] [place] Hemoglobin Ql (U) Negative Normal Negative [facility] Comment on above: Order Comment: Speci men Type: BLOOD SPECIMEN Ordering Facility: [facility] Address: [address] [place] [address] Performed By: #### 3 4528-0, 87933-4 #### [facility] CLIA [id number] [address] [place] [address] [place] Ketones Ql (U) Negative Normal Negative [facility] Comment on above: Order Comment: Speci men Type: BLOOD SPECIMEN Ordering Facility: [facility] Address: [address] [place] [address] Performed By: #### 3 4528-0, 17085-2 #### [facility] CLIA [id number] [address] [place] [address] [place] Leukocyte esterase Test strip Ql (U) Negative Normal Negative [facility] Comment on above: Order Comment: Speci men Type: BLOOD SPECIMEN Ordering Facility: [facility] Address: [address] [place] [address] Performed By: #### 3 4528-0, 80257-3 #### [facility] CLIA [id number] [address] [place] [address] [place] Nitrite Ql (U) Negative Normal Negative [facility] Comment on above: Order Comment: Speci men Type: BLOOD SPECIMEN Ordering Facility: [facility] Address: [address] [place] [address] Performed By: #### 3 4528-0, 38124-5 #### [facility] CLIA [id number] [address] [place] [address] [place] pH (U) 6.0 [pH] Normal <8.5 [facility] Comment on above: Order Comment: Speci men Type: BLOOD SPECIMEN Ordering Facility: [facility] Address: [address] [place] [address] Performed By: #### 3 4528-0, 07729-6 #### [facility] CLIA [id number] [address] [place] [address] [place] Protein (U) [Mass/Vol] Negative Normal Negative [facility] Comment on above: Order Comment: Speci men Type: BLOOD SPECIMEN Ordering Facility: [facility] Address: [address] [place] [address] Performed By: #### 3 4528-0, 92947-6 #### [facility] CLIA [id number] [address] [place] [address] [place] Specific gravity (U) [Rel density] 1.015 Normal 1.005-1.030 [facility] Comment on above: Order Comment: Speci men Type: BLOOD SPECIMEN Ordering Facility: [facility] Address: [address] [place] [address] Performed By: #### 3 4528-0, 60706-5 #### [facility] CLIA [id number] [address] [place] [address] [place] Urobilinogen Ql (U) 1.0 EU/dL Normal 0.2-1.0 EU/dL [facility] Comment on above: Order Comment: Speci men Type: BLOOD SPECIMEN Ordering Facility: [facility] Address: [address] [place] [address] Performed By: #### 3 4528-0, 09413-6 #### [facility] CLIA [id number] [address] [place] [address] [place] aPTT PPPon 04-20-2024 aPTT Coag (PPP) [Time] 28.4 s Normal 23.0-32.4 [facility] Comment on above: Order Comment: Speci men Type: BLOOD SPECIMEN Ordering Facility: [facility] Address: [address] [place] [address] Performed By: #### 3 4528-0, 32206-2 #### [facility] CLIA [id number] [address] [place] [address] [place] CNPNon 04-19-2024 CNPN Telephone (GLQ) -- REBECA WAGNER SR. ([id number]) 1960 M Date Time Provider Department 04/19/24 LIZBETH CEJA GLQ During your visit today, we recorded the following information about you: Lizbeth Ceja, RN 04/19/2024 3:58 PM Signed Spoke to Mr. Wagner. Clarified all questions regarding preop appt tomorrow and MRI prostate. He will do the fleet enema before he leaves his house as he is an hour away, and eat light and drink plenty of fluids because the enema will be done about 6 hours prior to the MRI. All questions answered at this time. Pt verbalized understanding. Lizbeth Ceja RN, BSN Triage Nurse Department of Urology [facility] Allergies As of Date: 04/19/2024 Noted Allergy Reaction CIPROFLOXACIN 06/07/2013 7 - Swelling 16 - Unknown Date Reviewed: 02/13/2024 Reviewed by: Angelo Guevara MA - Fully Assessed Reason for Visit: Returning Patient's Call [[id number]] Prescriptions as of 04/19/2024 - allopurinol (ZYLOPRIM) 300 mg tablet Take 1 tablet by mouth every afternoon. - ALPRAZolam (XANAX) 0.5 mg tablet TAKE 1 TABLET BY MOUTH 3 TIMES A DAY NEEDED FOR ANXIETY FOR 7 DAYS *TAKE DISCUSSED IN OFFICE. - atorvastatin calcium (ATORVASTATIN ORAL) Atorvastatin Calcium Active - FLUoxetine HCl 20 mg tablet Take 40 mg by mouth. - glimepiride (AMARYL) 4 mg tablet TAKE 1 TABLET BY MOUTH IN THE MORNING WITH BREAKFAST OR FIRST MAIN MEAL OF THE DAY - ibuprofen-famotidine 800-26.6 mg tab q 8 HR. - FREESTYLE LANCETS 28 gauge once daily. - metFORMIN ER (FORTAMET) 1,000 mg 24 hr tablet TAKE 1 TABLET BY MOUTH IN THE EVENING WITH MEALS, DO NOT CRUSH, CHEW, OR SPLIT - Phentermine HCl 37.5 mg tablet TAKE 1 TABLET (37.5 MG) BY MOUTH IN THE MORNING. TAKE BEFORE MEALS. - rOPINIRole (REQUIP) 1 mg tablet Take 1 mg by mouth. - rosuvastatin (CRESTOR) 5 mg tablet Take 1 tablet by mouth once daily. Problem List As Of Date 04/19/2024 Noted Resolved Prostate cancer (HCC) [C61] 02/13/2024 Encounter Status:Closed by LIZBETH CEJA on 04/19/24 Normal [facility] CNOVon 02-13-2024 CNOV Office Visit (UROLMN ) -- REBECA WAGNER SR. ([id number]) 1960 M Date Time Provider Department 02/13/24 9:30 AM NATALIE OTERO URONEO During your visit today, we recorded the following information about you: Pulse Blood pressure Weight Height 90/minute 164/98 106.7 kg 1.753 m Natalie Otero MD 03/29/2024 2:05 PM Signed [facility] NEW PATIENT HISTORY AND PHYSICAL EXAM PATIENT INFO: Rebeca Wagner Sr. REFERRING M.D.: Mario Rodriguez MD PCP: No primary care provider on file. Consultation requested by Mario Rodriguez MD and my final recommendations will be communicated back to the requesting physician by way of shared medical record or letter via US mail. CHIEF COMPLAINT: Prostate Cancer HPI This is a 63 year old male here for evaluation for prostate cancer. Referral from Mario Rodriguez MD. PSA was elevated to 4.5. He then had TRUS and prostate biopsy. Prostate was ~40g on US. Pathology demonstrated 6 cores of Gl 3+4=7 prostate cancer. He has not had MRI of the prostate. Patient can get erections but has premature ejaculation. Has not had sexual activity for many years. Sexual function after surgery is not the most important thing to him. No major urinary issues. Wakes up 1-2x per night to void. Recent A1C is 7.3. Patient would feel more anxiety with radiation and leaving the prostate in the body. PMH: DM, HLD, gout, anxiety, OCD PSH: no abdominal surgeries, neck surgery with metal Family History: No PATHOLOGY: LABS: No results found for: CREAT No results found for: PSA URINALYSIS: No results found for: PH , SPGR , UGLUC , UBILI , UKET , UHB , UPROT , UROBIL , NITRITES , UWBC , SSA IMAGING: US Prostate: IMPRESSION: Mildly enlarged prostate gland ALLERGIES: ALLERGIES Not on File MEDICATIONS: No current outpatient medications on file. No current facility-administered medications for this visit. HISTORIES No past medical history on file. No past surgical history on file. No family history on file. REVIEW OF SYSTEMS CONSTITUTIONAL: no recent illnesses, normal energy levels, no pain EYES: no recent visual changes, no acute loss of vision, no bleeding EARS/NOSE/THROAT: no bleeding, no discharge, no difficulty swallowing CARDIOVASCULAR: no dependent edema, no chest pain, no blue or cold limbs RESPIRATORY: no wheeze, no orthopnea, no dyspnea at rest, no dyspnea on exertion GASTROINTESTINAL: no constipation, no diarrhea, no bloody stool GENITOURINARY: see history of present illness MUSCULOSKELETAL: no joint swelling, no joint pain, no loss of mobility NEUROLOGIC: no stroke symptoms, no loss of function, no loss of sensation PSYCHIATRIC: no feelings of depression, no feelings of anxiety, normal mood SKIN: no persistent rashes, no predisposition to infection, no poor wound healing HEMATOLOGIC: no easy bruising, no easy bleeding, no clotting predisposition PHYSICAL EXAMINATION VITALS: There were no vitals taken for this visit. GENERAL: alert, no distress, normal affect EYES: no icterus, no discharge, conjugate gaze CARDIOVASCULAR: deferred RESPIRATORY: Breathing comfortably on room air ABDOMEN: soft, non-tender, non-distended GENITOURINARY: no flank tenderness EXTREMITIES: warm, no dependent edema, no malformations SKIN: no abnormal bruising, no rashes, no cyanosis NEUROLOGIC: normal gait, good manual dexterity, no paralysis PROBLEMS: 1. Prostate cancer (HCC) - ICD9: 185, ICD10: C61 IMPRESSION: This is a 63 year old male with 6 out of 20 cores of Suzie 3+4=7 prostate cancer diagnosed with elevated PSA. PLAN: 1) Discussion had with patient about his PSA and biopsy results. He is favorable intermediate risk group. Discussed options for treatment including surgery and radiation. Will plan on getting MRI before surgery. Patient would like to proceed with Robotic prostatectomy with pre-ops including, PACC, pre-op teaching, labs, EKG, MRI prostate at [facility] or [facility]. Surgery scheduled for 04/26/24. His main priorities are cancer control and urinary incontinence. Erections have some importance but other factors are greatly more important. Would plan to save nerves but take great care in staying away from left side of prostate. Scribe Attestation: By signing my name below, I, Phillip Jaimes, attest that this documentation has been prepared under the direction and in the presence of Dr. Natalie Otero MD. Electronically signed: Andrei Piedra, February 13, 2024 11:32 AM I, Natalie Otero MD, personally performed the services described in this documentation. All medical record entries made by the scribe were at my direction and in my presence. I have reviewed the chart and discharge instructions (if applicable) and agree that the record reflects my personal pe (more content not included)... Normal [facility] URINALYSIS, REFLEX MICROSCOP ICon 02-13-2024 Bilirubin Ql (U) Negative Negative [facility] Clarity (Unsp spec) Clear Clear [facility] Color (U) Light Yellow Yellow [facility] Glucose Test strip (U) [Mass/Vol] 1+ Abnormal Trace, Negative [facility] Hemoglobin Ql (U) Negative Negative, Trace [facility] Ketones Ql (U) Negative Negative, Trace [facility] Leukocyte esterase Test strip Ql (U) Negative Negative, 25 Jocelyne/uL [facility] Nitrite Ql (U) Negative Negative [facility] pH (U) 6.0 [pH] 5.0 - 8.0 [facility] Protein (U) [Mass/Vol] Negative Trace, Negative [facility] Specific gravity (U) [Rel density] 1.011 1.005 - 1.030 [facility] Urobilinogen Ql (U) Normal Normal [facility] Bilirubin Ql (U) Negative Normal [facility] Comment on above: Order Comment: Speci men Type: URINE SPECIMENOrdering Facility: [facility] Address: [address] [place] [address] Performed By: #### L [id number] ####[facility] [id number] [place] [address] [place] Clarity (Unsp spec) Clear Normal Clear [facility] Comment on above: Order Comment: Speci men Type: URINE SPECIMENOrdering Facility: [facility] Address: [address] [place] [address] Performed By: #### L [id number] ####[facility] [id number] [place] [address] [place] Color (U) Light Yellow Normal Yellow [facility] Comment on above: Order Comment: Speci men Type: URINE SPECIMENOrdering Facility: [facility] Address: [address] [place] [address] Performed By: #### L [id number] ####[facility] [id number] [place] [address] [place] Glucose Test strip (U) [Mass/Vol] 1+ Abnormal Trace, Negative [facility] Comment on above: Order Comment: Speci men Type: URINE SPECIMENOrdering Facility: [facility] Address: [address] [place] [address] Performed By: #### L [id number] ####[facility] [id number] [place] [address] [place] Hemoglobin Ql (U) Negative Normal Negative, Trace [facility] Comment on above: Order Comment: Speci men Type: URINE SPECIMENOrdering Facility: [facility] Address: [address] [id number] Performed By: #### L [id number] ####[facility] [id number] [place] [address] [place] Ketones Ql (U) Negative Normal Negative, Trace [facility] Comment on above: Order Comment: Speci men Type: URINE SPECIMENOrdering Facility: [facility] Address: [address] [place] [address] Performed By: #### L [id number] ####[facility] [id number] [place] [address] [place] Leukocyte esterase Test strip Ql (U) Negative Normal Negative, 25 Jocelyne/uL [facility] Comment on above: Order Comment: Speci men Type: URINE SPECIMENOrdering Facility: [facility] Address: [address] [place] [address] Performed By: #### L [id number] ####[facility] [id number] [place] [address] [place] Nitrite Ql (U) Negative Normal Negative [facility] Comment on above: Order Comment: Speci men Type: URINE SPECIMENOrdering Facility: [facility] Address: [address] [place] [address] Performed By: #### L [id number] ####[facility] [id number] [place] [address] [place] pH (U) 6.0 [pH] Normal 5.0-8.0 [facility] Comment on above: Order Comment: Speci men Type: URINE SPECIMENOrdering Facility: [facility] Address: [address] [place] [address] Performed By: #### L [id number] ####[facility] [id number] [place] [address] [place] Protein (U) [Mass/Vol] Negative Normal Trace, Negative [facility] Comment on above: Order Comment: Speci men Type: URINE SPECIMENOrdering Facility: [facility] Address: [address] [place] [address] Performed By: #### L [id number] ####[facility] [id number] [place] [address] [place] Specific gravity (U) [Rel density] 1.011 Normal 1.005-1.030 [facility] Comment on above: Order Comment: Speci men Type: URINE SPECIMENOrdering Facility: [facility] Address: [address] [place] [address] Performed By: #### L [id number] ####[facility] [id number] [address] OF [facility] Urobilinogen Ql (U) Normal Normal Normal [facility] Comment on above: Order Comment: Speci men Type: URINE SPECIMENOrdering Facility: [facility] Address: [address] [place] [address] Performed By: #### L [id number] ####[facility] [id number] [place] [address] [place] Main OR Intraoperative Recor don 01-20-2024 Main OR Intraoperative Record IntraOp Document Type FT Summary Primary Physician: Mario RODRIGUEZ MD Finalized Date/Time: 01/20/24 13:37:39 Pt. Name: BERNARD REBECA MARTINEZ./Sex: 1960 Male Med Rec #: [id number] Physician: Mario RODRIGUEZ MD Financial #: [id number] Pt. Type: A Room/Bed: [place] [address] Admit/Disch: 01/15/24 11:00:01 - 01/15/24 17:30:00 Institution: Case Times FT Entry 1 Patient Times In Room 01/15/24 14:41:00 Out Room 01/15/24 15:20:00 Procedure Times Start 01/15/24 15:01:00 Stop 01/15/24 15:15:00 Anesthesia Times Start 01/15/24 14:41:00 Stop 01/15/24 15:20:00 Last Modified By: Kelsie Alas 01/15/24 15:26:08 General Comments: 01/16/24 Chart opened for charge review per Jason Mansfield RN. [place] 01/20/24 opened for chart review -muna acevedo rn Case Attendance FT Entry 1 Entry 2 Entry 3 Case Attendee Kelsie Alas MD, Mario Alvarez DNP, [employer], [place]. Role Performed State Wildlife Officer - Primary Surgeon - Primary [employer] Time In 01/15/24 14:41:00 01/15/24 14:41:00 01/15/24 14:41:00 Time Out 01/15/24 15:20:00 01/15/24 15:20:00 01/15/24 15:20:00 Procedure TRANSRECTAL ULTRASOUND TRANSRECTAL ULTRASOUND TRANSRECTAL ULTRASOUND PROSTATE W/ BX(.) PROSTATE W/ BX(.) PROSTATE W/ BX(.) Comments IS SUPERVISING Last Modified By: Kelsie Alas Kelsie E Burgderfer, Kelsie E 01/15/24 15:26:24 01/15/24 15:26:24 01/15/24 15:26:24 Entry 4 Entry 5 Entry 6 Case Attendee Holly Fuller DMS, RVT, Anastacia Burton Role Performed Scrub - Primary National Account Representative National Account Representative Time In 01/15/24 14:41:00 01/15/24 14:41:00 01/15/24 14:41:00 Time Out 01/15/24 15:13:00 01/15/24 15:20:00 01/15/24 15:20:00 Procedure TRANSRECTAL ULTRASOUND TRANSRECTAL ULTRASOUND TRANSRECTAL ULTRASOUND PROSTATE W/ BX(.) PROSTATE W/ BX(.) PROSTATE W/ BX(.) Comments Last Modified By: Kelsie Alas Kelsie E Burgderfer, Kelsie E 01/15/24 15:26:24 01/15/24 15:26:24 01/15/24 15:26:24 Entry 7 Entry 8 Case Attendee Dionicio RN, Jhon Borjas Role Performed Staff - Other Scrub - Relief Time In 01/15/24 14:41:00 01/15/24 15:12:00 Time Out 01/15/24 15:20:00 01/15/24 15:20:00 Procedure TRANSRECTAL ULTRASOUND TRANSRECTAL ULTRASOUND PROSTATE W/ BX(.) PROSTATE W/ BX(.) Comments assisting as needed Last Modified By: Kelsie Alas Kelsie E 01/15/24 15:26:24 01/15/24 15:26:24 General Comments: helen [facility] [employer] [facility] student, scrubbed in and in attendance.melly benítez. Perioperative Protocols FT Pre-Care Text: Implements protective measures prior to operative or invasive procedure, confirms identity before the operative or invasive procedure, verifies operative procedure, surgical site, and laterality Entry 1 Procedure(s) TRANSRECTAL ULTRASOUND Patient Identity Birthday, ID Band PROSTATE W/ BX(.) Verified (select at Check, Patient least 2): Participation Consents / H and P Anesthesia Consent, Operative Site N/A Verified HandP, Surgery/Procedure Marking Verified Consent, Transfusion Consent Surgical Site Yes Laterality Verified n/a Verified Procedure Verified Yes Correct Patient Yes Position Verified Availability Equipment, Medication Prep Dry n/a Verified (If Applicable) PreOp Antibiotic Yes Time Out Kelsie Alas, Given Participants Mario RODRIGUEZ MD, Kim DNP, [employer], [facility], [facility] Frandy [facility], RVT, Valentina Sousa Heather, Ferrer RN, Mayela Richardson Time Out Complete 01/15/24 14:51:00 Outcomes Met? Yes Last Modified By: Kelsie Alas 01/15/24 14:59:13 Post-Care Text: The patient is free from signs and symptoms of injury caused by extraneous objects Allergy Information FT Pre-Care Text: Verifies allergies Entry 1 Allergies Reviewed? Yes Allergies Reviewed Self/Patient With Outcomes Met? Yes Last Modified By: Kelsie Alas 01/15/24 14:27:39 Post-Care Text: The patient received appropriate medication(s) safely administered during the perioperative period Surgical Procedures FT Entry 1 Procedure Description Procedure TRANSRECTAL ULTRASOUND Modifiers . PROSTATE W/ BX Surgeon Description TRANSRECTAL ULTRASOUND PROSTATE W/ BX Primary Procedure Yes Primary Surgeon Mario RODRIGUEZ MD Start 01/15/24 15:01:00 Stop 01/15/24 15:15:00 Anesthesia Type General Surgical Service Urology Wound Class 2 - Clean-Contaminated Last Modified By: Kelsie Alas 01/15/24 15:26:19 General Case Data FT Pre-Care Text: Classifies surgical wound, implements aseptic technique, initiates traffic control Entry 1 Case Information OR OR 6 FT Case Level Level 2 Wound Class 2 - Clean-Contaminated Specialty Urology ASA Class 3 Preop Diagnosis ELEVATED PSA, DAVID ON Postop Same As Preop Yes PREVIOUS BIOPSY Postop Diagnosis ELEVATED PSA, DAVID ON Outcomes Met? Yes PREVIOUS BIOPSY Last Modified By: Valerie (more content not included)... Normal [facility] IntraOperative Documentson 0 01-19-2024 IntraOperative Documents [id number]#1.00TIFF Normal [facility] Consent for Anesthesiaon Consent for Anesthesia [id number]#1.00TIFF [facility] Discharge Instructionson Discharge Instructions [id number]#1.00TIFF [facility] IntraOperative Documentson 0 01-16-2024 IntraOperative Documents [id number]#1.00TIFF [facility] Physician Orderon 01-16-2024 Physician Order [id number]#1.00TIFF [facility] Preoperative Documentson Preoperative Documents [id number]#1.00TIFF [facility] CHEMISTRYOrdered By: Lab ROP User on 01-15-2024 Glucose [Mass/Vol] 184 mg/dL High 55 - 99 mg/dL [facility] [place] Comment on above: Result Comment: Johny PAVON POC Device SN [id number] 1 Invalid Interpretation Code [facility] [place] Subsection POC User ID [id number] 1 Invalid Interpretation Code [facility] [place] Subsection POC Username MARY ALBRIGHT Invalid Interpretation Code [facility] [place] Subsection Capillary Glucose POCon 12-26 Glucose [Mass/Vol] 184 mg/dL High 55-99 [facility] Comment on above: Result Comment: Johny PAVON Performed By: #### 2 [id number] ####[facility] [id number] [place] [address] Consent for Procedure/Surger yon 01-15-2024 Consent for Procedure/Surgery [id number]#1.00TIFF Normal [facility] Consent for Treatmenton 12-26 Consent for Treatment [id number]#1.00TIFF Normal [facility] Discharge Instructionson Discharge Instructions BERNARD MARTINEZ REBECA Jimenez :1960 Visit Date:01/15/2024 Inpatient Discharge Instructions Your Care Team Admitting Physician - Mario RODRIGUEZ MD Referring Physician - Mario RODRIGUEZ MD Reason for Your Visit ELEVATED PSA, DAVID ON PREVIOUS BIOPSY Your Diagnosis Preoperative clearance Tests Performed Pathology Tissue Exam -- Results Pending -- Chest XR 2 Views US Procedure Outside Department -- Results Pending -- Please visit your patient portal for your results or contact your primary care physician. This Is Your Medications List allopurinol (allopurinol 300 mg Tab) alprazolam (Xanax 1 mg Tab) busPIRone (busPIRone 15 mg Tab) doxycycline (doxycycline hyclate 100 mg Cap) fluoxetine (FLUoxetine (Eqv-Prozac) 20 mg oral tablet) glimepiride (glimepiride 2 mg Tab) metformin (metformin 500 mg ER Tab) ropinirole (ropinirole 1 mg Tab) rosuvastatin (rosuvastatin 5 mg Tab) Procedure History Transrectal biopsy of prostate using ultrasound guidance (11/20/2023), Colonoscopy, Procedure on neck, Ts - Tonsillectomy. What to do next Instructions From Your Doctor Event Name Event Result Discharge Instructions Freetext Patient is to finish his oral antibiotic course.He is to present to an emergency room if he gets a temp near 101 and or if he has shaking chills that will not stop Discharge Activity Resume normal activities in 24 hours Discharge Restrictions No driving for 24 hrs Discharge Diet(s) Regular Call Your Doctor For Temperature above 101.5 degrees [facility] Discharge Instructions Discharge Instructions Previously Scheduled Follow-Up Appointments Friday 9:45 AM EDT With: Mario RODRIGUEZ MD Where: [facility] Comment on above: Result Comment: Elec tronically Signed By: Chris PORTILLO, Sherrill Castano\.nahomi\Date and Time Signed: 01/15/24 16:14 EDT H&P Updateon 01-15-2024 H&P Update [id number]#1.00TIFF [facility] Main OR PACU I Recordon 12-26 Main OR PACU I Record PACU Phase I Document Type FT Summary Primary Physician: Mario RODRIGUEZ MD Finalized Date/Time: 01/15/24 16:08:28 Pt. Name: BERNARD REBECA MARTINEZ/Sex: 1960 Male Med Rec #: [id number] Physician: Mario RODRIGUEZ MD Financial #: [id number] Pt. Type: A Room/Bed: [place] [address] Admit/Disch: 01/15/24 11:00:01 - Institution: Case Times PACU I FT Pre-Care Text: Identifies barriers to communication and implements measures to provide psychological support Develops individualized plan of care, and ensures continuity of care Maintains patient's dignity and privacy, and maintains patient confidentiality Identifies and reports philosophical, cultural, and spiritual beliefs and values Identifies individual values and wishes concerning care Implements aseptic technique, and administers prescribed antibiotic therapy and immunizing agents as ordered Evaluates postoperative tissue perfusion Implements thermoregulation measures, and monitors body temperature Evaluates postoperative respiratory status Evaluates postoperative cardiac status Evaluates postoperative neurological status Assesses pain control, collaborated in initiating patient-controlled analgesia and implements alternative methods of pain control Verifies allergies, administers prescribed medications and solutions, evaluates response to medications Entry 1 In PACU I 01/15/24 15:22:00 Discharge from PACU 01/15/24 15:52:00 I Outcomes Met? Yes Last Modified By: Sherin Rao RN 01/15/24 16:08:11 Post-Care Text: The patient demonstrates knowledge of the expected response to the operative or invasive procedure The patient's care is consistent with the individualized perioperative plan of care The patient's right to privacy is maintained The patient's value system, lifestyle, ethnicity, and culture are considered, respected, and incorporated into the perioperative plan of care The patient participates in decisions affecting his or her perioperative plan of care The patient is free from signs and symptoms of infection The patient has wound/tissue perfusion consistent with or improved from baseline levels established preoperatively The patient is at or returning to normothermia at the conclusion of the immediate postoperative period The patient's respiratory function is consistent with or improved from baseline levels established preoperatively The patient's cardiovascular status is consistent with or improved from baseline levels established preoperatively The patient's cardiovascular status is consistent with or improved from baseline levels established preoperatively The patient demonstrates and/or reports adequate pain control throughout the perioperative period The patient received appropriate medication(s), safely administered during the perioperative period Acuity Level PACU I FT Entry 1 Start Time 01/15/24 15:22:00 Stop Time 01/15/24 15:52:00 Acuity Level Acuity Level I Last Modified By: Sherin Rao RN 01/15/24 16:08:24 Finalized By: Sherin Rao RN Document Signatures Signed By: Sherin Rao RN 01/15/24 16:08 Normal [facility] Main OR PACU II Recordon Main OR PACU II Record PACU Phase II Document Type FT Summary Primary Physician: Mario RODRIGUEZ MD Finalized Date/Time: 01/15/24 17:43:18 Pt. Name: BERNARD REBECA MARTINEZ/Sex: 1960 Male Med Rec #: [id number] Physician: Mario RODRIGUEZ MD Financial #: [id number] Pt. Type: A Room/Bed: [facility]03/27 Admit/Disch: 01/15/24 11:00:01 - Institution: Case Times PACU II FT Pre-Care Text: Identifies barriers to communication and implements measures to provide psychological support and determines knowledge level Develops individualized plan of care, and ensures continuity of care Maintains patient's dignity and privacy, and maintains patient confidentiality Identifies and reports philosophical, cultural, and spiritual beliefs and values Identifies individual values and wishes concerning care administers prescribed antibiotic therapy and immunizing agents as ordered, Evaluates postoperative tissue perfusion Implements thermoregulation measures, and monitors body temperature Evaluates postoperative respiratory status Evaluates postoperative cardiac status Evaluates postoperative neurological status Assesses pain control, collaborated in initiating patient-controlled analgesia and implements alternative methods of pain control Verifies allergies, administers prescribed medications and solutions, evaluates response to medications Entry 1 In PACU II 01/15/24 15:55:00 Discharge from PACU 01/15/24 17:30:00 II Outcomes Met? Yes Last Modified By: Mary Albright RN 01/15/24 17:43:17 Post-Care Text: The patient demonstrates knowledge of the expected response to the operative or invasive procedure The patient's care is consistent with the individualized perioperative plan of care The patient's right to privacy is maintained The patient's value system, lifestyle, ethnicity, and culture are considered, respected, and incorporated into the perioperative plan of care The patient participates in decisions affecting his or her perioperative plan of care. The patient is free from signs and symptoms of infection The patient has wound/tissue perfusion consistent with or improved from baseline levels established preoperatively The patient is at or returning to normothermia at the conclusion of the immediate postoperative period The patient's respiratory function is consistent with or improved from baseline levels established preoperatively The patient's cardiovascular status is consistent with or improved from baseline levels established preoperatively The patient's neurological status is consistent with or improved from baseline levels established preoperatively The patient demonstrates and/or reports adequate pain control throughout the perioperative period The patient received appropriate medication(s), safely administered during the perioperative period Finalized By: Mary Albright RN Document Signatures Signed By: Mary Albright RN 01/15/24 17:43 Normal [facility] Main OR Preoperative Recordo n 01-15-2024 Main OR Preoperative Record PreOp Document Type FT Summary Primary Physician: Mario RODRIGUEZ MD Finalized Date/Time: 01/15/24 14:59:25 Pt. Name: REBECA WAGNER SR/Sex: 1960 Male Med Rec #: [id number] Physician: Mario RODRIGUEZ MD Financial #: [id number] Pt. Type: A Room/Bed: [place] [address] Admit/Disch: 01/15/24 11:00:01 - Institution: Case Times PreOp FT Pre-Care Text: Verifies consent for planned procedure, identifies individual values and wishes concerning care, includes family members in perioperative teaching Entry 1 Patient Times. In Pre Surgery 01/15/24 11:25:00 Out Pre Surgery 01/15/24 14:39:00 Outcomes Met? Yes Last Modified By: Kelsie Alas 01/15/24 14:59:24 Post-Care Text: The patient participates in decisions affecting his or her perioperative plan of care Finalized By: Kelsie Alas Document Signatures Signed By: Kelsie Alas 01/15/24 14:59 Normal [facility] Monitor Recordon 01-15-2024 Monitor Record [id number]#1.00TIFF Normal [facility] Monitor Record [id number]#1.00TIFF Normal [facility] Operative Reporton Operative Report Patient: REBECA WAGNER SR Age: 63 years Sex: Male : 1960 Associated Diagnoses: None Author: Mario RODRIGUEZ MD Postoperative Information Procedure: 1. Transrectal ultrasound of the prostate. 2. Prostate needle biopsies. Date/ Time: 01/15/2024 15:24:00 Preoperative Diagnosis: 1. Elevated PSA. 2. DAVID on previous biopsy.. Postoperative Diagnosis: same. Procedure: Anesthesia Method: General. Performed by: Mario Rodriguez MD. Findings Specimens Removed: 6 biopsy cores from the left apex and 2 biopsy cores from all the other sites.. Estimated Blood Loss: 20 ml. Orders Complications: None. Notes: Indications: This gentleman has an elevated PSA of 4.5. He underwent a transrectal ultrasound and biopsy of the prostate in October 2023 and he was found to have DAVID on one of his cores. He now presents for repeat biopsy of the prostate. He has signed an informed consent after all risks were explained. Some of these risks include bleeding, infection, urosepsis and anesthesia to name a few. Procedure: The patient was brought to the operating room and placed on the operating room table in the left lateral decubitus position. Timeout was done by all parties in the room. We all agreed upon the patient's identification and the planned procedures for this patient. SCDs were placed on his lower extremities and turned on and functioning during the entire case. MAC anesthesia was administered. We then passed the ultrasound probe per rectum the patient continued to move and we then had to undergo general anesthesia via LMA. We then scanned the prostate in the transverse and longitudinal views. The volume was calculated to be 30 g. No hypoechoic areas were noted. Minimal calcification was noted. While in the sagittal view we began taking biopsies from the left base going towards the apex. From the L1-L2 and L3 sites we took 2 biopsies. At L4, the prior DAVID site, we took 6 biopsies. We then went to the right side and took 2 biopsies from each of 4 levels. After obtaining 20 satisfactory cores the probe was removed. He was then transferred to a [facility] bed and wheeled to PACU in stable condition. Of note is that he had Ancef and gentamicin preoperatively. He has been on oral doxycycline. He cannot take quinolones due to allergy. He has 4 more days of doxycycline to finish. . Anesthesia type: General. Normal [facility] Comment on above: Result Comment: Elec tronically Signed By: JENNIFER HURTADO, Mario Houston\.br\Date and Time Signed: 01/15/24 15:29 EDT Patient Education - Texton 0 01-15-2024 Patient Education - Text Transrectal Ultrasound of the Prostate with US guided biopsy ? Even though there are no visible incisions, multiple prostate biopsies have been taken through the rectum and you need to follow some instructions to minimize the risks of bleeding. ? You may see some blood in your urine and stool for up to 1 week (and blood in the semen for several months) ? Diet -You may resume your normal diet, but you may want to avoid alcohol, carbonated drinks, caffeine, and spicy foods, which may increase the irritation from the surgery. -Drink plenty of water to keep the urine clear. ? Activity -You should limit any physical activity for about 48 hours -No heavy lifting or straining (10 pound limit) -No driving a car and limit long car rides for 2 days -No strenuous exercise -No sexual intercourse until this is discussed with your doctor ? Bowels -Try to keep your bowel movements soft to minimize straining to have a bowel movement. -You may use a stool softener or over the counter laxative if needed -Difficult bowel movement may lead to straining and bleeding from the prostate ? Medications -You may resume your home medications unless instructed otherwise -Hold aspirin, ibuprofen, Coumadin (warfarin) and other blood thinners for about two days or until there is no active bleeding unless otherwise instructed -Finish the antibiotic which you have already started ? Things to watch for which would require an Emergency Room visit or call 911: (this is not a complete list) -Persistent or heavy bleeding or blood clots from the rectum or in the urine -Inability to urinate -Fever over 101.5 degrees Fahrenheit, with or without chills -Severe drug reactions with itching, hives or rash -Tenderness or swelling of the calves, chest pain, or shortness of breath ? Please call the office to arrange for your post-operative appointment in 1-2 weeks [phone] or [phone] [facility] Progress Note-Physicianon Progress Note-Physician Patient: REBECA WAGNER SR Age: 63 years Sex: Male : 1960 Associated Diagnoses: None Author: Brian Ochoa Jr., DO Postoperative Information Postoperative disposition: Postoperative disposition: Home. Optimetrix number: Optimetrix number [id number]. Anesthetic utilized: General. Physical Examination Vital Signs 01/15/2024 15:45 EDT Temperature Axillary 36.7 DegC Heart Rate Monitored 80 bpm Respiratory Rate Monitored 12 br/min Systolic Blood Pressure 136 mmHg Diastolic Blood Pressure 89 mmHg Blood Pressure Location Left arm Mean Arterial Pressure, Cuff 105 mmHg SpO2 96 % 01/15/2024 15:35 EDT Heart Rate Monitored 83 bpm Respiratory Rate Monitored 13 br/min Systolic Blood Pressure 151 mmHg HI Diastolic Blood Pressure 92 mmHg HI Blood Pressure Location Left arm Mean Arterial Pressure, Cuff 112 mmHg SpO2 95 % 01/15/2024 15:30 EDT Heart Rate Monitored 85 bpm Respiratory Rate Monitored 15 br/min Systolic Blood Pressure 118 mmHg Diastolic Blood Pressure 73 mmHg Blood Pressure Location Left arm Mean Arterial Pressure, Cuff 88 mmHg SpO2 94 % 01/15/2024 15:25 EDT Heart Rate Monitored 87 bpm Respiratory Rate Monitored 14 br/min Systolic Blood Pressure 129 mmHg Diastolic Blood Pressure 87 mmHg Blood Pressure Location Left arm Mean Arterial Pressure, Cuff 101 mmHg SpO2 97 % 01/15/2024 15:22 EDT Temperature Axillary 36.5 DegC Heart Rate Monitored 93 bpm Respiratory Rate Monitored 16 br/min Systolic Blood Pressure 122 mmHg Diastolic Blood Pressure 108 mmHg HI Blood Pressure Location Left arm Mean Arterial Pressure, Cuff 113 mmHg SpO2 97 % Pain Assessment: Pain Assessment 01/15/2024 15:45 EDT Primary Pain Location Rectal Numeric Pain Scale 5 = Moderate pain 01/15/2024 15:25 EDT Primary Pain Location Rectal Numeric Pain Scale 2 . General: Awake, Alert, Appropriate. Respiratory: Adequate air exchange, Non-labored. Cardiovascular: Stable, Normal peripheral perfusion. Neurological: Neurologic exam at baseline. No changes.. Assessment Anesthetic outcome No anesthetic complications noted. No nausea/vomiting. Review / Management Condition: Stable. Plan Transfer/Discharge: Transfer/Discharge Discharge when meets criteria ( From PACU to Ambulatory Surgery Unit, and To home ). Normal [facility] Comment on above: Result Comment: Elec tronically Signed By: Brian Ochoa Jr., DO.br\Date and Time Signed: 01/15/24 16:23 EDT Progress Note-Physician Patient: REBECA WAGNER SR Age: 63 years Sex: Male : 1960 Associated Diagnoses: None Author: Jacob Anesthesiology ()Néstor Preoperative Information Anesthesia history: Patient history: None. Family history+: None. Anesthesia results Informed consent: Signed by patient. Including risks, benefits, and alternatives related to the: Anesthetic plan, Postoperative pain management plan. Re-evaluation prior to induction: Néstor James DO. Health Status Allergies: Allergic Reactions (Selected) Severity Not Documented Cipro- Swelling., Allergies (1) Active Severity Reaction Cipro Swelling Current medications: (Selected) Inpatient Medications Ordered HYDROmorphone 1 mg/mL injectable solution: 0.4 mg = 0.4 mL, Injection, IV Push, q4min PRN Pain for 5 dose(s), Stop date Limited # of times, Routine, Start date 01/15/24 12:54:00 EDT, 01/15/24 12:54:00 EDT Lactated Ringers IV Meeta 1000 mL 1,000 mL: 1,000 mL, IV, 100 mL/hr, Routine, Start date 01/15/24 12:54:00 EDT, 10 hour(s), Total volume (mL): 1,000 Lactated Ringers IV Meeta 1000 mL 1,000 mL: 1,000 mL, IV, 150 mL/hr, Routine, Start date 01/15/24 9:30:00 EDT, 6.7 hour(s), Total volume (mL): 1,000 Zofran 4 mg/2 mL Injection: 4 mg = 2 mL, Injection, IV Push, Once PRN Nausea/Vomiting, Routine, Start date 01/15/24 12:54:00 EDT, 01/15/24 12:54:00 EDT cefazolin additive + Sodium Chloride 0.9% intravenous solution 50 mL: 1 gm = 1 EA, Injection, IV Piggyback, Once, Stop date 01/15/24 10:00:00 EDT, Routine, Start date 01/15/24 10:00:00 EDT, 100 mL/hr, Infuse over 30 minute(s) gentamicin + Sodium Chloride 0.9% intravenous solution 100 mL: 120 mg = 3 mL, Injection, IV Piggyback, Once, Stop date 01/15/24 10:00:00 EDT, Start date 01/15/24 10:00:00 EDT, 206 mL/hr, Infuse over 30 minute(s) promethazine additive 12.5 mg + Sodium Chloride 0.9% IV Meeta 50 mL (INT) 50 mL: IV Piggyback, Once PRN Nausea/Vomiting, Routine, Start date 01/15/24 12:54:00 EDT, 151.5 mL/hr, Infuse over 20 minute(s), 01/15/24 12:54:00 EDT Prescriptions Prescribed doxycycline hyclate 100 mg Cap: 100 mg = 1 cap(s), Oral, BID, Start 3 days prior to procedure, # 14 cap(s), Refills(s) 0, Pharmacy: [facility]/pharmacy #[id number], 175, cm, 12/01/23 9:11:00 EST, Height/Length Dosing, 112, kg, 12/01/23 9:11:00 EST, Weight Dosing Documented Medications Documented FLUoxetine (Eqv-Prozac) 20 mg oral tablet: Refills(s) 0, Anxiety Xanax 1 mg Tab: 1 mg = 1 tab(s), Oral, TID, PRN for anxiety, Refills(s) 0 allopurinol 300 mg Tab: Refills(s) 0 busPIRone 15 mg Tab: Refills(s) 0 glimepiride 2 mg Tab: Refills(s) 0 metformin 500 mg ER Tab: Refills(s) 0, Blood glucose ropinirole 1 mg Tab: Refills(s) 0 rosuvastatin 5 mg Tab: Refills(s) 0, Home Medications (9) Active allopurinol 300 mg Tab busPIRone 15 mg Tab doxycycline hyclate 100 mg Cap 100 mg = 1 cap(s), Oral, BID FLUoxetine (Eqv-Prozac) 20 mg oral tablet glimepiride 2 mg Tab metformin 500 mg ER Tab ropinirole 1 mg Tab rosuvastatin 5 mg Tab Xanax 1 mg Tab 1 mg = 1 tab(s), PRN, Oral, TID , Medications (7) Active Scheduled: (2) ceFAZolin + Sodium Chloride 0.9% Minibag 50 mL 1 gm 1 EA, IV Piggyback, Once gentamicin + Sodium Chloride 0.9% 100 mL 120 mg 3 mL, IV Piggyback, Once Continuous: (2) Lactated Ringers 1,000 mL 1,000 mL, IV, 150 mL/hr Lactated Ringers 1,000 mL 1,000 mL, IV, 100 mL/hr PRN: (3) HYDROmorphone 1 mg/mL SOLN [F] 0.4 mg 0.4 mL, IV Push, q4min ondansetron 2 mg/mL Inj [F] 4 mg 2 mL, IV Push, Once promethazine 12.5 mg + Sodium Chloride 0.9% 50 mL 12.5 mg 0.5 mL, IV Piggyback, Once Problem list: All Problems BPH with urinary obstruction / SNOMED CT 6698007307 / Confirmed Elevated PSA / SNOMED CT 9410222768 / Confirmed Former smoker / SNOMED CT 12325734 / Confirmed Gout / SNOMED CT 050138892 / Confirmed Major depressive disorder / SNOMED CT 2391884717 / Confirmed Thyroid nodule / SNOMED CT 703762796 / Confirmed Type 2 diabetes mellitus / SNOMED CT 464632859 / Confirmed, Active Problems (7) BPH with urinary obstruction Elevated PSA Former smoker Gout Major depressive disorder Thyroid nodule Type 2 diabetes mellitus Histories Past Medical History: No active or resolved past medical history items have been selected or recorded. Family History: Procedure history: Transrectal biopsy of prostate using ultrasound guidance (4412639098) on 11/20/2023 at 63 Years. Colonoscopy (759523469). Ts - Tonsillectomy (955514822). Procedure on neck (194312676). Social History Social & Psychosocial Habits Alcohol 01/15/2024 Use: Current Type: Beer Frequency: 3-5 times per week Substance Abuse 01/15/2024 Risk Assessment: Denies Substance Abuse Tobacco 01/15/2024 Tobacco Use: Former smoker, quit more Type: Cigarettes . Physical Examination Vital Signs 01/15/2024 11:49 EDT Blood Glucose, Capillary 184 mg/dL HI 01/15/2024 11:34 EDT Heart Rate Mo (more content not included)... [facility] Comment on above: Result Comment: Elec tronically Signed By: Jacob Anesthesiology ()Néstor.br\Date and Time Signed: 01/15/24 12:54 EDT XR Chest 2 Viewson XR Chest 2 Views Exam Date/Time: 01/15/2024 11:22 EDT Reason for Exam: Other (please specify) Report IMPRESSION: NO EVIDENCE OF ACTIVE CARDIOPULMONARY DISEASE. EXAM: XR Chest 2 Views DATE: 01/15/2024 11:12 AM CLINICAL HISTORY: Presurgical testing. Former smoker. COMPARISON: None available TECHNIQUE: Upright PA and lateral radiographs of the chest were obtained. FINDINGS: There is no significant pulmonary infiltrate, cardiomegaly, pleural effusion, vascular congestion, pneumothorax, or displaced fractures identified. Ordering Provider: aJnn Wallace FINAL REPORT Dictated: 01/15/2024 11:25 am Aquilino Pastrana MD Signed (Electronic Signature): 01/15/2024 11:25 am Signed by: Aquilino Pastrana MD Transcribed by: AUBRIE Technologist: THEODORE, Technical Comments Radiation Dose: Ka,r in mGy = na DAP = na [facility] Pre-Certification Formon Pre-Certification Form [id number]#1.00TIFF Normal [facility] Lab Reportson 01-12-2024 Lab Reports [id number]#1.00TIFF Normal [facility] Outside Recordson 01-12-2024 Outside Records [id number]#1.00TIFF Normal [facility] Insurance Correspondenceon 0 01-09-2024 Insurance Correspondence [id number]#1.00TIFF [facility] Insurance Correspondenceon 0 01-05-2024 Insurance Correspondence [id number]#1.00TIFF [facility] Lab Reportson 01-02-2024 Lab Reports [id number]#1.00TIFF [facility] Consent for Procedure/Surger yon 12-03-2023 Consent for Procedure/Surgery [id number]#1.00TIFF [facility] Pathology Noteon 12-02-2023 Pathology Note [id number]#1.00TIFF [facility] Ambulatory Visit Summaryon 0 12-01-2023 Ambulatory Visit Summary REBECA WAGNER SR :1960 Visit Date:12/01/2023 Ambulatory Visit Instructions Your Diagnosis Elevated PSA BPH with urinary obstruction Type 2 diabetes mellitus Former smoker Your Care Team Attending Physician - JENNIFER HURTADO, Mario Houston Primary Care Physician - SEBASTIAN ESTRELLA MD This Is Your Medications List [...] Following Appointments Follow Up with JENNIFER HURTADO, KELECHI Mackey When: Comments: sched repeat TRUS/bx Where: [facility] [address], [place] [address] [phone] Medications What When Instructions Unchanged allopurinol (allopurinol [...] provide informat (more content not included)... Normal [facility] Patient Educationon 12-01-19 Patient Education Oncology Prostate Cancer Screening Prostate [...] Where to find more information ? The [employer] [place] [employer]: www.cancer.org ? [employer]: www.auanet.org Contact a health care [...] adds flu (more content not included)... Normal [facility] Urology Office/Clinic Noteon 12-01-2023 Urology Office/Clinic Note [...] and history for this patient from Dr. Rodriguez. I have reviewed and verified the staff [...] Mario Houston, URL [facility] [address], [place] [address] [phone] Additional Instructions: sched repeat TRUS/bx Patient Education Prostate Cancer Screening I, Angela Pearce, personally scribed for Dr. Rodriguez on 12/01/2023 10:08:54. . Documentation recorded by the scribe, Angela Pearce, accurately reflects the services(s) I performed and decisions made by me. Authenticated by Dr. Rodriguez on 12/01/2023 10:11:41. Problem List/Past Medical History [...] Dipstick: Neg (more content not included)... Normal [facility] Comment on above: Result Comment: Elec tronically Signed By: Mario RODRIGUEZ MD\.br\Date and Time Signed: 12/01/23 10:11 EST\.br\Electronically Co-Signed By: Angela Pearce\.br\Date and Time Co-Signed: 12/01/23 10:09 EST Pathology Noteon 11-27-2023 Pathology Note [id number]#1.00TIFF Normal [facility] Pathology Noteon 11-26-2023 Pathology Note [id number]#1.00TIFF Normal [facility] Lab Reportson 11-21-2023 Lab Reports [id number]#1.00TIFF [facility] RAD - Ultrasound Reporton RAD - Ultrasound Report [id number]#1.00TIFF [facility] Operative Reporton Operative Report [id number]#1.00TIFF Normal [facility] Lab Reportson 11-13-2023 Lab Reports [id number]#1.00TIFF Normal [facility] Lab Reports [id number]#1.00TIFF [facility] ECG 12-Leadon 11-11-2023 ECG 12-Lead [id number]#1.00TIFF [facility] Consent for Procedure/Surger yon 11-04-2023 Consent for Procedure/Surgery [id number]#1.00TIFF [facility] Formson 11-04-2023 Forms [id number]#1.00TIFF [facility] Physician Referralon 024 Physician Referral [id number]#1.00TIFF [facility] Ambulatory Visit Summaryon 0 11-03-2023 Ambulatory Visit Summary REBECA WAGNER :1960 Visit Date:11/03/2023 Ambulatory Visit Instructions Your Diagnosis Elevated PSA BPH with urinary obstruction Type 2 diabetes mellitus Former smoker Tests Performed Urnls Dip Stick Auto w/o Microscopy POC 21708 Your Care Team Attending Physician - JENNIFER HURTADO, Mario Houston Primary Care Physician - QUIRINO HURTADO, SEBASTIAN Referring Physician - CAROLINA GAMEZ This Is [...] HURTADO, Mario Houston Where: [facility] Patient Educationon 11-03-19 Patient Education Oncology Transrectal [...] near your rectum, especially while sitting. ? [place]-colored urine due to small amounts of blood in your urine. ? A burning feeling while urinating. ? Blood in your stool (feces) or bleeding from your rectum. ? Blood in your semen. Follow these instructions at home: Medicines ? Take upio-lfs-xxpgqpa and prescription medicines only as told by [...] provider. Document Revised: 04/08/2022 Document Reviewed: 04/08/2022 [employer] Patient Education ? 2022 [employer]ather. Transrectal Ultrasound-Guided Prostate Biopsy A transrectal ultrasound-guided [...] including vitamins, herbs, eye drops, creams, and lvrn-yfe-zyytpvk medicines. ? Any problems you or family [...] aspirin (more content not included)... Normal [facility] Urology Office/Clinic Noteon 11-03-2023 Urology Office/Clinic Note Chief Complaint elevated PSA HPI Staff Evaluation requested by Carolina Peter SIZE CUTTER due to elevated PSA. Pt is a [...] Mario Houston, URL [facility] [address], [place] [address]- [phone] Additional Instructions: sched TRUS/bx Patient Education Transrectal Ultrasound-Guided Prostate Biopsy, Care After Transrectal Ultrasound-Guided Prostate Biopsy Angela Bolaños, personally scribed for Dr. Rodriguez on 11/03/2023 11:18:49. . Documentation recorded by the scribeAngela, accurately reflects the services(s) I performed and decisions made by me. Authenticated by Dr. Rodriguez on 11/03/2023 11:23:18. Problem List/Past Medical History Ongoing BPH with urinary obstruction Elevated PSA Former smoker Gout Major depressive disorder Thyroid nodule Type 2 diabetes mellitus Historical No qualifying data Procedure/Surgical History Colonoscopy, Procedure on neck, Ts - Tonsillectomy. Medications allopurinol 3 (more content not included)... Normal [facility] Comment on above: Result Comment: Elec tronically Signed By: JENNIFER HURTADO, Mario Houston\.br\Date and Time Signed: 11/03/23 11:23 EST\.br\Electronically Co-Signed By: Angela Pearce\.br\Date and Time Co-Signed: 11/03/23 11:19 EST CBC AUTO DIFFon 02-11-2023 BASO # 0.1 103/ul Normal 0.0-0.1 [facility] Comment on above: Performed By: #### C BC #### [facility] [address] [place] [address] Dr. Cedrick Beatty Basophils/100 WBC (Bld) 0.5 % Normal 0.2-2.0 [facility] Comment on above: Performed By: #### C BC #### [facility] [address] [place] [address] Dr. Cedrick Beatty EO # 0.1 103/ul Normal 0.0-0.7 [facility] Comment on above: Performed By: #### C BC #### [facility] [address] [place] [address] Dr. Cedrick Beatty Eosinophils/100 WBC (Bld) 0.9 % Normal 0.9-7.0 [facility] Comment on above: Performed By: #### C BC #### [facility] [address] [place] [address] Dr. Cedrick Beatty Erythrocyte distribution width (RBC) [Ratio] 13.6 % Normal 11.0-15.0 [facility] Comment on above: Performed By: #### C BC #### [facility] [address] [place] [address] Dr. Cedrick Beatty Hematocrit (Bld) [Volume fraction] 48.6 % Normal 42.0-54.0 [facility] Comment on above: Performed By: #### C BC #### [facility] [address] [place] [address] Dr. Cedrick Beatty Hemoglobin (Bld) [Mass/Vol] 16.5 g/dL Normal 14.0-18.0 [facility] Comment on above: Performed By: #### C BC #### [facility] [address] [place] [address] Dr. Cedrick Beatty IG # 0.14 10e3/ul Critically high 0.00-0.03 [facility] Comment on above: Performed By: #### C BC #### [facility] [address] [place] [address] Dr. Cedrick Beatty IG % 1.1 % Critically high 0.0-0.5 [facility] Comment on above: Performed By: #### C BC #### [facility] [address] [place] [address] Dr. Cedrick Beatty LYMPH # 1.6 103/ul Normal 1.2-3.8 [facility] Comment on above: Performed By: #### C BC #### [facility] [address] [place] [address] Dr. Cedrick Beatty Lymphocytes/100 WBC (Bld) 12.5 % Critically low 20.5-60.0 [facility] Comment on above: Performed By: #### C BC #### [facility] [address] [place] [address] Dr. Cedrick Beatty MANUAL DIFF REQ NO Normal [facility] Comment on above: Performed By: #### C BC #### [facility] [address] [place] [address] Dr. Cedrick Beatty MCH (RBC) [Entitic mass] 28.5 pg Normal 25.9-34.0 [facility] Comment on above: Performed By: #### C BC #### [facility] [address] [place] [address] Dr. Cedrick Beatty MCHC (RBC) [Mass/Vol] 34.0 g/dL Normal 29.9-35.2 [facility] Comment on above: Performed By: #### C BC #### [facility] [address] [address] [address] Cedrick Beatty MCV (RBC) [Entitic vol] 84.1 fL Normal 80.0-94.0 [facility] Comment on above: Performed By: #### C BC #### [facility] [address] [address] [address] Cedrick Beatty MONO # 1.0 103/ul Critically high 0.3-0.8 [facility] Comment on above: Performed By: #### C BC #### [facility] [address] [address] [address] Cedrick Beatty Monocytes/100 WBC (Bld) 7.7 % Normal 1.7-12.0 [facility] Comment on above: Performed By: #### C BC #### [facility] [address] [address] [address] Cedrick Beatty NEUT # 10.0 103/ul Critically high 1.4-6.5 [facility] Comment on above: Performed By: #### C BC #### [facility] [address] [place] [address] Dr. Cedrick Beatty Neutrophils/100 WBC (Bld) 77.3 % Critically high 43.0-75.0 [facility] Comment on above: Performed By: #### C BC #### [facility] [address] [address] [address] Cedrick Beatty Platelet mean volume (Bld) [Entitic vol] 9.0 fL Critically low 9.5-13.5 [facility] Comment on above: Performed By: #### C BC #### [facility] [address] [place] [address] Dr. Cedrick Beatty PLT 231 103/ul Normal 150-450 [facility] Comment on above: Performed By: #### C BC #### [facility] [address] [place] [address] Dr. Cedrick Beatty RBC 5.78 106/ul Normal 4.70-6.10 [facility] Comment on above: Performed By: #### C BC #### [facility] [address] [address] [address] Cedrick Beatty WBC 12.9 103/ul Critically high 4.0-11.0 [facility] Comment on above: Performed By: #### C BC #### [facility] [address] [place] [address] Dr. Cedrick Beatty GLYCOHEMOGLOBIN A1Con 2022 ADA RECOMMENDATION SEE BELOW Normal [facility] Comment on above: Result Comment: ADA RECOMMENDED LIMIT 4.0 - 6.0 ADA THERAPEUTIC TARGET < 7.0 ACTION SUGGESTED > 7.0 Performed By: #### A 1C #### [facility] [address] [place] [address] Dr. Cedrick Beatty Glucose [Mass/Vol] 146 mg/dL Normal [facility] Comment on above: Performed By: #### A 1C #### [facility] [address] [place] [address] Dr. Cedrick Beatty HbA1c (Bld) [Mass fraction] 6.7 % Critically high 4.5-6.2 [facility] Comment on above: Performed By: #### A 1C #### [facility] [address] [place] [address] Dr. Cedrick Beatty LIPID PROFILEon 02-11-2023 CHOL-HDL RATIO NORM SEE BELOW Normal [facility] Comment on above: Result Comment: 3.3 - 4.4 LOW RISK 4.4 - 7.1 AVERAGE RISK 7.1 - 11.0 MODERATE RISK >11.0 HIGH RISK Performed By: #### C MP, LIPID #### [facility] [address] [place] [address] Dr. Cedrick Beatty Cholesterol [Mass/Vol] 130 mg/dL Normal <=200 [facility] Comment on above: Performed By: #### C MP, LIPID #### [facility] [address] [place] [address] Dr. Cedrick Beatty Cholesterol in HDL [Mass/Vol] 56 mg/dL Normal 40-60 [facility] Comment on above: Performed By: #### C MP, LIPID #### [facility] [address] [address] [address] Cedrick Beatty Cholesterol in LDL [Mass/Vol] 49.4 mg/dL Normal [facility] Comment on above: Performed By: #### C MP, LIPID #### [facility] [address] [address] [address] Cedrick Beatty Cholesterol.total/ Cholesterol in HDL [Mass ratio] 2.3 {ratio} Normal [facility] Comment on above: Performed By: #### C MP, LIPID #### [facility] [address] [address] [address] Cedrick Beatty HDL NORMAL > or = 60 mg/dl - LO W CARDIOVASCULAR RISK <40 mg/dl - HIGH CARDIOVASCULAR RISK Normal [facility] Comment on above: Performed By: #### C MP, LIPID #### [facility] [address] [place] [address] Dr. Cedrick Beatty LDL CALC NORMAL SEE BELOW Normal [facility] Comment on above: Result Comment: <100 mg/dl OPTIMAL 100 - 129 mg/dl NEAR OR ABOVE OPTIMAL 130 - 159 mg/dl BORDERLINE HIGH 160 - 189 mg/dl HIGH >190 mg/dl VERY HIGH Performed By: #### C MP, LIPID #### [facility] [address] [place] [address] Dr. Cedrick Beatty Triglyceride [Mass/Vol] 123 mg/dL Normal <=150 [facility] Comment on above: Performed By: #### C MP, LIPID #### [facility] [address] [address] [address] Cedrick Beatty VLDL CALC 24.6 mg/dL Normal [facility] Comment on above: Performed By: #### C MP, LIPID #### [facility] [address] [address] [address] Cedrick Beatty MICROALB CREAT RATIO RANDOMo n 02-11-2023 mALB 1.3 mg/L Normal <=30.0 [facility] Comment on above: Performed By: #### M CRR #### [facility] [address] [place] [address] Dr. Cedrick Beatty MALB CR RATIO 6.9 mg/g Normal 0.0-29.9 [facility] Comment on above: Performed By: #### M CRR #### [facility] [address] [place] [address] Dr. Cedrick Beatty MALB CR RATIO RANGE SEE BELOW Normal [facility] Comment on above: Result Comment: NO M ICROALBUMINURIA 0-29 MG/G CLINICAL MICROALBUMINURIA 30-300 MG/G MACROALBUMINURIA >300 MG/G Performed By: #### M CRR #### [facility] [address] [place] [address] Dr. Cedrick Beatty URINE CREAT 187.43 mg/dL Normal 20.00-300.0 0 [facility] Comment on above: Performed By: #### M CRR #### [facility] [address] [place] [address] Dr. Cedrick Beatty PROF 14(COMP METB)on 023 Albumin [Mass/Vol] 4.0 g/dL Normal 3.4-5.0 [facility] Comment on above: Performed By: #### C MP, LIPID #### [facility] [address] [place] [address] Dr. Cedrick Beatty Albumin/Globulin [Mass ratio] 1.0 {ratio} Normal [facility] Comment on above: Performed By: #### C MP, LIPID #### [facility] [address] [place] [address] Dr. Cedrick Beatty ALP [Catalytic activity/Vol] 99 U/L Normal 46-116 [facility] Comment on above: Performed By: #### C MP, LIPID #### [facility] [address] [place] [address] Dr. Cedrick Beatty ALT [Catalytic activity/Vol] 40 U/L Normal 16-63 [facility] Comment on above: Performed By: #### C MP, LIPID #### [facility] [address] [place] [address] Dr. Cedrick Beatty Anion gap [Moles/Vol] 13.6 mmol/L Normal [facility] Comment on above: Performed By: #### C MP, LIPID #### [facility] [address] [address] [address] Cedrick Beatty AST [Catalytic activity/Vol] 18 U/L Normal 15-37 [facility] Comment on above: Performed By: #### C MP, LIPID #### [facility] [address] [address] [address] Cedrick Beatty Bilirubin [Mass/Vol] 0.7 mg/dL Normal 0.2-1.0 [facility] Comment on above: Performed By: #### C MP, LIPID #### [facility] [address] [address] [address] Cedrick Beatty Calcium [Mass/Vol] 9.5 mg/dL Normal 8.5-10.1 [facility] Comment on above: Performed By: #### C MP, LIPID #### [facility] [address] [place] [address] Dr. Cedrick Beatty Chloride [Moles/Vol] 99 mmol/L Normal 98-107 [facility] Comment on above: Performed By: #### C MP, LIPID #### [facility] [address] [address] [address] Cedrick Beatty CO2 [Moles/Vol] 28.7 mmol/L Normal 21.0-32.0 [facility] Comment on above: Performed By: #### C MP, LIPID #### [facility] [address] [place] [address] Dr. Cedrick Beatty Creatinine [Mass/Vol] 1.00 mg/dL Normal 0.70-1.30 [facility] Comment on above: Performed By: #### C MP, LIPID #### [facility] [address] [place] [address] Dr. Cedrick Beatty EGFR-AF POLISH >60 Normal >=60 [facility] Comment on above: Performed By: #### C MP, LIPID #### [facility] [address] [place] [address] Dr. Cedrick Beatty EGFR-NON AF POLISH >60 Normal >=60 [facility] Comment on above: Performed By: #### C MP, LIPID #### [facility] [address] [address] [address] Cedrick Beatty Globulin (S) [Mass/Vol] 3.9 g/dL Normal [facility] Comment on above: Performed By: #### C MP, LIPID #### [facility] [address] [place] [address] Dr. Cedrick Beatty Glucose [Mass/Vol] 137 mg/dL Critically high 74-106 [facility] Comment on above: Performed By: #### C MP, LIPID #### [facility] [address] [place] [address] Dr. Cedrick Beatty Potassium [Moles/Vol] 4.3 mmol/L Normal 3.5-5.1 [facility] Comment on above: Performed By: #### C MP, LIPID #### [facility] [address] [place] [address] Dr. Cedrick Beatty Protein [Mass/Vol] 7.9 g/dL Normal 6.4-8.2 [facility] Comment on above: Performed By: #### C MP, LIPID #### [facility] [address] [place] [address] Dr. Cedrick Beatty Sodium [Moles/Vol] 137 mmol/L Normal 136-145 [facility] Comment on above: Performed By: #### C MP, LIPID #### [facility] [address] [place] [address] Dr. Cedrick Beatty Urea nitrogen [Mass/Vol] 13.0 mg/dL Normal 7.0-18.0 [facility] Comment on above: Performed By: #### C MP, LIPID #### [facility] [address] [place] [address] Dr. Cedrick Beatty Urea nitrogen/Creatinin e [Mass ratio] 13.0 mg/mg Normal [facility] Comment on above: Performed By: #### C MP, LIPID #### [facility] [address] [place] [address] Dr. Cedrick Beatty VITAMIN D 25 OHon 02-11-2023 VIT D 25-OH 12.9 ng/mL Normal [facility] Comment on above: Performed By: #### V ITAD #### [facility] [address] [place] [address] Dr. Cedrick Beatty VIT D RANGES SEE BELOW Normal [facility] Comment on above: Result Comment: <20 ng/mL Vit D deficient 20 - <30 ng/mL Vit D insufficient 30 - 100 ng/mL Vit D sufficient >100 ng/mL Potential Toxicity Performed By: #### V ITAD #### [facility] [address] [place] [address] Dr. Cedrick Beatty CBC AUTO DIFFon 07-27-2022 BASO # 0.0 103/ul Normal 0.0-0.1 [facility] Comment on above: Performed By: #### C BC #### [facility] [address] [place] [address] Dr. Cedrick Beatty Basophils/100 WBC (Bld) 0.4 % Normal 0.2-2.0 [facility] Comment on above: Performed By: #### C BC #### [facility] [address] [place] [address] Dr. Cedrick Beatty EO # 0.0 103/ul Normal 0.0-0.7 [facility] Comment on above: Performed By: #### C BC #### [facility] [address] [place] [address] Dr. Cedrick Beatty Eosinophils/100 WBC (Bld) 0.4 % Critically low 0.9-7.0 [facility] Comment on above: Performed By: #### C BC #### [facility] [address] [place] [address] Dr. Cedrick Beatty Erythrocyte distribution width (RBC) [Ratio] 13.8 % Normal 11.0-15.0 [facility] Comment on above: Performed By: #### C BC #### [facility] [address] [place] [address] Dr. Cedrick Beatty Hematocrit (Bld) [Volume fraction] 46.0 % Normal 42.0-54.0 [facility] Comment on above: Performed By: #### C BC #### [facility] [address] [place] [address] Dr. Cedrick Beatty Hemoglobin (Bld) [Mass/Vol] 15.5 g/dL Normal 14.0-18.0 [facility] Comment on above: Performed By: #### C BC #### [facility] [address] [place] [address] Dr. Cedrick Beatty IG # 0.09 10e3/ul Critically high 0.00-0.03 [facility] Comment on above: Performed By: #### C BC #### [facility] [address] [place] [address] Dr. Cedrick Beatty IG % 1.0 % Critically high 0.0-0.5 [facility] Comment on above: Performed By: #### C BC #### [facility] [address] [place] [address] Dr. Cedrick Beatty LYMPH # 1.5 103/ul Normal 1.2-3.8 [facility] Comment on above: Performed By: #### C BC #### [facility] [address] [place] [address] Dr. Cedrick Beatty Lymphocytes/100 WBC (Bld) 16.2 % Critically low 20.5-60.0 [facility] Comment on above: Performed By: #### C BC #### [facility] [address] [place] [address] Dr. Cedrikc Beatty MANUAL DIFF REQ NO Normal [facility] Comment on above: Performed By: #### C BC #### [facility] [address] [place] [address] Dr. Cedrick Beatty MCH (RBC) [Entitic mass] 29.0 pg Normal 25.9-34.0 [facility] Comment on above: Performed By: #### C BC #### [facility] [address] [place] [address] Dr. Cedrick Beatty MCHC (RBC) [Mass/Vol] 33.7 g/dL Normal 29.9-35.2 [facility] Comment on above: Performed By: #### C BC #### [facility] [address] [place] [address] Dr. Cedrick Beatty MCV (RBC) [Entitic vol] 86.1 fL Normal 80.0-94.0 [facility] Comment on above: Performed By: #### C BC #### [facility] [address] [place] [address] Dr. Cedrick Beatty MONO # 0.7 103/ul Normal 0.3-0.8 [facility] Comment on above: Performed By: #### C BC #### [facility] [address] [place] [address] Dr. Cedrick Beatty Monocytes/100 WBC (Bld) 7.9 % Normal 1.7-12.0 [facility] Comment on above: Performed By: #### C BC #### [facility] [address] [place] [address] Dr. Cedrick Beatty NEUT # 6.8 103/ul Critically high 1.4-6.5 [facility] Comment on above: Performed By: #### C BC #### [facility] [address] [place] [address] Dr. Cedrick Beatty Neutrophils/100 WBC (Bld) 74.1 % Normal 43.0-75.0 [facility] Comment on above: Performed By: #### C BC #### [facility] [address] [place] [address] Dr. Cedrick Beatty Platelet mean volume (Bld) [Entitic vol] 8.7 fL Critically low 9.5-13.5 [facility] Comment on above: Performed By: #### C BC #### [facility] [address] [place] [address] Dr. Cedrick Beatty PLT 193 103/ul Normal 150-450 [facility] Comment on above: Performed By: #### C BC #### [facility] [address] [place] [address] Dr. Cedrick Beatty RBC 5.34 106/ul Normal 4.70-6.10 [facility] Comment on above: Performed By: #### C BC #### [facility] [address] [place] [address] Dr. Cedrick Beatty WBC 9.1 103/ul Normal 4.0-11.0 [facility] Comment on above: Performed By: #### C BC #### [facility] [address] [place] [address] Dr. Cedrick Beatty GLYCOHEMOGLOBIN A1Con 2021 ADA RECOMMENDATION SEE BELOW Normal [facility] Comment on above: Result Comment: ADA RECOMMENDED LIMIT 4.0 - 6.0 ADA THERAPEUTIC TARGET < 7.0 ACTION SUGGESTED > 7.0 Performed By: #### A 1C #### [facility] [address] [place] [address] Dr. Cedrick Beatty Glucose [Mass/Vol] 148 mg/dL Normal [facility] Comment on above: Performed By: #### A 1C #### [facility] [address] [place] [address] Dr. Cedrick Beatty HbA1c (Bld) [Mass fraction] 6.8 % Critically high 4.5-6.2 [facility] Comment on above: Performed By: #### A 1C #### [facility] [address] [place] [address] Dr. Cedrick Beatty COVID/FLU RT-PCRon 2 SARS-CoV-2 (COVID-19) RNA CHEY+probe Ql (Unsp spec) Positive [facility] Other COVID/FLU RT-PCR Negative [facility] Other COVID/FLU RT-PCR [facility] Other [facility] 12-28-2021 FLUAV Ab CF (S) [Titer] Negative [facility] Other FLUBV Ab CF (S) [Titer] Negative [facility] Other Vital Signs Date Time Vital Sign Value Performing Clinician Facility 03-10-2025 08:53-0400 Body height 177.8 cm Bebo Conklin DO Work Phone: [facility] [employer] 03-10-2025 08:53-0400 Body mass index (BMI) [Ratio] 32.28 kg/m2 Bebo Conklin DO Work Phone: [facility] [employer] [facility] 03-10-2025 08:53-0400 Body temperature 98.01 [degF] Bebo Rubin DO Work Phone: [facility] 03-10-2025 08:53-0400 Body weight 102.06 kg Bebo Rubin DO Work Phone: [facility] 03-10-2025 08:53-0400 Diastolic blood pressure 86 mm[Hg] Bebo Rubin DO Work Phone: [facility] 03-10-2025 08:53-0400 Heart rate 86 /min Bebo Rubin DO Work Phone: [facility] 03-10-2025 08:53-0400 Respiratory rate 20 /min Bebo Rubin DO Work Phone: [facility] 03-10-2025 08:53-0400 SaO2% (BldA) [Mass fraction] 98 % Bebo Rubin DO Work Phone: [facility] 03-10-2025 08:53-0400 Systolic blood pressure 130 mm[Hg] Bebo Rubin DO Work Phone: [facility] 12-14-2024 11:09-0500 Body height 177.8 cm Carolina Warchol SIZE CUTTER Work Phone: [facility] 12-14-2024 11:09-0500 Body mass index (BMI) [Ratio] 32.63 kg/m2 Carolina Warchol SIZE CUTTER Work Phone: [facility] 12-14-2024 11:09-0500 Body temperature 97.11 [degF] Carolina Warchol SIZE CUTTER Work Phone: [facility] 12-14-2024 11:09-0500 Body weight 103.15 kg Carolina Warchol SIZE CUTTER Work Phone: [facility] 12-14-2024 11:09-0500 Diastolic blood pressure 80 mm[Hg] Carolina Warchol SIZE CUTTER Work Phone: [facility] 12-14-2024 11:09-0500 Heart rate 99 /min Carolina Warchol SIZE CUTTER Work Phone: [facility] 12-14-2024 11:09-0500 SaO2% (BldA) [Mass fraction] 96 % Carolina Pazchol SIZE CUTTER Work Phone: [facility] 12-14-2024 11:09-0500 Systolic blood pressure 130 mm[Hg] Carolina Pazchol SIZE CUTTER Work Phone: [facility] 10-11-2024 13:31-0500 Body height 177.8 cm Darwin Huffmancek DO Work Phone: [facility] 10-11-2024 13:31-0500 Body mass index (BMI) [Ratio] 31.57 kg/m2 Darwin Huffmancek DO Work Phone: [facility] 10-11-2024 13:31-0500 Body weight 99.79 kg Darwin Huffmancek DO Work Phone: [facility] 09-28-2024 09:34-0500 Body height 177.8 cm Darwin Huffmancek DO Work Phone: [facility] 09-28-2024 09:34-0500 Body mass index (BMI) [Ratio] 31.57 kg/m2 Darwin Huffmancek DO Work Phone: [facility] 09-28-2024 09:34-0500 Body weight 99.79 kg Darwin Huffmancek DO Work Phone: [facility] 06-15-2024 14:38-0400 Body height 177.8 cm Carolina Pazchol SIZE CUTTER Work Phone: [facility] 06-15-2024 14:38-0400 Body mass index (BMI) [Ratio] 31.85 kg/m2 Carolina Pazchol SIZE CUTTER Work Phone: [facility] 06-15-2024 14:38-0400 Body temperature 97.11 [degF] Carolina Pazchol SIZE CUTTER Work Phone: [facility] 06-15-2024 14:38-0400 Body weight 100.7 kg Carolina Pazchol SIZE CUTTER Work Phone: [facility] 06-15-2024 14:38-0400 Diastolic blood pressure 82 mm[Hg] Carolina Peter SIZE CUTTER Work Phone: [facility] 06-15-2024 14:38-0400 Heart rate 91 /min Carolina Peter SIZE CUTTER Work Phone: [facility] 06-15-2024 14:38-0400 SaO2% (BldA) [Mass fraction] 94 % Carolina Peter SIZE CUTTER Work Phone: [facility] 06-15-2024 14:38-0400 Systolic blood pressure 136 mm[Hg] Carolina Peter SIZE CUTTER Work Phone: [facility] 04-20-2024 15:06-0400 Body height 175.3 cm Pacc 6 Work Phone: [facility] 04-20-2024 15:06-0400 Body mass index (BMI) [Ratio] 32.46 kg/m2 Pacc 6 Work Phone: [facility] 04-20-2024 15:06-0400 Body temperature 97.39 [degF] Pacc 6 Work Phone: [facility] 04-20-2024 15:06-0400 Body weight 99.7 kg Pacc 6 Work Phone: [facility] 04-20-2024 15:06-0400 Diastolic blood pressure 77 mm[Hg] Pacc 6 Work Phone: [facility] 04-20-2024 15:06-0400 Heart rate 89 /min Pacc 6 Work Phone: [facility] 04-20-2024 15:06-0400 Respiratory rate 18 /min Pacc 6 Work Phone: [facility] 04-20-2024 15:06-0400 SaO2% (BldA) [Mass fraction] 96 % Pacc 6 Work Phone: [facility] 04-20-2024 15:06-0400 Systolic blood pressure 131 mm[Hg] Pacc 6 Work Phone: [facility] 04-20-2024 13:12-0400 Body height 175.3 cm Miguel Angel Aledo G[employer]VURE PRESS SET UP OPERATOR.BUDGET MANAGER Work Phone: [facility] 04-20-2024 13:12-0400 Body mass index (BMI) [Ratio] 32.46 kg/m2 Miguel Angel Allison GRAVURE PRESS SET UP OPERATOR.BUDGET MANAGER Work Phone: [facility] 04-20-2024 13:12-0400 Body weight 99.7 kg Miguel Angel Aledo GRAVURE PRESS SET UP OPERATOR.BUDGET MANAGER Work Phone: [facility] 04-20-2024 13:12-0400 Diastolic blood pressure 82 mm[Hg] Miguel Angel Allison G[employer]VURE PRESS SET UP OPERATOR.BUDGET MANAGER Work Phone: [facility] 04-20-2024 13:12-0400 Heart rate 87 /min Miguel Angel Aledo GRAVURE PRESS SET UP OPERATOR.BUDGET MANAGER Work Phone: [facility] 04-20-2024 13:12-0400 Systolic blood pressure 126 mm[Hg] Miguel Angel Aledo GRAVURE PRESS SET UP OPERATOR.BUDGET MANAGER Work Phone: [facility] 02-13-2024 09:51-0400 Body height 175.3 cm Natalie Otero MD Work Phone: [facility] 02-13-2024 09:51-0400 Body mass index (BMI) [Ratio] 34.74 kg/m2 Natalie Otero MD Work Phone: [facility] 02-13-2024 09:51-0400 Body weight 106.7 kg Natalie Otero MD Work Phone: [facility] 02-13-2024 09:51-0400 Diastolic blood pressure 98 mm[Hg] Natalie Otero MD Work Phone: [facility] 02-13-2024 09:51-0400 Heart rate 90 /min Natalie Oetro MD Work Phone: [facility] 02-13-2024 09:51-0400 Systolic blood pressure 164 mm[Hg] Natalie Otero MD Work Phone: [facility] 01-23-2024 10:23-0400 Diastolic blood pressure 81 mm[Hg] Mario RODRIGUEZ [facility] 01-23-2024 10:23-0400 Heart rate 81 /min Mario RODRIGUEZ [facility] 01-23-2024 10:23-0400 Mean blood pressure 99 mm[Hg] Mario RODRIGUEZ [facility] 01-23-2024 10:23-0400 Systolic blood pressure 135 mm[Hg] Mario RODRIGUEZ [facility] 01-23-2024 10:11-0400 Blood Pressure Location Mario RODRIGUEZ [facility] 01-23-2024 10:11-0400 Body temperature 98.42 [degF] Mario RODRIGUEZ [facility] 01-23-2024 10:11-0400 Diastolic blood pressure 96 mm[Hg] Mario RODRIGUEZ [facility] 01-23-2024 10:11-0400 Heart rate 82 /min Mario RODRIGUEZ [facility] 01-23-2024 10:11-0400 Respiratory rate 16 /min Maroi RODRIGUEZ [facility] 01-23-2024 10:11-0400 Systolic blood pressure 147 mm[Hg] Mario RODRIGUEZ [facility] 01-15-2024 17:41-0400 Blood Pressure Location Mario RODRIGUEZ [facility] 01-15-2024 17:41-0400 Diastolic blood pressure 82 mm[Hg] Mario RODRIGUEZ [facility] 01-15-2024 17:41-0400 Heart rate 80 /min Mario RODRIGUEZ [facility] 01-15-2024 17:41-0400 Mean blood pressure 101 mm[Hg] Mario RODRIGUEZ [facility] 01-15-2024 17:41-0400 Respiratory rate 20 /min Marioyumiko RODRIGUEZ [facility] 01-15-2024 17:41-0400 SaO2% (BldA) [Mass fraction] 95 % Marioyumiko RODRIGUEZ [facility] 01-15-2024 17:41-0400 Systolic blood pressure 138 mm[Hg] Marioyumiko RODRIGUEZ [facility] 01-15-2024 15:45-0400 Blood Pressure Location Marioyumiko RODRIGUEZ [facility] 01-15-2024 15:45-0400 Body temperature 98.06 [degF] Mario RODRIGUEZ [facility] 01-15-2024 15:45-0400 Diastolic blood pressure 89 mm[Hg] Marioyumiko RODRIGUEZ [facility] 01-15-2024 15:45-0400 Heart rate 80 /min Mario RODRIGUEZ [facility] 01-15-2024 15:45-0400 Mean blood pressure 105 mm[Hg] Marioyumiko RODRIGUEZ [facility] 01-15-2024 15:45-0400 Respiratory rate 12 /min Marioyumiko RODRIGUEZ [facility] 01-15-2024 15:45-0400 SaO2% (BldA) [Mass fraction] 96 % Mario RODRIGUEZ [facility] 01-15-2024 15:45-0400 Systolic blood pressure 136 mm[Hg] Mario RODRIGUEZ [facility] 01-15-2024 15:35-0400 Blood Pressure Location Marioyumiko RODRIGUEZ [facility] 01-15-2024 15:35-0400 Diastolic blood pressure 92 mm[Hg] Marioyumiko RODRIGUEZ [facility] 01-15-2024 15:35-0400 Heart rate 83 /min Marioyumiko RODRIGUEZ [facility] 01-15-2024 15:35-0400 Mean blood pressure 112 mm[Hg] Marioyumiko RODRIGUEZ [facility] 01-15-2024 15:35-0400 Respiratory rate 13 /min Marioyumiko RODRIGUEZ [facility] 01-15-2024 15:35-0400 SaO2% (BldA) [Mass fraction] 95 % Marioyumiko RODRIGUEZ [facility] 01-15-2024 15:35-0400 Systolic blood pressure 151 mm[Hg] Marioyumiko RODRIGUEZ [facility] 01-15-2024 15:30-0400 Respiratory rate 15 /min Marioyumiko RODRIGUEZ [facility] 01-15-2024 15:22-0400 Body temperature 97.7 [degF] Marioyumiko RODRIGUEZ [facility] 01-15-2024 15:15-0400 Respiratory rate 20 /min Marioyumiko RODRIGUEZ [facility] 01-15-2024 15:10-0400 Respiratory rate 20 /min Marioyumiko RODRIGUEZ [facility] 01-15-2024 11:49-0400 gluc 184 mg/dL Marioyumiko RODRIGUEZ [facility] 01-15-2024 11:34-0400 BP/Pulse Patient Position Marioyumiko RODRIGUEZ [facility] 01-15-2024 11:34-0400 Mean blood pressure 95 mm[Hg] Mario RODRIGUEZ [facility] 01-15-2024 11:33-0400 Heart rate 72 /min Mario RODRIGUEZ [facility] 01-15-2024 11:32-0400 Body temperature 98.06 [degF] Mario RODRIGUEZ [facility] 01-15-2024 11:32-0400 BP/Pulse Patient Position Mario RODRIGUEZ [facility] 01-15-2024 11:32-0400 Mean blood pressure 112 mm[Hg] Mario RODRIGUEZ [facility] 12-01-2023 09:03-0500 Blood Pressure Location Mario RODRIGUEZ [facility] 12-01-2023 09:03-0500 Diastolic blood pressure 88 mm[Hg] Mario RODRIGUEZ [facility] 12-01-2023 09:03-0500 Heart rate 74 /min Mario RODRIGUEZ [facility] 12-01-2023 09:03-0500 Respiratory rate 16 /min Mario RODRIGUEZ [facility] 12-01-2023 09:03-0500 Systolic blood pressure 130 mm[Hg] Mario RODRIGUEZ [facility] 11-03-2023 10:05-0500 Blood Pressure Location Mario RODRIGUEZ [facility] 11-03-2023 10:05-0500 Diastolic blood pressure 89 mm[Hg] Mario RODRIGUEZ [facility] 11-03-2023 10:05-0500 Heart rate 85 /min Mario RODRIGUEZ [facility] 11-03-2023 10:05-0500 Respiratory rate 16 /min Mario RODRIGUEZ [facility] 11-03-2023 10:05-0500 Systolic blood pressure 135 mm[Hg] Mario RODRIGUEZ [facility] 06-02-2022 15:05-0400 Body height 175.26 cm Marisa Rivers Other [facility] Other 06-02-2022 15:05-0400 Body mass index (BMI) [Ratio] 31.75 kg/m2 Marisa Rivers Other [facility] Other 06-02-2022 15:05-0400 Body temperature 97.8 [degF] Marisa Tita Other [facility] Other 06-02-2022 15:05-0400 Body weight 97.52 kg Marisa Tita Other [facility] Other 06-02-2022 15:05-0400 Respiratory rate 18 /min Marisa Tita Other [facility] Other 06-02-2022 15:05-0400 SaO2% (BldA) [Mass fraction] 94 % Marisa Rivers Other [facility] Other 12-28-2021 11:55-0500 Body height 175.26 cm Brittany Zuniga Other [facility] Other 12-28-2021 11:55-0500 Body mass index (BMI) [Ratio] 31.01 kg/m2 Brittany Zuniga Other [facility] Other 12-28-2021 11:55-0500 Body temperature 97.7 [degF] Brittany Zuniga Other [facility] Other 12-28-2021 11:55-0500 Body weight 95.26 kg Brittany Zuniga Other [facility] Other 12-28-2021 11:55-0500 Diastolic blood pressure 96 mm[Hg] Brittany Zuniga Other [facility] Other 12-28-2021 11:55-0500 SaO2% (BldA) [Mass fraction] 95 % Brittany Zuniga Other [facility] Other 12-28-2021 11:55-0500 Systolic blood pressure 139 mm[Hg] Brittany Zuniga Other [facility] Other Encounters Encounter Date Encounter Type Care Provider Facility Start: 06-29-2025 ambulatory Matt Dale acility:[facility] Start: 03-10-2025 End: 03-10-2025 Bamboo flowsheet Bebo Conklin DO Work Phone: [facility] Start: 03-10-2025 End: 03-10-2025 Bamboo flowsheet Bebo Conklin DO Work Phone: [facility] Start: 03-10-2025 End: 03-10-2025 ambulatory BEBO CONKLIN Not Available Start: 03-10-2025 End: 03-10-2025 Office outpatient visit 25 minutes Bebo Conklin DO Work Phone: [facility] Comment on above: Type 2 diabetes chinyere itus without complication, without long- term current use of insulin (Primary Dx); Mixed hyperlipidemia (CMS/HCC); Idiopathic chronic gout of multiple sites without tophus; Trigger middle finger of left hand Start: 02-09-2025 End: 02-16-2025 Refill Carolina Peter SIZE CUTTER Work Phone: [facility] Comment on above: Idiopathic chronic g out of multiple sites without tophus; Type 2 diabetes mellitus without complication, without long-term current use of insulin Start: 12-14-2024 End: 12-14-2024 ambulatory CAROLINA PETER Not Available Start: 12-14-2024 End: 12-14-2024 Office outpatient visit 25 minutes Carolina Peter SIZE CUTTER Work Phone: [facility] Comment on above: Type 2 diabetes chinyere itus without complication, without long- term current use of insulin (CMS/HCC) (Primary Dx); Type 2 diabetes mellitus with other specified complication (CMS/HCC); Male erectile dysfunction, unspecified; Idiopathic chronic gout of multiple sites without tophus; Major depressive disorder with current active episode, unspecified depression episode severity, unspecified whether recurrent (CMS/HCC); Obsessive-compulsive disorder, unspecified type (CMS/HCC); Generalized anxiety disorder (CMS/HCC); Mixed hyperlipidemia (CMS/HCC) Start: 10-11-2024 End: 10-11-2024 Bamboo flowsheet Darwin Ivy DO Work Phone: [facility] Start: 10-11-2024 End: 10-11-2024 Bamboo flowsheet Darwin Ivy DO Work Phone: [facility] Start: 10-11-2024 End: 10-11-2024 Office outpatient visit 15 minutes Darwin Ivy DO Work Phone: [facility] Comment on above: Neck mass (Primary D x); Thyroid nodule (CMS/HCC) Start: 10-11-2024 End: 10-11-2024 ambulatory DARWIN IVY Not Available Start: 10-05-2024 End: 10-05-2024 ambulatory DARWIN IVY Not Available Start: 09-28-2024 End: 09-28-2024 Bamboo flowsheet Darwin Ivy DO Work Phone: [facility] Start: 09-28-2024 End: 09-28-2024 Bamboo flowsheet Darwin Ivy DO Work Phone: [facility] Start: 09-28-2024 End: 09-28-2024 Office outpatient visit 25 minutes Darwin Ivy DO Work Phone: [facility] Comment on above: Neck mass (Primary D x); Thyroid nodule (CMS/HCC) Start: 09-28-2024 End: 09-28-2024 ambulatory DARWIN Myra IVY Not Available Start: 09-22-2024 End: 09-22-2024 ambulatory Natalie Otero MD Work Phone: Urology Comment on above: Prostate cancer (HCC ) (Primary Dx) Start: 09-22-2024 End: 09-22-2024 Telemedicine consultation with patient Natalie Otero MD Work Phone: Urology Start: 09-15-2024 End: 09-15-2024 ambulatory NATALIE OTERO Facility:[facility] Start: 07-12-2024 End: 07-12-2024 Telephone encounter Carolina Peter NP Work Phone: [facility] Comment on above: Medication Question Start: 07-08-2024 End: 07-08-2024 ambulatory BEBO CONKLIN Not Available Start: 06-15-2024 End: 06-15-2024 ambulatory CAROLINA PETER Not Available Start: 06-15-2024 End: 06-15-2024 Office outpatient visit 25 minutes Carolina Peter NP Work Phone: [facility] Comment on above: Type 2 diabetes chinyere itus without complication, without long- term current use of insulin (CMS/HCC) (Primary Dx); Major depressive disorder with current active episode, unspecified depression episode severity, unspecified whether recurrent (CMS/HCC); Obsessive-compulsive disorder, unspecified type (CMS/HCC); Generalized anxiety disorder (CMS/HCC); Mixed hyperlipidemia (CMS/HCC); Gastroesophageal reflux disease without esophagitis; Idiopathic chronic gout of multiple sites without tophus; Parkinson's disease (CMS/HCC); Parkinson's disease without dyskinesia, with fluctuating manifestations (CMS/HCC) [G20.A2] Start: 06-15-2024 End: 06-15-2024 Bamboo flowsheet Carolina Peter SIZE CUTTER Work Phone: [facility] Start: 06-15-2024 End: 06-15-2024 Bamboo flowsheet Carolina Peter SIZE CUTTER Work Phone: [facility] Start: 06-11-2024 End: 06-11-2024 ambulatory Janki Calloway MD Work Phone: Urology Comment on above: Prostate cancer (HCC ) (Primary Dx) Start: 06-11-2024 End: 06-11-2024 Telemedicine consultation with patient Janki Calloway MD Work Phone: Urology Start: 06-10-2024 End: 06-10-2024 ambulatory [facility] Facility:[facility] Start: 05-07-2024 End: 05-07-2024 ambulatory Janki Calloway MD Work Phone: Urology Comment on above: Prostate cancer (HCC ) (Primary Dx) Start: 05-07-2024 End: 05-07-2024 Telemedicine consultation with patient Janki Calloway MD Work Phone: Urology Start: 04-27-2024 End: 04-27-2024 ambulatory [facility] Facility:[facility] Start: 04-26-2024 End: 04-27-2024 ambulatory [facility] Facility:[facility] [place] Start: 04-20-2024 End: 04-20-2024 Subsequent hospital visit by physician Mri 6 Radio Main Q (I-Stat/1.5t/3t) Work Phone: MRI Q Comment on above: Malignant neoplasm o f prostate (HCC) [C61] Start: 04-20-2024 End: 04-20-2024 Admission to establishment Pacc Main 6 Work Phone: Pre Anesthesia Start: 04-20-2024 Encounter for other preprocedural examination NATALIE OTERO [facility] Start: 04-20-2024 End: 04-20-2024 ambulatory Miguel Angel Cooper APRN.BUDGET MANAGER Work Phone: Urology Start: 04-20-2024 End: 04-20-2024 Patient encounter procedure Miguel Angel Cooper APRN.BUDGET MANAGER Work Phone: Urology Comment on above: Pre-op exam (Primary Dx) Pre-operative examin ation (Primary Dx); Parkinson's disease without dyskinesia, unspecified whether manifestations fluctuate (HCC); Mixed hyperlipidemia; Type 2 diabetes mellitus without complication, without long-term current use of insulin (HCC); Generalized anxiety disorder Start: 04-20-2024 End: 04-20-2024 Preprocedural examination done Miguel Angel Cooper GRAVURE PRESS SET UP OPERATOR.BUDGET MANAGER Work Phone: [facility] Work Phone: Start: 04-20-2024 Encounter for other preprocedural examination MIGUEL ANGEL COOPER [facility] Start: 04-19-2024 Telephone encounter Lizbeth Connolly [facility] & Comment on above: Returning Patient's Call Start: 03-30-2024 End: 03-30-2024 ambulatory DARWIN IVY Not Available Start: 03-29-2024 End: 03-29-2024 ambulatory NATALIE OTERO Facility:[facility] [place] Start: 02-13-2024 End: 02-13-2024 ambulatory Lizbeth [facility] Start: 02-13-2024 End: 02-13-2024 Patient encounter procedure Natalie Otero MD Work Phone: Urology Comment on above: Prostate cancer (HCC ) (Primary Dx) Start: 01-23-2024 End: 01-23-2024 Patient encounter procedure Mario RODRIGUEZ [facility] Start: 01-15-2024 End: 01-15-2024 ambulatory Mario RODRIGUEZ [place] Start: 01-15-2024 End: 01-15-2024 Admission to same day surgery center Mario RODRIGUEZ [facility] Start: 12-01-2023 End: 12-02-2023 ambulatory Mario RODRIGUEZ Facility:[facility] Start: 12-01-2023 End: 12-01-2023 Patient encounter procedure Mario RODRIGUEZ [facility] Start: 11-20-2023 End: 11-21-2023 ambulatory MD Sebastian Estrella Work Phone: [facility] Work Phone: Start: 11-20-2023 End: 11-20-2023 Departed Referred MD Sebastian Estrella Work Phone: [facility] Start: 11-03-2023 End: 11-04-2023 ambulatory Mario RODRIGUEZ Facility:[facility] Start: 11-03-2023 End: 11-03-2023 Patient encounter procedure Mario RODRIGUEZ [facility] Start: 09-15-2023 ambulatory Mario JENNIFER Facility :[facility] Start: 04-03-2023 End: 04-03-2023 ambulatory MD Sebastian Estrella Work Phone: [facility] Work Phone: Start: 04-03-2023 End: 04-03-2023 Patient encounter procedure MD Sebastian Estrella Work Phone: [facility]-Nuc [facility] Work Phone: Start: 02-11-2023 End: 02-12-[address] SEBASTIAN ESTRELLA Facility:[facility] Start: 08-02-2022 ambulatory CAROLINA PHAM Facility:[facility] Start: 07-27-2022 End: 07-28-2022 ambulatory CAROLINA PHAM Facility:[facility] Start: 06-02-2022 End: 06-02-2022 ambulatory Marisa Rivers Other [facility] Other Start: 06-02-2022 Office outpatient vi sit 15 minutes Marisa Tita [facility] Start: 04-11-2022 ambulatory CAROLINA PHAM Facility:[facility] Start: 12-28-2021 End: 12-28-2021 ambulatory Brittany Zuniga Other [facility] Other Start: 12-28-2021 Office outpatient vi sit 15 minutes Brittany Zuniga [facility] Procedures Date Procedure Procedure Detail Performing Clinician Start: 03-10-2025 End: 03-10-2025 Hemoglobin glycosylated a1c Bebo naylor DO Work Phone: Start: 12-14-2024 Hemoglobin glycosylated a1c Carolina Peter SIZE CUTTER Work Phone: Start: 06-15-2024 Hemoglobin glycosylated a1c Carolina Peter SIZE CUTTER Work Phone: Start: 04-20-2024 Antibody screen NATALIE OTERO Comment on above: Order Comment: Speci men Type: BLOOD SPECIMEN Ordering Facility: [facility] Address: [address] [place] [address] Performed By: #### 2 [id number] #### [facility] CLIA [id number] [address] [place] [address] [place] Start: 04-20-2024 Urnls dip stick/tabl et rgnt auto w/o microscopy Bulk Order Provider Start: 02-13-2024 Urnls dip stick/tabl et rgnt auto w/o microscopy Bulk Order Provider Start: 01-15-2024 Transrectal biopsy o f prostate using ultrasound guidance Mario RODRIGUEZ Start: 11-20-2023 Transrectal biopsy o f prostate using ultrasound guidance Mario RODRIGUEZ Start: 04-03-2023 NM brain spect axel Estrella Work Phone: Start: 07-27-2022 PSA screening CAROLINA GARCIA Comment on above: Performed By: #### P [facility] #### [facility] [address] [place] [address] Dr. Cedrick Beatty Colonoscopy Mario JENNIFER Procedure on neck Mario MALAGON Tonsillectomy Mario RODRIGUEZ Plan of Treatment Date Care Activity Detail Author Start: 09-15-2029 Prostate specific antigen measurement Prostate Cancer Screening Discussion [facility] Start: 06-10-2029 Prostate specific antigen measurement Prostate Cancer Screening Discussion [facility] Start: 07-27-2027 Prostate specific antigen measurement Prostate Cancer Screening Discussion [facility] Start: 02-02-2027 Diabetes Screening Diabetes Screenin g [facility] Start: 01-13-2027 Screening for malign ant neoplasm of colon [facility] Start: 03-11-2026 Glaucoma screening Diabetes: R etinopathy Screening [facility] Start: 03-10-2026 Urine screening for protein Diabetes: Urine Protein Screening [facility] Start: 10-12-2025 End: 10-12-2025 Patient encounter procedure 10/12/2025 1:00 PM EST Office Visit [facility] [address] [place] [id number] Darwin Ivy, DO [address] [place] [address] [facility] Start: 06-27-2025 Influenza vaccination Influenz a Vaccine (Season Ended) [facility] Start: 06-10-2025 Hemoglobin A1c measurement Diabetes: Hemoglobin A1C [facility] Start: 06-09-2025 End: 06-09-2025 Patient encounter procedure 06/09/2025 8:40 AM EDT Office Visit [facility] [address] [place] [address] Bebo Conklin DO [address] [place] [address] [facility] Start: 04-25-2025 Influenza vaccination Influenza Vacc ine (#1) [facility] Comment on above: Postponed from 06/27 (Supply/Drug Shortage) Start: 03-13-2025 Hemoglobin A1c measurement Diabetes: Hemoglobin A1C [facility] Start: 03-10-2025 End: 03-10-2026 Comprehensive metabolic 2000 panel - Serum or Plasma Comprehensive metabolic panel Lab Routine Type 2 diabetes mellitus without complication, without long-term current use of insulin Mixed hyperlipidemia (CMS/HCC) Expected: 03/10/2025 (Approximate), Expires: 03/10/2026 [facility] Work Phone: Comment on above: Expected: 03/10/2025 (Approximate), Expires: 03/10/2026 Start: 03-10-2025 End: 03-10-2026 Lipid 1996 panel - Serum or Plasma Lipid panel Lab Routine Type 2 diabetes mellitus without complication, without long-term current use of insulin Mixed hyperlipidemia (CMS/HCC) Expected: 03/10/2025 (Approximate), Expires: 03/10/2026 [facility] Comment on above: Expected: 03/10/2025 (Approximate), Expires: 03/10/2026 Start: 03-10-2025 End: 03-10-2025 Patient encounter procedure [facility] Start: 02-02-2025 Urine screening for protein Diabetes: Urine Protein Screening [facility] Start: 12-16-2024 Hemoglobin A1c measurement HbA1C [facility] Start: 12-14-2024 End: 12-14-2024 Patient encounter procedure 12/14/2024 11:00 AM EST Office Visit [facility] [address] [place] [id number] Carolina Peter, SIMEON [address] [place] [address] [facility] Start: 10-20-2024 Hemoglobin A1c measurement HbA1C [facility] Start: 10-11-2024 End: 10-11-2024 Patient encounter procedure [facility] [place] Comment on above: Arrived Start: 09-28-2024 End: 09-28-2025 Creatinine [Mass/volume] in Serum or Plasma Creatinine, Serum Lab Routine Neck mass Expected: 09/28/2024 (Approximate), Expires: 09/28/2025 [facility] Comment on above: Expected: 09/28/2024 (Approximate), Expires: 09/28/2025 Start: 09-28-2024 End: 09-28-2025 CT Neck W contrast IV CT soft tissue neck w IV contrast Imaging STAT Neck mass Expected: 09/28/2024, Expires: 09/28/2025 [facility] Work Phone: Comment on above: Expected: 09/28/2024 , Expires: 09/28/2025 Start: 09-28-2024 End: 09-28-2024 Patient encounter procedure [facility] Comment on above: Arrived Start: 09-15-2024 Hemoglobin A1c measurement Diabetes: Hemoglobin A1C [facility] Start: 09-11-2024 End: 12-11-2024 Prostate specific Ag [Mass/volume] in Serum or Plasma PROSTATE-SPECIFIC ANTIGEN DIAGNOSTIC Lab Routine Prostate cancer (HCC) Expected: 09/11/2024, Expires: 12/11/2024 [facility] Work Phone: Comment on above: Expected: 09/11/2024 , Expires: 12/11/2024 Start: 08-04-2024 Hemoglobin A1c measurement HbA1C [facility] Start: 07-21-2024 Hemoglobin A1c measurement Diabetes: Hemoglobin A1C [facility] Start: 06-27-2024 Covid-19 Vaccine ( season) Covid-19 Vaccine () [facility] Start: 06-27-2024 Influenza vaccination Influenza Vacc ine (#1) [facility] Start: 06-11-2024 End: 06-11-2024 ambulatory 06/11/2024 3:30 PM EDT [facility] Urology [address] [address] Janki Johnson MD [address] [place] [address] 4 week fu to go over psa results Urology Comment on above: 4 week fu to go over psa results Start: 06-07-2024 End: 09-06-2024 Prostate specific Ag [Mass/volume] in Serum or Plasma PROSTATE-SPECIFIC ANTIGEN DIAGNOSTIC Lab Routine Prostate cancer (HCC) Expected: 06/07/2024, Expires: 09/06/2024 [facility] Work Phone: Comment on above: Expected: 06/07/2024 , Expires: 09/06/2024 Start: 04-26-2024 End: 04-26-2024 Admission to same day surgery center Admitting Comment on above: ROBOTIC LAPAROSCOPIC RETROPUBIC RADICAL PROSTATECTOMY W/ NERVE SPARING Start: 04-26-2024 End: 04-26-2024 Laps prostect retropubic rad w/nrv sparing robot ROBOTIC LAPAROSCOPIC RETROPUBIC RADICAL PROSTATECTOMY W/ NERVE SPARING Malignant neoplasm of prostate (HCC) 04/26/2024 7:30 AM EDT [facility] Start: 04-26-2024 Subsequent hospital visit by physician 04/26/2024 7:30 AM EDT Hospital Encounter Admitting [address] [place] [address] Natalie Otero MD [address] [place] [address] Malignant neoplasm of prostate (HCC) [C61] Admitting Comment on above: Malignant neoplasm o f prostate (HCC) [C61] Start: 04-23-2024 End: 07-23-2024 aPTT in Platelet poor plasma by Coagulation assay ACTIVATED PARTIAL THROMBOPLASTIN TIME Lab Routine Malignant neoplasm of prostate (HCC) Expected: 04/23/2024, Expires: 07/23/2024 [facility] Work Phone: Comment on above: Expected: 04/23/2024 , Expires: 07/23/2024 Start: 04-23-2024 End: 07-23-2024 CBC panel - Blood by Automated count COMPLETE BLOOD COUNT Lab Routine Malignant neoplasm of prostate (HCC) Expected: 04/23/2024, Expires: 07/23/2024 [facility] Work Phone: Comment on above: Expected: 04/23/2024 , Expires: 07/23/2024 Start: 04-23-2024 End: 07-23-2024 Comprehensive metabolic 2000 panel - Serum or Plasma COMPREHENSIVE METABOLIC PANEL Lab Routine Malignant neoplasm of prostate (HCC) Expected: 04/23/2024, Expires: 07/23/2024 [facility] Work Phone: Comment on above: Expected: 04/23/2024 , Expires: 07/23/2024 Start: 04-23-2024 End: 07-23-2024 PT panel - Platelet poor plasma by Coagulation assay PROTHROMBIN TIME Lab Routine Malignant neoplasm of prostate (HCC) Expected: 04/23/2024, Expires: 07/23/2024 [facility] Work Phone: Comment on above: Expected: 04/23/2024 , Expires: 07/23/2024 Start: 04-20-2024 Subsequent hospital visit by physician 04/20/2024 4:30 PM EDT Hospital Encounter MRI Q [address] [address] Malignant neoplasm of prostate (HCC) [C61] MRI Q Comment on above: Malignant neoplasm o f prostate (HCC) [C61] Start: 04-20-2024 End: 04-20-2024 Patient encounter procedure Admitting Comment on above: A12 MRI PROSTATE Start: 04-20-2024 End: 04-20-2024 Anesthesia consultation 04/20/2024 3:00 PM EDT PAT Pre Anesthesia [address] [address] [place] [address] PRE OP-PACC Pre Anesthesia Comment on above: PRE OP-PACC Start: 04-20-2024 End: 04-20-2024 ambulatory 04/20/2024 2:10 PM EDT Results Only Cardiology [address] [id number] EKG Cardiology Comment on above: EKG Start: 04-20-2024 End: 07-20-2024 Hemoglobin A1c in Blood HEMOGLOBIN A1C Lab Routine Type 2 diabetes mellitus without complication, without long-term current use of insulin (HCC) Expected: 04/20/2024, Expires: 07/20/2024 [facility] Work Phone: Comment on above: Expected: 04/20/2024 , Expires: 07/20/2024 Start: 04-20-2024 End: 04-20-2024 Patient encounter procedure Urology Comment on above: pre-op teaching, PRE OP-LABS Start: 02-13-2024 End: 05-14-2024 CONFIRM BLOOD TYPE CONFIRM BLOOD TYPE Blood Bank Routine Malignant neoplasm of prostate (HCC) Expected: 02/13/2024 (Approximate), Expires: 05/14/2024 [facility] Work Phone: Comment on above: Expected: 02/13/2024 (Approximate), Expires: 05/14/2024 Start: 02-13-2024 End: 05-14-2024 TYPE AND SCREEN,30 DAY TYPE AND SCREEN,30 DAY Blood Bank Routine Malignant neoplasm of prostate (HCC) Expected: 02/13/2024 (Approximate), Expires: 05/14/2024 [facility] Work Phone: Comment on above: Expected: 02/13/2024 (Approximate), Expires: 05/14/2024 Start: 01-23-2024 ambulatory Ambulatory Facility:[facility] Start: 10-27-2023 Advance Directive Discussion Advance Directive Discussion [facility] Start: 10-27-2023 Behavioral Health Screening Behavioral Health Screening [facility] Start: 06-27-2023 Covid-19 Vaccine ( season) Covid-19 Vaccine ( season) [facility] Start: 2018 RSV Vaccine (1 - 1-d ose 60+ series) RSV Vaccine (1 - 1-dose 60+ series) [facility] Start: 2018 RSV Vaccine (1 - Ris k 60-74 years 1-dose series) RSV Vaccine (1 - Risk 60-74 years 1-dose series) [facility] Start: 2008 Shingrix Vaccine (1 of 2) Shingrix Vaccine (1 of 2) [facility] Start: 2003 Screening for malign ant neoplasm of colon [facility] Start: 1993 Lipid panel Lipid Screening [facility] Start: 1977 Urine microalbumin profile DTaP,Tdap,Td Vaccine (1 - Tdap) [facility] Start: 1976 Annual PCP Team [employer] marco a Disease Visit Annual PCP Team Chronic Disease Visit [facility] Start: 1976 Depression Screening Depression Scre ening [facility] Start: 1976 Hepatitis B surface antibody level LDL Cholesterol [facility] Start: 1976 Hepatitis C screening Hepatitis C Sc oswaldo [facility] Start: 1976 HIV screening HIV Screening [facility] Start: 1968 Diabetic foot examination Diabetic Foot Exam [facility] Start: 1968 Glaucoma screening Dilated Retinal E xam [facility] Start: 1968 Hepatitis B screening Urine Al bumin:Creatinine Ratio [facility] Start: 1958 Screening for malign ant neoplasm of colon [facility] Bacteria identified in Urine by Culture URINE CULTURE Microbiology Routine Pre-op exam 04/20/2024 12:32 PM EDT [facility] Work Phone: End: 02-12-2025 ECG COMPLETE ECG COMPLETE ECG Routine Malignant neoplasm of prostate (HCC) 1 Occurrences starting 02/13/2024 until 02/12/2025 [facility] Work Phone: Comment on above: 1 Occurrences starti ng 02/13/2024 until 02/12/2025 End: 03-14-2025 MR Prostate WO and W contrast IV MRI PROSTATE WO/W IVCON Radiology Routine Malignant neoplasm of prostate (HCC) 1 Occurrences starting 02/13/2024 until 03/14/2025 [facility] Work Phone: Comment on above: 1 Occurrences starti ng 02/13/2024 until 03/14/2025 MR Prostate WO and W contrast IV MRI PROSTATE WO/W IVCON Radiology Routine Malignant neoplasm of prostate (HCC) 04/20/2024 6:05 PM EDT [facility] Work Phone: End: 03-14-2025 MR Unspecified body region 3D post processing MRI 3D POST PROCESSING Radiology Routine Malignant neoplasm of prostate (HCC) 1 Occurrences starting 02/13/2024 until 03/14/2025 [facility] Work Phone: Comment on above: 1 Occurrences starti ng 02/13/2024 until 03/14/2025 MR Unspecified body region 3D post processing MRI 3D POST PROCESSING Radiology Routine Malignant neoplasm of prostate (HCC) 04/20/2024 6:05 PM EDT [facility] End: 09-22-2025 Prostate specific Ag [Mass/volume] in Serum or Plasma PROSTATE-SPECIFIC ANTIGEN DIAGNOSTIC Lab Routine Prostate cancer (HCC) Every 3 months for 5 Occurrences starting 09/22/2024 until 09/22/2025 [facility] Work Phone: Comment on above: Every 3 months for 5 Occurrences starting 09/22/2024 until 09/22/[facility] Immunization Date Immunization Notes Care Provider Fa [facility] 08-22-2023 influenza (aIIV4) vaccine, age 65+ yr, quadrivalent, PF (FLUAD QUAD) Janki Calloway MD Work Phone: [facility] 08-22-2023 influenza virus vaccine, unspecified formulation Mario RODRIGUEZ [facility] 05-16-2023 pneumococcal 20-imelda nt conjugate vaccine Mario RODRIGUEZ [facility] Comment on above: Result Comment: 2023: [facility] 10-09-2021 influenza, injectabl e, quadrivalent, preservative free Carolina Brittani SIZE CUTTER Work Phone: [facility] 09-22-2021 SARS-CoV-2 (COVID-19 ) mRNA BNT-162b2 vax Mario RODRIGUEZ [facility] 09-21-2021 influenza virus vaccine, unspecified formulation Mario RODRIGUEZ [facility] 09-21-2021 influenza, injectabl e, quadrivalent, preservative free Carolina Jacksonchol SIZE CUTTER Work Phone: [facility] 01-29-2021 SARS-CoV-2 (COVID-19 ) mRNA BNT-162b2 vax Mario RODRIGUEZ [facility] 01-01-2021 SARS-CoV-2 (COVID-19 ) mRNA BNT-162b2 vax Marioyumiko RODRIGUEZ [facility] 11-20-2020 influenza virus vaccine, unspecified formulation Mario RODRIGUEZ [facility] 11-20-2020 influenza, injectabl e, quadrivalent, preservative free Carolina Warchol [employer] CUTTER Work Phone: [facility] 08-12-2019 influenza virus vaccine, unspecified formulation Mario RODRIGUEZ [facility] 08-12-2019 influenza, injectabl e, quadrivalent, preservative free Carolina Warchol SIZE CUTTER Work Phone: [facility] 11-03-2017 influenza virus vaccine, unspecified formulation Mario RODRIGUEZ [facility] 11-03-2017 influenza, injectabl e, quadrivalent, preservative free Carolina Warchol [employer] C[employer]TER Work Phone: [facility] 11-18-2016 influenza virus vaccine, unspecified formulation Mario RODRIGUEZ [facility] 11-18-2016 influenza, seasonal, injectable, preservative free Carolina Warchol [employer] C[employer]TER Work Phone: [facility] 11-23-2013 influenza virus vaccine, unspecified formulation Mario RODRIGUEZ [facility] 11-23-2013 influenza, seasonal, injectable, preservative free Carolina Warchol [employer] CUTTER Work Phone: [facility] Payers Date Payer Category Payer Unknown [employer] [id number] 2023-Present [phone] [address] [address] [place] [address] [id number] 2023 Private Health Insurance 1959 Self-pay 1959 Unknown [id number] 1959 Unknown [id number] 1958 Unknown [id number] 2.16.840.1.306894.3.579. 2.593 1958 Unknown [id number] 2.16.840.1.951038.3.579. 2.593 1958 Unknown [id number] 2.16.840.1.564574.3.579. 2.593 1958 Unknown [id number] 2.16.840.1.948610.3.579. 2.593 1958 Unknown [id number] 2.16.840.1.405028.3.579. 2.727 1958 Unknown [id number] 2.16.840.1.411378.3.579. 2.727 1958 Unknown [id number] 2.16.840.1.969523.3.579. 2.727 1958 Unknown [id number] 2.16.840.1.654967.3.579. 2.727 1958 Unknown [id number] 2.16.840.1.743095.3.579. 2.727 1958 Unknown [id number] 2.16.840.1.231977.3.579. 2.1259 1958 Unknown [id number] 2.16.840.1.062813.3.579. 2.1259 1958 Unknown [id number] 2.16.840.1.793748.3.579. 2.1259 1958 Unknown [id number] 2.16.840.1.041147.3.579. 2.1259 1958 Unknown [id number] 2.16.840.1.296432.3.579. 2.9 1958 Unknown [id number] 2.16.840.1.929344.3.579. 2.9 1958 Unknown [id number] 2.16.840.1.156043.3.579. 2.1258 1958 Unknown [id number] 2.16.840.1.236602.3.579. 2.125 Unknown [id number] 2.16.840.1.783885.3.579. 2.531 Social History Date Type Detail Facility Unknown if ever smoked [facility] Other Start: 02-13-2024 End: 06-15-2024 [facility] Assigned At [facility] Start: 1960 Sex Assigned At Male [facility] Start: 04-11-2023 End: 11-03-2023 Tobacco smoking status Ex-smoker (finding) [facility] consumption unknown [facility] Start: 02-13-2024 End: 06-15-2024 History of Social function [facility] National Score (1-100), lower number is lower risk 91 [facility] Start: 1960 Sex Assigned At Not on file [facility] Start: 04-20-2024 Tobacco smoking status RIIS Never smoked tobacco [facility] Start: 04-11-2023 End: 04-20-2024 Tobacco use and exposure Smokeless tobacco non-user [facility] Start: 04-20-2024 Alcohol intake Ex-drinker (finding) [facility] History of tobacco use Current smoker [facility] History of tobacco use Cigarette Smoker [facility] Start: 09-25-2024 End: 03-10-2025 Alcoholic beverage intake Current drinker of alcohol (finding) [facility] Healthcare Are you now , , , , never or living with a partner? [facility] (I/We) worried wheth er (my/our) food would run out before (I/we) got money to buy more. Never true [facility] Start: 04-11-2023 Tobacco Comment Last smoked:>20 years [facility] Start: 12-23-2023 Alcohol Comment 3-6 drinks a day. Caffeine: Yes, soda; coffee [facility] Start: 01-08-2023 Gender identity Identifies as male gender (finding) [facility] How often to you hav e a drink containing alcohol? Never [facility] Medical Equipment Procedure Code Equipment Code Equipment Origin al Text Equipment Identifier Dates [id number], [id number] Start: 02-03-2024 End: 03-10-2025 Comment on above: once daily. Functional Status Date Assessment Result Facility 03-10-2025 Total score [AUDIT-C] 0 03/10/20 8:52 AM EDT Anuradha Leiws MA [facility] 03-10-2025 Patient Health Quest ionnaire 2 item (PHQ-2) [Reported] [facility] 01-23-2024 Functional Status N/A [facility] 01-13-2024 Functional Status No [facility] 12-01-2023 Functional Status N/A [facility] 11-03-2023 Functional Status N/A [facility] Clinical Notes 12-28-2021 to 03-10-2025 Bebo Conklin - 03/10/2025 8:40 AM Richelle Conklin - 03/10/2025 8:40 AM iRchelle Conklin, - 03/10/2025 8:40 AM EDTTelephone Encounter - SEGUN HOLLY - 02/16/2025 9:36 AM EDT Note Date & Type Note Facility 03-10-2025 History of Present illness Narrative Associated Problem(s): Type 2 diabetes mellitus without complication, without long-term current use of insulin - A1c level is 7.2, slightly higher [...] mouth in the morning. Take before meals. Associated Problem(s): Mixed hyperlipidemia (CMS/HCC) Ordered annual bloodwork, continue rosuvastatin otherwise Orders: Comprehensive metabolic panel; Future Lipid panel; Future Images from the original note were not included. FAMILY MEDICINE NOTE Chief Complaint: Follow up HPI: Trigger Finger Rebeca reports significant pain and stiffness in his finger, which has been worsening since his last visit. The pain is severe, particularly at night, causing the finger to get stuck. 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 He has been using dncn-mwh-[id number] arthritis cream, which provides minimal relief. No X-rays or other treatments have been done previously. The condition has been persistent and is affecting his daily activities. Diabetes Management Rebeca's A1c was 7.2, slightly higher than the previous 6.8. He quit drinking alcohol in January of the previous year and has a history of smoking, which he quit in his early 30s. He admits to consuming sugary foods like Mallo Cups and cookies, which may affect his blood sugar levels. He experiences occasional jitteriness, likely related to his diabetes medication, metformin, and glimepiride. He does not regularly check his blood sugar but has noted levels between 130 to 150 mg/dL in the morning after fasting. He recalls a past episode of low blood sugar, which he managed by eating. SUBJECTIVE: PROBLEM LIST SURGICAL/SOCIAL ALLERGIES: Patient Active Problem List Diagnosis Type 2 diabetes mellitus without complication, without long-term current use of insulin Parkinson's disease Diverticulitis Erectile dysfunction Generalized anxiety disorder (CMS/HCC) Obsessive-compulsive disorder (CMS/HCC) Panic disorder (CMS/HCC) Major depression, single episode (CMS/HCC) Pure hypercholesterolemia (CMS/HCC) Vitamin D deficiency Mixed hyperlipidemia (CMS/HCC) Class 1 obesity Past Surgical History: Procedure Laterality Date COLONOSCOPY EGD LAMINECTOMY OTHER SURGICAL HISTORY 2004 CERVICAL DECOMPRESSION - DR MAYS(2004) [place] MEDICATION MANAGEMENT 2011 Procedure:FLAGYL & BENTYL;Disease:ABDOMINAL PAIN & ILLEITIS [place] MEDICATION MANAGEMENT 2010 Procedure:medrol dose zenon;Disease:cervical radiuclopathy & muscle spasm SPINE SURGERY Social History Tobacco Use Smoking status: Former Types: Cigarettes Smokeless tobacco: Never Tobacco comments: Last smoked:>20 years Substance Use Topics Alcohol use: Yes Alcohol/week: 30.0 standard drinks of alcohol Types: 30 Cans of beer per week Comment: 3-6 drinks a day. Caffeine: Yes, soda; coffee Drug use: Never Allergies Allergen Reactions Ciprofloxacin Unknown OBJECTIVE: 03/10/2025 8:53 AM 12/14/2024 11:09 AM 10/11/2024 1:31 PM Vitals BMI 32.28 kg/m2 32.63 kg/m2 31.57 kg/m2 BSA (m2) 2.24 m2 2.26 m2 2.22 m2 Systolic 130 130 Diastolic 86 80 Heart Rate 86 99 SpO2 98 % 96 % Temp 98 F 97.1 F Resp 20 Height (in) 5' 10 5' 10 5' 10 Weight (lb) 225 227.4 220 Visit Report Report Report Physical Exam Constitutional: Appearance: Normal appearance. Cardiovascular: Rate and Rhythm: Normal rate and regular rhythm. Heart sounds: No murmur heard. No friction rub. No gallop. Pulmonary: Breath sounds: Normal breath sounds. No wheezing, rhonchi or rales. Abdominal: General: Abdomen is flat. Bowel sounds are normal. There is no distension. Palpations: Abdomen is soft. There is no mass. Tenderness: There is no abdominal tenderness. There is no guarding. Musculoskeletal: Left hand: Swelling and tenderness present. Decreased range of motion. Hands: Skin: General: Skin is warm. Neurological: General: No focal deficit present. Mental Status: He is alert. Mental status is at baseline. Psychiatric: Mood and Affect: Mood normal. Behavior: Behavior normal. ASSESSMENT AND PLAN: Assessment & Plan Type 2 diabetes mellitus without complication, without long-term current use of insulin - A1c level is 7.2, slightly higher [...] mouth in the morning. Take before meals. Mixed hyperlipidemia (CMS/HCC) Ordered annual bloodwork, continue rosuvastatin otherwise Orders: Comprehensive metabolic panel; Future Lipid panel; Future Idiopathic chronic gout of multiple sites without tophus Pt requested refill, sent Orders: allopurinol (Zyloprim) 300 MG tablet; Take 1 tablet (300 mg) by mouth Daily Trigger middle finger of left hand - Likely trigger finger due to inflammation of tendons from repetitive hand use. - Continue using arthritis cream. Advised to try trigger finger splint to immobilize the affected finger. If symptoms persist, discuss the possibility of a steroid injection. Patient's Medications New Prescriptions No medications on file Previous Medications ALPRAZOLAM (XANAX) 0.5 MG TABLET Take 1 tablet (0.5 mg) by mouth 3 (three) times a day as needed for anxiety for up to 7 days Please take as discussed in office. BLOOD GLUCOSE MONITORING SUPPL (ONE TOUCH ULTRA MINI) W/DEVICE KIT Test daily before all meals/snacks and once before bedtime. BUSPIRONE (BUSPAR) 30 MG TABLET Take 1 tablet (30 mg) by mouth Daily DOCUSATE SODIUM (COLACE) 100 MG CAPSULE TAKE 1 CAPSULE BY MOUTH TWO TIMES A DAY FOR 14 DAYS. ELIQUIS 2.5 MG TABLET TAKE 1 TABLET BY MOUTH TWICE A DAY FOR 21 DAYS FLUOXETINE (PROZAC) 60 MG TABLET Take 1 tablet (60 mg) by mouth Daily GLUCOSE BLOOD (FREESTYLE LITE) TEST STRIP Use as instructed IBUPROFEN 800 MG TABLET Take 1 tablet (800 mg) by mouth in the morning and 1 tablet (800 mg) in the evening and 1 tablet (800 mg) before bedtime. OXYBUTYNIN (DITROPAN) 5 MG TABLET Take 5 mg by mouth in the morning and 5 mg at noon and 5 mg in the evening. OXYCODONE (ROXICODONE) 5 MG IMMEDIATE RELEASE TABLET TAKE 1 TABLET BY MOUTH EVERY 8 HOURS NEEDED FOR PAIN FOR UP TO 10 DOSES ROSUVASTATIN (CRESTOR) 5 MG TABLET Take 1 tablet (5 mg) by mouth Daily Modified Medications Modified Medication Previous Medication ALLOPURINOL (ZYLOPRIM) 300 MG TABLET allopurinol (Zyloprim) 300 MG tablet Take 1 tablet (300 mg) by mouth Daily Take 1 tablet (300 mg) by mouth Daily GLIMEPIRIDE (AMARYL) 4 MG TABLET glimepiride (Amaryl) 4 MG tablet Take 1 tablet (4 mg) by mouth in the morning. Take before meals. Take 1 tablet (4 mg) by mouth in the morning. Take before meals. METFORMIN, OSM, (FORTAMET) 1000 MG 24 HR TABLET metFORMIN, OSM, (Fortamet) 1000 MG 24 hr tablet Take 1 tablet (1,000 mg) by mouth in the evening. Take with meals Do not crush, chew, or split. Take 1 tablet (1,000 mg) by mouth in the evening. Take with meals Do not crush, chew, or split. Discontinued Medications IBUPROFEN-FAMOTIDINE (DUEXIS) 800-26.6 MG TABLET PER TABLET every 8 (eight) hours. Follow up in about 3 months (around 06/10/2025) for a1c DM f/u. Bebo Conklin DO documented in this encounter [facility] 02-16-2025 Telephone encounter Note Refill- can we fill these for 1 month, pt has appt with Dr Conklin in February [facility] 02-16-2025 Miscellaneous Notes Refill- can we fill these for 1 month, pt has appt with Dr Conklin in February Refil documented in this encounter [facility] 02-09-2025 Telephone encounter Note Refil [facility] 12-14-2024 History of Present illness Narrative SUBJECTIVE Rebeca Wagner is a 64 y.o. male who presents for a chronic illness management visit. CURRENT MEDICATIONS Current Outpatient Medications: ALPRAZolam (Xanax) 0.5 MG tablet, Take 1 tablet (0.5 mg) by mouth 3 (three) times a day as needed for anxiety for up to 7 days Please take as discussed in office., Disp: 21 tablet, Rfl: 0 Blood Glucose Monitoring Suppl (ONE TOUCH ULTRA MINI) w/Device kit, Test daily before all meals/snacks and once before bedtime., Disp: 1 kit, Rfl: 0 busPIRone (Buspar) 30 MG tablet, Take 1 tablet (30 mg) by mouth Daily, Disp: 30 tablet, Rfl: 2 docusate sodium (Colace) 100 MG capsule, TAKE 1 CAPSULE BY MOUTH TWO TIMES A DAY FOR 14 DAYS., Disp: , Rfl: Eliquis 2.5 MG tablet, TAKE 1 TABLET BY MOUTH TWICE A DAY FOR 21 DAYS, Disp: , Rfl: glucose blood (FREESTYLE LITE) test strip, Use as instructed, Disp: 100 each, Rfl: 3 ibuprofen 800 MG tablet, Take 1 tablet (800 mg) by mouth in the morning and 1 tablet (800 mg) in the evening and 1 tablet (800 mg) before bedtime., Disp: 270 tablet, Rfl: 0 Ibuprofen-Famotidine (Duexis) 800-26.6 MG tablet per tablet, every 8 (eight) hours., Disp: , Rfl: oxybutynin (Ditropan) 5 MG tablet, Take 5 mg by mouth in the morning and 5 mg at noon and 5 mg in the evening., Disp: , Rfl: oxyCODONE (Roxicodone) 5 MG immediate release tablet, TAKE 1 TABLET BY MOUTH EVERY 8 HOURS NEEDED FOR PAIN FOR UP TO 10 DOSES, Disp: , Rfl: allopurinol (Zyloprim) 300 MG tablet, Take 1 tablet (300 mg) by mouth Daily, Disp: , Rfl: FLUoxetine (PROzac) 60 MG tablet, Take 1 tablet (60 mg) by mouth Daily, Disp: , Rfl: glimepiride (Amaryl) 4 MG tablet, Take 1 tablet (4 mg) by mouth in the morning. Take before meals., Disp: , Rfl: metFORMIN, OSM, (Fortamet) 1000 MG 24 hr tablet, Take 1 tablet (1,000 mg) by mouth in the evening. Take with meals Do not crush, chew, or split., Disp: , Rfl: rosuvastatin (Crestor) 5 MG tablet, Take 1 tablet (5 mg) by mouth Daily, Disp: , Rfl: RECENT VITAL SIGNS 02/03/2024 10:21 AM 03/04/2024 2:06 PM 03/30/2024 9:32 AM 06/15/2024 2:38 PM 09/28/2024 9:34 AM 10/11/2024 1:31 PM 12/14/2024 11:09 AM Vitals BMI 33.43 kg/m2 32.74 kg/m2 32.71 kg/m2 31.85 kg/m2 31.57 kg/m2 31.57 kg/m2 32.63 kg/m2 BSA (m2) 2.29 m2 2.27 m2 2.26 m2 2.23 m2 2.22 m2 2.22 m2 2.26 m2 Systolic 138 138 136 130 Diastolic 80 84 82 80 Heart Rate 89 99 91 99 SpO2 96 % 96 % 94 % 96 % Temp 96.5 F 97.2 F 97.1 F 97.1 F Height (in) 5' 10 5' 10 5' 10 5' 10 5' 10 5' 10 5' 10 Weight (lb) 233 228.2 228 222 220 220 227.4 Visit Report Report Report Report Report Report OBJECTIVE Physical Exam Vitals and nursing note reviewed. Constitutional: Appearance: Normal appearance. He is normal weight. HENT: Head: Normocephalic and atraumatic. Right Ear: Tympanic membrane, ear canal and external ear normal. Left Ear: Tympanic membrane, ear canal and external ear normal. Nose: Nose normal. Mouth/Throat: Mouth: Mucous membranes are moist. Eyes: Pupils: Pupils are equal, round, and reactive to light. Cardiovascular: Rate and Rhythm: Normal rate and regular rhythm. Pulses: Normal pulses. Heart sounds: Normal heart sounds. Pulmonary: Effort: Pulmonary effort is normal. Breath sounds: Normal breath sounds. Abdominal: General: Bowel sounds are normal. Palpations: Abdomen is soft. Musculoskeletal: General: Normal range of motion. Cervical back: Normal range of motion. Skin: General: Skin is warm and dry. Capillary Refill: Capillary refill takes less than 2 seconds. Neurological: General: No focal deficit present. Mental Status: He is alert and oriented to person, place, and time. Psychiatric: Mood and Affect: Mood normal. ASSESSMENT/PLAN Diagnoses and all orders for this visit: Type 2 diabetes mellitus without complication, without long-term current use of insulin (CMS/HCC) - POCT glycosylated hemoglobin (Hb A1C) docked device - glimepiride (Amaryl) 4 MG tablet; Take 1 tablet (4 mg) by mouth in the morning. Take before meals. - metFORMIN, OSM, (Fortamet) 1000 MG 24 hr tablet; Take 1 tablet (1,000 mg) by mouth in the evening. Take with meals Do not crush, chew, or split. - rosuvastatin (Crestor) 5 MG tablet; Take 1 tablet (5 mg) by mouth Daily Type 2 diabetes mellitus with other specified complication (CMS/HCC) Male erectile dysfunction, unspecified Idiopathic chronic gout of multiple sites without tophus - allopurinol (Zyloprim) 300 MG tablet; Take 1 tablet (300 mg) by mouth Daily Major depressive disorder with current active episode, unspecified depression episode severity, unspecified whether recurrent (CMS/HCC) - FLUoxetine (PROzac) 60 MG tablet; Take 1 tablet (60 mg) by mouth Daily Obsessive-compulsive disorder, unspecified type (CMS/HCC) - FLUoxetine (PROzac) 60 MG tablet; Take 1 tablet (60 mg) by mouth Daily Generalized anxiety disorder (CMS/HCC) - FLUoxetine (PROzac) 60 MG tablet; Take 1 tablet (60 mg) by mouth Daily Mixed hyperlipidemia (CMS/HCC) - rosuvastatin (Crestor) 5 MG tablet; Take 1 tablet (5 mg) by mouth Daily FOLLOW-UP Follow up in about 3 months (around 03/13/2025) for Next scheduled follow-up. documented in this encounter [facility] 12-14-2024 Instructions Carolina Peter NP - 12/14/2024 11:00 AM EST PATIENT EDUCATION: DM Prior to your visit today, our team reviewed your chart and outlined testing and treatment needed for your care. Possible complications of diabetes include possible loss of vision, increased risks of heart attack and stroke, and kidney failure. Your goals for your diabetic management are to keep your HgbA1c less than 7.0, your BP less than 130/80, and to maintain a healthy weight with a BMI of less than 26. We are working together to achieve these goals with the following plan of healthier diet, increased physical activity level, and medication understanding and compliance. Barriers to these goals have been discussed. HLD Reviewed most recent lipid panel or ordered new labs if needed. It is important to maintain LDL at specified goal. The risks associated with hyperlipidemia including stroke and heart attack. Take medications as directed. Dietary modifications include decreasing red meat consumption, decreasing alcohol consumption, avoiding fried fatty foods and cakes, cookies, and sweets. You are encouraged to increase fiber in your diet and eat a diet rich in omega-3. You are encouraged to exercise at least 150 minutes weekly. Barriers to the plan of care have been addressed. Obtain labs as directed and call our office if you have not received the lab results within one week. Follow up as directed. Patient has been given a copy of the plan of care. DEPRESSION Discussed side effects of medications. Notify physician's office if worsening depression, suicidal thoughts, and allergic reactions. Avoid use of other drugs, including alcohol. It may take 4-6 weeks before seeing improvement of symptoms. Do not stop medication abruptly to avoid serotonin withdrawal symptoms. There are a number of treatments for depression including psychotherapy, support groups, and psychiatric antidepressant medications. Try to get 8 hours of sleep per night. A lack of sleep increases risk for mental disturbances of all kinds. Daily exercise is recommended; exercise naturally increases the concentration of neurotransmitters such as serotonin. Build loving and accepting family/friend relationships. Use positive psychology. Meditation can be helpful because it calms and relaxes both the mind and body. There are many books, internet articles and free apps that you can download to guide you in meditation exercises. ANXIETY 1) Cognitive Behavioral Therapy (CBT) for anxiety/panic disorder involves a combination of education, self-monitoring, relaxation training, challenging negative styles of thinking, situational exposure training, and systematic exposure to uncomfortable physical sensations. CBT can be used alone without pharmacotherapy, or may be used as an adjunct to any form of pharmacotherapy 2) Panic is an understandable reaction to perceived danger (the fight or flight response). Fear arises from the misinterpretation of normal body sensations. It is important to link symptoms and interpret anxiety with arrows in a vicious torres martinez . It is important to appreciate that the first goal of treatment is not to remove all anxiety, only to manage it successfully. Attempts to cope by avoidance or safety seeking are understandable, but inadvertently lead to maintaining the problem. 3) Several mental health apps have been developed for panic and anxiety-related conditions. Internet-based self-help programs have been developed to improve access to evidence-based treatment principles for panic symptoms for patients unable to access treatment with a clinician. 4) Use medication as directed. Counseling recommended. Please report to the emergency room for any suicidal/homicidal ideation. Patient strongly encouraged to avoid alcohol and drug substances while on medications. This can cause adverse reactions and ineffectiveness of medications. [place] reviewed as necessary for use of controlled substances. documented in this encounter [facility] 10-11-2024 History of Present illness Narrative HPI Patient presents today following neck CT scan. I reviewed this. The neck masses or actually just odd dispositions of fat in the neck that mimic low-lying parotid tumors. I made him aware of this. Relevant postoperative physical examination Unremarkable Assessment/plan Rebeca was seen today for neck mass. Diagnoses and all orders for this visit: Neck mass (Primary) Comments: I made the patient aware of the above. Thyroid nodule (CMS/HCC) Comments: I will recheck the patient's thyroid nodule in 1 year. documented in this encounter [facility] 09-28-2024 History of Present illness Narrative Subjective Patient ID: HPI Patient presents today to reinspect his right thyroid nodule. Previously 1.01 cm in greatest dimension and had not been biopsied. Review of Systems ROS The specialty specific review of systems is noncontributory except for that recorded in the intake questionnaire and /or described in the history of present illness. Objective ENT Physical Exam Physical Exam Constitutional: Appearance: Normal appearance. HENT: Head: Atraumatic. Ears: External ear shows no abnormality Bilateral ear canals are clear Tympanic membranes intact, no evidence of middle ear fluid or other pathology. Nose: External nose appears to be normal Nares patent. Septal deviation to the right No evidence of polyp, mass or pus bilaterally. Oral Cavity: No evidence of trismus Lips appear normal Dental good Tongue of normal size and configuration, floor of mouth mucosa clear. Buccal mucosa shows no evidence of ulceration, mass or other abnormality Hard palate soft palate mucosa intact with no evidence of mass, ulceration or other abnormality Uvula of normal size and configuration Oropharynx: Tonsils Posterior pharyngeal wall Neck: Bilateral soft but mobile neck masses in the region of the parotid gland. Thyroid without evidence of thyromegaly or mass. No cervical lymphadenopathy present. Cardiovascular: Rate and Rhythm: Normal rate and regular rhythm. . Skin: General: Skin is warm and dry. Neurological: General: No focal deficit present. Mental Status: alert and oriented to person, place, and time. THYROID ULTRASOUND EXAMINATION Indication: Thyroid nodule After informed consent was obtained the patient was placed supine on the examining table. Patient was asked to extend the neck. Topical ultrasound jelly was used. The right lobe of the thyroid gland measures __ 4.8 cm in greatest dimension. Inferiorly there is a fairly well demarcated hypoechoic nodule now measuring 0.91 cm in greatest dimension with no internal vascularity, I do not really think it has microcalcification. The isthmus is unremarkable. The left lobe of the thyroid gland measures __ 5.1 ___ cm greatest dimension. There is no adenopathy in the central compartment. No identifiable nodular mass There is no appreciable adenopathy in either lateral neck. Assessment/Plan Rebeca was seen today for thyroid nodule. Diagnoses and all orders for this visit: Neck mass (Primary) Comments: I am going to obtain a CT scan to better delineate what I am looking at in this patient's neck, I will see him back following that Orders: - CT soft tissue neck w IV contrast; Future - Creatinine, Serum; Future - Creatinine, Serum Thyroid nodule (CMS/HCC) Comments: The nodule does not need to be biopsied at this time, I will recheck this in a year documented in this encounter [facility] 09-22-2024 Note HNO ID: [id number] Author: NATALIE OTERO MD Service: ? Author Type: Physician Type: Progress Notes Filed: 09/22/2024 10:17 Note Text: VIRTUAL VISIT PROGRESS NOTE This is a virtual visit using [employer] Video Visit. It required patient-provider interaction for the medical decision making as documented below. I have communicated my name and active licensure. The patient's identity and physical location were verified at the time of this visit. Either the patient or their legal education courses sales representative has been informed of the risks and benefits of -- and alternatives to -- treatment through a remote evaluation and consents to proceed with the evaluation remotely. REASON FOR VISIT: Follow up for Adenocarcinoma of Prostate HPI: 63 year old male s/p Robot Assisted Radical Prostatectomy by Dr. Otero on 04/26/2024. Adenocarcinoma of the prostate [id number]. Generally doing well. Denies nausea, loss of appetite, fever,?or fatigue.?Normal bowel movements. No issues with his incision. Ambulating without difficulty PSA 09/15/2024 <0.02 Urine Continence 0 pad/day IPSS :0 BLAS : 025 PATHOLOGY: FINAL DIAGNOSIS A. Prostate and seminal vesicles, radical prostatectomy: - Prostatic adenocarcinoma, Suzie score 3+4=7 (Grade Group 2). - Focal extraprostatic extension is present (pT3a). - Margins negative. Radical Prostatectomy Morphology Summary Unfavorable histology: Absent Large cribriform pattern 4: Absent Intraductal carcinoma: Absent LABS: Creatinine Date Value Ref Range Status 04/27/2024 0.74 0.73 - 1.22 mg/dL Final 04/26/2024 0.86 0.73 - 1.22 mg/dL Final 04/20/2024 0.86 0.73 - 1.22 mg/dL Final PSA (ng/mL) Date Value 09/15/2024 <0.02 06/10/2024 <0.02 ALLERGIES: ALLERGIES Allergen Reactions Ciprofloxacin Swelling, Unknown MEDICATIONS: Current Outpatient Medications Medication Sig oxybutynin (DITROPAN) 5 mg tablet Take 1 tablet by mouth three times a day for 6 days. Use for bazan discomfort. Stop 1 day before bazan removal. acetaminophen (TYLENOL) 500 mg tablet Take 2 tablets by mouth every 6 hours as needed for pain. busPIRone HCl 30 mg tablet Take 30 mg by mouth two times a day. allopurinol (ZYLOPRIM) 300 mg tablet Take 1 tablet by mouth every afternoon. ALPRAZolam (XANAX) 0.5 mg tablet TAKE 1 TABLET BY MOUTH 3 TIMES A DAY NEEDED FOR ANXIETY FOR 7 DAYS *TAKE DISCUSSED IN OFFICE. FLUoxetine (PROZAC) 60 mg tablet Take 60 mg by mouth once daily. glimepiride (AMARYL) 4 mg tablet TAKE 1 TABLET BY MOUTH IN THE MORNING WITH BREAKFAST OR FIRST MAIN MEAL OF THE DAY FREESTYLE LANCETS 28 gauge once daily. metFORMIN ER (FORTAMET) 1,000 mg 24 hr tablet TAKE 1 TABLET BY MOUTH IN THE EVENING WITH MEALS, DO NOT CRUSH, CHEW, OR SPLIT rosuvastatin (CRESTOR) 5 mg tablet Take 1 tablet by mouth once daily. No current facility-administered medications for this visit. HISTORIES PAST MEDICAL HISTORY Diagnosis Date Anxiety Diabetes (HCC) GERD (gastroesophageal reflux disease) Hyperlipidemia PAST SURGICAL HISTORY Procedure Laterality Date NECK SURGERY HX Cervical fusion TONSILLECTOMY HX Social History Tobacco Use Smoking status: Never Smokeless tobacco: Never Substance Use Topics Alcohol use: Not Currently Drug use: Never FAMILY HISTORY Problem Relation Age of Onset Anesthesia Problems No Family History REVIEW OF SYSTEMS: Negative PHYSICAL EXAMINATION: VIDEO EXAM: (if completed, performed via video enabled technology) GENERAL: alert and appropriate, in no distress PROBLEMS: IMPRESSION: This is a 64 year old male 1) s/p Robot Assisted Radical Prostatectomy by Dr. Otero on 04/26/2024. Adenocarcinoma of the prostate [id number]. PLAN: PSA every 4 months, placed a standing order he will call us if ever looks different He is not interested in sexual rehabilitation- he has not been active for many years. The patient understands and agrees with the plan. I spent a total of 25 minutes on the date of the service which included preparing to see the patient, [id number] patient care, completing clinical documentation, obtaining and/or reviewing separately obtained history, performing a medically appropriate examination, counseling and educating the patient/family/caregiver, ordering medications, tests, or procedures, and communicating results to the patient/family/caregiver. Natalie Otero MD [facility] 09-22-2024 History of Present illness Narrative VIRTUAL VISIT PROGRESS NOTE This is a virtual visit using [employer] Video Visit. It required patient-provider interaction for the medical decision making as documented below. I have communicated my name and active licensure. The patient's identity and physical location were verified at the time of this visit. Either the patient or their legal education courses sales representative has been informed of the risks and benefits of -- and alternatives to -- treatment through a remote evaluation and consents to proceed with the evaluation remotely. REASON FOR VISIT: Follow up for Adenocarcinoma of Prostate HPI: 63 year old male s/p Robot Assisted Radical Prostatectomy by Dr. Otero on 04/26/2024. Adenocarcinoma of the prostate [id number]. Generally doing well. Denies nausea, loss of appetite, fever,?or fatigue.?Normal bowel movements. No issues with his incision. Ambulating without difficulty PSA 09/15/2024 <0.02 Urine Continence 0 pad/day IPSS :0 BLAS : 0 PATHOLOGY: FINAL DIAGNOSIS A. Prostate and seminal vesicles, radical prostatectomy: - Prostatic adenocarcinoma, Pierson score 3+4=7 (Grade Group 2). - Focal extraprostatic extension is present (pT3a). - Margins negative. Radical Prostatectomy Morphology Summary Unfavorable histology: Absent Large cribriform pattern 4: Absent Intraductal carcinoma: Absent LABS: Creatinine Date Value Ref Range Status 04/27/2024 0.74 0.73 - 1.22 mg/dL Final 04/26/2024 0.86 0.73 - 1.22 mg/dL Final 04/20/2024 0.86 0.73 - 1.22 mg/dL Final PSA (ng/mL) Date Value 09/15/2024 <0.02 06/10/2024 <0.02 ALLERGIES: ALLERGIES Allergen Reactions Ciprofloxacin Swelling, Unknown MEDICATIONS: Current Outpatient Medications Medication Sig oxybutynin (DITROPAN) 5 mg tablet Take 1 tablet by mouth three times a day for 6 days. Use for bazan discomfort. Stop 1 day before bazan removal. acetaminophen (TYLENOL) 500 mg tablet Take 2 tablets by mouth every 6 hours as needed for pain. busPIRone HCl 30 mg tablet Take 30 mg by mouth two times a day. allopurinol (ZYLOPRIM) 300 mg tablet Take 1 tablet by mouth every afternoon. ALPRAZolam (XANAX) 0.5 mg tablet TAKE 1 TABLET BY MOUTH 3 TIMES A DAY NEEDED FOR ANXIETY FOR 7 DAYS *TAKE DISCUSSED IN OFFICE. FLUoxetine (PROZAC) 60 mg tablet Take 60 mg by mouth once daily. glimepiride (AMARYL) 4 mg tablet TAKE 1 TABLET BY MOUTH IN THE MORNING WITH BREAKFAST OR FIRST MAIN MEAL OF THE DAY FREESTYLE LANCETS 28 gauge once daily. metFORMIN ER (FORTAMET) 1,000 mg 24 hr tablet TAKE 1 TABLET BY MOUTH IN THE EVENING WITH MEALS, DO NOT CRUSH, CHEW, OR SPLIT rosuvastatin (CRESTOR) 5 mg tablet Take 1 tablet by mouth once daily. No current facility-administered medications for this visit. HISTORIES PAST MEDICAL HISTORY Diagnosis Date Anxiety Diabetes (HCC) GERD (gastroesophageal reflux disease) Hyperlipidemia PAST SURGICAL HISTORY Procedure Laterality Date NECK SURGERY HX Cervical fusion TONSILLECTOMY HX Social History Tobacco Use Smoking status: Never Smokeless tobacco: Never Substance Use Topics Alcohol use: Not Currently Drug use: Never FAMILY HISTORY Problem Relation Age of Onset Anesthesia Problems No Family History REVIEW OF SYSTEMS: Negative PHYSICAL EXAMINATION: VIDEO EXAM: (if completed, performed via video enabled technology) GENERAL: alert and appropriate, in no distress PROBLEMS: IMPRESSION: This is a 64 year old male 1) s/p Robot Assisted Radical Prostatectomy by Dr. Otero on 04/26/2024. Adenocarcinoma of the prostate [id number]. PLAN: PSA every 4 months, placed a standing order he will call us if ever looks different He is not interested in sexual rehabilitation- he has not been active for many years. The patient understands and agrees with the plan. I spent a total of 25 minutes on the date of the service which included preparing to see the patient, [id number] patient care, completing clinical documentation, obtaining and/or reviewing separately obtained history, performing a medically appropriate examination, counseling and educating the patient/family/caregiver, ordering medications, tests, or procedures, and communicating results to the patient/family/caregiver. Natalie Otero MD documented in this encounter [facility] 07-12-2024 Telephone encounter Note Noted [facility] 07-12-2024 Miscellaneous Notes Noted Pt notified. He will just wait for his mail order to come in. I can either send in a short supply to a local pharmacy, or he can wait until the shipment arrives it wont hurt anything to miss a few days. 07/12/24 pt called is switching to mail order they will be sending out the pt Crestor which pt will not get till end of week pt only has one left will he be ok to wait on mail order script please call pt [phone] documented in this encounter [facility] 07-12-2024 Telephone encounter Note Pt notified. He will just wait for his mail order to come in. [facility] 07-12-2024 Telephone encounter Note I can either send in a short supply to a local pharmacy, or he can wait until the shipment arrives it wont hurt anything to miss a few days. [facility] 07-12-2024 Telephone encounter Note 07/12/24 pt called is switching to mail order they will be sending out the pt Crestor which pt will not get till end of week pt only has one left will he be ok to wait on mail order script please call pt [phone] [facility] 06-15-2024 History of Present illness Narrative Images from the original note were not included. SUBJECTIVE Rebeca Wagner is a 64 y.o. male who presents for a chronic illness management visit. CURRENT MEDICATIONS Current Outpatient Medications: ALPRAZolam (Xanax) 0.5 MG tablet, Take 1 tablet (0.5 mg) by mouth 3 (three) times a day as needed for anxiety for up to 7 days Please take as discussed in office., Disp: 21 tablet, Rfl: 0 Blood Glucose Monitoring Suppl (ONE TOUCH ULTRA MINI) w/Device kit, Test daily before all meals/snacks and once before bedtime., Disp: 1 kit, Rfl: 0 busPIRone (Buspar) 30 MG tablet, Take 1 tablet (30 mg) by mouth Daily, Disp: 30 tablet, Rfl: 2 docusate sodium (Colace) 100 MG capsule, TAKE 1 CAPSULE BY MOUTH TWO TIMES A DAY FOR 14 DAYS., Disp: , Rfl: Eliquis 2.5 MG tablet, TAKE 1 TABLET BY MOUTH TWICE A DAY FOR 21 DAYS, Disp: , Rfl: FLUoxetine (PROzac) 60 MG tablet, Take 1 tablet (60 mg) by mouth Daily, Disp: 90 tablet, Rfl: 0 glucose blood (FREESTYLE LITE) test strip, Use as instructed, Disp: 100 each, Rfl: 3 ibuprofen 800 MG tablet, 1 tablet, Disp: , Rfl: metFORMIN, OSM, (Fortamet) 1000 MG 24 hr tablet, Take 1 tablet (1,000 mg) by mouth in the evening. Take with meals Do not crush, chew, or split., Disp: 30 tablet, Rfl: 0 oxybutynin (Ditropan) 5 MG tablet, Take 5 mg by mouth in the morning and 5 mg at noon and 5 mg in the evening., Disp: , Rfl: oxyCODONE (Roxicodone) 5 MG immediate release tablet, TAKE 1 TABLET BY MOUTH EVERY 8 HOURS NEEDED FOR PAIN FOR UP TO 10 DOSES, Disp: , Rfl: sulfamethoxazole-trimethoprim (Bactrim DS) 800-160 MG per tablet, TAKE 1 TABLET BY MOUTH TWICE A DAY FOR 3 DAYS *TAKE DAY BEFORE AND DAY AFTER BAZAN CATHETER REMOVAL*, Disp: , Rfl: allopurinol (Zyloprim) 300 MG tablet, Take 1 tablet (300 mg) by mouth Daily, Disp: 90 tablet, Rfl: 1 glimepiride (Amaryl) 4 MG tablet, Take 1 tablet (4 mg) by mouth in the morning. Take before meals., Disp: 90 tablet, Rfl: 1 Ibuprofen-Famotidine (Duexis) 800-26.6 MG tablet per tablet, every 8 (eight) hours., Disp: , Rfl: pantoprazole (Protonix) 40 MG EC tablet, Take 1 tablet (40 mg) by mouth in the morning. Take before meals. Do not crush, chew, or split.., Disp: 90 tablet, Rfl: 1 rOPINIRole (Requip) 1 MG tablet, Take 1 tablet (1 mg) by mouth at bedtime, Disp: 90 tablet, Rfl: 1 rosuvastatin (Crestor) 5 MG tablet, Take 1 tablet (5 mg) by mouth Daily, Disp: 90 tablet, Rfl: 1 RECENT VITAL SIGNS 11/11/2023 11:36 AM 11/18/2023 10:49 AM 12/23/2023 11:09 AM 02/03/2024 10:21 AM 03/04/2024 2:06 PM 03/30/2024 9:32 AM 06/15/2024 2:38 PM Vitals BMI 35.1 kg/m2 35.15 kg/m2 34.92 kg/m2 33.43 kg/m2 32.74 kg/m2 32.71 kg/m2 31.85 kg/m2 BSA (m2) 2.34 m2 2.34 m2 2.33 m2 2.29 m2 2.27 m2 2.26 m2 2.23 m2 Systolic 118 138 140 138 138 136 Diastolic 80 82 78 80 84 82 Heart Rate 106 111 104 89 99 91 SpO2 98 % 96 % 96 % 96 % 96 % 94 % Temp 97.2 F 97.7 F 97 F 96.5 F 97.2 F 97.1 F Height (in) 5' 10 5' 10 5' 10 5' 10 5' 10 5' 10 5' 10 Weight (lb) 244.6 245 243.4 233 228.2 228 222 Visit Report Report Report Report Report Report Report OBJECTIVE Physical Exam Vitals and nursing note reviewed. Constitutional: Appearance: Normal appearance. He is normal weight. HENT: Head: Normocephalic and atraumatic. Right Ear: Tympanic membrane, ear canal and external ear normal. Left Ear: Tympanic membrane, ear canal and external ear normal. Nose: Nose normal. Mouth/Throat: Mouth: Mucous membranes are moist. Eyes: Pupils: Pupils are equal, round, and reactive to light. Cardiovascular: Rate and Rhythm: Normal rate and regular rhythm. Pulses: Normal pulses. Heart sounds: Normal heart sounds. Pulmonary: Effort: Pulmonary effort is normal. Breath sounds: Normal breath sounds. Abdominal: General: Bowel sounds are normal. Palpations: Abdomen is soft. Musculoskeletal: General: Normal range of motion. Cervical back: Normal range of motion. Skin: General: Skin is warm and dry. Capillary Refill: Capillary refill takes less than 2 seconds. Neurological: General: No focal deficit present. Mental Status: He is alert and oriented to person, place, and time. Psychiatric: Mood and Affect: Mood normal. ASSESSMENT/PLAN Diagnoses and all orders for this visit: Type 2 diabetes mellitus without complication, without long-term current use of insulin (CMS/HCC) - POCT glycosylated hemoglobin (Hb A1C) docked device - rosuvastatin (Crestor) 5 MG tablet; Take 1 tablet (5 mg) by mouth Daily - glimepiride (Amaryl) 4 MG tablet; Take 1 tablet (4 mg) by mouth in the morning. Take before meals. Major depressive disorder with current active episode, unspecified depression episode severity, unspecified whether recurrent (CMS/HCC) Obsessive-compulsive disorder, unspecified type (CMS/HCC) Generalized anxiety disorder (CMS/HCC) Mixed hyperlipidemia (CMS/HCC) - rosuvastatin (Crestor) 5 MG tablet; Take 1 tablet (5 mg) by mouth Daily Gastroesophageal reflux disease without esophagitis - pantoprazole (Protonix) 40 MG EC tablet; Take 1 tablet (40 mg) by mouth in the morning. Take before meals. Do not crush, chew, or split.. Idiopathic chronic gout of multiple sites without tophus - allopurinol (Zyloprim) 300 MG tablet; Take 1 tablet (300 mg) by mouth Daily Parkinson's disease (CMS/HCC) - rOPINIRole (Requip) 1 MG tablet; Take 1 tablet (1 mg) by mouth at bedtime FOLLOW-UP Follow up in about 6 months (around 12/16/2024) for Next scheduled follow-up: CIM (40) . documented in this encounter [facility] 06-15-2024 Instructions Carolina Peter NP - 06/15/2024 2:20 PM EDT PATIENT EDUCATION: DM Prior to your visit today, our team reviewed your chart and outlined testing and treatment needed for your care. Possible complications of diabetes include possible loss of vision, increased risks of heart attack and stroke, and kidney failure. Your goals for your diabetic management are to keep your HgbA1c less than 7.0, your BP less than 130/80, and to maintain a healthy weight with a BMI of less than 26. We are working together to achieve these goals with the following plan of healthier diet, increased physical activity level, and medication understanding and compliance. Barriers to these goals have been discussed. DEPRESSION Discussed side effects of medications. Notify physician's office if worsening depression, suicidal thoughts, and allergic reactions. Avoid use of other drugs, including alcohol. It may take 4-6 weeks before seeing improvement of symptoms. Do not stop medication abruptly to avoid serotonin withdrawal symptoms. There are a number of treatments for depression including psychotherapy, support groups, and psychiatric antidepressant medications. Try to get 8 hours of sleep per night. A lack of sleep increases risk for mental disturbances of all kinds. Daily exercise is recommended; exercise naturally increases the concentration of neurotransmitters such as serotonin. Build loving and accepting family/friend relationships. Use positive psychology. Meditation can be helpful because it calms and relaxes both the mind and body. There are many books, internet articles and free apps that you can download to guide you in meditation exercises. ANXIETY 1) Cognitive Behavioral Therapy (CBT) for anxiety/panic disorder involves a combination of education, self-monitoring, relaxation training, challenging negative styles of thinking, situational exposure training, and systematic exposure to uncomfortable physical sensations. CBT can be used alone without pharmacotherapy, or may be used as an adjunct to any form of pharmacotherapy 2) Panic is an understandable reaction to perceived danger (the fight or flight response). Fear arises from the misinterpretation of normal body sensations. It is important to link symptoms and interpret anxiety with arrows in a vicious torres martinez . It is important to appreciate that the first goal of treatment is not to remove all anxiety, only to manage it successfully. Attempts to cope by avoidance or safety seeking are understandable, but inadvertently lead to maintaining the problem. 3) Several mental health apps have been developed for panic and anxiety-related conditions. Internet-based self-help programs have been developed to improve access to evidence-based treatment principles for panic symptoms for patients unable to access treatment with a clinician. 4) Use medication as directed. Counseling recommended. Please report to the emergency room for any suicidal/homicidal ideation. Patient strongly encouraged to avoid alcohol and drug substances while on medications. This can cause adverse reactions and ineffectiveness of medications. [place] reviewed as necessary for use of controlled substances. HLD Reviewed most recent lipid panel or ordered new labs if needed. It is important to maintain LDL at specified goal. The risks associated with hyperlipidemia including stroke and heart attack. Take medications as directed. Dietary modifications include decreasing red meat consumption, decreasing alcohol consumption, avoiding fried fatty foods and cakes, cookies, and sweets. You are encouraged to increase fiber in your diet and eat a diet rich in omega-3. You are encouraged to exercise at least 150 minutes weekly. Barriers to the plan of care have been addressed. Obtain labs as directed and call our office if you have not received the lab results within one week. Follow up as directed. Patient has been given a copy of the plan of care. GERD Discussed life-style modifications to reduce acid reflux. Avoid eating 2-3 hours prior to bed time, avoid spicy, greasy, high fat foods. Elevate head of bed when possible or elevate head on multiple pillows. Continue with current drug therapy, if symptoms begin to break through, call office for GI referral. Patient encouraged to also use ProBiotics for any bowel changes. documented in this encounter [facility] 06-11-2024 History of Present illness Narrative VIRTUAL VISIT PROGRESS NOTE This is a virtual visit using MyChart Zoom Video Visit. It required patient-provider interaction for the medical decision making as documented below. I have communicated my name and active licensure. The patient's identity and physical location were verified at the time of this visit. Either the patient or their legal education courses sales representative has been informed of the risks and benefits of -- and alternatives to -- treatment through a remote evaluation and consents to proceed with the evaluation remotely. REASON FOR VISIT: Follow up for Adenocarcinoma of Prostate HPI: 63 year old male s/p Robot Assisted Radical Prostatectomy by Dr. Otero on 04/26/2024. Adenocarcinoma of the prostate [id number]. Generally doing well. Denies nausea, loss of appetite, fever,?or fatigue.?Normal bowel movements. No issues with his incision. Ambulating without difficulty PSA 06/10/2024 <0.02 Urine Continence 0 pad/day IPSS :0 BLAS : 0 PATHOLOGY: FINAL DIAGNOSIS A. Prostate and seminal vesicles, radical prostatectomy: - Prostatic adenocarcinoma, Pierson score 3+4=7 (Grade Group 2). - Focal extraprostatic extension is present (pT3a). - Margins negative. Radical Prostatectomy Morphology Summary Unfavorable histology: Absent Large cribriform pattern 4: Absent Intraductal carcinoma: Absent LABS: Creatinine Date Value Ref Range Status 04/27/2024 0.74 0.73 - 1.22 mg/dL Final 04/26/2024 0.86 0.73 - 1.22 mg/dL Final 04/20/2024 0.86 0.73 - 1.22 mg/dL Final PSA (ng/mL) Date Value 06/10/2024 <0.02 ALLERGIES: ALLERGIES Allergen Reactions Ciprofloxacin Swelling, Unknown MEDICATIONS: Current Outpatient Medications Medication Sig oxybutynin (DITROPAN) 5 mg tablet Take 1 tablet by mouth three times a day for 6 days. Use for bazan discomfort. Stop 1 day before bazan removal. acetaminophen (TYLENOL) 500 mg tablet Take 2 tablets by mouth every 6 hours as needed for pain. busPIRone HCl 30 mg tablet Take 30 mg by mouth two times a day. allopurinol (ZYLOPRIM) 300 mg tablet Take 1 tablet by mouth every afternoon. ALPRAZolam (XANAX) 0.5 mg tablet TAKE 1 TABLET BY MOUTH 3 TIMES A DAY NEEDED FOR ANXIETY FOR 7 DAYS *TAKE DISCUSSED IN OFFICE. FLUoxetine (PROZAC) 60 mg tablet Take 60 mg by mouth once daily. glimepiride (AMARYL) 4 mg tablet TAKE 1 TABLET BY MOUTH IN THE MORNING WITH BREAKFAST OR FIRST MAIN MEAL OF THE DAY FREESTYLE LANCETS 28 gauge once daily. metFORMIN ER (FORTAMET) 1,000 mg 24 hr tablet TAKE 1 TABLET BY MOUTH IN THE EVENING WITH MEALS, DO NOT CRUSH, CHEW, OR SPLIT rosuvastatin (CRESTOR) 5 mg tablet Take 1 tablet by mouth once daily. No current facility-administered medications for this visit. HISTORIES PAST MEDICAL HISTORY No date: Anxiety No date: Diabetes (HCC) No date: GERD (gastroesophageal reflux disease) No date: Hyperlipidemia PAST SURGICAL HISTORY No date: NECK SURGERY HX Comment: Cervical fusion No date: TONSILLECTOMY HX Social History Tobacco Use Smoking status: Never Smokeless tobacco: Never Substance Use Topics Alcohol use: Not Currently Drug use: Never FAMILY HISTORY Problem Relation Age of Onset Anesthesia Problems No Family History REVIEW OF SYSTEMS: Negative PHYSICAL EXAMINATION: VIDEO EXAM: (if completed, performed via video enabled technology) GENERAL: alert and appropriate, in no distress PROBLEMS: 1. Prostate cancer (HCC) - ICD9: 185, ICD10: C61 IMPRESSION: This is a 64 year old male 1) s/p Robot Assisted Radical Prostatectomy by Dr. Otero on 04/26/2024. Adenocarcinoma of the prostate [id number] GG2. PLAN: 1) PSA in 3 months and a visit to follow 2) Continue with pelvic floor 3) He is not interested in sexual rehabilitation- he has not been active for many years. The patient understands and agrees with the plan. I spent a total of?30?minutes on the date of the service which included preparing to see the patient, [id number] patient care, completing clinical documentation, obtaining and/or reviewing separately obtained history, performing a medically appropriate examination, counseling and educating the patient/family/caregiver, ordering medications, tests, or procedures, and communicating results to the patient/family/caregiver. documented in this encounter [facility] 06-11-2024 Note HNO ID: [id number] Author: JANKI JOHNSON MD Service: ? Author Type: Fellow Type: Progress Notes Filed: 06/11/2024 15:51 Note Text: VIRTUAL VISIT PROGRESS NOTE This is a virtual visit using [employer] Zoom Video Visit. It required patient-provider interaction for the medical decision making as documented below. I have communicated my name and active licensure. The patient's identity and physical location were verified at the time of this visit. Either the patient or their legal education courses sales representative has been informed of the risks and benefits of -- and alternatives to -- treatment through a remote evaluation and consents to proceed with the evaluation remotely. REASON FOR VISIT: Follow up for Adenocarcinoma of Prostate HPI: 63 year old male s/p Robot Assisted Radical Prostatectomy by Dr. Otero on 04/26/2024. Adenocarcinoma of the prostate [id number] GG2. Generally doing well. Denies nausea, loss of appetite, fever,?or fatigue.?Normal bowel movements. No issues with his incision. Ambulating without difficulty PSA 06/10/2024 <0.02 Urine Continence 0 pad/day IPSS :0 BLAS : 0/25 PATHOLOGY: FINAL DIAGNOSIS A. Prostate and seminal vesicles, radical prostatectomy: - Prostatic adenocarcinoma, Pierson score 3+4=7 (Grade Group 2). - Focal extraprostatic extension is present (pT3a). - Margins negative. Radical Prostatectomy Morphology Summary Unfavorable histology: Absent Large cribriform pattern 4: Absent Intraductal carcinoma: Absent LABS: Creatinine Date Value Ref Range Status 04/27/2024 0.74 0.73 - 1.22 mg/dL Final 04/26/2024 0.86 0.73 - 1.22 mg/dL Final 04/20/2024 0.86 0.73 - 1.22 mg/dL Final PSA (ng/mL) Date Value 06/10/2024 <0.02 ALLERGIES: ALLERGIES Allergen Reactions Ciprofloxacin Swelling, Unknown MEDICATIONS: Current Outpatient Medications Medication Sig oxybutynin (DITROPAN) 5 mg tablet Take 1 tablet by mouth three times a day for 6 days. Use for bazan discomfort. Stop 1 day before bazan removal. acetaminophen (TYLENOL) 500 mg tablet Take 2 tablets by mouth every 6 hours as needed for pain. busPIRone HCl 30 mg tablet Take 30 mg by mouth two times a day. allopurinol (ZYLOPRIM) 300 mg tablet Take 1 tablet by mouth every afternoon. ALPRAZolam (XANAX) 0.5 mg tablet TAKE 1 TABLET BY MOUTH 3 TIMES A DAY NEEDED FOR ANXIETY FOR 7 DAYS *TAKE DISCUSSED IN OFFICE. FLUoxetine (PROZAC) 60 mg tablet Take 60 mg by mouth once daily. glimepiride (AMARYL) 4 mg tablet TAKE 1 TABLET BY MOUTH IN THE MORNING WITH BREAKFAST OR FIRST MAIN MEAL OF THE DAY FREESTYLE LANCETS 28 gauge once daily. metFORMIN ER (FORTAMET) 1,000 mg 24 hr tablet TAKE 1 TABLET BY MOUTH IN THE EVENING WITH MEALS, DO NOT CRUSH, CHEW, OR SPLIT rosuvastatin (CRESTOR) 5 mg tablet Take 1 tablet by mouth once daily. No current facility-administered medications for this visit. HISTORIES PAST MEDICAL HISTORY No date: Anxiety No date: Diabetes (HCC) No date: GERD (gastroesophageal reflux disease) No date: Hyperlipidemia PAST SURGICAL HISTORY No date: NECK SURGERY HX Comment: Cervical fusion No date: TONSILLECTOMY HX Social History Tobacco Use Smoking status: Never Smokeless tobacco: Never Substance Use Topics Alcohol use: Not Currently Drug use: Never FAMILY HISTORY Problem Relation Age of Onset Anesthesia Problems No Family History REVIEW OF SYSTEMS: Negative PHYSICAL EXAMINATION: VIDEO EXAM: (if completed, performed via video enabled technology) GENERAL: alert and appropriate, in no distress PROBLEMS: 1. Prostate cancer ([facility]) - ICD9: 185, ICD10: C61 IMPRESSION: This is a 64 year old male 1) s/p Robot Assisted Radical Prostatectomy by Dr. Otero on 04/26/2024. Adenocarcinoma of the prostate [id number] GG2. PLAN: 1) PSA in 3 months and a visit to follow 2) Continue with pelvic floor 3) He is not interested in sexual rehabilitation- he has not been active for many years. The patient understands and agrees with the plan. I spent a total of?30?minutes on the date of the service which included preparing to see the patient, [id number] patient care, completing clinical documentation, obtaining and/or reviewing separately obtained history, performing a medically appropriate examination, counseling and educating the patient/family/caregiver, ordering medications, tests, or procedures, and communicating results to the patient/family/caregiver. [facility] 05-07-2024 History of Present illness Narrative VIRTUAL VISIT PROGRESS NOTE This is a virtual visit using [employer] Video Visit. It required patient-provider interaction for the medical decision making as documented below. I have communicated my name and active licensure. The patient's identity and physical location were verified at the time of this visit. Either the patient or their legal education courses sales representative has been informed of the risks and benefits of -- and alternatives to -- treatment through a remote evaluation and consents to proceed with the evaluation remotely. REASON FOR VISIT: Follow up for Adenocarcinoma of Prostate HPI: 63 year old male s/p Robot Assisted Radical Prostatectomy by Dr. Otero on 04/26/2024. Generally doing well. Denies nausea, loss of appetite, fever,?or fatigue.?Normal bowel movements. No issues with his incision. Ambulating without difficulty Urine Continence :0 pads/day PATHOLOGY: FINAL DIAGNOSIS A. Prostate and seminal vesicles, radical prostatectomy: - Prostatic adenocarcinoma, Pierson score 3+4=7 (Grade Group 2). - Focal extraprostatic extension is present (pT3a). - Margins negative. Radical Prostatectomy Morphology Summary Unfavorable histology: Absent Large cribriform pattern 4: Absent Intraductal carcinoma: Absent LABS: Creatinine Date Value Ref Range Status 04/27/2024 0.74 0.73 - 1.22 mg/dL Final 04/26/2024 0.86 0.73 - 1.22 mg/dL Final 04/20/2024 0.86 0.73 - 1.22 mg/dL Final ALLERGIES: ALLERGIES Allergen Reactions Ciprofloxacin Swelling, Unknown MEDICATIONS: Current Outpatient Medications Medication Sig apixaban (ELIQUIS) 2.5 mg tab(s) Take 1 tablet by mouth two times a day for 21 days. oxybutynin (DITROPAN) 5 mg tablet Take 1 tablet by mouth three times a day for 6 days. Use for bazan discomfort. Stop 1 day before bazan removal. docusate sodium (COLACE) 100 mg capsule Take 1 capsule by mouth two times a day for 14 days. acetaminophen (TYLENOL) 500 mg tablet Take 2 tablets by mouth every 6 hours as needed for pain. busPIRone HCl 30 mg tablet Take 30 mg by mouth two times a day. allopurinol (ZYLOPRIM) 300 mg tablet Take 1 tablet by mouth every afternoon. ALPRAZolam (XANAX) 0.5 mg tablet TAKE 1 TABLET BY MOUTH 3 TIMES A DAY NEEDED FOR ANXIETY FOR 7 DAYS *TAKE DISCUSSED IN OFFICE. FLUoxetine (PROZAC) 60 mg tablet Take 60 mg by mouth once daily. glimepiride (AMARYL) 4 mg tablet TAKE 1 TABLET BY MOUTH IN THE MORNING WITH BREAKFAST OR FIRST MAIN MEAL OF THE DAY FREESTYLE LANCETS 28 gauge once daily. metFORMIN ER (FORTAMET) 1,000 mg 24 hr tablet TAKE 1 TABLET BY MOUTH IN THE EVENING WITH MEALS, DO NOT CRUSH, CHEW, OR SPLIT rosuvastatin (CRESTOR) 5 mg tablet Take 1 tablet by mouth once daily. No current facility-administered medications for this visit. HISTORIES PAST MEDICAL HISTORY Diagnosis Date Anxiety Diabetes (HCC) GERD (gastroesophageal reflux disease) Hyperlipidemia PAST SURGICAL HISTORY Procedure Laterality Date NECK SURGERY HX Cervical fusion TONSILLECTOMY HX Social History Tobacco Use Smoking status: Never Smokeless tobacco: Never Substance Use Topics Alcohol use: Not Currently Drug use: Never FAMILY HISTORY Problem Relation Age of Onset Anesthesia Problems No Family History REVIEW OF SYSTEMS: Negative PHYSICAL EXAMINATION: VIDEO EXAM: (if completed, performed via video enabled technology) GENERAL: alert and appropriate, in no distress, well-hydrated, PROBLEMS: 1. Prostate cancer (HCC) - ICD9: 185, ICD10: C61 IMPRESSION: This is a 63 year old male 1) s/p Robot Assisted Radical Prostatectomy by Dr. Otero on 04/26/2024. - Adenocarcinoma of the prostate [id number] PLAN: 1) PSA in 4 weeks and follow-up 2) Continue with pelvic floor rehabilitation 3) He is not interested in sexual rehabilitation- he has not been active for many years. The patient understands and agrees with the plan. I spent a total of?30?minutes on the date of the service which included preparing to see the patient, [id number] patient care, completing clinical documentation, obtaining and/or reviewing separately obtained history, performing a medically appropriate examination, counseling and educating the patient/family/caregiver, ordering medications, tests, or procedures, and communicating results to the patient/family/caregiver.?? Electronically Signed:?Janki Calloway MD documented in this encounter [facility] 05-07-2024 Note HNO ID: [id number] Author: JANKI JOHNSON MD Service: ? Author Type: Fellow Type: Progress Notes Filed: 05/07/2024 16:03 Note Text: VIRTUAL VISIT PROGRESS NOTE This is a virtual visit using [employer] Zoom Video Visit. It required patient-provider interaction for the medical decision making as documented below. I have communicated my name and active licensure. The patient's identity and physical location were verified at the time of this visit. Either the patient or their legal education courses sales representative has been informed of the risks and benefits of -- and alternatives to -- treatment through a remote evaluation and consents to proceed with the evaluation remotely. REASON FOR VISIT: Follow up for Adenocarcinoma of Prostate HPI: 63 year old male s/p Robot Assisted Radical Prostatectomy by Dr. Otero on 04/26/2024. Generally doing well. Denies nausea, loss of appetite, fever,?or fatigue.?Normal bowel movements. No issues with his incision. Ambulating without difficulty Urine Continence :0 pads/day PATHOLOGY: FINAL DIAGNOSIS A. Prostate and seminal vesicles, radical prostatectomy: - Prostatic adenocarcinoma, Suzie score 3+4=7 (Grade Group 2). - Focal extraprostatic extension is present (pT3a). - Margins negative. Radical Prostatectomy Morphology Summary Unfavorable histology: Absent Large cribriform pattern 4: Absent Intraductal carcinoma: Absent LABS: Creatinine Date Value Ref Range Status 04/27/2024 0.74 0.73 - 1.22 mg/dL Final 04/26/2024 0.86 0.73 - 1.22 mg/dL Final 04/20/2024 0.86 0.73 - 1.22 mg/dL Final ALLERGIES: ALLERGIES Allergen Reactions Ciprofloxacin Swelling, Unknown MEDICATIONS: Current Outpatient Medications Medication Sig apixaban (ELIQUIS) 2.5 mg tab(s) Take 1 tablet by mouth two times a day for 21 days. oxybutynin (DITROPAN) 5 mg tablet Take 1 tablet by mouth three times a day for 6 days. Use for bazan discomfort. Stop 1 day before bazan removal. docusate sodium (COLACE) 100 mg capsule Take 1 capsule by mouth two times a day for 14 days. acetaminophen (TYLENOL) 500 mg tablet Take 2 tablets by mouth every 6 hours as needed for pain. busPIRone HCl 30 mg tablet Take 30 mg by mouth two times a day. allopurinol (ZYLOPRIM) 300 mg tablet Take 1 tablet by mouth every afternoon. ALPRAZolam (XANAX) 0.5 mg tablet TAKE 1 TABLET BY MOUTH 3 TIMES A DAY NEEDED FOR ANXIETY FOR 7 DAYS *TAKE DISCUSSED IN OFFICE. FLUoxetine (PROZAC) 60 mg tablet Take 60 mg by mouth once daily. glimepiride (AMARYL) 4 mg tablet TAKE 1 TABLET BY MOUTH IN THE MORNING WITH BREAKFAST OR FIRST MAIN MEAL OF THE DAY FREESTYLE LANCETS 28 gauge once daily. metFORMIN ER (FORTAMET) 1,000 mg 24 hr tablet TAKE 1 TABLET BY MOUTH IN THE EVENING WITH MEALS, DO NOT CRUSH, CHEW, OR SPLIT rosuvastatin (CRESTOR) 5 mg tablet Take 1 tablet by mouth once daily. No current facility-administered medications for this visit. HISTORIES PAST MEDICAL HISTORY Diagnosis Date Anxiety Diabetes (HCC) GERD (gastroesophageal reflux disease) Hyperlipidemia PAST SURGICAL HISTORY Procedure Laterality Date NECK SURGERY HX Cervical fusion TONSILLECTOMY HX Social History Tobacco Use Smoking status: Never Smokeless tobacco: Never Substance Use Topics Alcohol use: Not Currently Drug use: Never FAMILY HISTORY Problem Relation Age of Onset Anesthesia Problems No Family History REVIEW OF SYSTEMS: Negative PHYSICAL EXAMINATION: VIDEO EXAM: (if completed, performed via video enabled technology) GENERAL: alert and appropriate, in no distress, well-hydrated, PROBLEMS: 1. Prostate cancer (HCC) - ICD9: 185, ICD10: C61 IMPRESSION: This is a 63 year old male 1) s/p Robot Assisted Radical Prostatectomy by Dr. Otero on 04/26/2024. - Adenocarcinoma of the prostate [id number] PLAN: 1) PSA in 4 weeks and follow-up 2) Continue with pelvic floor rehabilitation 3) He is not interested in sexual rehabilitation- he has not been active for many years. The patient understands and agrees with the plan. I spent a total of?30?minutes on the date of the service which included preparing to see the patient, [id number] patient care, completing clinical documentation, obtaining and/or reviewing separately obtained history, performing a medically appropriate examination, counseling and educating the patient/family/caregiver, ordering medications, tests, or procedures, and communicating results to the patient/family/caregiver.?? Electronically Signed:?Janki Calloway MD [facility] 04-27-2024 Note HNO ID: [id number] Author: MARY JUNG MD Service: Urology Author Type: Resident Type: Progress Notes Filed: 04/27/2024 07:55 Note Text: [facility] UROLOGY PROGRESS NOTE Name: Rebeca Wagner Sr. Bed: M081 [id number]/[id number] Date: 04/27/2024 After Hours [facility] Urology Service Pager: [phone] ASSESSMENT AND PLAN Rebeca Wagner Sr. is a 63 year old male with PMHx of HLD, anxiety, DM, GG2 prostate cancer now 1 Day Post-Op s/p robotic assisted radical prostatectomy Interval/Subjective/Daily Plan: -Pain well controlled, working with IS, tolerating CLD, no nausea. -Pain: Controlled -N/V: No -Bowel function: passing gas -Ambulating: No -Bazan draining light pink clear urine -Hg 14.7 (16.9), Cr 0.74 (0.86) #Neuro - Pain control with PO/IV analgesia #CV/Resp -HDS -Encourage IS #GI -Diet - Advance to regular diet -Colace, Zofran # -SCr: stable -UOP: Continue to monitor -Bazan:continue for 1 week -IVF: HLIV #Activity -Activity - OOB to chair and Ambulate with assistance #DVT prophylaxis - Heparin SQ #ID/Antibiotics - Perioperative antibiotics - Ancef 24 hours #Discharge teaching - routine #Disposition - Plan to discharge today if tolerating a diet Active Problems Parkinson's POA: not on medication HLD POA: continue home rosuvastatin DM POA: Holding home glimiperide and metformin, on ISS RENETTA POA: Continue home fluoxetine and buspirone, hold xanax Gout POA: continue home allopurinol Plan of care to be discussed with Dr. Otero. Mary Jung Resident [facility] Personal Pager: [phone] For calls on nights and weekends, please page the Urology On-Call pager [phone] Objective Vital Signs BP 122/71 Pulse 99 Temp 36.7 ?C (98.1 ?F) (Temporal) Resp 18 SpO2 96% There is no height or weight on file to calculate BMI. Input and Output Intake/Output Summary (Last 24 hours) at 04/27/2024 5148 Last data filed at 04/27/2024 0651 Gross per 24 hour Intake 4219 ml Output 4000 ml Net 219 ml Physical Exam General: Well-appearing, no acute distress CV: RRR, well perfused Lungs: No IWOB on RA Abdomen: Soft, appropriately tender, non-distended Wound: Incision clean, dry, and intact with glue : Bazan catheter present and Urine light pink Extremities: Normal. No cyanosis, clubbing, or edema Recent Labs 04/27/24 0632 04/26/24 1240 WBC 14.79* 16.95* HB 13.5 14.8 HCT 40.2 44.3 PLT 218 239 NA 135* 138 K 4.0 4.4 CHLOR 102 102 CO2 21* 21* BUN 8* 9 CREAT 0.74 0.86 GLUC 156* 204* Imaging reviewed Mary Jung MD Personal Pager: [phone] For weekend or after hours (after 5pm) issues [place] [phone] [facility] 04-26-2024 Note HNO ID: [id number] Author: MARY JUNG MD Service: Urology Author Type: Resident Type: Progress Notes Filed: 04/26/2024 20:41 Note Text: [facility] UROLOGY PROGRESS NOTE Name: Rebeca Wagner Sr. Bed: M081 008/M081-08 Date: 04/26/2024 After Hours [facility] Urology Service Pager: [phone] ASSESSMENT AND PLAN Rebeca Wagner Sr. is a 63 year old male with PMHx of HLD, anxiety, DM, GG2 prostate cancer now Day of Surgery s/p robotic assisted radical prostatectomy Interval/Subjective/Daily Plan: -Pain well controlled, working with IS, tolerating CLD, no nausea. PACU CXR small atelectasis, EKG stable -Pain: Controlled -N/V: No -Bowel function: no -Ambulating: No -Bazan draining light pink urine -Hg 14.8 (16.3), Cr 0.86 (0.86) #Neuro - Pain control with PO/IV analgesia #CV/Resp -HDS -Encourage IS #GI -Diet - Clear liquid diet -Colace, Zofran # -SCr: stable -UOP: Continue to monitor -Bazan:continue for 1 week -IVF: LR 100cc/h #Activity -Activity - OOB to chair and Ambulate with assistance #DVT prophylaxis - Heparin SQ #ID/Antibiotics - Perioperative antibiotics - Ancef 24 hours #Discharge teaching - routine #Disposition - Pending clinical course Active Problems Parkinson's POA: not on medication HLD POA: continue home rosuvastatin DM POA: Holding home glimiperide and metformin, on ISS RENETTA POA: Continue home fluoxetine and buspirone, hold xanax Gout POA: continue home allopurinol Plan of care to be discussed with Dr. Otero. Mary Jung Resident [facility] Personal Pager: [phone] For calls on nights and weekends, please page the Urology On-Call pager [phone] Objective Vital Signs BP 123/71 Pulse 104 Temp 36.5 ?C (97.7 ?F) (Oral) Resp 16 SpO2 95% There is no height or weight on file to calculate BMI. Input and Output Intake/Output Summary (Last 24 hours) at 04/26/20242029 Last data filed at 04/26/2024 1933 Gross per 24 hour Intake 2365 ml Output 1425 ml Net 940 ml Physical Exam General: Well-appearing, no acute distress CV: RRR, well perfused Lungs: No IWOB on RA Abdomen: Soft, appropriately tender, non-distended Wound: Incision clean, dry, and intact with glue : Bazan catheter present and Urine light pink Extremities: Normal. No cyanosis, clubbing, or edema Recent Labs 04/26/24 1240 WBC 16.95* HB 14.8 HCT 44.3 PLT 239 NA 138 K 4.4 CHLOR 102 CO2 21* BUN 9 CREAT 0.86 GLUC 204* Imaging reviewed Mary Jung MD Personal Pager: [phone] For weekend or after hours (after 5pm) issues [place] [phone] [facility] 04-26-2024 Note HNO ID: [id number] Author: WELLINGTON RECIO, DO Service: ? Author Type: Anesthesiologist Type: Anesthesia Procedure Notes Filed: 04/26/2024 16:06 Note Text: ANESTHESIOLOGY PROCEDURE NOTE Airway General Information Procedure Start Time/Medication Administration: 04/26/2024 7:41 AM Procedure End Time: 04/26/2024 7:42 AM Patient location during procedure: OR Timeout Performed Pre-procedure: timeout performed Consent Obtained: Yes Patient identity confirmed: arm band Staffing Anesthesiologist: Wellington Recio DO Resident: Terrance Singer MD Performed by: anesthesiologist and resident Indications and Patient Condition Indications for airway management: anesthesia Preoxygenated: yes anesthesia circuit Patient position: sniffing Method: asleep Cricoid Pressure: Yes Difficult Mask: No Airway Accessory: oral airway Final Airway Details Final airway type: endotracheal airway Final Endotracheal Airway: ETT Cuffed: yes Successful intubation technique: direct laryngoscopy Devices used: Chaney Endotracheal tube insertion site: oral Blade: Tunde Blade size: #4 ETT size (mm): 7.5 Measured from: lips Measurement (cm): 22 Placement verified by: capnometry Cormack-Lehane Classification: grade IIb - view of arytenoids or posterior of glottis only Number of attempts at approach: 1 Airway not difficult Comments Anterior larynx I personally supervised the resident/ fellow for the procedure detailed below. I was present for the procedure. Wellington Recio DO, Staff Anesthesiologist SIGNATURE: Terrance Singer MD PATIENT NAME: Rebeca Wagner Sr. DATE: April 26, 2024 TIME: 8:19 AM CSN: [id number] [facility] 04-20-2024 Note HNO ID: [id number] Author: WHITNEY BRODY RN Service: Nursing Author Type: Registered Nurse Type: Progress Notes Filed: 04/20/2024 17:04 Note Text: Radiology Service Progress Note DATE OF SERVICE: April 20, 2024 TIME: 5:00 PM PATIENT WEIGHT: 220LBS PATIENT IDENTITY VERIFICATION COMPLETED USING TWO (2) STANDARD IDENTIFIERS: Name and Date of confirmed by patient verbally and Name and Date of confirmed by identification band. FALL SCREENING: Has the patient had 2 falls in the last year or 1 fall with injury or currently using an Ambulatory Assistive Device (Walker, Cane, Wheelchair, Crutches, etc.)? No PATIENT GENDER DATA: Male ALLERGIES: Reviewed and unchanged CONTRAST ALLERGY: No EXAM: MRI - CONTRAST TYPE: GROUP II IV SITE: Ambulatory: A peripheral IV was started in the Right antecubital site with a Angio cath: 22 gauge. IV SITE APPEARANCE: Clean,Dry and Intact SIGNATURE: Whitney Brody RN PATIENT NAME: Rebeca Wagner Sr. DATE: April 20, 2024 TIME: 5:00 PM [facility] 04-20-2024 History of Present illness Narrative Radiology Service Progress Note DATE OF SERVICE: April 20, 2024 TIME: 5:00 PM PATIENT WEIGHT: 220LBS PATIENT IDENTITY VERIFICATION COMPLETED USING TWO (2) STANDARD IDENTIFIERS: Name and Date of confirmed by patient verbally and Name and Date of confirmed by identification band. FALL SCREENING: Has the patient had 2 falls in the last year or 1 fall with injury or currently using an Ambulatory Assistive Device (Walker, Cane, Wheelchair, Crutches, etc.)? No PATIENT GENDER DATA: Male ALLERGIES: Reviewed and unchanged CONTRAST ALLERGY: No EXAM: MRI - CONTRAST TYPE: GROUP II IV SITE: Ambulatory: A peripheral IV was started in the Right antecubital site with a Angio cath: 22 gauge. IV SITE APPEARANCE: Clean,Dry and Intact SIGNATURE: Whitney Brody RN PATIENT NAME: Rebeca Wagner Sr. DATE: April 20, 2024 TIME: 5:00 PM Radiology Service Progress Note PATIENT NAME: Rebeca Wagner Sr. DATE OF SERVICE: April 20, 2024 TIME: 5:50 PM PATIENT IDENTITY VERIFICATION COMPLETED USING TWO (2) IDENTIFIERS: Name and Date of confirmed by patient verbally. FALL SCREENING: Has the patient had 2 falls in the last year or 1 fall with injury or currently using an Ambulatory Assistive Device (Walker, Cane, Wheelchair, Crutches, etc.)? No PATIENT GENDER DATA: Male PATIENT RELEVANT IMPLANT DATA REVIEWED: Yes PATIENT PRESENTS WITH AN IMPLANTABLE OR ATTACHED ESL PROFESSOR: No RADIOLOGY DEPARTMENT: MR; Exam(s) Completed: Body: Prostate PERIPHERAL IV DATA: Site assessment: Clean,Dry and Intact, Site disposition Discontinued SIGNED BY: RT Nancy(R) April 20, 2024 5:50 PM documented in this encounter [facility] 04-20-2024 Note HNO ID: [id number] Author: MARISABEL GUZMAN RT(R) Service: Radiology Author Type: Technologist Type: Progress Notes Filed: 04/20/2024 17:53 Note Text: Radiology Service Progress Note PATIENT NAME: Rebeca Wagner Sr. DATE OF SERVICE: April 20, 2024 TIME: 5:50 PM PATIENT IDENTITY VERIFICATION COMPLETED USING TWO (2) IDENTIFIERS: Name and Date of confirmed by patient verbally. FALL SCREENING: Has the patient had 2 falls in the last year or 1 fall with injury or currently using an Ambulatory Assistive Device (Walker, Cane, Wheelchair, Crutches, etc.)? No PATIENT GENDER DATA: Male PATIENT RELEVANT IMPLANT DATA REVIEWED: Yes PATIENT PRESENTS WITH AN IMPLANTABLE OR ATTACHED ESL PROFESSOR: No RADIOLOGY DEPARTMENT: MR; Exam(s) Completed: Body: Prostate PERIPHERAL IV DATA: Site assessment: Clean,Dry and Intact, Site disposition Discontinued SIGNED BY: RT Nancy(Rosemarie) April 20, 2024 5:50 PM [facility] 04-20-2024 Instructions Samm Melgoza APRN.BUDGET MANAGER - 04/20/2024 3:21 PM EDT PATIENT PREOPERATIVE INSTRUCTIONS Dr. Otero has scheduled you for your procedure at this surgery center: [facility] [place] Scheduling Office: [phone] [place] [address]. Please read below carefully for your personalized instructions. Dietary Restrictions: - No solid food after midnight. - You may have 12 ounces of clear liquids (water, clear juices such as apple juice or gatorade, carbonated beverages, clear tea, black coffee, jello) until 2 hours before scheduled arrival at facility. Medications: Unless instructed differently below, stay on all of your medications until your surgery. If you start any new medications after today's visit, please contact your surgeon. Pre-Surgery Med Instructions Medication Instructions busPIRone HCl 30 mg tablet Take the day of surgery with a small sip of water allopurinol (ZYLOPRIM) 300 mg tablet Do not take the day of surgery ALPRAZolam (XANAX) 0.5 mg tablet As needed. FLUoxetine (PROZAC) 60 mg tablet Take the day of surgery with a small sip of water glimepiride (AMARYL) 4 mg tablet Do not take the day of surgery metFORMIN ER (FORTAMET) 1,000 mg 24 hr tablet Do not take the day of surgery rosuvastatin (CRESTOR) 5 mg tablet Take the day of surgery with a small sip of water If you take any medications for erectile dysfunction-Cialis (Tadalafil), Levitra, Staxyn (Vardenafil) Viagra (Sildenenafil please do not take these for 48 hours before surgery. If you start any new medications after today's visit, please contact the surgeon's office. Blood Thinning Medications: - Stop NSAIDS (Ibuprofen, Advil, Aleve, Motrin, Celebrex, Mobic, etc.) 7 days before surgery, as directed by your surgeon. - Stop Aspirin 7 days before surgery, as directed by your surgeon. - Stop Vitamin E, ALL multi-vitamins, herbals and dietary supplements 7 days before surgery. - You may take Tylenol (Acetaminophen) or any of your pain medications that do not contain aspirin or NSAIDS as needed. Important Reminders: - Candy, mints, and tobacco products are NOT permitted the morning of surgery. - Hearing aids, dentures and glasses may be worn the morning of surgery. - NO jewelry, body piercings, makeup, hairpins or contacts are to be worn the day of surgery. If you develop symptoms such as a fever, cold, or flu, or have other changes to your health within TWO DAYS of scheduled surgery or the morning of surgery, please contact the surgery center above. Personal Belongings: -Please have photo ID and insurance cards. -If you do not have a copy of advance directives on file with us, please bring a copy with you on the day of surgery. - Leave ALL valuables and money at home or with family members. Arrival Time for Surgery: - To obtain your arrival time for surgery, call your physician's office the day before your surgery. - If your surgery is scheduled for Friday, call the Friday before. Your surgeon s senior medical transcriptionist will tell you what time to call the office. - If you have not reached the departmental senior medical transcriptionist by 5 P.M., call [phone] after 5 P.M. the day before your surgery. Please be aware that emergency situations arise, which may delay or change your surgical time. If this happens, we will notify you as soon as possible and regret any inconvenience. If you already have an Advance Directive, please fax a copy to [phone] or email to for it to be added to your chart. If you do not have an Advance Directive, you can find the appropriate form and more information at [email or web address]. We recommend that you complete the Advance Directive form found on the website and bring it with you the day of your surgery. It can be witnessed and scanned into your chart that day. Samm Melgoza APRN.JENNIFER documented in this encounter [facility] 04-20-2024 History and physical note HISTORY AND PHYSICAL EXAMINATION SERVICE DATE: 04/20/2024 SERVICE TIME: 3:12 PM PRIMARY CARE PHYSICIAN: No primary care provider on file. Assessment Patient has the following medical conditions which may affect cornelius-operative course: Parkinson's disease (HCC) Patient states he was diagnosed with Parkinson's by an outside provider. Was previously on Ropinirole but it was discontinued, no current medications. Mixed hyperlipidemia Stable on Rosuvastatin 5 mg daily. Type 2 diabetes mellitus without complication (HCC) Stable on Glimepiride 4 mg and Metformin 1000 mg daily. PLAN: HgbA1C ordered. Generalized anxiety disorder Anxiety & OCD. Stable on Fluoxetine 60 mg daily and Buspirone 30 mg BID. Patient is prescribed Xanax as needed. Merchant Activity Status Index: METS: Walk indoors, such as around the house (1.75 METs) Do light work around the house, such as dusting or washing dishes (2.70 METs) Take care of self; that is eating, dressing, bathing, using the toilet (2.75 METs) Walk a block or two on level ground (2.75 METs) Do moderate work around the house, such as vacuuming, sweeping floors, or carrying in groceries (3.50 METs) Do yardwork, such as raking leaves, weeding, or pushing a power mower (4.50 METs) Climb a flight of stairs or walk up a hill (5.50 METs) DASI Score: 23.45 Patient denies any chest pain or undue shortness of breath with the above physical activity. Clinical Frailty Scale: 4. Apparently vulnerable STOP-Bang Score: Snores loudly Patient over 50 years old Male patient Denies feeling tired, fatigued, or sleepy during the daytime Has not been observed to stop breathing or choking/gasping during sleep Denies having high blood pressure BMI less than or equal to 35 kg/m^2 Does not have a large neck STOP-Bang Score: 3 [id number] Score: Diabetes history: Yes [id number] Score: ASA Class: 3 ANESTHESIA FINDINGS: Intubation History: No history of difficult intubation Significant Anesthesia Considerations: none Airway History: S/p cervical fusion No history of difficult airway I - PHYSICAL EVALUATION AIRWAY Patient intubated: No. Tracheostomy tube not present Mallampati: I. TM distance: >3 FB. Neck ROM: limited extension. Mouth opening: adequate. Short neck: no. Thick neck: no Ruelas present: no Lip Bite Test: I Microretrognathia/Micronagthia/Rec essed Chin: No DENTAL Dental findings: missing tooth/teeth. Additional comments: + Caps/crowns. II - ANESTHESIA PLAN ASA Score: 3 Anesthetic plan additional comments: *PACC/TCI - anesthesia choice. Beta Hilario Monitoring Plan Post Procedure Analgesic Plan Prepared for Surgery: optimally prepared for surgery, pending [see comment]. Labs & ECG CONSULTS: Patient does not require consults for optimization at this time Planned Anesthetic: anesthesia choice The Following Tests/Procedures Have Been Initiated: Orders Placed This Encounter Hemoglobin A1C Standing Status: Future Standing Expiration Date: 07/20/2024 Orders placed by surgeon's office: CBC, CMP, TYPE + SCREEN, CONFIRM BLOOD TYPE, PT/INR, APTT, ECG, URINALYSIS, URINE CULTURE. REASON FOR VISIT: Rebeca Wagner Sr. is a 63 year old male who is scheduled for Procedure(s): ROBOTIC LAPAROSCOPIC RETROPUBIC RADICAL PROSTATECTOMY W/ NERVE SPARING (N/A) at the request of Natalie Harding MD for consultation. My final recommendation will be communicated back to the requesting physician by way of shared medical record or letter. Subjective The patient has the following: ACTIVE PROBLEM LIST Prostate Cancer (Hcc) Mixed Hyperlipidemia Obsessive-Compulsive Disorder Parkinson's Disease (Hcc) Type 2 Diabetes Mellitus Without Complication (Hcc) History of Cervical Spinal Arthrodesis Generalized Anxiety Disorder COVID-19 Immunization Status Overdue - Covid-19 Vaccine (2022- season) Overdue since 06/27/2023 09/22/2021 Imm Admin: COVID-19 original vaccine, age 12+ yr, monovalent (PFIZER-BIONTECH - PURPLE TOP) 01/29/2021 Imm Admin: COVID-19 original vaccine, age 12+ yr, monovalent (PFIZER-BIONTECH - PURPLE TOP) 01/01/2021 Imm Admin: COVID-19 original vaccine, age 12+ yr, monovalent (PFIZER-BIONTECH - PURPLE TOP) Only the first 3 history entries have been loaded, but more history exists. CHIEF COMPLAINT: Malignant neoplasm of prostate HPI: Patient is a 63 year old male presenting to [facility]; has c/o malignant neoplasm of prostate. Patient denies recent fevers, chills, unexplained weight loss, dysuria, hematuria. The above surgery was recommended; patient has elected to proceed. REVIEW OF SYSTEMS: General: No weight loss, malaise or fevers. Neurological: Negative for: seizures, TIA and strokes. Respiratory: No history of current cough or dyspnea, or pneumonia in the past 6 weeks. No history of respiratory/pulmonary symptoms or problems. Cardiovascular: Positive for: hyperlipidemia Negative for: arrhythmia, CAD, chest pain, DVT/PE, hypertension, recent [place], murmur/valvular heart disease, open heart surgery and valve surgery. GI: Positive for: diverticulitis Negative for: abdominal pain, liver disease, nausea and vomiting. : Negative for: dysuria and hematuria. Endocrine: Positive for: diabetes mellitus. Patient's diabetes mellitus is controlled by oral agents. Hematology: No history of bleeding or clotting disorder. Patient is not taking anti-coagulation or platelet medications. No history of hematological symptoms or problems. Oncology: See HPI. Psych: + OCD. Positive for: anxiety. Musculoskeletal: + Gout. Skin: Negative for lesions, rash and itching. PAST MEDICAL HISTORY Diagnosis Date Anxiety Diabetes (HCC) GERD (gastroesophageal reflux disease) Hyperlipidemia PAST SURGICAL HISTORY Procedure Laterality Date NECK SURGERY HX Cervical fusion TONSILLECTOMY HX FAMILY HISTORY Problem Relation Age of Onset Anesthesia Problems No Family History Social History Tobacco Use Smoking status: Never Smokeless tobacco: Never Substance Use Topics Alcohol use: Not Currently Drug use: Never Prior to Admission medications as of 04/20/24 1516 Medication Sig Last Dose Taking busPIRone HCl 30 mg tablet Take 30 mg by mouth two times a day. Taking Yes allopurinol (ZYLOPRIM) 300 mg tablet Take 1 tablet by mouth every afternoon. Taking Yes ALPRAZolam (XANAX) 0.5 mg tablet TAKE 1 TABLET BY MOUTH 3 TIMES A DAY NEEDED FOR ANXIETY FOR 7 DAYS *TAKE DISCUSSED IN OFFICE. Taking Yes FLUoxetine (PROZAC) 60 mg tablet Take 60 mg by mouth once daily. Taking Yes glimepiride (AMARYL) 4 mg tablet TAKE 1 TABLET BY MOUTH IN THE MORNING WITH BREAKFAST OR FIRST MAIN MEAL OF THE DAY Taking Yes metFORMIN ER (FORTAMET) 1,000 mg 24 hr tablet TAKE 1 TABLET BY MOUTH IN THE EVENING WITH MEALS, DO NOT CRUSH, CHEW, OR SPLIT Taking Yes rosuvastatin (CRESTOR) 5 mg tablet Take 1 tablet by mouth once daily. Taking Yes FREESTYLE LANCETS 28 gauge once daily. No medication comments found. ALLERGIES Allergen Reactions Ciprofloxacin Swelling, Unknown Objective PHYSICAL EXAM: General: alert and oriented. Pertinent negatives noted - not distressed. Skin: normal color, no rash or lesions. HEENT: pupils equal round and pupils reactive to light. Cardiovascular: regular rate and rhythm, normal S1 and S2, no rub, murmurs, or gallop. Respiratory: normal breath sounds, no wheezes or crackles. Abdomen: bowel sounds present and soft. Pertinent negatives noted - not tender. Extremities: no deformity, no edema or tenderness, no joint swelling or clubbing. Neurological: normal cognition and motor skills. PAIN ASSESSMENT: VITALS: BP 131/77 Pulse 89 Temp (Src) 97.4 (Temporal) Resp 18 Ht 5' 9 (1.75m) Wt 219 lb 12.8 oz (99.7kg) SpO2 96% BMI 32.44 kg/(m^2). Diagnostic tests reviewed for today's visit: Lab Value Units Date High Low HB No results within date range. HCT No results within date range. WBC No results within date range. PLT No results within date range. NA No results within date range. K No results within date range. GLUC No results within date range. BUN No results within date range. CREAT No results within date range. PTSEC No results within date range. INR No results within date range. APTT No results within date range. ALT No results within date range. AST No results within date range. TBILI No results within date range. TSH No results within date range. Lab Value Units Date High Low HCGQT No results within date range. UHCG No results within date range. HCG, BODY* No results within date range. Lab Value Units Date High Low ABORHD No results within date range. ABSCREEN No results within date range. No results found for: HBA1C Recent Results (from the past 8760 hour(s)) ECG COMPLETE Collection Time: 04/20/24 2:40 PM Result Value Ventricular Rate 81 Atrial Rate 81 P-R Interval 154 QRS Duration 78 QT Interval 402 QTC Calculation (Bazett) 466 Calculated P [place] 44 Calculated R [place] 16 Calculated T [place] 56 Impression NORMAL SINUS RHYTHM NORMAL ECG Instructions Given to Patient: Instructions located in the after visit summary. Patient given verbal and written preop instructions and voices comprehension and compliance. SIGNATURE: Samm Melgoza APRN.CNP PATIENT NAME: Rebeca Wagner Sr. DATE: April 20, 2024 TIME: 3:33 PM PAGER/CONTACT #: [facility] 04-20-2024 History and physical note HISTORY AND PHYSICAL EXAMINATION SERVICE DATE: 04/20/2024 SERVICE TIME: 3:12 PM PRIMARY CARE PHYSICIAN: No primary care provider on file. Assessment Patient has the following medical conditions which may affect cornelius-operative course: Parkinson's disease (HCC) Patient states he was diagnosed with Parkinson's by an outside provider. Was previously on Ropinirole but it was discontinued, no current medications. Mixed hyperlipidemia Stable on Rosuvastatin 5 mg daily. Type 2 diabetes mellitus without complication (HCC) Stable on Glimepiride 4 mg and Metformin 1000 mg daily. PLAN: HgbA1C ordered. Generalized anxiety disorder Anxiety & OCD. Stable on Fluoxetine 60 mg daily and Buspirone 30 mg BID. Patient is prescribed Xanax as needed. Merchant Activity Status Index: METS: Walk indoors, such as around the house (1.75 METs) Do light work around the house, such as dusting or washing dishes (2.70 METs) Take care of self; that is eating, dressing, bathing, using the toilet (2.75 METs) Walk a block or two on level ground (2.75 METs) Do moderate work around the house, such as vacuuming, sweeping floors, or carrying in groceries (3.50 METs) Do yardwork, such as raking leaves, weeding, or pushing a power mower (4.50 METs) Climb a flight of stairs or walk up a hill (5.50 METs) DASI Score: 23.45 Patient denies any chest pain or undue shortness of breath with the above physical activity. Clinical Frailty Scale: 4. Apparently vulnerable STOP-Bang Score: Snores loudly Patient over 50 years old Male patient Denies feeling tired, fatigued, or sleepy during the daytime Has not been observed to stop breathing or choking/gasping during sleep Denies having high blood pressure BMI less than or equal to 35 kg/m^2 Does not have a large neck STOP-Bang Score: 3 [id number] Score: Diabetes history: Yes [id number] Score: ASA Class: 3 ANESTHESIA FINDINGS: Intubation History: No history of difficult intubation Significant Anesthesia Considerations: none Airway History: S/p cervical fusion No history of difficult airway I - PHYSICAL EVALUATION AIRWAY Patient intubated: No. Tracheostomy tube not present Mallampati: I. TM distance: >3 FB. Neck ROM: limited extension. Mouth opening: adequate. Short neck: no. Thick neck: no Ruelas present: no Lip Bite Test: I Microretrognathia/Micronagthia/Rec essed Chin: No DENTAL Dental findings: missing tooth/teeth. Additional comments: + Caps/crowns. II - ANESTHESIA PLAN ASA Score: 3 Anesthetic plan additional comments: *PACC/TCI - anesthesia choice. Beta Hilario Monitoring Plan Post Procedure Analgesic Plan Prepared for Surgery: optimally prepared for surgery, pending [see comment]. Labs & ECG CONSULTS: Patient does not require consults for optimization at this time Planned Anesthetic: anesthesia choice The Following Tests/Procedures Have Been Initiated: Orders Placed This Encounter Hemoglobin A1C Standing Status: Future Standing Expiration Date: 07/20/2024 Orders placed by surgeon's office: CBC, CMP, TYPE + SCREEN, CONFIRM BLOOD TYPE, PT/INR, APTT, ECG, URINALYSIS, URINE CULTURE. REASON FOR VISIT: Rebeca Wagner Sr. is a 63 year old male who is scheduled for Procedure(s): ROBOTIC LAPAROSCOPIC RETROPUBIC RADICAL PROSTATECTOMY W/ NERVE SPARING (N/A) at the request of Natalie Harding MD for consultation. My final recommendation will be communicated back to the requesting physician by way of shared medical record or letter. Subjective The patient has the following: ACTIVE PROBLEM LIST Prostate Cancer (Hcc) Mixed Hyperlipidemia Obsessive-Compulsive Disorder Parkinson's Disease (Hcc) Type 2 Diabetes Mellitus Without Complication (Hcc) History of Cervical Spinal Arthrodesis Generalized Anxiety Disorder COVID-19 Immunization Status Overdue - Covid-19 Vaccine () Overdue since 06/27/2023 09/22/2021 Imm Admin: COVID-19 original vaccine, age 12+ yr, monovalent (PFIZER-BIONTECH - PURPLE TOP) 01/29/2021 Imm Admin: COVID-19 original vaccine, age 12+ yr, monovalent (PFIZER-BIONTECH - PURPLE TOP) 01/01/2021 Imm Admin: COVID-19 original vaccine, age 12+ yr, monovalent (PFIZER-BIONTECH - PURPLE TOP) Only the first 3 history entries have been loaded, but more history exists. CHIEF COMPLAINT: Malignant neoplasm of prostate HPI: Patient is a 63 year old male presenting to [facility]; has c/o malignant neoplasm of prostate. Patient denies recent fevers, chills, unexplained weight loss, dysuria, hematuria. The above surgery was recommended; patient has elected to proceed. REVIEW OF SYSTEMS: General: No weight loss, malaise or fevers. Neurological: Negative for: seizures, TIA and strokes. Respiratory: No history of current cough or dyspnea, or pneumonia in the past 6 weeks. No history of respiratory/pulmonary symptoms or problems. Cardiovascular: Positive for: hyperlipidemia Negative for: arrhythmia, CAD, chest pain, DVT/PE, hypertension, recent [place], murmur/valvular heart disease, open heart surgery and valve surgery. GI: Positive for: diverticulitis Negative for: abdominal pain, liver disease, nausea and vomiting. : Negative for: dysuria and hematuria. Endocrine: Positive for: diabetes mellitus. Patient's diabetes mellitus is controlled by oral agents. Hematology: No history of bleeding or clotting disorder. Patient is not taking anti-coagulation or platelet medications. No history of hematological symptoms or problems. Oncology: See HPI. Psych: + OCD. Positive for: anxiety. Musculoskeletal: + Gout. Skin: Negative for lesions, rash and itching. PAST MEDICAL HISTORY Diagnosis Date Anxiety Diabetes (HCC) GERD (gastroesophageal reflux disease) Hyperlipidemia PAST SURGICAL HISTORY Procedure Laterality Date NECK SURGERY HX Cervical fusion TONSILLECTOMY HX FAMILY HISTORY Problem Relation Age of Onset Anesthesia Problems No Family History Social History Tobacco Use Smoking status: Never Smokeless tobacco: Never Substance Use Topics Alcohol use: Not Currently Drug use: Never Prior to Admission medications as of 04/20/24 1516 Medication Sig Last Dose Taking busPIRone HCl 30 mg tablet Take 30 mg by mouth two times a day. Taking Yes allopurinol (ZYLOPRIM) 300 mg tablet Take 1 tablet by mouth every afternoon. Taking Yes ALPRAZolam (XANAX) 0.5 mg tablet TAKE 1 TABLET BY MOUTH 3 TIMES A DAY NEEDED FOR ANXIETY FOR 7 DAYS *TAKE DISCUSSED IN OFFICE. Taking Yes FLUoxetine (PROZAC) 60 mg tablet Take 60 mg by mouth once daily. Taking Yes glimepiride (AMARYL) 4 mg tablet TAKE 1 TABLET BY MOUTH IN THE MORNING WITH BREAKFAST OR FIRST MAIN MEAL OF THE DAY Taking Yes metFORMIN ER (FORTAMET) 1,000 mg 24 hr tablet TAKE 1 TABLET BY MOUTH IN THE EVENING WITH MEALS, DO NOT CRUSH, CHEW, OR SPLIT Taking Yes rosuvastatin (CRESTOR) 5 mg tablet Take 1 tablet by mouth once daily. Taking Yes FREESTYLE LANCETS 28 gauge once daily. No medication comments found. ALLERGIES Allergen Reactions Ciprofloxacin Swelling, Unknown Objective PHYSICAL EXAM: General: alert and oriented. Pertinent negatives noted - not distressed. Skin: normal color, no rash or lesions. HEENT: pupils equal round and pupils reactive to light. Cardiovascular: regular rate and rhythm, normal S1 and S2, no rub, murmurs, or gallop. Respiratory: normal breath sounds, no wheezes or crackles. Abdomen: bowel sounds present and soft. Pertinent negatives noted - not tender. Extremities: no deformity, no edema or tenderness, no joint swelling or clubbing. Neurological: normal cognition and motor skills. PAIN ASSESSMENT: VITALS: BP 131/77 Pulse 89 Temp (Src) 97.4 (Temporal) Resp 18 Ht 5' 9 (1.75m) Wt 219 lb 12.8 oz (99.7kg) SpO2 96% BMI 32.44 kg/(m^2). Diagnostic tests reviewed for today's visit: Lab Value Units Date High Low HB No results within date range. HCT No results within date range. WBC No results within date range. PLT No results within date range. NA No results within date range. K No results within date range. GLUC No results within date range. BUN No results within date range. CREAT No results within date range. PTSEC No results within date range. INR No results within date range. APTT No results within date range. ALT No results within date range. AST No results within date range. TBILI No results within date range. TSH No results within date range. Lab Value Units Date High Low HCGQT No results within date range. UHCG No results within date range. HCG, BODY* No results within date range. Lab Value Units Date High Low ABORHD No results within date range. ABSCREEN No results within date range. No results found for: HBA1C Recent Results (from the past 8760 hour(s)) ECG COMPLETE Collection Time: 04/20/24 2:40 PM Result Value Ventricular Rate 81 Atrial Rate 81 P-R Interval 154 QRS Duration 78 QT Interval 402 QTC Calculation (Bazett) 466 Calculated P [place] 44 Calculated R [place] 16 Calculated T [place] 56 Impression NORMAL SINUS RHYTHM NORMAL ECG Instructions Given to Patient: Instructions located in the after visit summary. Patient given verbal and written preop instructions and voices comprehension and compliance. SIGNATURE: Samm Melgoza APRN.CNP PATIENT NAME: Rebeca Wagner Sr. DATE: April 20, 2024 TIME: 3:33 PM PAGER/CONTACT #: documented in this encounter [facility] 04-20-2024 Miguel Angel Clemons APRN.CNP - 04/20/2024 1:52 PM EDT Dietary Restrictions: - No solid food after midnight. - You may have 12 ounces of clear liquids (water, clear juices such as apple juice or gatorade, carbonated beverages, clear tea, black coffee, jello) until 2 hours before scheduled arrival at facility. NO MILK PRODUCTS. - Do not drink any alcohol after midnight the night before your surgery. Parking: Bulk Plant Supervisor parking is available at the [facility], or [facility] entrance. This is the main entrance with the [address] [place] [address] Garage parking- or parking garage is the closest to surgery check in desk. [address], [place] [address] Arrival Time: Your arrival time will be provided to you the day before surgery. If you do not hear from surgery scheduling by 2:00 pm the day prior to your surgery, you can contact Urology Surgery at [phone]. We would like to reminded you that surgery time provided is tentative based on potential changes with transplant surgeries. Please check in at desk J1-9 in the [facility] Blood Thinning Medications: - Stop NSAIDS (Ibuprofen, Advil, Aleve, Motrin, Celebrex, Mobic, etc.) 7 days before surgery, as directed by your surgeon. - Stop Aspirin 7 days before surgery, as directed by your surgeon. - Stop Vitamin E, ALL multi-vitamins, herbals and dietary supplements 7 days before surgery. - You may take Tylenol (Acetaminophen) or any of your pain medications that do not contain aspirin or NSAIDS as needed. Important Reminders: - If you are prescribed inhalers for breathing, continue using them. - If you wear contact prescription lenses, please remove them - Candy, mints, and tobacco products are NOT permitted the morning of surgery. - Hearing aids, dentures and glasses may be worn the morning of surgery. - NO jewelry, body piercings, makeup, hairpins or contacts are to be worn the day of surgery. documented in this encounter [facility] 04-20-2024 History of Present illness Narrative [facility] PRE-OP NOTE Rebeca Wagner Sr. is a 63 year old male. Pre-op Date: April 20, 2024 Date of Procedure: 04/26/24 Procedure/Surgery: Surgeon Role Service Natalie Otero MD Primary Urology Procedure: ROBOTIC LAPAROSCOPIC RETROPUBIC RADICAL PROSTATECTOMY W/ NERVE SPARING Laterality Anesthesia Op Region N/A General Prostate Diagnosis: prostate cancer Primary Surgeon: MD Otero Robert There were no vitals taken for this visit. Pain Assessment: Are you currently having pain? No 0 on a scale of 0 to 10 Surgical Guide Book Status: Patient given book today. Dialysis Guide Book Status: N/A Allergies Reviewed: Yes Medications Reviewed: Yes Is patient currently on oral steroids?: No Has the patient had a UTI in the past month?: No. Does the patient have any artificial joints (last 2 years), metal parts, pacemakers or cardiac/ureteral stents in place?: No Does the patient have diabetes?: Yes Is the patient routinely taking anticoagulants?: No. Can the patient have an IV put in either arm?: Yes Urine Dip Complete?: Yes URINE CULTURE COMPLETE?: Yes Ostomy/Stoma Nurse appointment made/completed: N/A [facility]/Medical Clearance: Cleared per [facility] - To be seen [facility]: Cleared per [facility] - N/A All testing on cureform has been scheduled: Yes Consent Signed: Consent not in Epic. DOS Orders Placed and Signed: Yes. Pre-op H&P Done by [facility]: To be done by [facility]. PATIENT INSTRUCTIONS FOR SURGERY 1.) DO NOT HAVE ANYTHING TO EAT AFTER MIDNIGHT THE DAY BEFORE SURGERY except for certain morning medications as instructed by the doctor. Candy, mints, gum, and smoking are NOT permitted. You may drink clear liquids (Sprite, water, spencer james) up to two hours before your arrival time on the day of surgery. 2.) Medications to be taken on the morning of surgery with a few sips of water: per [facility] 3.) Please bring all your prescribed inhalers (if you have any you normally take) to the hospital. 4.) Arrival time: Call for arrival. 5.) Prep given: No 6.) Lovenox instructions given: N/A 7.) Patient reminded that surgery time provided day before surgery is tentative based on potential changes with transplants. Recommendations: This patient is optimally prepared for surgery pending [facility], LABS, EKG, and MRI . Miguel Angel Cooper APRN.CNP documented in this encounter [facility] 04-20-2024 Note HNO ID: [id number] Author: MIGUEL ANGEL COOPER APRN.BUDGET MANAGER Service: ? Author Type: Nurse Practitioner Type: Progress Notes Filed: 04/20/2024 13:56 Note Text: [facility] PRE-OP NOTE Rebeca Wagner Sr. is a 63 year old male. Pre-op Date: April 20, 2024 Date of Procedure: 04/26/24 Procedure/Surgery: Surgeon Role Service Natalie Otero MD Primary Urology Procedure: ROBOTIC LAPAROSCOPIC RETROPUBIC RADICAL PROSTATECTOMY W/ NERVE SPARING Laterality Anesthesia Op Region N/A General Prostate Diagnosis: prostate cancer Primary Surgeon: MD Otero Robert There were no vitals taken for this visit. Pain Assessment: Are you currently having pain? No 0 on a scale of 0 to 10 Surgical Guide Book Status: Patient given book today. Dialysis Guide Book Status: N/A Allergies Reviewed: Yes Medications Reviewed: Yes Is patient currently on oral steroids?: No Has the patient had a UTI in the past month?: No. Does the patient have any artificial joints (last 2 years), metal parts, pacemakers or cardiac/ureteral stents in place?: No Does the patient have diabetes?: Yes Is the patient routinely taking anticoagulants?: No. Can the patient have an IV put in either arm?: Yes Urine Dip Complete?: Yes URINE CULTURE COMPLETE?: Yes Ostomy/Stoma Nurse appointment made/completed: N/A [facility]/Medical Clearance: Cleared per [facility] - To be seen [facility]: Cleared per [facility] - N/A All testing on cureform has been scheduled: Yes Consent Signed: Consent not in Epic. DOS Orders Placed and Signed: Yes. Pre-op HANDP Done by [facility]: To be done by [facility]. PATIENT INSTRUCTIONS FOR SURGERY 1.) DO NOT HAVE ANYTHING TO EAT AFTER MIDNIGHT THE DAY BEFORE SURGERY except for certain morning medications as instructed by the doctor. Candy, mints, gum, and smoking are NOT permitted. You may drink clear liquids (Sprite, water, spencer james) up to two hours before your arrival time on the day of surgery. 2.) Medications to be taken on the morning of surgery with a few sips of water: per [facility] 3.) Please bring all your prescribed inhalers (if you have any you normally take) to the hospital. 4.) Arrival time: Call for arrival. 5.) Prep given: No 6.) Lovenox instructions given: N/A 7.) Patient reminded that surgery time provided day before surgery is tentative based on potential changes with transplants. Recommendations: This patient is optimally prepared for surgery pending [facility], LABS, EKG, and MRI . Miguel Angel Cooper APRN.BUDGET MANAGER Electronically signed [facility] 04-20-2024 Note Patient Outreach (UR OLMN) REBECA WAGNER SR. ([id number]) 1960 M Date Time Provider Department 04/20/24 MIGUEL ANGEL COOPER During your visit today, we recorded the following information about you: Allergies As of Date: 04/20/2024 Noted Allergy Reaction CIPROFLOXACIN 06/07/2013 7 - Swelling 16 - Unknown Date Reviewed: 04/20/2024 Reviewed by: Whitney Brody RN - Fully Assessed Visit Diagnosis:Screening for genitourinary condition [Z13.89] Order(s):URINALYSIS, REFLEX MICROSCOPIC [OGJ3829] Order #: [id number]. #:[id number] Prescriptions as of 04/23/2024 - busPIRone HCl 30 mg tablet Take 30 mg by mouth two times a day. - allopurinol (ZYLOPRIM) 300 mg tablet Take 1 tablet by mouth every afternoon. - ALPRAZolam (XANAX) 0.5 mg tablet TAKE 1 TABLET BY MOUTH 3 TIMES A DAY NEEDED FOR ANXIETY FOR 7 DAYS *TAKE DISCUSSED IN OFFICE. - FLUoxetine (PROZAC) 60 mg tablet Take 60 mg by mouth once daily. - glimepiride (AMARYL) 4 mg tablet TAKE 1 TABLET BY MOUTH IN THE MORNING WITH BREAKFAST OR FIRST MAIN MEAL OF THE DAY - FREESTYLE LANCETS 28 gauge once daily. - metFORMIN ER (FORTAMET) 1,000 mg 24 hr tablet TAKE 1 TABLET BY MOUTH IN THE EVENING WITH MEALS, DO NOT CRUSH, CHEW, OR SPLIT - rosuvastatin (CRESTOR) 5 mg tablet Take 1 tablet by mouth once daily. Problem List As Of Date 04/20/2024 Noted Resolved Prostate cancer (HCC) [C61] 02/13/2024 Mixed hyperlipidemia [E78.2] 08/01/2018 Obsessive-compulsive disorder [F42.9] 08/16/2021 Parkinson's disease (HCC) [G20.A1] 04/09/2023 Type 2 diabetes mellitus without complication (*07/27/2022 History of cervical spinal arthrodesis [Z98.1] 04/20/2024 Generalized anxiety disorder [F41.1] 08/14/2021 Diverticulitis [K57.92] 05/24/2020 Encounter Status:Closed by SYLVAIN ETIENNEUSERosemarie on 04/23/24 [facility] 04-19-2024 Telephone encounter Note Spoke to Mr. Wagner. Clarified all questions regarding preop appt tomorrow and MRI prostate. He will do the fleet enema before he leaves his house as he is an hour away, and eat light and drink plenty of fluids because the enema will be done about 6 hours prior to the MRI. All questions answered at this time. Pt verbalized understanding. Lizbeth Ceja RN, BSN Triage Nurse Department of Urology [facility] 04-19-2024 Miscellaneous Notes Spoke to Mr. Wagner. Clarified all questions regarding preop appt tomorrow and MRI prostate. He will do the fleet enema before he leaves his house as he is an hour away, and eat light and drink plenty of fluids because the enema will be done about 6 hours prior to the MRI. All questions answered at this time. Pt verbalized understanding. Lizbeth Ceja RN, BSN Triage Nurse Department of Urology [facility] documented in this encounter [facility] 02-13-2024 History of Present illness Narrative Images from the original note were not included. [facility] NEW PATIENT HISTORY AND PHYSICAL EXAM PATIENT INFO: Rebeca Wagner Sr. REFERRING M.D.: Mario Rodriguez MD PCP: No primary care provider on file. Consultation requested by Mario Rodriguez MD and my final recommendations will be communicated back to the requesting physician by way of shared medical record or letter via US mail. CHIEF COMPLAINT: Prostate Cancer HPI This is a 63 year old male here for evaluation for prostate cancer. Referral from Mario Rodriguez MD. PSA was elevated to 4.5. He then had TRUS and prostate biopsy. Prostate was ~40g on US. Pathology demonstrated 6 cores of Gl 3+4=7 prostate cancer. He has not had MRI of the prostate. Patient can get erections but has premature ejaculation. Has not had sexual activity for many years. Sexual function after surgery is not the most important thing to him. No major urinary issues. Wakes up 1-2x per night to void. Recent A1C is 7.3. Patient would feel more anxiety with radiation and leaving the prostate in the body. PMH: DM, HLD, gout, anxiety, OCD PSH: no abdominal surgeries, neck surgery with metal Family History: No PATHOLOGY: LABS: No results found for: CREAT No results found for: PSA URINALYSIS: No results found for: PH , SPGR , UGLUC , UBILI , UKET , UHB , UPROT , UROBIL , NITRITES , UWBC , SSA IMAGING: US Prostate: IMPRESSION: Mildly enlarged prostate gland ALLERGIES: ALLERGIES Not on File MEDICATIONS: No current outpatient medications on file. No current facility-administered medications for this visit. HISTORIES No past medical history on file. No past surgical history on file. No family history on file. REVIEW OF SYSTEMS CONSTITUTIONAL: no recent illnesses, normal energy levels, no pain EYES: no recent visual changes, no acute loss of vision, no bleeding EARS/NOSE/THROAT: no bleeding, no discharge, no difficulty swallowing CARDIOVASCULAR: no dependent edema, no chest pain, no blue or cold limbs RESPIRATORY: no wheeze, no orthopnea, no dyspnea at rest, no dyspnea on exertion GASTROINTESTINAL: no constipation, no diarrhea, no bloody stool GENITOURINARY: see history of present illness MUSCULOSKELETAL: no joint swelling, no joint pain, no loss of mobility NEUROLOGIC: no stroke symptoms, no loss of function, no loss of sensation PSYCHIATRIC: no feelings of depression, no feelings of anxiety, normal mood SKIN: no persistent rashes, no predisposition to infection, no poor wound healing HEMATOLOGIC: no easy bruising, no easy bleeding, no clotting predisposition PHYSICAL EXAMINATION VITALS: There were no vitals taken for this visit. GENERAL: alert, no distress, normal affect EYES: no icterus, no discharge, conjugate gaze CARDIOVASCULAR: deferred RESPIRATORY: Breathing comfortably on room air ABDOMEN: soft, non-tender, non-distended GENITOURINARY: no flank tenderness EXTREMITIES: warm, no dependent edema, no malformations SKIN: no abnormal bruising, no rashes, no cyanosis NEUROLOGIC: normal gait, good manual dexterity, no paralysis PROBLEMS: 1. Prostate cancer (HCC) - ICD9: 185, ICD10: C61 IMPRESSION: This is a 63 year old male with 6 out of 20 cores of Suzie 3+4=7 prostate cancer diagnosed with elevated PSA. PLAN: 1) Discussion had with patient about his PSA and biopsy results. He is favorable intermediate risk group. Discussed options for treatment including surgery and radiation. Will plan on getting MRI before surgery. Patient would like to proceed with Robotic prostatectomy with pre-ops including, PACC, pre-op teaching, labs, EKG, MRI prostate at [facility] or [facility]. Surgery scheduled for 04/26/24. His main priorities are cancer control and urinary incontinence. Erections have some importance but other factors are greatly more important. Would plan to save nerves but take great care in staying away from left side of prostate. Scribe Attestation: By signing my name below, I, Phillip Jaimes, attest that this documentation has been prepared under the direction and in the presence of Dr. Natalie Otero MD. Electronically signed: Andrei Piedra, February 13, 2024 11:32 AM INatalie MD, personally performed the services described in this documentation. All medical record entries made by the scribe were at my direction and in my presence. I have reviewed the chart and discharge instructions (if applicable) and agree that the record reflects my personal performance and is accurate and complete. Natalie Otero MD documented in this encounter [facility] 02-13-2024 Note HNO ID: [id number] Author: NATALIE OTERO MD Service: ? Author Type: Physician Type: Progress Notes Filed: 03/29/2024 14:05 Note Text: [facility] NEW PATIENT HISTORY AND PHYSICAL EXAM PATIENT INFO: Rebeca Wagner Sr. REFERRING M.D.: Mario Rodriguez MD PCP: No primary care provider on file. Consultation requested by Mario Rodriguez MD and my final recommendations will be communicated back to the requesting physician by way of shared medical record or letter via US mail. CHIEF COMPLAINT: Prostate Cancer HPI This is a 63 year old male here for evaluation for prostate cancer. Referral from Mario Rodriguez MD. PSA was elevated to 4.5. He then had TRUS and prostate biopsy. Prostate was ~40g on US. Pathology demonstrated 6 cores of Gl 3+4=7 prostate cancer. He has not had MRI of the prostate. Patient can get erections but has premature ejaculation. Has not had sexual activity for many years. Sexual function after surgery is not the most important thing to him. No major urinary issues. Wakes up 1-2x per night to void. Recent A1C is 7.3. Patient would feel more anxiety with radiation and leaving the prostate in the body. PMH: DM, HLD, gout, anxiety, OCD PSH: no abdominal surgeries, neck surgery with metal Family History: No PATHOLOGY: LABS: No results found for: CREAT No results found for: PSA URINALYSIS: No results found for: PH , SPGR , UGLUC , UBILI , UKET , UHB , UPROT , UROBIL , NITRITES , UWBC , SSA IMAGING: US Prostate: IMPRESSION: Mildly enlarged prostate gland ALLERGIES: ALLERGIES Not on File MEDICATIONS: No current outpatient medications on file. No current facility-administered medications for this visit. HISTORIES No past medical history on file. No past surgical history on file. No family history on file. REVIEW OF SYSTEMS CONSTITUTIONAL: no recent illnesses, normal energy levels, no pain EYES: no recent visual changes, no acute loss of vision, no bleeding EARS/NOSE/THROAT: no bleeding, no discharge, no difficulty swallowing CARDIOVASCULAR: no dependent edema, no chest pain, no blue or cold limbs RESPIRATORY: no wheeze, no orthopnea, no dyspnea at rest, no dyspnea on exertion GASTROINTESTINAL: no constipation, no diarrhea, no bloody stool GENITOURINARY: see history of present illness MUSCULOSKELETAL: no joint swelling, no joint pain, no loss of mobility NEUROLOGIC: no stroke symptoms, no loss of function, no loss of sensation PSYCHIATRIC: no feelings of depression, no feelings of anxiety, normal mood SKIN: no persistent rashes, no predisposition to infection, no poor wound healing HEMATOLOGIC: no easy bruising, no easy bleeding, no clotting predisposition PHYSICAL EXAMINATION VITALS: There were no vitals taken for this visit. GENERAL: alert, no distress, normal affect EYES: no icterus, no discharge, conjugate gaze CARDIOVASCULAR: deferred RESPIRATORY: Breathing comfortably on room air ABDOMEN: soft, non-tender, non-distended GENITOURINARY: no flank tenderness EXTREMITIES: warm, no dependent edema, no malformations SKIN: no abnormal bruising, no rashes, no cyanosis NEUROLOGIC: normal gait, good manual dexterity, no paralysis PROBLEMS: 1. Prostate cancer (HCC) - ICD9: 185, ICD10: C61 IMPRESSION: This is a 63 year old male with 6 out of 20 cores of Suzie 3+4=7 prostate cancer diagnosed with elevated PSA. PLAN: 1) Discussion had with patient about his PSA and biopsy results. He is favorable intermediate risk group. Discussed options for treatment including surgery and radiation. Will plan on getting MRI before surgery. Patient would like to proceed with Robotic prostatectomy with pre-ops including, PACC, pre-op teaching, labs, EKG, MRI prostate at [facility] or [facility]. Surgery scheduled for 04/26/24. His main priorities are cancer control and urinary incontinence. Erections have some importance but other factors are greatly more important. Would plan to save nerves but take great care in staying away from left side of prostate. Scribe Attestation: By signing my name below, I, Phillip Jaimes, attest that this documentation has been prepared under the direction and in the presence of Dr. Natalie Otero MD. Electronically signed: Andrei Piedra, February 13, 2024 11:32 AM Natalie Bolaños MD, personally performed the services described in this documentation. All medical record entries made by the scribe were at my direction and in my presence. I have reviewed the chart and discharge instructions (if applicable) and agree that the record reflects my personal performance and is accurate and complete. Natalie Otero MD [facility] 02-13-2024 Note Patient Outreach (UR OLMN) REBECA WAGNER SR. ([id number]) 1960 M Date Time Provider Department 02/13/24 NATALIE OTERO During your visit today, we recorded the following information about you: Allergies As of Date: 02/13/2024 Noted Allergy Reaction CIPROFLOXACIN 06/07/2013 7 - Swelling 16 - Unknown Date Reviewed: 02/13/2024 Reviewed by: Angelo Guevara MA - Fully Assessed Visit Diagnosis:Screening for genitourinary condition [Z13.89] Order(s):URINALYSIS, REFLEX MICROSCOPIC [[id number]] Order #: [id number]. #:[id number] Prescriptions as of 02/16/2024 - allopurinol (ZYLOPRIM) 300 mg tablet Take 1 tablet by mouth every afternoon. - ALPRAZolam (XANAX) 0.5 mg tablet TAKE 1 TABLET BY MOUTH 3 TIMES A DAY NEEDED FOR ANXIETY FOR 7 DAYS *TAKE DISCUSSED IN OFFICE. - atorvastatin calcium (ATORVASTATIN ORAL) Atorvastatin Calcium Active - FLUoxetine HCl 20 mg tablet Take 40 mg by mouth. - glimepiride (AMARYL) 4 mg tablet TAKE 1 TABLET BY MOUTH IN THE MORNING WITH BREAKFAST OR FIRST MAIN MEAL OF THE DAY - ibuprofen-famotidine 800-26.6 mg tab q 8 HR. - FREESTYLE LANCETS 28 gauge once daily. - metFORMIN ER (FORTAMET) 1,000 mg 24 hr tablet TAKE 1 TABLET BY MOUTH IN THE EVENING WITH MEALS, DO NOT CRUSH, CHEW, OR SPLIT - Phentermine HCl 37.5 mg tablet TAKE 1 TABLET (37.5 MG) BY MOUTH IN THE MORNING. TAKE BEFORE MEALS. - rOPINIRole (REQUIP) 1 mg tablet Take 1 mg by mouth. - rosuvastatin (CRESTOR) 5 mg tablet Take 1 tablet by mouth once daily. Problem List As Of Date 02/13/2024 Noted Resolved Prostate cancer (HCC) [C61] 02/13/2024 Encounter Status:Closed by NELSON ETIENNER on 02/16/24 [facility] 01-23-2024 Hospital Discharge instructions Patient Education 01/23/2024 11:10:14 Prostate Cancer Prostate Cancer The prostate is a small gland that produces fluid that makes up semen (seminal fluid). It is located below the bladder in men, in front of the rectum. Prostate cancer is the abnormal growth of cells in the prostate gland. What are the causes? The exact cause of this condition is not known. What increases the risk? You are more likely to develop this condition if: You are 65 years of age or older. You have a family history of prostate cancer. You have a family history of breast and ovarian cancer. You have genes that are passed from parent to child (inherited), such as BRCA1 and BRCA2. You have Arroyo syndrome. men and men of descent are diagnosed with prostate cancer at higher rates than other men. The reasons for this are not well understood and are likely due to a combination of genetic and environmental factors. What are the signs or symptoms? Symptoms of this condition include: Problems with urination. This may include: ?A weak or interrupted flow of urine. ?Trouble starting or stopping urination. ?Trouble emptying the bladder all the way. ?The need to urinate more often, especially at night. Blood in urine or semen. Persistent pain or discomfort in the lower back, lower abdomen, or hips. Trouble getting an erection. Weakness or numbness in the legs or feet. How is this diagnosed? This condition can be diagnosed with: A digital rectal exam. For this exam, a health care provider inserts a gloved finger into the rectum to feel the prostate gland. A blood test called a prostate-specific antigen (PSA) test. A procedure in which a sample of tissue is taken from the prostate and checked under a microscope (prostate biopsy). An imaging test called transrectal ultrasonography. Once the condition is diagnosed, tests will be done to determine how far the cancer has spread. This is called staging the cancer. Staging may involve imaging tests, such as a bone scan, CT scan, PET scan, or MRI. Stages of prostate cancer The stages of prostate cancer are as follows: Stage 1 (I). At this stage, the cancer is found in the prostate only. The cancer is not visible on imaging tests, and it is usually found by accident, such as during prostate surgery. Stage 2 (II). At this stage, the cancer is more advanced than it is in stage 1, but the cancer has not spread outside the prostate. Stage 3 (III). At this stage, the cancer has spread beyond the outer layer of the prostate to nearby tissues. The cancer may be found in the seminal vesicles, which are near the bladder and the prostate. Stage 4 (IV). At this stage, the cancer has spread to other parts of the body, such as the lymph nodes, bones, bladder, rectum, liver, or lungs. Prostate cancer grading Prostate cancer is also graded according to how the cancer cells look under a microscope. This is called the Pierson score and the total score can range from 6 10, indicating how likely it is that the cancer will spread (metastasize) to other parts of the body. The higher the score, the greater the likelihood that the cancer will spread. Pierson 6 or lower: This indicates that the cancer cells look similar to normal prostate cells (well differentiated). Pierson 7: This indicates that the cancer cells look somewhat similar to normal prostate cells (moderately differentiated). Suzie 8, 9, or 10: This indicates that the cancer cells look very different than normal prostate cells (poorly differentiated). How is this treated? Treatment for this condition depends on several factors, including the stage of the cancer, your age, personal preferences, and your overall health. Talk with your health care provider about treatment options that are recommended for you. Common treatments include: Observation for early stage prostate cancer (active surveillance). This involves having exams, blood tests, and in some cases, more biopsies. For some men, this is the only treatment needed. Surgery. Types of surgeries include: ?Open surgery (radical prostatectomy). In this surgery, a larger incision is made to remove the prostate. ?A laparoscopic radical prostatectomy. This is a surgery to remove the prostate and lymph nodes through several small incisions. It is often referred to as a minimally invasive surgery. ?A robotic radical prostatectomy. This is laparoscopic surgery to remove the prostate and lymph nodes with the help of robotic arms that are controlled by the surgeon. ?Cryoablation. This is surgery to freeze and destroy cancer cells. Radiation treatment. Types of radiation treatment include: ?External beam radiation. This type aims beams of radiation from outside the body at the prostate to destroy cancerous cells. ?Brachytherapy. This type uses radioactive needles, seeds, wires, or tubes that are implanted into the prostate gland. Like external beam radiation, brachytherapy destroys cancerous cells. An advantage is that this type of radiation limits the damage to surrounding tissue and has fewer side effects. Chemotherapy. This treatment kills cancer cells or stops them from multiplying. It kills both cancer cells and normal cells. Targeted therapy. This treatment uses medicines to kill cancer cells without damaging normal cells. Hormone treatment. This treatment involves taking medicines that act on testosterone, one of the male hormones, by: ?Stopping your body from producing testosterone. ?Blocking testosterone from reaching cancer cells. Follow these instructions at home: Lifestyle Do not use any products that contain nicotine or tobacco. These products include cigarettes, chewing tobacco, and vaping devices, such as e-cigarettes. If you need help quitting, ask your health care provider. Eat a healthy diet. To do this: ?Eat foods that are high in fiber. These include beans, whole grains, and fresh fruits and vegetables. ?Limit foods that are high in fat and sugar. These include fried or sweet foods. Treatment for prostate cancer may affect sexual function. If you have a partner, continue to have intimate moments. This may include touching, holding, hugging, and caressing your partner. Get plenty of sleep. Consider joining a support group for men who have prostate cancer. Meeting with a support group may help you learn to manage the stress of having cancer. General instructions Take ppyg-bsq-vxynpsq and prescription medicines only as told by your health care provider. If you have to go to the hospital, notify your cancer specialist (oncologist). Keep all follow-up visits. This is important. Where to find more information [employer]: www.cancer.org [employer] [place] Society of Clinical Oncology: www.cancer.net National [employer] Hope: www.cancer.gov Contact a health care provider if: You have new or increasing trouble urinating. You have new or increasing blood in your urine. You have new or increasing pain in your hips, back, or chest. Get help right away if: You have weakness or numbness in your legs. You cannot control urination or your bowel movements (incontinence). You have chills or a fever. Summary The prostate is a small gland that is involved in the production of semen. It is located below a man's bladder, in front of the rectum. Prostate cancer is the abnormal growth of cells in the prostate gland. Treatment for this condition depends on the stage of the cancer, your age, personal preferences, and your overall health. Talk with your health care provider about treatment options that are recommended for you. Consider joining a support group for men who have prostate cancer. Meeting with a support group may help you learn to manage the stress of having cancer. This information is not intended to replace advice given to you by your health care provider. Make sure you discuss any questions you have with your health care provider. Document Revised: 01/09/2022 Document Reviewed: 01/09/2022 Elsevier Patient Education 2022 [employer]. Follow Up Care 12/01/2023 10:15:17 With:JENNIFER HURTADO, Mario Houston, URL Address: [address] [place], [place] [id number]- When: Unknown [facility] 01-15-2024 Hospital Discharge instructions Patient Education 01/15/2024 16:12:33 Post Op Patient Instructions - FT (Custom) (CUSTOM) 01/15/2024 15:23:12 EU - Transrectal Ultrasound of the Prostate with US guided biopsy Discharge Instructions (CUSTOM) Transrectal Ultrasound of the Prostate with US guided biopsy Even though there are no visible incisions, multiple prostate biopsies have been taken through the rectum and you need to follow some instructions to minimize the risks of bleeding. You may see some blood in your urine and stool for up to 1 week (and blood in the semen for several months) Diet -You may resume your normal diet, but you may want to avoid alcohol, carbonated drinks, caffeine, and spicy foods, which may increase the irritation from the surgery. -Drink plenty of water to keep the urine clear. Activity -You should limit any physical activity for about 48 hours -No heavy lifting or straining (10 pound limit) -No driving a car and limit long car rides for 2 days -No strenuous exercise -No sexual intercourse until this is discussed with your doctor Bowels -Try to keep your bowel movements soft to minimize straining to have a bowel movement. -You may use a stool softener or over the counter laxative if needed -Difficult bowel movement may lead to straining and bleeding from the prostate Medications -You may resume your home medications unless instructed otherwise -Hold aspirin, ibuprofen, Coumadin (warfarin) and other blood thinners for about two days or until there is no active bleeding unless otherwise instructed -Finish the antibiotic which you have already started Things to watch for which would require an Emergency Room visit or call 911: (this is not a complete list) -Persistent or heavy bleeding or blood clots from the rectum or in the urine -Inability to urinate -Fever over 101.5 degrees Fahrenheit, with or without chills -Severe drug reactions with itching, hives or rash -Tenderness or swelling of the calves, chest pain, or shortness of breath Please call the office to arrange for your post-operative appointment in 1-2 weeks [phone] or [phone] Follow Up Care 01/08/2024 13:44:28 With:Mario RODRIGUEZ Address: [facility] [address], [facility] [place] [address]- [facility] (1) When: Unknown Comments:Keep scheduled appointment [facility] 01-15-2024 Evaluation + Plan note Extrac hilary from: Title:ANES Post-operative Note - General Author: Brian Ochoa Jr., DO Date:01/15/24 Plan Transfer/Discharge: Transfer/Discharge Discharge when meets criteria ( From PACU to Ambulatory Surgery Unit, and To home ). Extracted from: Title:Jacob Basic PRE Author:Jacob Stuart siology ()Néstor Date:01/15/24 Plan [employer] [place] Society of Anesthesiologists (ASA) physical status classification: Class III. Anesthetic Preoperative Plan: Anesthesia General. Future Appointments Appointment Date:01/23/2024 09:45:00 AM Scheduled Provider:Mario RODRIGUEZ MD Location:[facility] Appointment Type:URO Office Visit [facility]03-18-2024 Note [id number] Discharge instructions Patient Education 12/01/2023 10:01:42 Prostate Cancer Screening Prostate Cancer Screening Prostate cancer screening is testing that is done to check for the presence of prostate cancer in men. The prostate gland is a walnut-sized gland that is located below the bladder and in front of therectum in males. The function of the prostate is to add fluid to semen during ejaculation. Prostatecancer is one of the most common types of cancer in men. Who should have prostate cancer screening? Screening recommendations vary based on age and other risk factors, as well as between the professional organizations who make the recommendations. In general, screening is recommended if: You are age 50 to 70 and have an average risk for prostate cancer. You should talk with your healthcare provider about your need for screening and [...] diagnosed with prostate cancer. The risk is higherif your family member's cancer occurred at an early age or if you have multiple family members withprostate cancer at an early age. ?Being a [...] is a blood test called the prostate-specific antigen(PSA) test. PSA is a protein that is [...] treatment? Where to find more information The [employer] Cancer Society: www.cancer.org [employer] Association: www.auanet.org Contact a health care [...] the recommended screening test for prostate cancer, butit has associated risks. Discuss the risks and [...] provider. Document Revised: 04/08/2022 Document Reviewed: 04/08/2022 [employer] Patient Education 2022 [employer] Follow Up Care 11/03/2023 11:23:14 With:JENNIFER HURTADO, Mario Houston, URL Address: [facility] [address] , [place] [address] [phone] When: Unknown Comments:sched repeat TRUS/bx [facility] 01-08-2024 Hospital Discharge instructions Patient Education 11/03/2023 11:15:20 [...] discomfort near your rectum, especially while sitting. [place]-colored urine due to small amounts of blood in your urine. A burning feeling while urinating. Blood in your stool (feces) or bleeding from your rectum. Blood in your semen. Follow these instructions at home: Medicines Take iksz-dws-xwbwkmm and prescription medicines only as told by your health care provider. If you were given a sedative during your procedure, it can affect you for several hours. Do not drive or operate machinery until your health care provider says that it is safe. If you were prescribed an antibiotic medicine, take it as told by your health care provider. Do notstop using the antibiotic even if you start [...] pain and discomfort around your rectum, especially whilesitting. You may have blood in your urine [...] provider. Document Revised: 04/08/2022 Document Reviewed: 04/08/2022 [employer] Patient Education 2022 Gather. 11/03/2023 11:15:19 Transrectal Ultrasound-Guided Prostate Biopsy Transrectal Ultrasound-Guided Prostate Biopsy A transrectal ultrasound-guided prostate biopsy is a procedure to remove samples of prostate tissuefor testing. The prostate is a walnut-sized gland that is located below the bladder and in front ofthe rectum. During this procedure, a small device (probe) is lubricated and put inside the rectum. The probe sends out sound waves that make a picture of the prostate and surrounding tissues (transrectal ultrasound). The images are used to help guide the process of removing the samples. The samplesare taken to a lab to be checked [...] including vitamins, herbs, eye drops, creams, and gmgn-kjv-knvxvgs medicines. Any problems you or family members [...] provider tells you to take them. Taking xhcx-ugb-idvwlec medicines, vitamins, herbs, and supplements. General instructions [...] blood oxygen level will be monitored until youleave the hospital or clinic. You may have [...] hospital or clinic, and follow up with yourhealth care provider for your results. This information is not intended to replace advice given to you by your health care provider. Make sure you discuss any questions you have with your health care provider. Document Revised: 04/08/2022 Document Reviewed: 04/08/2022 [employer] Patient Education 2022 [employer]ather. Follow Up Care 09/15/2023 14:29:12 With:JENNIFER HURTADO, Mario Houston, URL Address: [facility] [address] , [place] [address] [phone] When: Unknown Comments:sched TRUS/bx [facility] 08-07-2022 Evaluation note* Encounter Date Diagnosis Assessment Notes Treatment Notes Treatment Clinical Notes May, Cough, unspecified type (ICD-10 - R05.9) May, COVID-19 (ICD-10 - U07.1) Discharge Instructions for COVID-19 (Suspected or Confirmed ) material was printed Drink plenty fluids, get plenty of rest. Take Tylenol or Motrin for aches pains or fevers. You must quarantine for 5 days after your COVID diagnosis. Follow-up with your family physician for any further concern [facility] Other 03-04-2022 Evaluation note* Encounter Date Diagnosis [...] to only the absolute essential needed assessments. [facility] Other Evaluation + Plan note Future Appointments Appointment Date:12/01/2023 08:45:00 AM Scheduled Provider:Mario RODRIGUEZ MD Location:[facility] Appointment Type:URO Office Visit [facility] evaluation + Plan note Future Appointments Appointment Date:01/23/2024 09:45:00 AM Scheduled Provider:Mario RODRIGUEZ MD Location:[facility] Appointment Type:URO Office Visit [facility] evaluation noteNo assessment information available [facility] Work Phone: Evaluation note* Diagnosis Malignant neoplasm of prostate (HCC)- Primary Malignant neoplasm of prostate Malignant neoplasm of prostate (HCC) Malignant neoplasm of prostate [facility] Diagnosis Screening for genitourinary condition Screening for other and unspecified genitourinary condition Malignant neoplasm of prostate (HCC) Malignant neoplasm of prostate [facility] Diagnosis Prostate cancer (HCC)- Primary Malignant neoplasm of prostate Malignant neoplasm of prostate (HCC) Malignant neoplasm of prostate [facility] Diagnosis Pre-op exam- Primary Preoperative examination, unspecified Malignant neoplasm of prostate (HCC) Malignant neoplasm of prostate [facility] Diagnosis Pre-operative examination- Primary Preoperative examination, unspecified Parkinson's disease without dyskinesia, unspecified whether manifestations fluctuate (HCC) Mixed hyperlipidemia Type 2 diabetes mellitus without complication, without long-term current use of insulin (HCC) Generalized anxiety disorder Malignant neoplasm of prostate (HCC) Malignant neoplasm of prostate * Assessment & Plan Note - Samm Melgoza APRN.CNP - 04/20/2024 3:33 PM EDT Associated Problem(s): Generalized anxiety disorder Anxiety & OCD. Stable on Fluoxetine 60 mg daily and Buspirone 30 mg BID. Patient is prescribed Xanax as needed. * Assessment & Plan Note - Samm Melgoza APRN.CNP - 04/20/2024 3:25 PM EDT Associated Problem(s): Type 2 diabetes mellitus without complication (HCC) Stable on Glimepiride 4 mg and Metformin 1000 mg daily. PLAN: HgbA1C ordered. * Assessment & Plan Note - Samm Melgoza APRN.CNP - 04/20/2024 3:24 PM EDT Associated Problem(s): Mixed hyperlipidemia Stable on Rosuvastatin 5 mg daily. * Assessment & Plan Note - Samm Melgoza APRN.CNP - 04/20/2024 3:24 PM EDT Associated Problem(s): Parkinson's disease (HCC) Patient states he was diagnosed with Parkinson's by an outside provider. Was previously on Ropinirole but it was discontinued, no current medications. [facility] Diagnosis Malignant neoplasm of prostate (HCC) Malignant neoplasm of prostate Malignant neoplasm of prostate (HCC) Malignant neoplasm of prostate [facility] Diagnosis Screening for genitourinary condition Screening for other and unspecified genitourinary condition Malignant neoplasm of prostate (HCC) Malignant [facility] Pro[facility] cancer (HCC)- Primary Malignant neoplasm of prostate [facility] Prostate cancer (HCC)- Primary Malignant neoplasm of prostate [facility] Pre-operative examination- Primary Preoperative examination, unspecified Parkinson's disease without dyskinesia, unspecified whether manifestations fluctuate (HCC) Mixed hyperlipidemia Type 2 diabetes mellitus without complication, without long-term current use of insulin (HCC) Generalized anxiety disorder Prostate cancer (HCC)- Primary Malignant neoplasm of prostate [facility] Diagnosis Neck mass- Primary Swelling, mass, or lump in head and neck Thyroid nodule (CMS/HCC) Nontoxic uninodular goiter [facility] Diagnosis Type 2 diabetes mellitus without complication, without long-term current use of insulin (CMS/HCC) Mixed hyperlipidemia (CMS/HCC) Mixed hyperlipidemia [facility] Diagnosis Neck mass- Primary Swelling, mass, or lump in head and neck Thyroid nodule (CMS/HCC) Nontoxic uninodular goiter [facility] Diagnosis Type 2 diabetes mellitus without complication, without long-term current use of insulin (CMS/HCC)- Primary Major depressive disorder with current active episode, unspecified depression episode severity, unspecified whether recurrent (CMS/HCC) Obsessive-compulsive disorder, unspecified type (CMS/HCC) Generalized anxiety disorder (CMS/HCC) Generalized anxiety disorder Mixed hyperlipidemia (CMS/HCC) Mixed hyperlipidemia Gastroesophageal reflux disease without esophagitis Esophageal reflux Idiopathic chronic gout of multiple sites without tophus Parkinson's disease without dyskinesia, with fluctuating manifestations (CMS/[facility]) [G20.A2] [facility] Diagnosis Type 2 diabetes mellitus without complication, without long-term current use of insulin (CMS/HCC)- Primary Type 2 diabetes mellitus with other specified complication (CMS/HCC) Male erectile dysfunction, unspecified Idiopathic chronic gout of multiple sites without tophus Major depressive disorder with current active episode, unspecified depression episode severity, unspecified whether recurrent (CMS/HCC) Obsessive-compulsive disorder, unspecified type (CMS/HCC) Generalized anxiety disorder (CMS/HCC) Generalized anxiety disorder Mixed hyperlipidemia (CMS/HCC) Mixed hyperlipidemia [facility]* Diagnosis Idiopathic chronic gout of multiple sites without tophus Type 2 diabetes mellitus without complication, without long-term current use of insulin [facility]* Diagnosis Type 2 diabetes mellitus without complication, without long-term current use of insulin- Primary Mixed hyperlipidemia (CMS/HCC) Mixed hyperlipidemia Idiopathic chronic gout of multiple sites without tophus Trigger middle finger of left hand [facility] N[facility] - Reported* Type Description Date Medical History Gout Medical History vitamin D deficiency Medical History disgestive tract sto pped working and changed diet better now Medical History Diabetes Medical History hypeelipidemia Medical History OCD Surgical History colonoscopy 2012 Surgical History neck surgery x 2 2005/2010 Hospitalization History see above surgical histo ry [facility] Other History general Narrative - Reported* Type Description Date Medical History Gout Medical History vitamin D deficiency Medical History disgestive tract sto pped working and changed diet better now Medical History Diabetes Medical History hypeelipidemia Medical History OCD Medical History anxiety Surgical History colonoscopy 2012 Surgical History neck surgery x 2 Hospitalization History see above surgical histo ry [facility] Other Hospital course Narrative No data available for this section [facility] progress note No data available for this section [facility] Summary Purpose Family History No Family History Records Found No data available for this section No data available for this section No data available for this section No [...] g25.1 g21.19 g 20 Chief Complaint Unknown Reason for Referral Specialty Diagnoses / Procedures Referred By Karen Referred To Contact MR IMAGING Diagnoses Malignant neoplasm of prostate (HCC) Procedures MRI 3D POST PROCESSING 3D RENDERING W/INTERP&POSTPROC DIFF WORK STATION Natalie Otero MD [address] [place] [address] Mr Imaging [place] [address] Referral ID Status Reason Start Date Expiration Date Visits Requested Visits Authorized [id number] Pending Review Auto-Generat ed Referral 02/13/2024 03/14/2025 1 1 Specialty Diagnoses / Procedures [facility] Referred To Contact MR IMAGING Diagnoses Malignant neoplasm of prostate (HCC) Procedures MRI PROSTATE WO/W IVCON MRI PELVIS W/O & W/CONTRAST MATERIAL Natalie Otero MD [address] [place] [address] Mr Imaging [place] [address] Referral ID Status Reason Start Date Expiration Date Visits Requested Visits Authorized [id number] Pending Review Auto-Generat ed Referral 02/13/2024 03/14/2025 1 1 Specialty Diagnoses / Procedures [facility] Referred To Contact Diagnoses Malignant neoplasm of prostate (HCC) Procedures REFER TO PACC - PRE ANESTHESIA CONSULTATION CLINIC OFFICE/OUTPATIENT NEW HIGH MDM 60 MINUTES Natalie Otero MD [address] [place] [id number] Referral ID Status Reason Start Date Expiration Date Visits Requested Visits Authorized [id number] Authorized PCP Requested Referral 02/13/2024 02/12/2025 1 1 Specialty Diagnoses / Procedures Referred By Contac t Referred To Contact [facility] Diagnoses Malignant neoplasm of prostate (HCC) Procedures ECG COMPLETE ECG ROUTINE ECG W/LEAST 12 LDS W/I&R Natalie Otero MD [address] [place] [address] [facility] [place] [address] Referral ID Status Reason Start Date Expiration Date Visits Requested Visits Authorized [id number] Pending Review Auto-Generat ed Referral 02/13/2024 02/12/2025 1 1 Additional Source Comments REASON FOR VISIT (unrecogniz ed section and content) Reason Comments New Patient Prostate Cancer Specialty Diagnoses / Procedures Referred By Contac t Referred To Contact Urology / UROLOGY Diagnoses Prostate cancer (HCC) Prosate Cancer Procedures OFFICE/OUTPATIENT NEW MODERATE MDM 45 MINUTES NEW UROL Self Natalie Otero MD [address] [place] [address] Referral ID Status Reason Start Date Expiration Date Visits Re quested Visits Authorized [id number] Closed 02/13/2024 10/26/2024 1 1 Reason Comments Returning Patient's Call Reason Comments Pre-Op Exam Specialty Diagnoses / Procedures Referred By Contac t Referred To Contact Urology / UROLOGY Diagnoses Malignant neoplasm of prostate (HCC) pre-op teaching, Procedures OFFICE/OUTPATIENT ESTABLISHED MOD MDM 30 MIN PRE OP Self Miguel Angel Cooper APRN.JENNIFER [address] [place] [id number] Referral ID Status Reason Start Date Expiration Date Visits Re quested Visits Authorized [id number] Closed 04/20/2024 10/26/2024 1 1 Reason Comments Pre-Op Visit Reason Comments Radiology MRI Specialty Diagnoses / Procedures Referred By Contac t Referred To Contact Radiology / RADIO MRI MAIN Q Diagnoses Malignant neoplasm of prostate MRI PROSTATE Procedures MRI PELVIS W/O & W/CONTRAST MATERIAL 3D RENDERING W/INTERP&POSTPROC DIFF WORK STATION MRI WWO PROSTATE 440 Natalie Otero MD [address] [place] [phone] [employer] [address] [place] [address] Referral ID Status Reason Start Date Expiration Date Visits Re quested Visits Authorized [id number] Closed 04/20/2024 07/18/2024 1 1 Reason Comments Post-Op Visit Specialty Diagnoses / Procedures Referred By Karen naylor Referred To Contact Urology / UROLOGY Diagnoses History of cervical spinal arthrodesis post op per MW Procedures PHYS/QHP TELEPHONE EVALUATION 5-10 MIN VIDEO SPEC EST Self Janki Johnson MD [address] [place] [address] Referral ID Status Reason Start Date Expiration Date Visits Re quested Visits Authorized [id number] Closed 05/07/2024 10/26/2024 1 1 Specialty Diagnoses / Procedures Referred By Karen naylor Referred To Contact Urology / UROLOGY Diagnoses Pre-op exam 4 week fu to go over psa results Procedures PHYS/QHP TELEPHONE EVALUATION 5-10 MIN VIDEO SPEC EST Self Janki Johnson MD [address] [place] [address] Referral ID Status Reason Start Date Expiration Date Visits Re quested Visits Authorized [id number] Closed 06/11/2024 10/26/2024 1 1 Reason Comments Prostate Cancer Specialty Diagnoses / Procedures Referred By Karen naylor Referred To Contact Urology / UROLOGY Diagnoses Prostate cancer (HCC) Follow-up examination 3 months prostate cancer per staff msg Procedures PHYS/QHP TELEPHONE EVALUATION 5-10 MIN VIDEO SPEC EST Natalie Otero MD [address] [place] [address] Natalie Otero MD [address] [place] [address] Referral ID Status Reason Start Date Expiration Date Visits Re quested Visits Authorized [id number] Closed 09/22/2024 10/26/2024 1 1 Reason Comments Thyroid Nodule 6 month US Reason Onset Date Comments Medication Question 07/12/2024 Reason Comments Neck Mass CT results Reason Onset Date Comments Med Refill 02/09/2025 (unrecognized sect ion and content) No Status Records FoundNo Status Records FoundNo Status Records FoundNo Status Records FoundNo Status Records Found INFORMATION SOURCE (unrecogn ized section and content) DATE CREATED AUTHOR 02/16/2023 [facility] DATE CREATED AUTHOR AUTHOR'S ORGANIZ ATION 01/20/2024 [facility] DATE CREATED AUTHOR AUTHOR'S ORGANIZ ATION 09/25/2024 [facility] DATE CREATED AUTHOR AUTHOR'S ORGANIZ ATION 03/11/2025 [facility] dical Specialists [facility] DATE CREATED AUTHOR AUTHOR'S ORGANIZ ATION 07/01/2025 [facility] Care Teams (unrecognized sec tion and content) Team Status: Active Member Role Status Dates Sebastian Estrella MD Primary Care Provider Active Team Status: Inactive Member Role Status Dates Dante Rangel MD Attending Provider Active Sebastian Estrella MD Primary Care Provider Active Team Status: Inactive Member Role Status Dates Sebastian Estrella MD Primary Care Provider Active S tart: November 20, 2023 End: November 20, 2023 Mario Rodriguez MD Attending Provider Active St art: November 20, 2023 End: November 20, 2023 Asbestos Shingle Inspector Relationship Specialty Start Date End Date Sebastian Estrella MD [address] [place] [address] PCP - General Family Medicine 04/16/23 Carolina Peter NP [address] [place] [address] Nurse Practitioner Family Medicine 03/09/24 Alea Soares SIZE CUTTER [address] [place] [phone] Nurse Practitioner Family Medicine 03/09/24 Asbestos Shingle Inspector Relationship Specialty Start Date End Date Sebastian Estrella MD [address] [place] [address] PCP - General Family Medicine 04/16/23 Carolina Peter, SIZE CUTTER [address] [place] [address] Nurse Practitioner Family Medicine 03/09/24 Alea Soares NP [address] [place] [phone] Nurse Practitioner Family Medicine 03/09/24 Asbestos Shingle Inspector Relationship Specialty Start Date End Date Sebastian Estrella MD [address] [place] [address] PCP - General Family Medicine 04/16/23 Carolina Peter SIZE CUTTER [address] [place] [address] Nurse Practitioner Family Medicine 03/09/24 Alea Soares NP [address] [place] [phone] Nurse Practitioner Family Medicine 03/09/24 Asbestos Shingle Inspector Relationship Specialty Start Date End Date Sebastian Estrella MD [address] [place] [address] PCP - General Family Medicine 04/16/23 Carolina Peter, SIZE CUTTER [address] [place] [phone] Nurse Practitioner Family Medicine 03/09/24 Alea Soares NP [address] [place] [phone] Nurse Practitioner Family Medicine 03/09/24 Asbestos Shingle Inspector Relationship Specialty Start Date End Date Sebastian Estrella MD [address] [place] [address] PCP - General Family Medicine 04/16/23 Carolina Peter NP [address] [place] [phone] Nurse Practitioner Family Medicine 03/09/24 Alea Soares NP [address] [place] [phone] Nurse Practitioner Family Medicine 03/09/24 Asbestos Shingle Inspector Relationship Specialty Start Date End Date Sebastian Estrella MD [address] [place] [phone] PCP - General Family Medicine 04/16/23 Carolina Peter NP [address] [place] [phone] Nurse Practitioner Family Medicine 03/09/24 Alea Soares NP [address] [place] [phone] Nurse Practitioner Family Medicine 03/09/24 Asbestos Shingle Inspector Relationship Specialty Start Date End Date Sebastian Estrella MD [address] [place], [place] [id number] PCP - General Family Medicine 04/16/23 Carolina Peter NP [address] [place] [address] Nurse Practitioner Family Medicine 03/09/24 Alea Soares NP [address] [place] [address] Nurse Practitioner Family Medicine 03/09/24 Asbestos Shingle Inspector Relationship Specialty Start Date End Date Sebastian Estrella MD [address] [place], [place] [phone] PCP - General Family Medicine 04/16/23 Carolina Peter NP [address] [place] [phone] Nurse Practitioner Family Medicine 03/09/24 Alea Soares NP [address] [place] [address] Nurse Practitioner Family Medicine 03/09/24 Asbestos Shingle Inspector Relationship Specialty Start Date End Date Sebastian Estrella MD [address] [place] [address] PCP - General Family Medicine 04/16/23 Alea Soares NP [address] [place] [address] Nurse Practitioner Family Medicine 03/09/24 Asbestos Shingle Inspector Relationship Specialty Start Date End Date Sebastian Estrella MD [address] [place] [address] PCP - General Family Medicine 04/16/23 Alea Soares NP [address] [place] [address] Nurse Practitioner Family Medicine 03/09/24 Goals (unrecognized section and content) Goals may be documented in a n alternate section Source Comments (unrecognize d section and content) In the event this informatio n is protected by the Federal Confidentiality of Alcohol and Drug Abuse Patient Records regulations: The Federal rules restrict any use of the information to criminally investigate or prosecute any alcohol or drug abuse patient.[facility] event this information is protected by the Federal Confidentiality of Alcohol and Drug Abuse Patient Records regulations: The Federal rules restrict any use of the information to criminally investigate or prosecute any alcohol or drug abuse patient.[facility] the event this information is protected by the Federal Confidentiality of Alcohol and Drug Abuse Patient Records regulations: The Federal rules restrict any use of the information to criminally investigate or prosecute any alcohol or drug abuse patient.[facility] the event this information is protected by the Federal Confidentiality of Alcohol and Drug Abuse Patient Records regulations: The Federal rules restrict any use of the information to criminally investigate or prosecute any alcohol or drug abuse patient.[facility] the event this information is protected by the Federal Confidentiality of Alcohol and Drug Abuse Patient Records regulations: The Federal rules restrict any use of the information to criminally investigate or prosecute any alcohol or drug abuse patient.[facility] the event this information is protected by the Federal Confidentiality of Alcohol and Drug Abuse Patient Records regulations: The Federal rules restrict any use of the information to criminally investigate or prosecute any alcohol or drug abuse patient.[facility] the event this information is protected by the Federal Confidentiality of Alcohol and Drug Abuse Patient Records regulations: The Federal rules restrict any use of the information to criminally investigate or prosecute any alcohol or drug abuse patient.[facility] the event this information is protected by the Federal Confidentiality of Alcohol and Drug Abuse Patient Records regulations: The Federal rules restrict any use of the information to criminally investigate or prosecute any alcohol or drug abuse patient.[facility] the event this information is protected by the Federal Confidentiality of Alcohol and Drug Abuse Patient Records regulations: The Federal rules restrict any use of the information to criminally investigate or prosecute any alcohol or drug abuse patient.[facility] the event this information is protected by the Federal Confidentiality of Alcohol and Drug Abuse Patient Records regulations: The Federal rules restrict any use of the information to criminally investigate or prosecute any alcohol or drug abuse patient.[facility] FOR RECORDS PERTAINING TO PATIENTS WHO ARE [...] BE BASED ON THE PRIMARY CLINICAL RECORDS. [employer] [facility] provides no warranty or guarantee of the accuracy or completeness of information in this document.
[2025-07-11 10:32] LABS: Alanine Aminotransferase 31 U/L (16-63); Albumin Globulin Ratio 1.1; Albumin Level 3.8 g/dL (3.4-5.0); Alkaline Phosphatase 94 U/L (46-116); Anion Gap 11.7; Aspartate Amino Transferase 14 U/L (15-37); Blood Urea Nitrogen 14.0 mg/dL (7.0-18.0); Calcium 8.8 mg/dL (8.5-10.1); Carbon Dioxide 28.3 mmol/L (21.0-32.0); Chloride 102 mmol/L (98-107); Cholesterol 134 mg/dL (<=200); Estimated GFR (African America >60 (>=60 mL/min/1.73m^2); Estimated GFR (Non-African Ame >60 (>=60 mL/min/1.73m^2); Globulin 3.4 g/dL; Glucose 144 mg/dL (74-106); HDL Cholesterol 50 mg/dL (40-60); Potassium 4.0 mmol/L (3.5-5.1); Sodium 138 mmol/L (136-145); Total Protein 7.2 g/dL (6.4-8.2); Triglycerides 133 mg/dL (<=150); VLDL CHOLESTEROL 26.6 mg/dL
== END 2025-07-11 09:42 | disposition home or self-care (01) ==
LOC: LAB 09:42
PROVIDERS: PCP Family Medicine; Visit Provider Student in an Organized Health Care Education/Training Program
DX: E11.9 Type 2 diabetes mellitus without complications (principal); E78.2 Mixed hyperlipidemia
CPT/HCPCS: 36415; 80053; 80061

== ENCOUNTER 2025-10-10 12:31 | Outpatient (OUT) | payer OTHER, SELFPAY ==
[2025-10-10 13:13] LABS: Hematocrit 44.8 % (42.0-54.0); Hemoglobin 15.2 g/dL (14.0-18.0); Immature Granulocytes Abs Auto 0.04 10^3/uL (0.00-0.03); Immature Granulocytes Pct Auto 0.5 % (0.0-0.5); Lymphocytes Absolute Auto 1.4 10^3/uL (1.2-3.8); Mean Corpuscular HGB Conc 33.9 g/dL (29.9-35.2); Mean Corpuscular Hemoglobin 28.3 pg (25.9-34.0); Mean Corpuscular Volume 83.3 fL (80.0-94.0); Platelet Count 251 10^3/uL (150-450); Red Blood Count 5.38 10^6/uL (4.70-6.10); White Blood Count 8.3 10^3/uL (4.0-11.0)
[2025-10-10 13:35] LABS: Magnesium 1.9 mg/dL (1.8-2.4); Uric Acid 3.9 mg/dL (3.5-7.2)
== END 2025-10-10 12:32 | disposition home or self-care (01) ==
LOC: LAB 12:34
PROVIDERS: PCP Family Medicine; Visit Provider Family Medicine
DX: E79.0 Hyperuricemia without signs of inflammatory arthritis and tophaceous disease (principal); E55.9 Vitamin D deficiency, unspecified; Z12.5 Encounter for screening for malignant neoplasm of prostate
CPT/HCPCS: 36415; 82306; 83735; 84550; 85025; G0103